=== PATIENT | female | born 1950 | race Caucasian/White ===

== ENCOUNTER → 2017-10-21 11:56 | Outpatient (CLI) | payer MEDICARE, BC, SELFPAY ==
[2017-10-21 12:40] LABS: INR 2.1 (1.0-3.5); Prothrombin Time 19.7 sec (9.3-10.8)
== END ==
PROVIDERS: PCP Family Medicine; Visit Provider Family Medicine
DX: I48.91 Unspecified atrial fibrillation (principal); Z79.01 Long term (current) use of anticoagulants
CPT/HCPCS: 36415; 85610

== ENCOUNTER 2017-12-08 10:43 | Outpatient (CLI) | payer MEDICARE, BC, SELFPAY ==
[2017-12-08 12:56] LABS: Hemoglobin A1C 6.9 % (4.5-6.2)
[2017-12-08 13:07] LABS: INR 2.9 (1.0-3.5)
== END 2017-12-08 11:03 ==
PROVIDERS: PCP Family Medicine; Visit Provider Family Medicine
DX: E11.9 Type 2 diabetes mellitus without complications (principal); I48.91 Unspecified atrial fibrillation; Z79.01 Long term (current) use of anticoagulants
CPT/HCPCS: 36415; 83036; 85610

== ENCOUNTER 2018-02-04 14:14 | Emergency (ER) | payer MEDICARE, BC, SELFPAY ==
[2018-02-04] VITALS (24 sets, daily range): BP systolic 127–161; BP diastolic 43–96; PULSE 55–106; RESP 15–24; TEMP 36.7–36.8; O2SAT 92–100
--- NOTE | 2018-02-04 14:49 | DI.RAD_ITS ---
SYMPTOMS/DIAGNOSIS: COUGH, SHORTNESS OF BREATH, CRACKLES CHEST X-RAY, PA AND LATERAL: Comparison is 04/10/17. The heart is normal in size. The lungs are clear. The mediastinal structures and pleura appear intact. IMPRESSION: Normal chest.
--- NOTE | 2018-02-04 15:10 | NUR.NOTE ---
Assumed care of patient, in NAD, VSS on the monitor. Bedside report received from FANNY German.
[2018-02-04 15:28] LABS: Abs Immature Grans 0.01 k/cumm (0.0-0.09); Absolute Basophil Count 0.09 k/cumm (0.0-0.2); Absolute Eosinophil Count 0.28 k/cumm (0.0-0.7); Absolute Lymphocyte Count 1.26 k/cumm (1.2-3.4); Absolute Monocyte Count 0.85 k/cumm (0.11-0.7); Absolute Neutrophil Count 3.87 k/cumm (1.2-6.7); Basophils % 1.4; Eosinophils % 4.4; HGB 13.7 g/dL (12.0-15.5); Immature Grans % 0.2; Lymphocytes % 19.8; Mean Corp. HGB Concentration 31.1 g/dL (32.0-36.0); Mean Corpuscular Hemoglobin 27.4 pg (27.0-33.0); Mean Platelet Volume 11.2 fL (8.0-11.0); Monocytes % 13.4; Neutrophils % 60.8; Platelet Count 267 x1000/uL (130-400); RBC Distribution Width 14.3 % (11.7-14.6); White Blood Cell Count 6.36 k/cumm (4.4-10.8)
[2018-02-04 15:46] LABS: ALT 25 U/L (12-78); AST 12 U/L (15-37); Albumin 3.6 g/dL (3.4-5.0); Alkaline Phosphatase 58 U/L (46-116); Anion Gap 9.3 mmol/L (3-11); BUN 18 mg/dL (7-18); Bilirubin, Total 0.7 mg/dL (0.2-1.0); CO2 30.7 mmol/L (21.0-32.0); CREATININE 0.84 mg/dL (0.55-1.02); Calcium 8.4 mg/dL (8.5-10.1); Chloride 102 mmol/L (98-107); Glucose 128 mg/dL (70-100); Potassium 3.8 mmol/L (3.5-5.1); Sodium 142 mmol/L (136-145); TSH 2.32 uIU/mL (0.358-3.74); Total Protein 7.8 g/dL (6.4-8.2); Troponin I 0.02 ng/mL (0.00-0.06)
--- NOTE | 2018-02-04 15:52 | NUR.NOTE ---
pt. ambulated with contact guard in the hallway, steady gait, maintained 02 sat 95-96% on RA, pt. denies current back pain, states it's worse when she moves her shoulders up and down, when I'm shoveling maybe. Minimal insp. wheezing noted while ambulating. MD Edmondson aware.
[2018-02-04 15:59] LABS: Prothrombin Time 18.3 sec (9.3-10.8)
[2018-02-04] MEDS: Albuterol/Ipratropium 3 ML UPD VIAL UPD (15:59)
[2018-02-04] MEDS: methylPREDNISolone SUCC 125 MG VIAL IVP (16:03)
[2018-02-04 16:04] LABS: INR 1.9 (1.0-3.5)
--- NOTE | 2018-02-04 17:07 | ED.GENADUL_ITS ---
Discharge Plan Disposition Patient Disposition: HOME Condition: Good Discharge Details Chief Complaint: SOB Clinical Impression: Mild reactive airways disease Primary Care Provider: Maico Leonard ED Provider: Anthony Edmondson Home Meds and New Rx's Prescriptions: No Action acetaminophen [Tylenol Extra Strength] 500 MG tablet 2 tab PO HS PRNRF: 0 BIPAP RF: 0 albuterol sulfate [ProAir HFA] 8.5 GM HFA aerosol inhaler 2 puff Inhalation Q4H PRN Qty: 3 RF: 4 triamcinolone acetonide 60 ML lotion 60 ml Topical BID prn Qty: 60 RF: 1 simvastatin 10 MG tablet 10 mg PO HS Qty: 90 RF: 4 warfarin 5 MG tablet 1 - 3 tab-cap PO HS Qty: 90 RF: 11 bupropion HCl [Wellbutrin SR] 150 MG tablet extended release 12 hr 150 mg PO BID Qty: 180 RF: 4 tolterodine [Detrol LA] 4 MG capsule,extended release 24hr 1 tab PO DAILY Qty: 90 RF: 4 glipizide [Glucotrol XL] 2.5 MG tablet extended release 24hr 2.5 mg PO QAM Qty: 90 RF: 4 paroxetine HCl [Paxil] 20 MG tablet 20 mg PO DAILY Qty: 90 RF: 4 Metoprolol Succinate 25 MG TAB.ER.24H 25 - 50 mg PO DAILY Qty: 100 RF: 4 ciprofloxacin-dexamethasone [Ciprodex] 7.5 ML drops,suspension 3 drp BID PRN Qty: 1 RF: 2 losartan 100 MG tablet 100 mg PO DAILY Qty: 90 RF: 3 aspirin 81 MG tablet,chewable 81 mg PO DAILY Qty: 90 RF: 0 magnesium amino acid chelate 100 MG tablet 500 mg PO DAILY RF: 0 blood sugar diagnostic [Blood Glucose Test] 1 EACH strip 1 strip Miscellaneous DAILY Qty: 100 RF: 4 lancets 1 EACH misc 1 ea Miscellaneous DAILY Qty: 100 RF: 4 nystatin 15 GM cream 15 gm Topical BID Qty: 3 RF: 0 esomeprazole magnesium [Nexium] 40 mg capsule,delayed release(DR/EC) 40 mg PO DAILY Qty: 90 RF: 4 Discharge Instructions Instructions: Reactive Airways Disease (ED) Additional Instructions: Please take your inhaler every 4-6 hours for the next 48 hours. We will hold off on additional steroids since your diabetic. Please continue to take your home medications as directed. If you notice any worsening of your symptoms, or any new symptoms such as vomiting, diarrhea, fever, chills, shortness of breath, chest pain, numbness, weakness, or fainting , please return immediately to the emergency department for reevaluation. Please follow up with your primary care provider as soon as possible for reassessment and reevaluation. As always, it was a pleasure participating in your medical care today. Referrals: Maico Leonard [Primary Care Provider] - Medical Decision Making This is a 67-year-old female who presents today for evaluation of mild shortness of breath. Patient symptoms have been present for the last 3 days, she denies any significant or severe cough. She does state that she has a slight decrease in a regular energy, but denies any other complaints. She is on Coumadin for atrial fibrillation. Physical exam demonstrated no significant abnormalities with stable vital signs, however when we did get the patient up to ambulate her we did notice a very small wheeze. In spite of this we did ambulate her and her saturations remained above 96% with no evidence of tachycardia whatsoever. We did give the patient a breathing treatment and she noted a significant improvement of her symptomatology. Additionally we gave her 1 dose of steroids here in the emergency department for potential mild reactive airway disease. Patient's laboratory workup returned benign, troponin normal, E KG benign with a right bundle branch block that is consistent with prior EKGs. Chest x-ray is negative for any acute process. Troponin is normal, d-dimer is negative, and with no vital sign abnormalities or other significant risk factors for PE I feel that this can safely rule out a pulmonary embolism at this time. After the breathing treatment the patient felt much better and on reassessment s he was requesting to be discharged home. I do feel that this is very reasonable, I do not think that admission is indicated at this time. I feel her symptoms most likely secondary to mild reactive airway disease, and we will recommend continued albuterol use every 4 to 6 hours for the next 48 hours. We will hold off on additional outpatient steroid secondary to the patient's history of diabetes. I had a long discussion with the patient regarding red flags for which to immediately return and the patient understands. I have extensively reviewed the treatment plan and discharge instructions with the patient and their family. I have addressed all patient concerns at this time. The patient and family was made aware of what symptoms to monitor for that would warrant a return to the emergency department. Discussed the plan with the patient and family, they demonstrate verbal understanding and agreement with our assessment and plan at this time. EKG 14: 20 Rate 67, sinus rhythm, right bundle branch block, MN 132, QTc 437, QRS 162. No significant ST elevations or depressions, inverted T wave in V1 V2 and V3, no acute changes from prior EKG on 04/10/17. CHEST X-RAY, PA AND LATERAL: Comparison is 04/10/17. The heart is normal in size. The lungs are clear. The mediastinal structures and pleura appear intact. IMPRESSION: Normal chest. HPI General Date/Time Provider Initiated Documentation: 02/04/18 14:36 . HPI Narrative: This is a 67-year-old female with a past medical history of hypertension, high cholesterol, A. fib on Coumadin, who uses BiPAP at home, as well as reactive airway disease who presents today for evaluation of mild shortness of breath, and decreased energy. She is more short of breath when she exerts herself, however she denies any associated chest pain, pleuritic chest pain, tearing sensation in her back or chest, Cough, hemoptysis, fever or chills. She denies any radiation of pain to her arm or neck. She does have some mild associated back pain, which she states started after she chopped a lot of wood yesterday. She denies any radiation of that back pain to her chest. She states that it feels like it is in the muscles, and worsened with use of her back. Patient has taken a breathing treatment at home and has noted some improvement with this. The patient denies any cardiac history, family history of cardiac disease, or exertional chest discomfort. Denies PE risk factors such as recent long car rides, immobilization, recent surgery, prior history of DVT or PE, family history of PE or DVT, morbid obesity, exogenous estrogen and smoking, hemoptysis, history of cancer. Patient has no other complaints at this time. Related Data Home Medications Medication Instructions Recorded Confirmed acetaminophen [Tylenol Extra 2 tab PO HS PRN 06/11/12 12/08/17 Strength] Bipap 01/23/15 12/08/17 albuterol sulfate [ProAir HFA] 2 puff INHALATION Q4H PRN #3 01/23/15 12/08/17 inhaler triamcinolone acetonide 60 ml TOPICAL BID prn #60 ml 05/26/15 12/08/17 simvastatin 10 mg PO HS #90 tab-cap 03/10/17 12/08/17 warfarin 1 - 3 tab-cap PO HS #90 tab-cap 03/10/17 12/08/17 bupropion HCl [Wellbutrin SR] 150 mg PO BID #180 tab 03/13/17 12/08/17 glipizide [Glucotrol XL] 2.5 mg PO QAM #90 tab-cap 03/13/17 12/08/17 paroxetine HCl [Paxil] 20 mg PO DAILY #90 tab 03/13/17 12/08/17 tolterodine [Detrol LA] 1 tab PO DAILY #90 tab 03/13/17 12/08/17 ciprofloxacin-dexamethasone 3 drp BID PRN #1 bottle 04/17/17 12/08/17 [Ciprodex] losartan 100 mg PO DAILY #90 tab-cap 04/17/17 12/08/17 aspirin 81 mg PO DAILY #90 tab-cap 05/06/17 12/08/17 magnesium amino acid chelate 500 mg PO DAILY 05/08/17 12/08/17 blood sugar diagnostic [Glucose #100 strip 06/09/17 12/08/17 Test Strip] lancets #100 ea 06/09/17 12/08/17 nystatin 15 gm TOPICAL BID #3 bottle 08/05/17 12/08/17 esomeprazole magnesium 40 mg 40 mg PO DAILY #90 tab-cap 11/26/17 12/08/17 capsule,delayed release Previous Rx's Medication Instructions Recorded simvastatin 10 mg PO HS #90 tab-cap 03/10/17 warfarin 1 - 3 tab-cap PO HS #90 tab-cap 03/10/17 bupropion HCl [Wellbutrin SR] 150 mg PO BID #180 tab 03/13/17 glipizide [Glucotrol XL] 2.5 mg PO QAM #90 tab-cap 03/13/17 paroxetine HCl [Paxil] 20 mg PO DAILY #90 tab 03/13/17 tolterodine [Detrol LA] 1 tab PO DAILY #90 tab 03/13/17 ciprofloxacin-dexamethasone 3 drp BID PRN #1 bottle 04/17/17 [Ciprodex] losartan 100 mg PO DAILY #90 tab-cap 04/17/17 aspirin 81 mg PO DAILY #90 tab-cap 05/06/17 blood sugar diagnostic [Glucose #100 strip 06/09/17 Test Strip] lancets #100 ea 06/09/17 nystatin 15 gm TOPICAL BID #3 bottle 08/05/17 esomeprazole magnesium 40 mg 40 mg PO DAILY #90 tab-cap 11/26/17 capsule,delayed release Allergies Allergy/AdvReac Type Severity Reaction Status Date / Time cefuroxime Allergy Severe HIVES Unverified 02/04/18 14:26 latex Allergy Severe RASH Unverified 02/04/18 14:26 Penicillins Allergy Severe SEVERE Unverified 02/04/18 14:26 HIVES Sulfa (Sulfonamide Allergy Severe SEVERE Unverified 02/04/18 14:26 Antibiotics) HIVES ciprofloxacin Allergy Mild TOPICAL Unverified 02/04/18 14:26 IRRITATION adhesive AdvReac Intermediate SKIN Unverified 02/04/18 14:26 COMES OFF caffeine AdvReac Intermediate CHEST PAIN Unverified 02/04/18 14:26 lisinopril AdvReac Mild COUGH Unverified 02/04/18 14:26 metformin AdvReac Mild diarrhea Unverified 02/04/18 14:26 General Stated Complaint: SOB KOTA: 2 Review of Systems Review of Systems All systems reviewed & are unremarkable except as noted in HPI and below PFSH Atrial flutter DM (diabetes mellitus) GERD (gastroesophageal reflux disease) 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 Grandfather No problems noted. Grandmother Personal history of malignant neoplasm Grandmother No problems noted. Sister Essential hypertension Chronic obstructive lung disease Asthma Brother Heart disease Hyperlipidemia Stroke Brother Human immunodeficiency virus (HIV) positive Daughter No problems noted. Social History household members: spouse current occupational status: retired Smoking/Tobacco Use Status: Former Tobacco Use alcohol intake: never substance use type: does not use special tata needs: No Exam Narrative Exam Narrative: 1.Const: Well-nourished, Well-developed, appearing stated age 2.Eyes: PERRL, no conjunctival injection, and symmetrical lids. 3.ENT: Atraumatic external nose and ears. Moist MM. Neck: Symmetric, trachea midline, No thyromegaly. 4.CVS: +S1/S2, No murmurs or gallops. Peripheral pulses 2+ and equal in all extremities. Brisk capillary refill in all extremities. 5.RESP: Unlabored respiratory effort. Clear to auscultation bilaterally. No wheezes rales or rhonchi on initial exam however when we did get the patient up and ambulated her she did demonstrate a very mild wheeze, this was very minimal at best. 6.GI: Soft, Nontender/Nondistended, No hepatosplenomegaly. No guarding or rebound. 7.MSK: Normocephalic/Atraumatic, Extremities w/o deformity or ttp No cyanosis or clubbing, Normal movement of all extremities. No calf tenderness. Negative Homans sign. 8.Skin: Warm, Dry. No rashes or lesions. 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 Sensation grossly intact, no focal neurolog ic deficits. 10.Psych: (AAO) x3. Appropriate mood and affect Course Vital Signs Temperature 36.8 C 02/04/18 14:20 Pulse 70 02/04/18 14:20 Respiratory Rate 16 02/04/18 14:20 Blood Pressure 153/65 H 02/04/18 14:20 Pulse Oximetry 95 02/04/18 14:20 Temperature 36.7 C 02/04/18 14:40 Temperature Source Temporal Artery Scan 02/04/18 14:40 Pulse 65 02/04/18 14:40 Respiratory Rate 16 02/04/18 14:43 Respiratory Effort 02/04/18 14:43 Respiratory Depth Normal 02/04/18 14:43 Respiratory Pattern Normal 02/04/18 14:43 Blood Pressure 127/96 H 02/04/18 14:40 Blood Pressure Position Sitting 02/04/18 14:20 Pulse Oximetry 95 02/04/18 14:40 Oxygen Delivery Method Room Air 02/04/18 14:40 Oxygen Flow Rate 0 02/04/18 14:40 Pain Level 0 02/04/18 14:40 Lab/Test Results Lab/Test Results: Laboratory Tests Range/Units 02/04/18 02/04/18 02/04/18 14:40 14:40 14:40 WBC (4.4-10.8) k/cumm 6.36 RBC (4.00-5.20) m/cumm 5.00 Hgb (12.0-15.5) g/dL 13.7 Hct (36.0-46.0) % 44.0 MCV (80-95) fL 88.0 MCH (27.0-33.0) pg 27.4 MCHC (32.0-36.0) g/dL 31.1 L RDW (11.7-14.6) % 14.3 Plt Count (130-400) x1000/uL 267 MPV (8.0-11.0) fL 11.2 H Immature Gran % 0.2 Neutrophils % 60.8 Lymphocytes % 19.8 Monocytes % 13.4 Eosinophils % 4.4 Basophils % 1.4 Absolute Neutrophils (1.2-6.7) k/cumm 3.87 Absolute Lymphocytes (1.2-3.4) k/cumm 1.26 Absolute Monocytes (0.11-0.7) k/cumm 0.85 H Absolute Eosinophils (0.0-0.7) k/cumm 0.28 Absolute Basophils (0.0-0.2) k/cumm 0.09 PT (9.3-10.8) sec 18.3 H INR (1.0-3.5) 1.9 APTT (21.0-31.4) sec 32.0 H Sodium (136-145) mmol/L 142 Potassium (3.5-5.1) mmol/L 3.8 Chloride (98-107) mmol/L 102 Carbon Dioxide (21.0-32.0) mmol/L 30.7 Anion Gap (3-11) mmol/L 9.3 BUN (7-18) mg/dL 18 Creatinine (0.55-1.02) mg/dL 0.84 Estimated GFR/1.73 m2 (mL/min/1.73m2) >= 60.00 Glucose (70-100) mg/dL 128 H Calcium (8.5-10.1) mg/dL 8.4 L Total Bilirubin (0.2-1.0) mg/dL 0.7 AST (15-37) U/L 12 L ALT (12-78) U/L 25 Alkaline Phosphatase (46-116) U/L 58 Troponin I (0.00-0.06) ng/mL 0.02 Total Protein (6.4-8.2) g/dL 7.8 Albumin (3.4-5.0) g/dL 3.6 TSH (0.358-3.74) uIU/mL 2.32
== END 2018-02-04 17:19 | disposition home or self-care (01) ==
PROVIDERS: Emergency Provider Student in an Organized Health Care Education/Training Program; PCP Family Medicine
DX: J45.909 Unspecified asthma, uncomplicated (principal)
CPT/HCPCS: 36415; 80053; 93005; 99285; 71046; 81003; 84443; 84484; 85025; 85610; 85730; 93010; J2930; J7620

== ENCOUNTER 2018-03-17 11:34 | Outpatient (CLI) | payer MEDICARE, BC, SELFPAY ==
[2018-03-17 12:14] LABS: INR 2.2 (0.9-1.1); Prothrombin Time 21.7 sec (9.3-11.0)
== END 2018-03-17 11:54 ==
PROVIDERS: PCP Family Medicine; Visit Provider Family Medicine
DX: I48.91 Unspecified atrial fibrillation (principal); Z79.01 Long term (current) use of anticoagulants
CPT/HCPCS: 36415; 85610

== ENCOUNTER 2018-05-13 13:50 | Outpatient (CLI) | payer MEDICARE, BC, SELFPAY ==
[2018-05-13 14:54] LABS: INR 2.4 (0.9-1.1); Prothrombin Time 24.5 sec (9.3-11.0)
== END 2018-05-13 14:10 ==
PROVIDERS: PCP Family Medicine; Visit Provider Family Medicine
DX: I48.91 Unspecified atrial fibrillation (principal); Z79.01 Long term (current) use of anticoagulants
CPT/HCPCS: 36415; 85610

== ENCOUNTER 2018-06-11 12:31 | Outpatient (CLI) | payer MEDICARE, BC, SELFPAY ==
--- NOTE | 2018-06-11 15:32 | DI.RAD_ITS ---
SYMPTOMS/DIAGNOSIS: RIGHT HIP AND LOW BACK PAIN, M25.551, PAIN IN GLUTEUS ROBBY RIGHT HIP AND PELVIS: Three views were obtained. Note is made of an apparent calcified uterine fibroid. There is narrowing of the cartilaginous joint spaces of both hips superiorly. Mild hypertrophic spurring of the acetabula noted bilaterally. CONCLUSION: Moderate DJD, both hips.
== END 2018-06-11 12:51 ==
PROVIDERS: PCP Family Medicine; Visit Provider Family Medicine
DX: M25.551 Pain in right hip (principal); M54.5 Low back pain; M16.0 Bilateral primary osteoarthritis of hip; D25.9 Leiomyoma of uterus, unspecified
CPT/HCPCS: 73502

== ENCOUNTER → 2018-06-29 10:42 | Outpatient (BNVA) | payer MEDICARE, BC, SELFPAY | PROVIDERS: PCP Family Medicine; Referring Provider Family Medicine; Visit Provider Orthopaedic Surgery | DX: M70.61 Trochanteric bursitis, right hip (principal) | CPT/HCPCS: 99213; 99214 ==

== ENCOUNTER 2018-07-03 07:50 | Emergency (ER) | payer MEDICARE, BC, SELFPAY ==
[2018-07-03 07:54] VITALS: BP 164/87; PULSE 68; RESP 20; TEMP 36.8; O2SAT 95
--- NOTE | 2018-07-03 08:03 | W.ED.GENAD ---
Discharge Plan Disposition Patient Disposition: HOME Condition: Good Discharge Details Chief Complaint: Orthopedic Clinical Impression: Right ankle sprain Primary Care Provider: Maico Leonard ED Provider: Anthony Edmondson Home Meds and New Rx's Prescriptions: No Action glipizide [Glucotrol XL] 2.5 mg tablet extended release 24hr 2.5 mg PO QAM Qty: 90 RF: 4 bupropion HCl [Wellbutrin SR] 150 mg tablet sustained-release 12 hr 150 mg PO BID Qty: 180 RF: 4 metoprolol succinate 25 mg tablet extended release 24 hr 25 mg PO DAILY Qty: 90 RF: 3 paroxetine HCl [Paxil] 20 mg tablet 20 mg PO DAILY Qty: 90 RF: 4 tolterodine [Detrol LA] 4 mg capsule,extended release 24hr 4 mg PO DAILY Qty: 90 RF: 4 warfarin 5 mg tablet 5 - 15 mg PO HS Qty: 270 RF: 3 lancets 28 gauge misc 1 ea Miscellaneous DAILY Qty: 100 RF: 4 Blood Glucose Test strip 1 strip Miscellaneous DAILY Qty: 100 RF: 4 prednisone 5 mg tablet 5 mg PO DAILY RF: 0 acetaminophen [Tylenol Extra Strength] 500 MG tablet 2 tab PO HS PRNRF: 0 BIPAP RF: 0 albuterol sulfate [ProAir HFA] 8.5 GM HFA aerosol inhaler 2 puff Inhalation Q4H PRN Qty: 3 RF: 4 triamcinolone acetonide 60 ML lotion 60 ml Topical BID prn Qty: 60 RF: 1 Ciprodex 7.5 ML drops,suspension 3 drp BID PRN Qty: 1 RF: 2 aspirin 81 MG tablet,chewable 81 mg PO DAILY Qty: 90 RF: 0 magnesium amino acid chelate 100 MG tablet 500 mg PO DAILY RF: 0 nystatin 15 GM cream 15 gm Topical BID Qty: 3 RF: 0 esomeprazole magnesium [Nexium] 40 mg capsule,delayed release(DR/EC) 40 mg PO DAILY Qty: 90 RF: 4 losartan 100 mg tablet 100 mg PO DAILY Qty: 90 RF: 3 simvastatin 10 mg tablet 10 mg PO HS Qty: 90 RF: 4 Discharge Instructions Instructions: Ankle Sprain (ED) Additional Instructions: Please continue to use ice frequently, take Tylenol, maximum of 1000 mg every 6 hours. Remain nonweightbearing for the next week until you are seen and reassessed by her primary care provider. Please use the crutches at all times. If you notice any worsening of your symptoms, or any new symptoms such as vomiting, diarrhea, fever, chills, shortness of breath, chest pain, numbness, weakness, or fainting , please return immediately to the emergency department for reevaluation. Please follow up with your primary care provider as soon as possible for reassessment and reevaluation. As always, it was a pleasure participating in your medical care today. Referrals: Maico Leonard [Primary Care Provider] - Medical Decision Making This is a pleasant 68-year-old female who presents today for evaluation of right ankle and heel pain. Patient states that for the last 3 days she has had pain in the lateral aspect of the right calcaneus. Worse when she bears weight, and with palpation. She had vigorous outdoor activity on uneven surfaces 3 days ago prior to the onset of the symptoms. She denies any specific inciting event or specific injury though. Exam demonstrates mild swelling and bruising over the lateral aspect of the foot by the calcaneus. Tenderness is only present there, no actual pain on movement of the ankle. No significant pain on the ball of the foot or the plantar aspect of the calcaneus. Signs and symptoms appear consistent for contusion, potential ligamentous injury, or atypical lateral fasciitis secondary to inflammation. There is no asymmetric warmth, the patient has no fever or tachycardia. Signs and symptoms are inconsistent with significant cellulitis. Patient is on Coumadin, no calf tenderness, I do not suspect blood clot. We will get an x-ray to rule out acute fracture. 8:35 AM Review of x-ray reveals no evidence of significant or acute fracture. X-ray results per virtual radiology are negative for any acute process. I suspect the patient's symptoms are most likely from mild ligamentous sprain, followed by contusion and subsequent irritation. Will recommend continued ice, Tylenol, and Yoandy wrap with crutches use at home. Patient already has crutches. We discussed the importance of close follow-up, as well as red flags which to return. I have extensively reviewed the treatment plan and discharge instructions with the patient. I have addressed all patient concerns at this time. The patient was made aware of what symptoms to monitor for that would warrant a return to the emergency department. Discussed the plan with the patient, they demonstrate verbal understanding and agreement with our assessment and plan at this time. TECHNIQUE: Imaging protocol: XR Right ankle. Views: 3 or more views. COMPARISON: No relevant prior studies available. FINDINGS: Bones/joints: Degenerative changes in the medial and lateral malleolus There is no evidence of acute fracture. There is no evidence of malalignment or dislocation. Soft tissues: Bimalleolar soft tissue swelling. IMPRESSION: 1. Bimalleolar soft tissue swelling. 2. There is no evidence of acute fracture. Thank you for allowing us to participate in the care of your patient. Dictated and Authenticated by: Aditya Smith MD 07/03/2018 8:46 AM Eastern Time ([place] & [place]) HPI General Date/Time Provider Initiated Documentation: 07/03/18 07:54. HPI Narrative: This is a 68-year-old female with a past medical history of hypertension, high cholesterol, A. fib on Coumadin, who uses BiPAP at home, as well as reactive airway disease, and one episode of gout in the past who presents today for evaluation of right ankle and heel pain. She states that the pain is been present for the last 3 days. She did do an excessive amount of outdoor activity on unstable ground just prior to when the symptoms began 3 days ago, but she does not recall any inciting event, twisting her ankle, or trauma. She has been on steroids for right hip bursitis for the past few days, but denies any other new medications. She denies any numbness tingling or weakness. Pain is made worse with movement or bearing weight on the foot, primarily the heel. She has not taken any NSAIDs. She denies any pain in the knee robertson or thigh. She states that this does not feel like her previous episode of gout. She has no other complaints modifying factors at this time. She denies any previous surgeries or injuries to the ankle. Related Data Home Medications Medication Instructions Recorded Confirmed acetaminophen [Tylenol Extra 2 tab PO HS PRN 06/11/12 07/03/18 Strength] Bipap 01/23/15 06/29/18 albuterol sulfate [ProAir HFA] 2 puff INHALATION Q4H PRN #3 01/23/15 07/03/18 inhaler triamcinolone acetonide 60 ml TOPICAL BID prn #60 ml 05/26/15 07/03/18 Ciprodex 3 drp BID PRN #1 bottle 04/17/17 07/03/18 aspirin 81 mg PO DAILY #90 tab-cap 05/06/17 07/03/18 magnesium amino acid chelate 500 mg PO DAILY 05/08/17 07/03/18 nystatin 15 gm TOPICAL BID #3 bottle 08/05/17 07/03/18 esomeprazole magnesium 40 mg 40 mg PO DAILY #90 tab-cap 11/26/17 07/03/18 capsule,delayed release losartan 100 mg tablet 100 mg PO DAILY #90 tab-cap 02/24/18 07/03/18 simvastatin 10 mg tablet 10 mg PO HS #90 tab-cap 05/20/18 07/03/18 blood sugar diagnostic strips #100 each 06/11/18 06/29/18 bupropion HCl SR 150 mg tablet,12 150 mg PO BID #180 tab 06/11/18 07/03/18 hr sustained-release glipizide ER 2.5 mg tablet, 2.5 mg PO QAM #90 tab-cap 06/11/18 07/03/18 extended release 24 hr lancets 28 gauge #100 ea 06/11/18 06/29/18 metoprolol succinate ER 25 mg 25 mg PO DAILY #90 tab 06/11/18 07/03/18 tablet,extended release 24 hr paroxetine 20 mg tablet 20 mg PO DAILY #90 tab 06/11/18 07/03/18 tolterodine ER 4 mg 4 mg PO DAILY #90 tab 06/11/18 07/03/18 capsule,extended release 24 hr warfarin 5 mg tablet 5 - 15 mg PO HS #270 tab-cap 06/11/18 07/03/18 prednisone 5 mg tablet 5 mg PO DAILY 06/29/18 07/03/18 Previous Rx's Medication Instructions Recorded Ciprodex 3 drp BID PRN #1 bottle 04/17/17 aspirin 81 mg PO DAILY #90 tab-cap 05/06/17 nystatin 15 gm TOPICAL BID #3 bottle 08/05/17 esomeprazole magnesium 40 mg 40 mg PO DAILY #90 tab-cap 11/26/17 capsule,delayed release losartan 100 mg tablet 100 mg PO DAILY #90 tab-cap 02/24/18 simvastatin 10 mg tablet 10 mg PO HS #90 tab-cap 05/20/18 blood sugar diagnostic strips #100 each 06/11/18 bupropion HCl SR 150 mg tablet,12 150 mg PO BID #180 tab 06/11/18 hr sustained-release glipizide ER 2.5 mg tablet, 2.5 mg PO QAM #90 tab-cap 06/11/18 extended release 24 hr lancets 28 gauge #100 ea 06/11/18 metoprolol succinate ER 25 mg 25 mg PO DAILY #90 tab 06/11/18 tablet,extended release 24 hr paroxetine 20 mg tablet 20 mg PO DAILY #90 tab 06/11/18 tolterodine ER 4 mg 4 mg PO DAILY #90 tab 06/11/18 capsule,extended release 24 hr warfarin 5 mg tablet 5 - 15 mg PO HS #270 tab-cap 06/11/18 Allergies Allergy/AdvReac Type Severity Reaction Status Date / Time cefuroxime Allergy Severe HIVES Verified 07/03/18 07:57 latex Allergy Severe RASH Verified 07/03/18 07:57 Penicillins Allergy Severe SEVERE Verified 07/03/18 07:57 HIVES Sulfa (Sulfonamide Allergy Severe SEVERE Verified 07/03/18 07:57 Antibiotics) HIVES ciprofloxacin Allergy Mild TOPICAL Verified 07/03/18 07:57 IRRITATION adhesive AdvReac Intermediate SKIN Verified 07/03/18 07:57 COMES OFF caffeine AdvReac Intermediate CHEST PAIN Verified 07/03/18 07:57 lisinopril AdvReac Mild COUGH Verified 07/03/18 07:57 metformin AdvReac Mild diarrhea Verified 07/03/18 07:57 General Stated Complaint: Orthopedic KOTA: 3 Review of Systems Review of Systems All systems reviewed & are unremarkable except as noted in HPI and below PFSH Social History Smoking/Tobacco Use Status: Former Tobacco Use Quit Date: 05/24/98 Alcohol Intake: never Drug use: Never Substance use type: does not use Household members: spouse Housing: house Communication Needs: Hard of Hearing Pets and animals: No Sexually active: No Do you think of yourself as: lesbian/doshi/homosexual Current gender identity: female What is your relationship status?: How often do you talk on the phone with friends or family?: decline to answer How often do you get together with friends or relatives?: decline to answer How often do you attend cheondoism or pentecostal services?: decline to answer Do you belong to any clubs or organized social groups?: decline to answer Panel score (0-1 are the most socially isolated patients): 1 What type of physical activity do you participate in: none Randi/Rastafarian: None Special randi needs: No Seatbelt use: sometimes Helmet use: No Drive intox or ride w/intox pack train 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 Exam Narrative Exam Narrative: 1.Const: Well-nourished, Well-developed, appearing stated age 2.Eyes: PERRL, no conjunctival injection, and symmetrical lids. 3.ENT: Atraumatic external nose and ears. Moist MM. Neck: Symmetric, trachea midline, No thyromegaly. 4.CVS: +S1/S2, No murmurs or gallops. Peripheral pulses 2+ and equal in all extremities. Brisk capillary refill in all extremities. 5.RESP: Unlabored respiratory effort. Clear to auscultation bilaterally. No wheezes rales or rhonchi 6.GI: Soft, Nontender/Nondistended, No hepatosplenomegaly. No guarding or rebound. 7.MSK: Normocephalic/Atraumatic, Extremities w/o deformity. No cyanosis or clubbing, Normal movement of all extremities. Patient's right ankle demonstrates mild bruising and swelling inferior to the lateral malleoli, and around the lateral heel. Notable tenderness on palpation to the lateral aspect of the calcaneus. No tenderness over the lateral malleoli, or midfoot. No pain in the rest of the foot. No pain with ankle inversion or eversion. Anterior and posterior drawer are negative for laxity. No significant ligamentous laxity. Normal sensation, normal movement of toes, brisk capillary refill. Dorsalis pedis +2. 8.Skin: Warm, Dry. No rashes or lesions. Please see musculoskeletal 9.Neuro: fluid power mechanic II-XII grossly intact. Sensation grossly intact, no focal neurologic deficits. 10.Psych: (AAO) x3. Appropriate mood and affect Course Vital Signs Temperature 36.8 C 07/03/18 07:54 Pulse 68 07/03/18 07:54 Respiratory Rate 20 07/03/18 07:54 Blood Pressure 164/87 H 07/03/18 07:54 Pulse Oximetry 95 07/03/18 07:54 Temperature 36.8 C 07/03/18 07:54 Temperature Source Temporal Artery Scan 07/03/18 07:54 Pulse 68 07/03/18 07:54 Respiratory Rate 20 07/03/18 07:54 Respiratory Effort Non-Labored 07/03/18 07:54 Blood Pressure 164/87 H 07/03/18 07:54 Pulse Oximetry 95 07/03/18 07:54 Oxygen Delivery Method Room Air 07/03/18 07:54 Oxygen Flow Rate 0 07/03/18 07:54 Pain Level 10 07/03/18 07:57
[2018-07-03] MEDS: Acetaminophen 500 MG TAB (08:16)
--- NOTE | 2018-07-03 08:25 | DI.RAD_ITS ---
SYMPTOMS/DIAGNOSIS: PAIN OVER LATERAL ANKLE AND CALCANEUS RIGHT ANKLE: There is spurring from the malleoli as well as calcaneus. No fracture or ankle mortise widening is seen. No talar dome defects are identified. IMPRESSION: Degenerative changes. No acute abnormality.
--- NOTE | 2018-07-03 08:47 | DI.VRAD_ITS ---
EXAM: XR Right Ankle Complete, 3 or more Views EXAM DATE/TIME: 07/03/2018 8:03 AM CLINICAL HISTORY: 68 years old, female; Patient HX: Pain over right lateral ankle and calcaneus. TECHNIQUE: Imaging protocol: XR Right ankle. Views: 3 or more views. COMPARISON: No relevant prior studies available. FINDINGS: Bones/joints: Degenerative changes in the medial and lateral malleolus There is no evidence of acute fracture. There is no evidence of malalignment or dislocation. Soft tissues: Bimalleolar soft tissue swelling. IMPRESSION: 1. Bimalleolar soft tissue swelling. 2. There is no evidence of acute fracture. Dictated and Authenticated by: Aditya Smith MD. Ordering:BLAYNE Cruz MD
[2018-07-03 08:50] VITALS: BP 164/87; PULSE 68; RESP 20; TEMP 36.8; O2SAT 95
== END 2018-07-03 08:48 | disposition home or self-care (01) ==
PROVIDERS: Emergency Provider Student in an Organized Health Care Education/Training Program; PCP Family Medicine
DX: S93.401A Sprain of unspecified ligament of right ankle, initial encounter (principal); X50.9XXA Other and unspecified overexertion or strenuous movements or postures, initial encounter; I48.91 Unspecified atrial fibrillation; I10 Essential (primary) hypertension; E11.9 Type 2 diabetes mellitus without complications; Z79.84 Long term (current) use of oral hypoglycemic drugs; Z79.01 Long term (current) use of anticoagulants
CPT/HCPCS: 99283; 73610; 99282

== ENCOUNTER 2018-07-06 09:12 | Outpatient (CLI) | payer MEDICARE, BC, SELFPAY ==
[2018-07-06 10:16] LABS: INR 2.1 (0.9-1.1); Prothrombin Time 21.2 sec (9.3-11.0)
[2018-07-06 10:53] LABS: ESR 13 MM/HR (0-30)
[2018-07-06 11:13] LABS: C-Reactive Protein 0.28 mg/dL (0.0-0.3); Uric Acid 4.5 mg/dL (2.6-6.0)
[2018-07-08 05:15] LABS: Vitamin D 25 Total 12.3 ng/ml (30-100)
== END 2018-07-06 09:32 ==
PROVIDERS: PCP Family Medicine; Visit Provider Internal Medicine
DX: M25.50 Pain in unspecified joint (principal); R79.89 Other specified abnormal findings of blood chemistry; I10 Essential (primary) hypertension; E11.9 Type 2 diabetes mellitus without complications; Z79.84 Long term (current) use of oral hypoglycemic drugs; I48.91 Unspecified atrial fibrillation; Z79.01 Long term (current) use of anticoagulants
CPT/HCPCS: 36415; 82306; 85652; 84550; 85610; 86140

== ENCOUNTER → 2018-08-10 09:16 | Outpatient (BNVA) | payer MEDICARE, BC, SELFPAY | PROVIDERS: PCP Family Medicine; Referring Provider Family Medicine; Visit Provider Orthopaedic Surgery | DX: M70.61 Trochanteric bursitis, right hip (principal); E11.9 Type 2 diabetes mellitus without complications; Z79.84 Long term (current) use of oral hypoglycemic drugs; I10 Essential (primary) hypertension | CPT/HCPCS: 99212; 99213 ==

== ENCOUNTER 2018-09-03 15:40 | Outpatient (CLI) | payer MEDICARE, BC, SELFPAY ==
[2018-09-03 16:10] LABS: INR 3.3 (0.9-1.1); Prothrombin Time 33.6 sec (9.3-11.0)
== END 2018-09-03 16:00 ==
PROVIDERS: PCP Family Medicine; Visit Provider Family Medicine
DX: I48.91 Unspecified atrial fibrillation (principal); Z79.01 Long term (current) use of anticoagulants
CPT/HCPCS: 36415; 82306; 85610

== ENCOUNTER 2018-09-14 10:47 | Outpatient (CLI) | payer MEDICARE, BC, SELFPAY ==
[2018-09-15 10:33] LABS: Lyme Ab w Rflx to Lyme Confirm Negative
== END 2018-09-14 11:07 ==
PROVIDERS: PCP Family Medicine; Visit Provider Family Medicine
DX: W57.XXXA Bitten or stung by nonvenomous insect and other nonvenomous arthropods, initial encounter (principal); T14.8XXA Other injury of unspecified body region, initial encounter
CPT/HCPCS: 36415; 86618

== ENCOUNTER → 2018-09-21 08:41 | Outpatient (BNVA) | payer MEDICARE, BC, SELFPAY | PROVIDERS: PCP Family Medicine; Referring Provider Family Medicine; Visit Provider Orthopaedic Surgery | DX: M25.551 Pain in right hip (principal); M70.61 Trochanteric bursitis, right hip | CPT/HCPCS: 20610; 99213; J1040 ==

== ENCOUNTER 2018-09-21 09:12 | Outpatient (CLI) | payer MEDICARE, BC, SELFPAY ==
[2018-09-21 11:05] LABS: INR 2.4 (0.9-1.1)
== END 2018-09-21 09:32 ==
PROVIDERS: PCP Family Medicine; Visit Provider Family Medicine
DX: I48.91 Unspecified atrial fibrillation (principal); Z79.01 Long term (current) use of anticoagulants; M70.61 Trochanteric bursitis, right hip; M25.551 Pain in right hip
CPT/HCPCS: 20610; 36415; 99213; 85610; J1040

== ENCOUNTER 2018-10-10 12:08 | Emergency (ER) | payer MEDICARE, BC, SELFPAY ==
[2018-10-10 12:13] VITALS: TEMP 36
--- NOTE | 2018-10-10 13:06 | NUR.NOTE ---
tick removed by this nurse Nursing Note:
--- NOTE | 2018-10-10 13:33 | ED.GENADUL_ITS ---
Discharge Plan Disposition Patient Disposition: HOME Condition: Improving Discharge Details Chief Complaint: GenMedical Clinical Impression: Tick bite, Embedded tick of lower leg Primary Care Provider: Maico Leonard ED Provider: Aura Jones Home Meds and New Rx's Prescriptions: Continued glipizide [Glucotrol XL] 2.5 mg tablet extended release 24hr 2.5 mg PO QAM Qty: 90 RF: 4 bupropion HCl [Wellbutrin SR] 150 mg tablet sustained-release 12 hr 150 mg PO BID Qty: 180 RF: 4 metoprolol succinate 25 mg tablet extended release 24 hr 25 mg PO DAILY Qty: 90 RF: 3 paroxetine HCl [Paxil] 20 mg tablet 20 mg PO DAILY Qty: 90 RF: 4 tolterodine [Detrol LA] 4 mg capsule,extended release 24hr 4 mg PO DAILY Qty: 90 RF: 4 warfarin 5 mg tablet 5 - 15 mg PO HS Qty: 270 RF: 3 (DME) lancets 28 gauge misc 1 ea Miscellaneous DAILY Qty: 100 RF: 4 (DME) Blood Glucose Test strip 1 strip Miscellaneous DAILY Qty: 100 RF: 4 Ciprodex 0.3-0.1 % drops,suspension 3 drp BID PRN Qty: 1 RF: 2 acetaminophen [Tylenol Extra Strength] 500 MG tablet 2 tab PO HS PRNRF: 0 BIPAP RF: 0 albuterol sulfate [ProAir HFA] 8.5 GM HFA aerosol inhaler 2 puff Inhalation Q4H PRN Qty: 3 RF: 4 triamcinolone acetonide 60 ML lotion 60 ml Topical BID prn Qty: 60 RF: 1 aspirin 81 MG tablet,chewable 81 mg PO DAILY Qty: 90 RF: 0 magnesium amino acid chelate 100 MG tablet 500 mg PO DAILY RF: 0 nystatin 15 GM cream 15 gm Topical BID Qty: 3 RF: 0 esomeprazole magnesium [Nexium] 40 mg capsule,delayed release(DR/EC) 40 mg PO DAILY Qty: 90 RF: 4 losartan 100 mg tablet 100 mg PO DAILY Qty: 90 RF: 3 simvastatin 10 mg tablet 10 mg PO HS Qty: 90 RF: 4 cholecalciferol (vitamin D3) 50,000 unit capsule 50,000 unit PO QWEEK Qty: 12 RF: 1 Discharge Instructions Instructions: Tick Bite (ED) Additional Instructions: Wash the area with soap and water and apply topical antibiotic ointment if you develop any pain, local redness or swelling. Follow-up with your primary care doctor for reevaluation if you develop any fever, bull's-eye rash, chills or body aches. Return to the emergency department if you develop any worsening or new concerning symptoms. Discharge Data Discharge Date/Time-TO BE ENTERED AT DEPARTURE: 10/10/18 13:51 Discharge Physician: Aura Jones Medical Decision Making 68-year-old female with a history of atrial flutter, diabetes, hypertension, GERD, obstructive sleep apnea who presents for concern for embedded tick to her left leg. The tick was very tiny approximately 2 mm in size. The tick was removed fully intact by the nurse and was placed in a jar and noted to be actively moving and was eventually disposed of in the toilet. The tick was not noted to be engorged. Patient denies any fever, bull's-eye rash, joint pain or any other acute complaints. She states the tick may have been present for up to 2 days but she states it was not engorged. Discussed with patient that this does not appear consistent with concerns for Lyme disease, but she can follow-up with her primary care doctor if she develops any of the above symptoms. She was instructed on proper wound care. She is advised to return here with any concerns. Medical Records Medical records reviewed: Yes I reviewed the patient's medical records. HPI General Mode of arrival: ambulatory . Date/Time Provider Initiated Documentation: 10/10/18 12:31 . Limitations to Documentation: no limitations . Information obtained by: patient . HPI Narrative: Patient is a 68-year-old female presents with embedded tick to her left leg for possibly up to 2 days. She states she did not notice until tonight. She states she was last walking in the [place] 2 days ago. She states the tick is not engorged. She denies any fever, bull's-eye rash or any other acute complaints. She states she attempted to remove it at home but was unsuccessful. Related Data Home Medications Medication Instructions Recorded Confirmed acetaminophen [Tylenol Extra 2 tab PO HS PRN 06/11/12 10/10/18 Strength] Bipap 01/23/15 09/21/18 albuterol sulfate [ProAir HFA] 2 puff INHALATION Q4H PRN #3 01/23/15 10/10/18 inhaler triamcinolone acetonide 60 ml TOPICAL BID prn #60 ml 05/26/15 10/10/18 aspirin 81 mg PO DAILY #90 tab-cap 05/06/17 10/10/18 magnesium amino acid chelate 500 mg PO DAILY 05/08/17 10/10/18 nystatin 15 gm TOPICAL BID #3 bottle 08/05/17 10/10/18 esomeprazole magnesium 40 mg 40 mg PO DAILY #90 tab-cap 11/26/17 10/10/18 capsule,delayed release losartan 100 mg tablet 100 mg PO DAILY #90 tab-cap 02/24/18 09/21/18 simvastatin 10 mg tablet 10 mg PO HS #90 tab-cap 05/20/18 10/10/18 blood sugar diagnostic #100 each 06/11/18 09/21/18 bupropion HCl 150 mg tablet,12 hr 150 mg PO BID #180 tab 06/11/18 10/10/18 sustained-release glipizide 2.5 mg tablet, extended 2.5 mg PO QAM #90 tab-cap 06/11/18 10/10/18 release 24 hr lancets 28 gauge #100 ea 06/11/18 09/21/18 metoprolol succinate 25 mg 25 mg PO DAILY #90 tab 06/11/18 10/10/18 tablet,extended release 24 hr paroxetine HCl 20 mg tablet 20 mg PO DAILY #90 tab 06/11/18 10/10/18 tolterodine 4 mg capsule,extended 4 mg PO DAILY #90 tab 06/11/18 10/10/18 release 24 hr warfarin 5 mg tablet 5 - 15 mg PO HS #270 tab-cap 06/11/18 10/10/18 ciprofloxacin 0.3 %-dexamethasone 3 drp BID PRN #1 bottle 07/05/18 10/10/18 0.1 % ear drops,suspension cholecalciferol (vitamin D3) 50,000 unit PO QWEEK #12 cap 07/14/18 10/10/18 50,000 unit capsule Previous Rx's Medication Instructions Recorded aspirin 81 mg PO DAILY #90 tab-cap 05/06/17 nystatin 15 gm TOPICAL BID #3 bottle 08/05/17 esomeprazole magnesium 40 mg 40 mg PO DAILY #90 tab-cap 11/26/17 capsule,delayed release losartan 100 mg tablet 100 mg PO DAILY #90 tab-cap 02/24/18 simvastatin 10 mg tablet 10 mg PO HS #90 tab-cap 05/20/18 blood sugar diagnostic #100 each 06/11/18 bupropion HCl 150 mg tablet,12 hr 150 mg PO BID #180 tab 06/11/18 sustained-release glipizide 2.5 mg tablet, extended 2.5 mg PO QAM #90 tab-cap 06/11/18 release 24 hr lancets 28 gauge #100 ea 06/11/18 metoprolol succinate 25 mg 25 mg PO DAILY #90 tab 06/11/18 tablet,extended release 24 hr paroxetine HCl 20 mg tablet 20 mg PO DAILY #90 tab 06/11/18 tolterodine 4 mg capsule,extended 4 mg PO DAILY #90 tab 06/11/18 release 24 hr warfarin 5 mg tablet 5 - 15 mg PO HS #270 tab-cap 06/11/18 ciprofloxacin 0.3 %-dexamethasone 3 drp BID PRN #1 bottle 07/05/18 0.1 % ear drops,suspension cholecalciferol (vitamin D3) 50,000 unit PO QWEEK #12 cap 07/14/18 50,000 unit capsule Allergies Allergy/AdvReac Type Severity Reaction Status Date / Time cefuroxime Allergy Severe HIVES Verified 09/21/18 08:49 latex Allergy Severe RASH Verified 09/21/18 08:49 Penicillins Allergy Severe SEVERE Verified 09/21/18 08:49 HIVES Sulfa (Sulfonamide Allergy Severe SEVERE Verified 09/21/18 08:49 Antibiotics) HIVES ciprofloxacin Allergy Mild TOPICAL Verified 09/21/18 08:49 IRRITATION adhesive AdvReac Intermediate SKIN Verified 09/21/18 08:49 COMES OFF caffeine AdvReac Intermediate CHEST PAIN Verified 09/21/18 08:49 lisinopril AdvReac Mild COUGH Verified 09/21/18 08:49 metformin AdvReac Mild diarrhea Verified 09/21/18 08:49 General Stated Complaint: GenMedical KOTA: 5 Review of Systems Review of Systems All systems reviewed & are unremarkable except as noted in HPI and below Constitutional Reports as per HPI, Denies chills and Denies fever(s) Eyes Denies blurry vision ENT Denies dizziness, Denies sore throat and Denies throat swelling Cardiovascular Denies chest pain and Denies dyspnea Respiratory Denies cough and Denies dyspnea Gastrointestinal Denies abdominal pain, Denies diarrhea and Denies vomiting Genitourinary Denies hematuria and Denies dysuria Musculoskeletal Denies back pain and Denies numbness Integumentary/Breasts Denies lesions and Denies rash Neurologic Denies dizziness, Denies focal weakness and Denies numbness Allergic/Immunologic Denies throat swelling [facility] Medical History Atrial flutter DM (diabetes mellitus) GERD (gastroesophageal reflux disease) 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 Paternal Grandfather No problems noted. Maternal Grandmother Cancer of kidney Paternal Grandmother No problems noted. Sister Essential hypertension Chronic obstructive lung disease Asthma Brother Heart disease Hyperlipidemia Stroke Brother Human immunodeficiency virus (HIV) positive Social History Smoking/Tobacco Use Status: Former Tobacco Use Quit Date: 05/24/98 Alcohol Intake: never Drug use: Never Substance use type: does not use Household members: spouse Housing: house Communication Needs: Hard of Hearing Pets and animals: No Sexually active: No Do you think of yourself as: lesbian/doshi/homosexual Current gender identity: female What is your relationship status?: How often do you talk on the phone with friends or family?: decline to answer How often do you get together with friends or relatives?: decline to answer How often do you attend nondenominational or yazdanism services?: decline to answer Do you belong to any clubs or organized social groups?: decline to answer Panel score (0-1 are the most socially isolated patients): 1 What type of physical activity do you participate in: none Randi/Restorationism: None Special randi needs: No Seatbelt use: sometimes Helmet use: No Drive intox 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 Do you feel safe at home: Yes Do you feel safe in your relationship?: Yes Exam Const General: cooperative, healthy appearing and no acute distress HENMT Head: normal to inspection Mouth: oral mucosae normal Eyes General: appearance normal, both eyes and all related structures Neck Neck: normal visual inspection Resp Effort & Inspection: normal respiratory effort and able to speak in complete sentences Cardio Rate: regular rate Skin General skin exam: no rashes or lesions noted Neuro General: alert, awake and oriented x3 Motor: muscle tone normal throughout Extrem General: normal to inspection, full ROM and normal capillary refill Other: Multiple varicosities noted to bilateral lower extremities. Area of tick bite without erythema, edema, ecchymosis, embedded foreign body, lacerations or evidence of abscess. Psych Appearance: grossly normal Affect: normal affect Course Vital Signs Temperature 96.8 F L 10/10/18 12:13 Temperature 96.8 F L 10/10/18 12:13 Temperature Source Temporal Artery Scan 10/10/18 12:13 Respiratory Effort Non-Labored 10/10/18 12:22 Respiratory Depth Normal 10/10/18 12:22 Respiratory Pattern Normal 10/10/18 12:22 Oxygen Delivery Method Room Air 10/10/18 12:13 Oxygen Flow Rate 0 10/10/18 12:13
== END 2018-10-10 13:51 | disposition home or self-care (01) ==
PROVIDERS: Emergency Provider Physician Assistant; PCP Family Medicine
DX: S80.862A Insect bite (nonvenomous), left lower leg, initial encounter (principal); W57.XXXA Bitten or stung by nonvenomous insect and other nonvenomous arthropods, initial encounter; E11.9 Type 2 diabetes mellitus without complications; Z79.84 Long term (current) use of oral hypoglycemic drugs; I10 Essential (primary) hypertension
CPT/HCPCS: 99282

== ENCOUNTER 2018-10-29 14:09 | Outpatient (CLI) | payer MEDICARE, BC, SELFPAY ==
[2018-10-29 15:08] LABS: INR 2.5 (0.9-1.1)
== END 2018-10-29 14:29 ==
PROVIDERS: PCP Family Medicine; Visit Provider Family Medicine
DX: I48.91 Unspecified atrial fibrillation (principal); Z79.01 Long term (current) use of anticoagulants
CPT/HCPCS: 36415; 85610

== ENCOUNTER 2018-12-08 09:08 | Outpatient (CLI) | payer MEDICARE, BC, SELFPAY ==
[2018-12-09 13:15] LABS: Vitamin D 25 Total 26.3 ng/ml (30-100)
== END 2018-12-08 09:28 ==
PROVIDERS: PCP Family Medicine; Visit Provider Family Medicine
DX: R79.89 Other specified abnormal findings of blood chemistry (principal); E11.9 Type 2 diabetes mellitus without complications; Z79.84 Long term (current) use of oral hypoglycemic drugs
CPT/HCPCS: 36415; 82306

== ENCOUNTER 2019-01-03 10:28 | Outpatient (CLI) | payer MEDICARE, BC, SELFPAY ==
[2019-01-03 13:15] LABS: Hemoglobin A1C 7.7 % (4.5-6.2)
[2019-01-03 13:17] LABS: INR 3.4 (0.9-1.1); Prothrombin Time 33.4 sec (9.3-11.0)
[2019-01-03 13:27] LABS: ALT 28 U/L (14-59); AST 13 U/L (15-37); Albumin 3.7 g/dL (3.4-5.0); Alkaline Phosphatase 52 U/L (46-116); Anion Gap 7.5 mmol/L (3-11); BUN 18 mg/dL (7-18); Bilirubin, Total 0.7 mg/dL (0.2-1.0); CO2 30.5 mmol/L (21.0-32.0); CREATININE 0.92 mg/dL (0.55-1.02); Calcium 8.8 mg/dL (8.5-10.1); Calculated LDL 80 mg/dL; Chloride 104 mmol/L (98-107); Cholesterol 153 mg/dL (50-200); Glucose 193 mg/dL (70-100); HDL Cholesterol 38 mg/dL (40-60); Potassium 4.6 mmol/L (3.5-5.1); Sodium 142 mmol/L (136-145); Total Protein 7.3 g/dL (6.4-8.2); Triglyceride 176 mg/dL (30-150)
== END 2019-01-03 10:48 ==
PROVIDERS: PCP Family Medicine; Visit Provider Nurse Practitioner Family
DX: E11.9 Type 2 diabetes mellitus without complications (principal); I48.91 Unspecified atrial fibrillation; Z79.01 Long term (current) use of anticoagulants
CPT/HCPCS: 36415; 80053; 80061; 83036; 85610

== ENCOUNTER 2019-01-07 09:41 | Outpatient (CLI) | payer MEDICARE, BC, SELFPAY ==
--- NOTE | 2019-01-07 09:43 | DI.RAD_ITS ---
EXAM: XR CHEST 2V PA LATERAL INDICATION: Persistent cough, R05. COMPARISON: XR CHEST 2V PA LATERAL from 02/04/2018 TECHNIQUE: 2D digital imaging was performed. FINDINGS: The heart size and pulmonary vasculature are within normal limits. No focal consolidating infiltrate s, effusions or pneumothoraces are present. The lungs appear hyperinflated with flattened diaphragms . This suggests COPD. Degenerative changes are seen in the spine. IMPRESSION: COPD. No acute pulmonary process.
[2019-01-07 10:17] LABS: HCT 42.7 % (36.0-46.0); HGB 13.1 g/dL (12.0-15.5); Mean Corp. HGB Concentration 30.7 g/dL (32.0-36.0); Mean Corpuscular Hemoglobin 27.3 pg (27.0-33.0); Mean Platelet Volume 11.1 fL (8.0-11.0); Platelet Count 304 x1000/uL (130-400); RBC Distribution Width 14.2 % (11.7-14.6); White Blood Cell Count 8.18 k/cumm (4.4-10.8)
== END 2019-01-07 10:01 ==
PROVIDERS: PCP Family Medicine; Visit Provider Nurse Practitioner Family
DX: R05 Cough (principal); J44.9 Chronic obstructive pulmonary disease, unspecified
CPT/HCPCS: 36415; 85027; 71046

== ENCOUNTER 2019-01-10 15:32 | Outpatient (CLI) | payer MEDICARE, BC, SELFPAY ==
[2019-01-10 16:54] LABS: INR 2.4 (0.9-1.1); Prothrombin Time 23.4 sec (9.3-11.0)
== END 2019-01-10 15:52 ==
PROVIDERS: PCP Family Medicine; Visit Provider Family Medicine
DX: I48.91 Unspecified atrial fibrillation (principal); Z79.01 Long term (current) use of anticoagulants
CPT/HCPCS: 36415; 85610

== ENCOUNTER 2019-01-18 13:54 | Outpatient (CLI) | payer MEDICARE, BC, SELFPAY ==
[2019-01-18 15:04] LABS: INR 2.6 (0.9-1.1); Prothrombin Time 25.8 sec (9.3-11.0)
== END 2019-01-18 14:14 ==
PROVIDERS: PCP Family Medicine; Visit Provider Family Medicine
DX: I48.91 Unspecified atrial fibrillation (principal); Z79.01 Long term (current) use of anticoagulants
CPT/HCPCS: 36415; 85610

== ENCOUNTER 2019-01-24 01:53 | Outpatient (CLI) | payer MEDICARE, BC, SELFPAY ==
[2019-01-24] MEDS: Albuterol HFA 18 GM 200 PUFF INH IH (10:55)
[2019-01-24] MEDS: Inhaler, Assist Device 1 EACH MC (10:55)
--- NOTE | 2019-01-27 11:14 | PFT_ITS ---
DATE OF SERVICE: JANUARY 24, 2019 REQUESTING PROVIDER: DR. DARWIN BARAKAT SPIROMETRY: SHOWS MILD OBSTRUCTIVE AIRWAYS DISEASE. NO BRONCHODILATOR RESPONSE. LUNG VOLUMES: SHOW NO EVIDENCE OF RESTRICTION. DIFFUSION CAPACITY: NORMAL. AIRWAYS RESISTANCE: NORMAL. IMPRESSION: MILD OBSTRUCTIVE AIRWAYS DISEASE WITH NO SIGNIFICANT BRONCHODILATOR RESPONSE. CLINICAL CORRELATION IS RECOMMENDED.
== END 2019-01-24 02:13 ==
PROVIDERS: PCP Family Medicine; Visit Provider Family Medicine
DX: J44.9 Chronic obstructive pulmonary disease, unspecified (principal); R06.09 Other forms of dyspnea; Z87.891 Personal history of nicotine dependence; Z57.39 Occupational exposure to other air contaminants
CPT/HCPCS: 94060; 94150; 94726; 94729

== ENCOUNTER 2019-01-26 15:17 | Outpatient (CLI) | payer MEDICARE, BC, SELFPAY ==
[2019-01-26 15:45] LABS: INR 2.6 (0.9-1.1); Prothrombin Time 25.2 sec (9.3-11.0)
== END 2019-01-26 15:37 ==
PROVIDERS: PCP Family Medicine; Visit Provider Family Medicine
DX: I48.91 Unspecified atrial fibrillation (principal); Z79.01 Long term (current) use of anticoagulants
CPT/HCPCS: 36415; 85610

== ENCOUNTER 2019-02-21 09:56 | Outpatient (CLI) | payer MEDICARE, BC, SELFPAY ==
--- NOTE | 2019-02-21 12:17 | DI.RAD_ITS ---
EXAM: XR RIBS RT W PA LAT CHEST INDICATION: FALL AND PAIN [id number]. COMPARISON: XR CHEST 2V PA LATERAL from 01/07/2019 TECHNIQUE: 2D digital imaging was performed. FINDINGS: The heart size and pulmonary vasculature are within normal limits. The lungs are clear. No effusion or pneumothorax is identified. No rib fracture is seen. There are degenerative changes seen in the spine. IMPRESSION: 1. No acute pulmonary process. 2. No right rib fracture.
--- NOTE | 2019-02-21 12:30 | DI.RAD_ITS ---
EXAM: XR SHOULDER RT COMPLETE 2+V INDICATION: fall and pain [id number]. COMPARISON: LEFT SHOULDER COMPLETE from 03/24/2017 TECHNIQUE: 2D digital imaging was performed. FINDINGS: No acute fracture or dislocation is present. There are degenerative changes seen in the shoulder. T he soft tissues are unremarkable. IMPRESSION: No acute fracture or dislocation.
== END 2019-02-21 10:16 ==
PROVIDERS: PCP Family Medicine; Visit Provider Internal Medicine
DX: M25.511 Pain in right shoulder (principal); W19.XXXA Unspecified fall, initial encounter; R07.81 Pleurodynia
CPT/HCPCS: 71046; 71100; 73030

== ENCOUNTER 2019-03-15 16:33 | Outpatient (CLI) | payer MEDICARE, BC, SELFPAY ==
[2019-03-15 17:10] LABS: INR 2.7 (0.9-1.1); Prothrombin Time 26.2 sec (9.3-11.0)
== END 2019-03-15 16:53 ==
PROVIDERS: PCP Family Medicine; Visit Provider Family Medicine
DX: I48.91 Unspecified atrial fibrillation (principal); Z79.01 Long term (current) use of anticoagulants
CPT/HCPCS: 36415; 85610

== ENCOUNTER 2019-03-17 13:12 | Inpatient (IN) | payer MEDICARE, BC, SELFPAY ==
[2019-03-17] VITALS (106 sets, daily range): BP systolic 102–162; BP diastolic 59–123; PULSE 84–204; RESP 13–27; TEMP 36.1–36.4; O2SAT 90–99
--- NOTE | 2019-03-17 13:13 | W.ED.GENAD ---
Discharge Plan Disposition Patient Disposition: [facility] INPATIENT Condition: Improving Discharge Details Chief Complaint: SOB Clinical Impression: Atrial fibrillation with rapid ventricular response, Exacerbation of reactive airway disease Primary Care Provider: Maico Leonard ED Provider: Anthony Edmondson Home Meds and New Rx's Prescriptions: No Action metoprolol succinate 25 mg tablet extended release 24 hr 25 mg PO DAILY Qty: 90 RF: 3 paroxetine HCl [Paxil] 20 mg tablet 20 mg PO DAILY Qty: 90 RF: 4 tolterodine [Detrol LA] 4 mg capsule,extended release 24hr 4 mg PO DAILY Qty: 90 RF: 4 warfarin 5 mg tablet 5 - 15 mg PO HS Qty: 270 RF: 3 (DME) lancets 28 gauge misc 1 ea Miscellaneous DAILY Qty: 100 RF: 4 (DME) Blood Glucose Test strip 1 strip Miscellaneous DAILY Qty: 100 RF: 4 Ciprodex 0.3-0.1 % drops,suspension 3 drp BID PRN Qty: 1 RF: 2 tramadol 50 mg tablet 50 mg PO Q6H PRN (Reason: pain) Qty: 30 RF: 0 bupropion HCl [Wellbutrin SR] 150 mg tablet sustained-release 12 hr 150 mg PO BID RF: 0 losartan 100 mg tablet 100 mg PO DAILY Qty: 90 RF: 3 albuterol sulfate [ProAir HFA] 90 mcg/actuation HFA aerosol inhaler 2 puff Inhalation Q4H PRN Qty: 3 RF: 3 acetaminophen [Tylenol Extra Strength] 500 MG tablet 2 tab PO HS PRNRF: 0 BIPAP 1 ea inhalation HS RF: 0 triamcinolone acetonide 60 ML lotion 60 ml Topical BID prn Qty: 60 RF: 1 aspirin 81 MG tablet,chewable 81 mg PO DAILY Qty: 90 RF: 0 magnesium amino acid chelate 100 MG tablet 500 mg PO DAILY RF: 0 nystatin 15 GM cream 15 gm Topical BID Qty: 3 RF: 0 simvastatin 10 mg tablet 10 mg PO HS Qty: 90 RF: 4 esomeprazole magnesium [Nexium] 40 mg capsule,delayed release(DR/EC) 40 mg PO DAILY Qty: 90 RF: 4 glipizide 5 mg tablet extended release 24hr 5 mg PO DAILY RF: 0 Medical Decision Making Upon my evaluation, this patient had a high probability of imminent or life-threatening deterioration, which required my direct attention, intervention, and personal management. I have personally provided 45 minutes of critical care time exclusive of time spent on separately billable procedures. Time includes review of laboratory data, radiology results, discussion with consultants, and monitoring for potential decompensation. Interventions were performed as documented. This is a 67-year-old female with a past medical history of hypertension, high cholesterol, A. fib on Coumadin, who uses BiPAP at home, as well as reactive airway disease, who presents today for evaluation of shortness of breath for the last 24 hours with associated jaw and shoulder pain. Does not appear to be exertionally related. She denies productive cough or hemoptysis. She denies history of PE or OR. She has been taking her Coumadin as directed. She takes 25 mg metoprolol extended release for her atrial fibrillation. She has had pain like this in the past. Physical exam demonstrates diffuse wheezes throughout, no significant crackles or rhonchi. Blood pressure stable. EKG demonstrates A. fib with RVR with a rate oscillating between 180 and 200. Upon arrival heart rate was 2 10-2 20. We will give 20 of Cardizem IV and hold off on electrical cardioversion as her blood pressure is stable. Will monitor, gently hydrate and reassess. 3:45 PM Laboratory work-up is returned benign, no white count, electrolytes stable, renal function stable. Chest pain completely resolved with rate control. Troponin less than 0.05, proBNP normal, TSH normal. Patient eventually required 30 total of IV Cardizem, and is on a drip of 15. She came down very quickly to the 130s after the initial 20 of Cardizem however she did not seem to go much lower after that. 5 mg of metoprolol IV will be added. Chest x-ray shows mild prominence of pulmonary vasculature which may reflect very minimal pulmonary edema. However signs and symptoms appear to be inconsistent with PE at this time with normal troponin, relatively benign proBNP, and a INR that is therapeutic at 2.4 and is usually well within this range. I do feel that the patient would be a good candidate for admission. I have contacted the hospitalist and discussed the case with Dr. Meyers. She agrees with the assessment and plan but would like for a repeat troponin prior to admission. We will get a 3-hour troponin for reassessment. 5 PM After the metoprolol the patient's heart rate has continued to demonstrate notable improvement and is now in the 110 regions. Shortness of breath is improved. She has a notable improvement of her wheezes after Xopenex. She remains hemodynamically stable. I have contacted the hospitalist , he agrees with the assessment and plan. I have extensively reviewed the treatment plan with the patient. I have addressed all patient concerns at this time. I have also discussed the plan with the admitting physician and they agree with the current assessment and plan and have agreed to assume responsibility for the patient. All parties demonstrate verbal understanding and agreement with our assessment and plan at this time. EKG 13: 26 Rate 181, QTc 510, QRS 142, atrial fibrillation with a rapid ventricular response, diffuse nonspecific mild ST changes. No evidence of STEMI. FINDINGS: Heart appears enlarged. There is prominence of the pulmonary vasculature. This may reflect pulmonary edema. No focal consolidating infiltrates are present. No pleural effusion or pneumothorax is identified. There is tortuosity and ectasia of the thoracic aorta. IMPRESSION: Cardiomegaly and mild prominence of the pulmonary vasculature, which may reflect pulmonary edema. HPI General Date/Time Provider Initiated Documentation: 03/17/19 13:13. HPI Narrative: This is a 67-year-old female with a past medical history of hypertension, high cholesterol, A. fib on Coumadin, who uses BiPAP at home, previous reactive airway disease, as well as reactive airway disease who presents today for evaluation of shortness of breath. She states over the last 24 hours she has had mild to moderate shortness of breath. She has had associated pain to her jaw and shoulders bilaterally. It is not exertionally worsened. She denies any significant cough or productivity or fever or chills. She has been taking her Coumadin as directed. She has had pain similar to this in the past, but denies any history of STEMI or heart attack. She did take few breathing treatments at home but this did not improve her symptoms. She denies any tearing or ripping sensation in her chest. No other complaints at this time. Related Data Home Medications Medication Instructions Recorded Confirmed acetaminophen [Tylenol Extra 2 tab PO HS PRN 06/11/12 03/17/19 Strength] Bipap 1 ea INHALATION HS 01/23/15 03/17/19 triamcinolone acetonide 60 ml TOPICAL BID prn #60 ml 05/26/15 03/17/19 aspirin 81 mg PO DAILY #90 tab-cap 05/06/17 03/17/19 magnesium amino acid chelate 500 mg PO DAILY 05/08/17 03/17/19 nystatin 15 gm TOPICAL BID #3 bottle 08/05/17 03/17/19 simvastatin 10 mg tablet 10 mg PO HS #90 tab-cap 05/20/18 03/17/19 blood sugar diagnostic #100 each 06/11/18 02/21/19 lancets 28 gauge #100 ea 06/11/18 02/21/19 metoprolol succinate 25 mg 25 mg PO DAILY #90 tab 06/11/18 03/17/19 tablet,extended release 24 hr paroxetine HCl 20 mg tablet 20 mg PO DAILY #90 tab 06/11/18 03/17/19 tolterodine 4 mg capsule,extended 4 mg PO DAILY #90 tab 06/11/18 03/17/19 release 24 hr warfarin 5 mg tablet 5 - 15 mg PO HS #270 tab-cap 06/11/18 03/17/19 ciprofloxacin 0.3 %-dexamethasone 3 drp BID PRN #1 bottle 07/05/18 03/17/19 0.1 % ear drops,suspension esomeprazole magnesium 40 mg 40 mg PO DAILY #90 tab-cap 11/30/18 03/17/19 capsule,delayed release albuterol sulfate 90 mcg/actuation 2 puff INHALATION Q4H PRN #3 12/08/18 03/17/19 aerosol inhaler inhaler bupropion HCl 150 mg tablet,12 hr 150 mg PO BID tab 12/08/18 03/17/19 sustained-release losartan 100 mg tablet 100 mg PO DAILY #90 tab-cap 12/08/18 03/17/19 tramadol 50 mg tablet 50 mg PO Q6H PRN #30 tab 02/21/19 03/17/19 glipizide 5 mg PO DAILY 03/17/19 03/17/19 Previous Rx's Medication Instructions Recorded aspirin 81 mg PO DAILY #90 tab-cap 05/06/17 nystatin 15 gm TOPICAL BID #3 bottle 08/05/17 simvastatin 10 mg tablet 10 mg PO HS #90 tab-cap 05/20/18 blood sugar diagnostic #100 each 06/11/18 lancets 28 gauge #100 ea 06/11/18 metoprolol succinate 25 mg 25 mg PO DAILY #90 tab 06/11/18 tablet,extended release 24 hr paroxetine HCl 20 mg tablet 20 mg PO DAILY #90 tab 06/11/18 tolterodine 4 mg capsule,extended 4 mg PO DAILY #90 tab 06/11/18 release 24 hr warfarin 5 mg tablet 5 - 15 mg PO HS #270 tab-cap 06/11/18 ciprofloxacin 0.3 %-dexamethasone 3 drp BID PRN #1 bottle 07/05/18 0.1 % ear drops,suspension esomeprazole magnesium 40 mg 40 mg PO DAILY #90 tab-cap 11/30/18 capsule,delayed release albuterol sulfate 90 mcg/actuation 2 puff INHALATION Q4H PRN #3 12/08/18 aerosol inhaler inhaler losartan 100 mg tablet 100 mg PO DAILY #90 tab-cap 12/08/18 tramadol 50 mg tablet 50 mg PO Q6H PRN #30 tab 02/21/19 Allergies Allergy/AdvReac Type Severity Reaction Status Date / Time cefuroxime Allergy Severe HIVES Verified 03/17/19 15:03 latex Allergy Severe RASH Verified 03/17/19 15:03 Penicillins Allergy Severe SEVERE Verified 03/17/19 15:03 HIVES Sulfa (Sulfonamide Allergy Severe SEVERE Verified 03/17/19 15:03 Antibiotics) HIVES ciprofloxacin Allergy Mild TOPICAL Verified 03/17/19 15:03 IRRITATION adhesive AdvReac Intermediate SKIN Verified 03/17/19 15:03 COMES OFF caffeine AdvReac Intermediate CHEST PAIN Verified 03/17/19 15:03 lisinopril AdvReac Mild COUGH Verified 03/17/19 15:03 metformin AdvReac Mild diarrhea Verified 03/17/19 15:03 General KOTA: 5 Review of Systems All systems reviewed & are unremarkable except as noted in HPI and below PFSH Social History Smoking/Tobacco Use Status: Former Tobacco Use Quit Date: 05/24/98 Alcohol Intake: never Drug use: Never Substance use type: does not use Household members: spouse Housing: house Communication Needs: Hard of Hearing Pets and animals: No Sexually active: No Do you think of yourself as: lesbian/doshi/homosexual Current gender identity: female What is your relationship status?: How often do you talk on the phone with friends or family?: decline to answer How often do you get together with friends or relatives?: decline to answer How often do you attend christianity or confucianism services?: decline to answer Do you belong to any clubs or organized social groups?: decline to answer Panel score (0-1 are the most socially isolated patients): 1 What type of physical activity do you participate in: none Randi/Spiritism: None Special randi needs: No Seatbelt use: sometimes Helmet use: No 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 3.ENT: Atraumatic external nose and ears. Moist MM. Neck: Symmetric, trachea midline, No thyromegaly. 4.CVS: +S1/S2, notably rapid rate, no murmurs or gallops. Peripheral pulses 2+ and equal in all extremities. Brisk capillary refill in all extremities. Radial pulses +2 bilaterally 5.RESP: Mild respiratory effort, diffuse wheezes throughout. No crackles. No rhonchi. 6.GI: Soft, Nontender/Nondistended, No hepatosplenomegaly. No guarding or rebound. 7.MSK: Normocephalic/Atraumatic, Extremities w/o deformity or ttp No cyanosis or clubbing, Normal movement of all extremities, no calf tenderness, no significant pitting edema. 8.Skin: Warm, Dry. No rashes or lesions. 9.Neuro: coil winder strap II-XII grossly intact. Sensation grossly intact, no focal neurologic deficits. 10.Psych: (AAO) x3. Appropriate mood and affect
[2019-03-17] MEDS: Normal Saline 500 ML IV (13:25)
[2019-03-17] MEDS: dilTIAZem 25 MG/5 ML VIAL (13:30)
[2019-03-17] MEDS: Levalbuterol 1.25 MG/3 ML UPD VIAL UPD ×2 (13:35→14:12)
[2019-03-17] MEDS: methylPREDNISolone SUCC 125 MG VIAL IVP (13:39)
[2019-03-17] MEDS: Levalbuterol 1.25 MG/3 ML UPD VIAL (13:40)
[2019-03-17 14:01] LABS: Abs Immature Grans 0.04 k/cumm (0.0-0.09); Absolute Basophil Count 0.07 k/cumm (0.0-0.2); Absolute Eosinophil Count 0.09 k/cumm (0.0-0.7); Absolute Lymphocyte Count 0.69 k/cumm (1.2-3.4); Absolute Monocyte Count 0.47 k/cumm (0.11-0.7); Absolute Neutrophil Count 8.76 k/cumm (1.2-6.7); Basophils % 0.7; Eosinophils % 0.9; HCT 44.3 % (36.0-46.0); Immature Grans % 0.4 %; Lymphocytes % 6.8; Mean Corp. HGB Concentration 31.6 g/dL (32.0-36.0); Mean Corpuscular Hemoglobin 27.8 pg (27.0-33.0); Mean Corpuscular Volume 88.1 fL (80-95); Mean Platelet Volume 11.1 fL (8.0-11.0); Monocytes % 4.6; Neutrophils % 86.6; Platelet Count 285 x1000/uL (130-400); RBC 5.03 m/cumm (4.00-5.20); RBC Distribution Width 14.1 % (11.7-14.6); White Blood Cell Count 10.12 k/cumm (4.4-10.8)
[2019-03-17] MEDS: dilTIAZem 125 MG in Normal Saline 100 ML 10 MG IV (14:08)
[2019-03-17 14:10] LABS: Magnesium 1.5 mg/dL (1.8-2.4)
--- NOTE | 2019-03-17 14:10 | DI.RAD_ITS ---
EXAM: XR PORTABLE CHEST AP INDICATION: SOB, Afib w/ rvr, wheezes. COMPARISON: XR RIBS RT W PA LAT CHEST from 02/21/2019 TECHNIQUE: 2D digital imaging was performed. FINDINGS: Heart appears enlarged. There is prominence of the pulmonary vasculature. This may reflect pulmonar y edema. No focal consolidating infiltrates are present. No pleural effusion or pneumothorax is breezy ntified. There is tortuosity and ectasia of the thoracic aorta. IMPRESSION: Cardiomegaly and mild prominence of the pulmonary vasculature, which may reflect pulmonary edema.
[2019-03-17 14:29] LABS: ALT 28 U/L (14-59); AST 17 U/L (15-37); Albumin 3.7 g/dL (3.4-5.0); Alkaline Phosphatase 56 U/L (46-116); Anion Gap 13.2 mmol/L (3-11); BUN 15 mg/dL (7-18); Bilirubin, Total 0.7 mg/dL (0.2-1.0); CO2 25.8 mmol/L (21.0-32.0); CREATININE 1.06 mg/dL (0.55-1.02); Calcium 8.8 mg/dL (8.5-10.1); Chloride 103 mmol/L (98-107); Estimated GFR 51.71 (mL/min/1.73m2); Glucose 293 mg/dL (74-106); NT-proBNP 605 pg/mL (<300); Potassium 3.9 mmol/L (3.5-5.1); Sodium 142 mmol/L (136-145); Total Protein 7.8 g/dL (6.4-8.2)
[2019-03-17 14:30] LABS: Troponin I < 0.05 ng/Ml (<0.06)
[2019-03-17] MEDS: MAGNESIUM SULFATE 2 GM/50 ML BAG IVPB (14:33)
[2019-03-17] MEDS: dilTIAZem 25 MG/5 ML VIAL 10 MG IVP (14:49)
[2019-03-17 15:13] LABS: INR 2.4 (0.9-1.1); PTT Activated 35.7 sec (21.0-31.4); Prothrombin Time 23.5 sec (9.3-11.0)
[2019-03-17] MEDS: Metoprolol 5 MG/5 ML VIAL IVP (16:31)
[2019-03-17 16:36] LABS: Troponin I < 0.05 ng/Ml (<0.06)
[2019-03-17] MEDS: Aspirin 81 MG CHEW 324 MG CH (17:33)
--- NOTE | 2019-03-17 18:35 | W.PM.HP.N ---
Date of service: 03/17/19 Time of Service: 18:35 Assessment and Plan Assessment and plan (1) Atrial fibrillation with rapid ventricular response: Status: Acute Assessment and plan: Atrial fibrillation rate is much better controlled. She was recently converted over to oral metoprolol and diltiazem short acting doses. We have switch her over to long-acting diltiazem CD and Toprol-XL. She remains anticoagulated with warfarin. INR is therapeutic at 2.2 (2) Acute diastolic heart failure with preserved ejection fraction: Status: Acute Assessment and plan: .Think her acute on chronic diastolic heart failure was precipitated by her rapid atrial fibrillation in the setting of LVH. She still fairly wheezy today. My colleague diagnosed her with acute bronchitis. I think most of her wheezing is cardiac wheezing from congestive heart failure. I did a [id number] ultrasound of her lungs and she has bilateral B-lines in the lower one third to lower one half of her lungs. There is no pleural effusion. Furthermore I did add proBNP this morning and it came back elevated at 1781 which is higher than her admission BNP of 605. I am putting her back on IV Lasix. Should do 40 mg twice a day and I will give her a one-time dose of metolazone. I am also considering starting her on Spironolactone. She is already on losartan 100 mg daily. (3) Hyperlipidemia: Status: Acute Assessment and plan: Her cholesterol profile is less than optimally controlled. Her total cholesterol is acceptable at 179 but her LDL is 112. Triglycerides are acceptable at 125. I am to switch her simvastatin over to rosuvastatin 20 mg nightly. Qualifiers: Hyperlipidemia type: unspecified Qualified Code(s): E78.5 - Hyperlipidemia, unspecified (4) Essential hypertension: Status: Acute Assessment and plan: Blood pressures well controlled on the current regimen of diltiazem and Toprol and losartan. (5) Diabetes mellitus: Status: Acute Assessment and plan: Her overall glucose has not been well controlled her A1c is 8%. While here in the hospital her blood sugars been running anywhere from high 190s upwards of 380. This morning's glucose was 215 and this afternoon she is 234. Patient previously had been tried on metformin but was intolerant due to diarrhea. At home she was on glipizide 5 mg daily. I have added some Lantus to her nightly regimen. I think she should be evaluated for transition from glipizide to a GLP-1 receptor agonist such as Byetta or Trulicity or Victoza or possibly started on SGLT2 inhibitor such as Invokana or Farxiga as both of these classes have been shown to reduce cardiovascular mortality and reduce CHF. Qualifiers: Diabetes mellitus complication status: without complication Diabetes mellitus shelter insulin use: without intermission coordinator use Diabetes mellitus type: type 2 Qualified Code(s): E11.9 - Type 2 diabetes mellitus without complications (6) Depressive disorder: Status: Acute Assessment and plan: Continue her Wellbutrin and Paxil. According the patient her depression has been well controlled and she denies any depressive thoughts History of Present Illness History of Present Illness Chief Complaint: shortness of breath Narrative: 68-year-old female former smoker with a history of hypertension type 2 diabetes mellitus hyperlipidemia presumed atherosclerotic heart disease and chronic atrial fibrillation anticoagulated with warfarin presents emergency department with acute onset of shortness of breath began yesterday morning and has progressed through today and has been associated with palpitations chest tightness and jaw pain. She also has a history of reactive airway disease to environmental allergens including pollen. Because of the acute dyspnea yesterday she thought she needed to use her inhaler and used it once yesterday and again a couple times today. Despite this she had no relief of her dyspnea. She denies any lightheadedness or dizziness or syncope. She drove her self in the emergency department. On arrival she was found to be in rapid atrial fibrillation at a rate of 210 bpm. She was treated with multiple doses of IV diltiazem and started on diltiazem drip. This brought her heart rate down from 210 bpm down into the 120-140 range. Initial EKG demonstrated rapid atrial fibrillation at a rate of 180 bpm with a right bundle branch block pattern and diffuse ST depression. Troponin I levels were normal x2 sets at less than 0.05. She was found to have diffuse wheezing and was given multiple Xopenex aerosol treatments in the emergency department. proBNP level was elevated 605 and chest x-ray demonstrated cardiomegaly and diffuse interstitial pulmonary edema consistent with acute CHF. CBC and CMP were unremarkable. Normal LFTs and normal renal function. No anemia. TSH is normal at 2.2. Patient is admitted to the medical intensive care unit for treatment of rapid atrial fibrillation and acute CHF rule out acute coronary syndrome. [id number] ultrasound of her lungs revealed diffuse bilateral B-lines from midlung oneill to the bases bilaterally. Ektjp-pp-[id number] echocardiogram reveals normal LV and RV function and suggest LVH although actual measurements of wall size was not taken. Formal echocardiogram will be done in the morning. Plan is for IV diuresis with Lasix and continued heart rate control with combination of diltiazem IV and p.o. Lopressor. We will continue to cycle her troponin levels. Formal echocardiogram will be done in the morning. Once she is stabilized off of IV diltiazem and on oral rate controlling medications we will discuss plans for follow-up stress MPI. Her last stress MPI was in March 2017 and showed a small area of apical and anterior apical ischemia. To her knowledge she has never had a cardiac catheterization. Review of Systems Constitutional Constitutional: Reports system reviewed and no additional complaints, except as docu Eyes Eyes: Reports system reviewed and no additional complaints, except as docu and Reports requires corrective lenses ENT Ears, Nose, Mouth, and Throat: Reports system reviewed and no additional complaints, except as docu Cardiovascular Cardiovascular: Reports as per HPI Respiratory Respiratory: Reports as per HPI and Reports wheezing Gastrointestinal Gastrointestinal: Reports system reviewed and no additional complaints, except as docu Genitourinary Genitourinary: Reports system reviewed and no additional complaints, except as docu Integumentary/Breasts Skin/Breast: Reports breast pain (chest wall pain; lateral to breast ever since her fall on ) Neurologic Neurologic: Reports system reviewed and no additional complaints, except as docu Psychiatric Psychiatric: Reports system reviewed and no additional complaints, except as docu Endocrine Endocrine: Reports system reviewed and no additional complaints, except as docu Hematologic/Lymphatic Hematologic/Lymphatic: Reports easy bruising Allergic/Immunologic Allergic/Immunologic: Reports wheezing COUNT INCLUDES THE [facility] Family History (Updated 03/17/19 @ 19:47 by Nehemiah Kearney) Mother , age 67 Diabetes TYPE II Essential hypertension Heart disease ANGINA Hyperlipidemia Neoplasm KIDNEY Stroke Father , age 80 Diabetes TYPE I Essential hypertension Heart disease Hyperlipidemia Sister Diabetes Essential hypertension Heart disease Hyperlipidemia Myocardial infarction X 2 Maternal Grandfather No problems noted. Paternal Grandfather No problems noted. Maternal Grandmother Cancer of kidney Paternal Grandmother No problems noted. Sister Essential hypertension Chronic obstructive lung disease Asthma Brother Heart disease Hyperlipidemia Stroke Brother Human immunodeficiency virus (HIV) positive Myocardial infarction Social History Smoking/Tobacco Use Status: Former Tobacco Use Quit Date: 05/24/98 Alcohol Intake: never Drug use: Never Substance use type: does not use Household members: spouse Housing: house Communication Needs: Hard of Hearing Pets and animals: No Sexually active: No Do you think of yourself as: lesbian/doshi/homosexual Current gender identity: female What is your relationship status?: How often do you talk on the phone with friends or family?: decline to answer How often do you get together with friends or relatives?: decline to answer How often do you attend religious or jain services?: decline to answer Do you belong to any clubs or organized social groups?: decline to answer Panel score (0-1 are the most socially isolated patients): 1 What type of physical activity do you participate in: none Randi/Christianity: None Special randi needs: No Seatbelt use: sometimes Helmet use: No Drive intox or ride w/intox route sales 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 Meds Home Medications and Allergies Home Medications Medication Instructions Recorded Confirmed Type acetaminophen [Tylenol Extra 2 tab PO HS PRN 06/11/12 03/17/19 History Strength] Bipap 1 ea INHALATION HS 01/23/15 03/17/19 History triamcinolone acetonide 60 ml TOPICAL BID prn #60 ml 05/26/15 03/17/19 History aspirin 81 mg PO DAILY #90 tab-cap 05/06/17 03/17/19 Rx magnesium amino acid chelate 500 mg PO DAILY 05/08/17 03/17/19 History nystatin 15 gm TOPICAL BID #3 bottle 08/05/17 03/17/19 Rx simvastatin 10 mg tablet 10 mg PO HS #90 tab-cap 05/20/18 03/17/19 Rx blood sugar diagnostic #100 each 06/11/18 02/21/19 Rx lancets 28 gauge #100 ea 06/11/18 02/21/19 Rx metoprolol succinate 25 mg 25 mg PO DAILY #90 tab 06/11/18 03/17/19 Rx tablet,extended release 24 hr paroxetine HCl 20 mg tablet 20 mg PO DAILY #90 tab 06/11/18 03/17/19 Rx tolterodine 4 mg capsule,extended 4 mg PO DAILY #90 tab 06/11/18 03/17/19 Rx release 24 hr warfarin 5 mg tablet 5 - 15 mg PO HS #270 tab-cap 06/11/18 03/17/19 Rx ciprofloxacin 0.3 %-dexamethasone 3 drp BID PRN #1 bottle 07/05/18 03/17/19 Rx 0.1 % ear drops,suspension esomeprazole magnesium 40 mg 40 mg PO DAILY #90 tab-cap 11/30/18 03/17/19 Rx capsule,delayed release albuterol sulfate 90 mcg/actuation 2 puff INHALATION Q4H PRN #3 12/08/18 03/17/19 Rx aerosol inhaler inhaler bupropion HCl 150 mg tablet,12 hr 150 mg PO BID tab 12/08/18 03/17/19 History sustained-release losartan 100 mg tablet 100 mg PO DAILY #90 tab-cap 12/08/18 03/17/19 Rx tramadol 50 mg tablet 50 mg PO Q6H PRN #30 tab 02/21/19 03/17/19 Rx glipizide 5 mg PO DAILY 03/17/19 03/17/19 History Allergies Allergy/AdvReac Type Severity Reaction Status Date / Time cefuroxime Allergy Severe HIVES Verified 03/17/19 15:03 latex Allergy Severe RASH Verified 03/17/19 15:03 Penicillins Allergy Severe SEVERE Verified 03/17/19 15:03 HIVES Sulfa (Sulfonamide Allergy Severe SEVERE Verified 03/17/19 15:03 Antibiotics) HIVES ciprofloxacin Allergy Mild TOPICAL Verified 03/17/19 15:03 IRRITATION adhesive AdvReac Intermediate SKIN Verified 03/17/19 15:03 COMES OFF caffeine AdvReac Intermediate CHEST PAIN Verified 03/17/19 15:03 lisinopril AdvReac Mild COUGH Verified 03/17/19 15:03 metformin AdvReac Mild diarrhea Verified 03/17/19 15:03 Exam Narrative Exam Narrative: venous varicosities. There is no calf tendernessMorbidly obese female who is alert and oriented person place time and circumstance. In no acute respiratory distress although she talks in short sentences and gets out of breath easily with any kind of movement. Neck is obese nontender supple. Carotid pulses area regular and tachycardic but not diminished. No carotid bruits. JVD is difficult to assess due to her obesity. Lungs reveal diffuse expiratory wheezes in all lung oneill. No rhonchi however she has basilar rales. Heart is irregularly irregular at a rapid rate without appreciable murmur rub. Abdomen is obese soft and nontender with normal active bowel sounds no palpable masses no appreciable hepatosplenomegaly of this is difficult to assess due to her obesity. Legs are obese with diffuse venous varicosities. There is no calf tenderness. She has no pitting edema. Pedal pulses are normal. Neurologic exam is nonfocal with no gross cranial nerve abnormalities and no focal motor or sensory deficits. Results Imaging Chest x-ray: image reviewed EKG: image reviewed Labs Result diagrams: 03/19/19 06:30 03/19/19 06:30 Labs: Laboratory Results - last 24 hr 03/17/19 03/17/19 03/17/19 13:30 13:30 13:30 WBC 10.12 RBC 5.03 Hgb 14.0 Hct 44.3 MCV 88.1 MCH 27.8 MCHC 31.6 L RDW 14.1 Plt Count 285 MPV 11.1 H Immature Gran % 0.4 Neutrophils % 86.6 Lymphocytes % 6.8 Monocytes % 4.6 Eosinophils % 0.9 Basophils % 0.7 Absolute Neutrophils 8.76 H Absolute Lymphocytes 0.69 L Absolute Monocytes 0.47 Absolute Eosinophils 0.09 Absolute Basophils 0.07 PT 23.5 H INR 2.4 H APTT 35.7 H Sodium 142 Potassium 3.9 Chloride 103 Carbon Dioxide 25.8 Anion Gap 13.2 H BUN 15 Creatinine 1.06 H Estimated GFR/1.73 m2 51.71 Glucose 293 H Calcium 8.8 Magnesium Total Bilirubin 0.7 AST 17 ALT 28 Alkaline Phosphatase 56 Troponin I < 0.05 NT-Pro-B Natriuret Pep 605 H Total Protein 7.8 Albumin 3.7 TSH 2.20 03/17/19 03/17/19 13:30 16:02 WBC RBC Hgb Hct MCV MCH MCHC RDW Plt Count MPV Immature Gran % Neutrophils % Lymphocytes % Monocytes % Eosinophils % Basophils % Absolute Neutrophils Absolute Lymphocytes Absolute Monocytes Absolute Eosinophils Absolute Basophils PT INR APTT Sodium Potassium Chloride Carbon Dioxide Anion Gap BUN Creatinine Estimated GFR/1.73 m2 Glucose Calcium Magnesium 1.5 L Total Bilirubin AST ALT Alkaline Phosphatase Troponin I < 0.05 NT-Pro-B Natriuret Pep Total Protein Albumin TSH Last Vital Signs Temp 36.4 C L 03/17/19 13:18 Pulse 98 H 03/17/19 18:01 Resp 22 03/17/19 18:10 BP 123/65 03/17/19 18:01 Pulse Ox 94 L 03/17/19 18:10
[2019-03-17] MEDS: Metoprolol 12.5 MG TAB PO ×2 (19:27→23:36)
--- NOTE | 2019-03-17 20:03 | PDOC.CMIN ---
Care Management Initial Assess REASON FOR HOSPITALIZATION:: SOB, Atrial fibrillation with rapid ventricular response, Exacerbation of reactive airway disease PAST MEDICAL HISTORY/PAST SURGICAL HISTORY:: hypertension, high cholesterol, A. fib on Coumadin, [place] on BiPAP at home, DJD; left AC joint, pulmonary hypertension, morbid obesity, herpes zoster, chronic intermittent atrial fibrillation with chronic anticoagulation-2014 recorded Ejection fraction of 65%, hypertension, DM type 2, reactive airway disease, GERD, urinary incontinence, lumpectomy with benign lesion in her right breast, bilat endoscopic carpal tunnel repair, trapezial resectional arthroplasty of left hand, bilat TKA and tympanoplasty and mastoidectomy, left clavicle surgery by Dr. Licona PREVIOUS FUNCTIONAL STATUS/SOCIAL/FAMILY SUPPORTS:: Nava resides with her significant other of twenty-three years; Iris in [facility]. 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 She reports enjoying her skilled nursing and loves being in the fuller; cutting firewood, plowing her friend's driveways, knitting, crocheting and sewing. During a previous assessment she reported that Iris bought her an CRAiLARll and was quite excited to start using it. She quit smoking in 1989 with a 30 pack year hx of smoking. Nava has one daughter and three grandsons who reside out of state, she states she wishes they lived closer. CURRENT FUNCTIONAL STATUS:: Participating in director field services, locating in the ICU, noted to be pleasant and cooperative. ADVANCE DIRECTIVES:: On file at [facility]: AD lists Iris Zaldivar, Living Will Has patient been provided with information about the portal?: Yes Did the patient sign up for the portal?: No CODE STATUS:: Full Code INSURANCE COVERAGE / FINANCIAL ISSUES:: Medicare. BS CURRENT HOME/COMMUNITY SERVICES/EQUIPMENT:: Pt reports no current services and lists the following equipment; walker(s), crutches, IV tubing and a knee ice therapy machine. PRIMARY CARE PHYSICIAN:: Maico Leonard POTENTIAL DISCHARGE NEEDS:: Follow up appointment with PCP, evaluation for further needs. PATIENT/FAMILY EDUCATION NEEDS:: Review of discharge instructions, review Ask Me Three. ANTICIPATED BARRIERS TO DISCHARGE:: None identified at this time. TRANSPORTATION:: Via private vehicle with Iris. PLAN:: Nava will return home when ready per MD. She will follow up with her PCP and plan of care including follow up appointments. She will transport home via private vehicle with her significant other, Iris.
[2019-03-17 20:27] LABS: Troponin I 0.06 ng/Ml (<0.06)
[2019-03-17] MEDS: Warfarin 5 MG TAB 10 MG PO (20:41)
[2019-03-17] MEDS: buPROPion-CR 150 MG TABCR PO (20:42)
[2019-03-17] MEDS: Furosemide 40 MG/4 ML VIAL IVP (21:06)
[2019-03-17] MEDS: dilTIAZem 125 MG in Normal Saline 100 ML 15 MG IV (21:11)
[2019-03-17] MEDS: Insulin Aspart 300 UNITS/3 ML PEN SC (22:29)
[2019-03-17] MEDS: Simvastatin 10 MG TAB PO (22:29)
[2019-03-18] VITALS (95 sets, daily range): BP systolic 111–158; BP diastolic 47–109; PULSE 57–107; RESP 10–29; TEMP 36–37; O2SAT 81–96
[2019-03-18] MEDS: Metoprolol 12.5 MG TAB PO ×3 (05:26→20:28)
[2019-03-18] MEDS: dilTIAZem 125 MG in Normal Saline 100 ML 15 MG IV (05:27)
[2019-03-18 07:08] LABS: Abs Immature Grans 0.02 k/cumm (0.0-0.09); Absolute Lymphocyte Count 0.67 k/cumm (1.2-3.4); Absolute Monocyte Count 0.64 k/cumm (0.11-0.7); Absolute Neutrophil Count 10.25 k/cumm (1.2-6.7); HCT 41.9 % (36.0-46.0); HGB 13.3 g/dL (12.0-15.5); Immature Grans % 0.2 %; Lymphocytes % 5.8; Mean Corp. HGB Concentration 31.7 g/dL (32.0-36.0); Mean Corpuscular Hemoglobin 27.5 pg (27.0-33.0); Mean Corpuscular Volume 86.7 fL (80-95); Mean Platelet Volume 11.2 fL (8.0-11.0); Monocytes % 5.5; Neutrophils % 88.5; Platelet Count 298 x1000/uL (130-400); RBC 4.83 m/cumm (4.00-5.20); RBC Distribution Width 14.3 % (11.7-14.6); White Blood Cell Count 11.58 k/cumm (4.4-10.8)
[2019-03-18 07:17] LABS: Anion Gap 11.4 mmol/L (3-11); BUN 22 mg/dL (7-18); CO2 25.6 mmol/L (21.0-32.0); CREATININE 1.01 mg/dL (0.55-1.02); Calcium 8.4 mg/dL (8.5-10.1); Calculated LDL 112 mg/dL; Chloride 101 mmol/L (98-107); Cholesterol 179 mg/dL (<200); Estimated GFR 54.67 (mL/min/1.73m2); Glucose 268 mg/dL (74-106); HDL Cholesterol 42 mg/dL (40-60); INR 2.1 (0.9-1.1); Magnesium 1.8 mg/dL (1.8-2.4); Prothrombin Time 20.3 sec (9.3-11.0); Sodium 138 mmol/L (136-145); Triglyceride 125 mg/dL (<150)
[2019-03-18] MEDS: Losartan 50 MG TAB 100 MG PO (08:03)
[2019-03-18] MEDS: Magnesium Gluconate 500 MG TAB PO (08:04)
[2019-03-18] MEDS: Esomeprazole 40 MG CAPCR PO (08:04)
[2019-03-18] MEDS: Aspirin E.C. 81 MG TABEC PO (08:04)
[2019-03-18] MEDS: buPROPion-CR 150 MG TABCR PO ×2 (08:05→20:28)
[2019-03-18] MEDS: PARoxetine 20 MG TAB PO (08:05)
[2019-03-18] MEDS: Furosemide 40 MG/4 ML VIAL IVP ×2 (08:06→16:26)
[2019-03-18] MEDS: MAGNESIUM SULFATE 2 GM/50 ML BAG IVPB (08:17)
--- NOTE | 2019-03-18 08:23 | W.PM.PROGNOT ---
Date of Service Date of service: 03/18/19 Time of Service: 15:29 Assessment and Plan Assessment and plan (1) Atrial fibrillation with rapid ventricular response: Status: Acute Assessment and plan: Now controlled. Transition to long acting cardizem and metoprolol tomorrow am. Continue anticoagulation with coumadin. Ok to transfer out of ICU. Treat bronchitis, which could be triggering high heart rates. (2) Acute diastolic heart failure with preserved ejection fraction: Status: Acute Assessment and plan: Combined - diastolic and R-sided CHF. Continue lasix. Echo: Evidence of RV pressure overload, pulmonary hypertension with PA pressures of 40-48 mm Hg. EF 60-65% and diastolic dysfunction. Check d-dimer. If positive, would need to rule out a PE, which is less likely given the fact that she is anticoagulated. (3) Depressive disorder: Status: Acute Assessment and plan: Continue Wellbutrin and Paxil. (4) Hyperlipidemia: Status: Acute Assessment and plan: Continue simvastatin Qualifiers: Hyperlipidemia type: unspecified Qualified Code(s): E78.5 - Hyperlipidemia, unspecified (5) Essential hypertension: Status: Acute Assessment and plan: BP's tolerating current regimen. Monitor on cardizem CD 360 and toprol XL 50 daily. (6) Diabetes mellitus: Status: Acute Assessment and plan: Continue current management for now, but I anticipate steroid induced hyperglycemia - will titrate. Qualifiers: Diabetes mellitus type: type 2 Diabetes mellitus fdc insulin use: without joint terminal attack controller use Diabetes mellitus complication status: without complication Qualified Code(s): E11.9 - Type 2 diabetes mellitus without complications (7) Acute bronchitis: Status: Acute Assessment and plan: Check procalcitonin. Doubt that there is a role for anitbiotics, but she does describe a sore throat that preceded the productive cough, so I do think there is a bacterial bronchitis. Rx antitussives, prednisone, check sputum sample. If procalcitonin elevated, will add abx. Prn xopenex. (8) DVT prophylaxis: Status: Acute Assessment and plan: Therapeutic on coumadin (9) Discharge planning issues: Status: Acute Assessment and plan: Full code Transfer out of ICU. Subjective Subjective Interval history since last seen: States she feels dizzy when she coughs only. Denies chest pain, shortness of breath, nausea. Endorses cough productive of green sputum and wheezing, but feels much better today. Off of cardizem gtt. HR 70's. UOP 2450 cc overnight No edema. Not requiring O2. Feels SOB/coughing up yellow sputum. Exam Narrative Exam Narrative: General: Very pleasant obese , A&Ox3, sitting comfortably in a chair, coughing HEENT: EOMI, MMM Heart: Irregularly irregular rhythm, no m/r/g Lungs: wheezing on expiration B Abdomen: soft, nontender, nondistended Extremities: obese, but not pitting. Objective Objective Clinical Data: Abnormal lab results 03/17/19 03/17/19 03/17/19 Range/Units 13:30 13:30 13:30 WBC (4.4-10.8) k/cumm MCHC 31.6 L (32.0-36.0) g/dL MPV 11.1 H (8.0-11.0) fL Absolute Neutrophils 8.76 H (1.2-6.7) k/cumm Absolute Lymphocytes 0.69 L (1.2-3.4) k/cumm PT 23.5 H (9.3-11.0) sec INR 2.4 H (0.9-1.1) APTT 35.7 H (21.0-31.4) sec Anion Gap 13.2 H (3-11) mmol/L BUN (7-18) mg/dL Creatinine 1.06 H (0.55-1.02) mg/dL Glucose 293 H (74-106) mg/dL Hemoglobin A1c (3.8-5.6) % Calcium (8.5-10.1) mg/dL Magnesium (1.8-2.4) mg/dL NT-Pro-B Natriuret Pep 605 H (<300) pg/mL 03/17/19 03/18/19 03/18/19 Range/Units 13:30 06:25 06:25 WBC 11.58 H (4.4-10.8) k/cumm MCHC 31.7 L (32.0-36.0) g/dL MPV 11.2 H (8.0-11.0) fL Absolute Neutrophils 10.25 H (1.2-6.7) k/cumm Absolute Lymphocytes 0.67 L (1.2-3.4) k/cumm PT (9.3-11.0) sec INR (0.9-1.1) APTT (21.0-31.4) sec Anion Gap 11.4 H (3-11) mmol/L BUN 22 H D (7-18) mg/dL Creatinine (0.55-1.02) mg/dL Glucose 268 H (74-106) mg/dL Hemoglobin A1c (3.8-5.6) % Calcium 8.4 L (8.5-10.1) mg/dL Magnesium 1.5 L (1.8-2.4) mg/dL NT-Pro-B Natriuret Pep (<300) pg/mL 03/18/19 03/18/19 Range/Units 06:25 06:25 WBC (4.4-10.8) k/cumm MCHC (32.0-36.0) g/dL MPV (8.0-11.0) fL Absolute Neutrophils (1.2-6.7) k/cumm Absolute Lymphocytes (1.2-3.4) k/cumm PT 20.3 H (9.3-11.0) sec INR 2.1 H (0.9-1.1) APTT (21.0-31.4) sec Anion Gap (3-11) mmol/L BUN (7-18) mg/dL Creatinine (0.55-1.02) mg/dL Glucose (74-106) mg/dL Hemoglobin A1c 8.0 H (3.8-5.6) % Calcium (8.5-10.1) mg/dL Magnesium (1.8-2.4) mg/dL NT-Pro-B Natriuret Pep (<300) pg/mL Vital Signs Temperature 36.3 C L 03/18/19 07:35 Temperature Source Temporal Artery Scan 03/18/19 07:35 Pulse 81 03/18/19 07:35 Pulse 85 03/18/19 06:20 Respiratory Rate 18 03/18/19 07:35 Respiratory Effort 03/18/19 07:35 Respiratory Depth Normal 03/18/19 07:35 Respiratory Pattern Normal 03/18/19 07:35 Blood Pressure 134/64 03/18/19 07:35 Blood Pressure Mean 87 03/18/19 07:35 Blood Pressure Position Supine 03/18/19 04:44 Pulse Oximetry 94 L 03/18/19 07:35 Oxygen Delivery Method Room Air 03/18/19 07:35 Oxygen Flow Rate 0 03/18/19 07:35 Pain Level 0 03/18/19 07:35 Intake & Output 03/17/19 03/17/19 03/18/19 11:59 23:59 11:59 Intake Total 901.417 / 901.417 244 / 244 Output Total 650 / 650 2450 / 2450 Balance 251.417 / 251.417 -2206 / -2206 Weight 156.3 kg 155 kg Intake: IV 661.417 / 661.417 124 / 124 Oral 240 / 240 120 / 120 Output: Urine 650 / 650 2450 / 2450 Other: Urine Color Pale Pale Yellow Yellow Urine Appearance Clear Clear Urine Odor None Comment Indwelling Nuñez catheter. Voiding Methods Bedside Commode Laboratory Results WBC 11.58 k/cumm (4.4-10.8) H 03/18/19 06:25 RBC 4.83 m/cumm (4.00-5.20) 03/18/19 06:25 Hgb 13.3 g/dL (12.0-15.5) 03/18/19 06:25 Hct 41.9 % (36.0-46.0) 03/18/19 06:25 MCV 86.7 fL (80-95) 03/18/19 06:25 MCH 27.5 pg (27.0-33.0) 03/18/19 06:25 MCHC 31.7 g/dL (32.0-36.0) L 03/18/19 06:25 RDW 14.3 % (11.7-14.6) 03/18/19 06:25 Plt Count 298 x1000/uL (130-400) 03/18/19 06:25 MPV 11.2 fL (8.0-11.0) H 03/18/19 06:25 Immature Gran % 0.2 % 03/18/19 06:25 Neutrophils % 88.5 03/18/19 06:25 Lymphocytes % 5.8 03/18/19 06:25 Monocytes % 5.5 03/18/19 06:25 Eosinophils % 0.0 03/18/19 06:25 Basophils % 0.0 03/18/19 06:25 Absolute Neutrophils 10.25 k/cumm (1.2-6.7) H 03/18/19 06:25 Absolute Lymphocytes 0.67 k/cumm (1.2-3.4) L 03/18/19 06:25 Absolute Monocytes 0.64 k/cumm (0.11-0.7) 03/18/19 06:25 Absolute Eosinophils 0.00 k/cumm (0.0-0.7) 03/18/19 06:25 Absolute Basophils 0.00 k/cumm (0.0-0.2) 03/18/19 06:25 PT 20.3 sec (9.3-11.0) H 03/18/19 06:25 INR 2.1 (0.9-1.1) H 03/18/19 06:25 APTT 35.7 sec (21.0-31.4) H 03/17/19 13:30 Sodium 138 mmol/L (136-145) 03/18/19 06:25 Potassium 4.0 mmol/L (3.5-5.1) 03/18/19 06:25 Chloride 101 mmol/L (98-107) 03/18/19 06:25 Carbon Dioxide 25.6 mmol/L (21.0-32.0) 03/18/19 06:25 Anion Gap 11.4 mmol/L (3-11) H 03/18/19 06:25 BUN 22 mg/dL (7-18) H D 03/18/19 06:25 Creatinine 1.01 mg/dL (0.55-1.02) 03/18/19 06:25 Estimated GFR/1.73 m2 54.67 (mL/min/1.73m2) 03/18/19 06:25 Glucose 268 mg/dL (74-106) H 03/18/19 06:25 Hemoglobin A1c 8.0 % (3.8-5.6) H 03/18/19 06:25 Calcium 8.4 mg/dL (8.5-10.1) L 03/18/19 06:25 Magnesium 1.8 mg/dL (1.8-2.4) 03/18/19 06:25 Total Bilirubin 0.7 mg/dL (0.2-1.0) 03/17/19 13:30 AST 17 U/L (15-37) 03/17/19 13:30 ALT 28 U/L (14-59) 03/17/19 13:30 Alkaline Phosphatase 56 U/L (46-116) 03/17/19 13:30 Troponin I 0.06 ng/Ml (<0.06) 03/17/19 20:00 NT-Pro-B Natriuret Pep 605 pg/mL (<300) H 03/17/19 13:30 Total Protein 7.8 g/dL (6.4-8.2) 03/17/19 13:30 Albumin 3.7 g/dL (3.4-5.0) 03/17/19 13:30 Triglycerides 125 mg/dL (<150) 03/18/19 06:25 Total Cholesterol 179 mg/dL (<200) 03/18/19 06:25 LDL Cholesterol, Calc 112 mg/dL 03/18/19 06:25 HDL Cholesterol 42 mg/dL (40-60) 03/18/19 06:25 TSH 2.20 uIU/mL (0.36-3.74) 03/17/19 13:30
[2019-03-18] MEDS: Insulin Aspart 300 UNITS/3 ML PEN SC ×4 (09:11→21:46)
[2019-03-18] MEDS: dilTIAZem 30 MG TAB 90 MG PO ×3 (09:13→20:29)
--- NOTE | 2019-03-18 10:11 | PDOC.CMPRO ---
- If Service Date Differs Date of service: 03/18/19 Time of Service: 10:11 Care Management Progress Note S/O:Nava was sitting up in bed when CM met with her. Her spouse Iris was there and shared stories about Nava's generosity and the many good deeds she does for her friends and neighbors. Nava states she is feeling a lot better and hopes to be able to go home tomorrow. Nava will be moved out of the ICU later today as her heart rate has returned to normal and her vital signs are stable. A: Nava is a 68 year old wo0man admitted on 03/17/2019 with rapid afib and SOB P:Nava will likely return home with no new services. She will follow up with her PCP and plan of care including follow up appointments. She will transport home via private vehicle with her significant other, Iris. CM will continue to support patient, family and discharge planning needs.
--- NOTE | 2019-03-18 12:36 | DI.US_ITS ---
APPROVED REPORT EXAM: Comprehensive 2D, Doppler, and color-flow Echocardiogram Patient Location: In-Patient ICU [facility] Supervisor: Katelyn Wild RDCS (AE) Rhythm: Atrial Fibrillation Indications: chest pain afib, eval LV function Conclusion Left Ventricle : The left ventricle is normal size. The left ventricular ejection fraction is within the normal range. Very mild left ventricular hypertrophy. There is normal LV segmental wall motion. There is septal flattening suggestive of RV pressure overload. Diastolic function cannot be determine d due to arrhythmia but there is evidence of elevated filling pressures. LVEF is estimated to be 60- 65%. Right Ventricle : Right ventricle is dilated. Right ventricle is mildly hypokinetic. Atria : Left atrium is severely dilated. Right atrium is moderate to severely dilated. Aortic Valve : Aortic valve is trileaflet, and mildly sclerotic There is no aortic valvular stenosis. No aortic regurgitation is present. Mitral Valve : Mild to moderate mitral annular calcification. Chordae calcification is present. No e vidence of mitral valve stenosis. Mild mitral regurgitation. Great Vessels : The IVC is dialted, but collapses >50% with inspiration. Estimated RVSP is 40-48 mmH g. Compared to echocardiogram dated 01/12/2014: There is no significant change based on report report. Images from that area cannot be reviewed Wall motion Left Ventricle The left ventricle is normal size. The left ventricular ejection fraction is within the normal range. Very mild left ventricular hypertrophy. There is normal LV segmental wall motion. There is septal fl attening suggestive of RV pressure overload. Diastolic function cannot be determined due to arrhythmi a but there is evidence of elevated filling pressures. LVEF is estimated to be 60-65%. Right Ventricle Right ventricle is dilated. Right ventricle is mildly hypokinetic. Atria Left atrium is severely dilated. Right atrium is moderate to severely dilated. Aortic Valve Aortic valve is trileaflet, and mildly sclerotic There is no aortic valvular stenosis. No aortic regu rgitation is present. Mitral Valve Mild to moderate mitral annular calcification. Chordae calcification is present. No evidence of geraldo l valve stenosis. Mild mitral regurgitation. Tricuspid Valve The tricuspid valve is normal in structure. Mild to moderate tricuspid regurgitation. Great Vessels The aortic root is normal in size. The IVC is dialted, but collapses >50% with inspiration. Estimated RVSP is 40-48 mmHg. Pericardium Prominent anterior epicardial fat pad is present. 2D Dimensions IVSd 1.10 cm F: 0.6-1.0 LV EDV A2C 160.2 mL PWd 1.05 cm F: 0.6 - 1.0 LV EDV A4C 119.8 mL LVDd 5.30 cm F: 3.8 - 5.2 LA Volume Index Biplane 48.8 mL/m2 LVDs 3.75 cm F: 2.2 - 3.5 LA Area A4C 34.66 cm2 Aortic Root 3.25 cm F: 2.7 - 3.3 LA Area A2C 27.80 cm2 RVID Base (AP4) 4.93 cm (M/F) 2.5-4.1 EF AP4 68.3 % RA Area A4C 28.81 cm2 EF AP2 71.5 % LVOT 2.25 cm (M/F) 1.5-2.5 EF BP 70.3 % Ascending Aorta 3.40 cm F: 2.3 - 3.1 IVC 2.85 cm LVEF (Teich) 55.9 % TAPSE 1.68 cm (M/F) <1.7 LVEF (Hull's) 70.34 % F: 54 - 74 LV Volume 102.12 mL F: 46 - 106 LV Volume Index 40.52 mL/m2 F: 29 - 61 FS 29.40 % LV Diastology MV E' medial 0.091 (>0.07 m/s) TR Peak Velocity 3.19 m/s LV E/e MED 15.90 (<14) MV E' lateral 0.105 (>0.1 m/s) LV E/e LAT 13.80 (<14) LA vol/ BSA A2C s A-L 39.2 mL/m2 LA vol/ BSA A4C s A-L 60.5 mL/m2 Aortic Valve LVOT Area 4.06 cm2 AoV Area Vmax 2.93 cm2 LVOT Vmax 1.04 m/s AoV Area/ BSA (Vmax) 1.16 cm2/m2 LVOT Mean Dat. 0.81 m/s MIL Mean Dat. 2.87 cm2 LVOT Peak Gr. 4.3 mmHg MIL Mean Dat. Index 1.14 cm2/m2 LVOT Mean Gr. 2.7 mmHg LVOT VTI 0.238 m AoV Vmax 1.44 (0.5-1.3 m/s) AoV Mean Dat. 1.14 m/s AoV Peak Grad 8.3 mmHg LVOT SV 96.53 mL AoV Mean Grad 5.5 (<5 mmHg) AoV VTI 0.332 (0.18-0.25 m) AoV Area VTI 2.91 (2.5-4.5 cm2) AoV Area/ BSA (VTI) 1.15 cm/m2 Mitral Valve MV E Max Dat. 1.45 (0.4-1.3 m/s) MVA VTI 6.14 (4.0-6.0 cm2) MV Regurg Volume 23.68 mL MV RF 19.70 % Tricuspid Valve TR P. Gradient 40.6 mmHg TV Regurg Vmax 3.19 m/s RVSP 48.6 mmHg
--- NOTE | 2019-03-18 13:32 | W.NUTCONSULT ---
Date of service: 03/18/19 Time of Service: 13:32 Nutritional Consult ASSESSMENT: 68 year old female admitted with A fib, heart failure. PMH: poorly controlled DM, CAD, HTN, GERD. DM consult received. Following Heart Healthy Diet with excellent intake. BMI >50 puts her additionally at risk for co morbidities related to class 3 obesity. Outpatient DM and weight management education recommended. At high nutritional risk, will follow prn. NUTRITIONAL DIAGNOSIS: morbid obesity INTERVENTION: DM consult MONITORING AND EVALUATION: weight, po intake, labs Time Spent in Nutritional Counseling and Treatment: 0 time spent face to face
--- NOTE | 2019-03-18 14:45 | PHARADMIT ---
Addendum entered by Ana Lora 03/22/19 14:54: Pharmacy Note Subjective Objective BP-111/94 HR-54 Na,K+,Cl (all down) SCr-1.54 INR-2.1 BG-253 BNP-152(down) Assessment -diltiazem dose decreased starting tomorrow -metoprolol dose was decreased to 100 mg last night -insulin NPH ordered to be given at same time as prednisone to blunt hyperglycemic response to steroids per yesterdays progress note -PO potassium replacement given -PO furosemide discontinued this morning Plan watch HR and BG Addendum entered by Ana Lora 03/21/19 17:03: Pharmacy Note Subjective rate better controlled per morning report Objective HR-53 other VS okay Na 134 SCr-1.57 INR-2.8 proBNP-662(down) BG-289 Assessment -HR was elevated some this morning, metoprolol CR dose was increased from 100 mg to 200 mg QPM. This afternoon HR was low (53-59), increased dose may not be necessary? Nursing aware and planned on talking to MD about this before evening dose. -lasix changed from IV drip to PO today -insulin aspart and glargine doses adjusted -levalbuterol ordered PRN, prednisone ordered Plan watch BG, watch HR, watch for change in metoprolol dosing Original Note: Admission Pharmacy Clinical Review afib w/ rapid ventricular response Code Status Full Code Current Weight 152.9 kg Renally Cleared and Narrow Therapeutic Index Meds Crcl ~81.9 mL/min using adjusted body weight current meds okay QTc Value / Action Taken QTc 490 BP Control, Fever BP 121/52 afebrile Electrolytes reviewed within normal limits DVT Prophylaxis pt is on warfarin Opiate Usage / Scheduled Bowel Regimen Ordered no/prn Plt/SCr for Heparin / Enoxaparin plt 298 SCr 1.01 INR for Warfarin INR 2.1 H/H stable, WBC/Bands h/h 13.3/41.9 wbc 11.58 Antibiotic appropriateness none Cultures and Sensitivities none Surgical ABX d/c within 24 hr n/a DM control / Insulin Dosing BG 268 sliding scale aspart ordered Heart Failure (Check EF%) (DEMETRIA's, B-Block, Diuretics) diltiazem, furosemide, losartan, metoprolol IV to PO Switch n/a Home Meds Reviewed -bupropion and paroxetine may inhibit the metabolism of tolterodine. consider an alternative or dose adjustments to avoid toxicity -monitor for increased bleeding when low dose aspirin used in combination with warfarin Home Meds Not Ordered albuterol, cipro/dexamethasone, glipizide, tramadol, triamcinolone Comments ECHO today dilt drip turned off, trial on PO dilt
[2019-03-18 16:22] LABS: Procalcitonin < 0.1 ng/mL
[2019-03-18 16:31] LABS: D-Dimer 238 ng/mlFEU (<500)
[2019-03-18] MEDS: predniSONE 20 MG TAB 40 MG PO (16:32)
[2019-03-18] MEDS: Warfarin 5 MG TAB 10 MG PO (20:28)
[2019-03-18] MEDS: Benzonatate 100 MG CAP PO (20:28)
[2019-03-18] MEDS: guaiFENesin 600 MG TABCR PO (20:28)
[2019-03-18] MEDS: Simvastatin 10 MG TAB PO (21:52)
[2019-03-19] VITALS (15 sets, daily range): BP systolic 111–154; BP diastolic 63–83; PULSE 62–86; RESP 4–24; TEMP 36–36.8; O2SAT 94–96
[2019-03-19] MEDS: Metoprolol 12.5 MG TAB PO ×2 (00:16→06:42)
[2019-03-19] MEDS: dilTIAZem 30 MG TAB 90 MG PO (02:42)
[2019-03-19 07:03] LABS: Abs Immature Grans 0.03 k/cumm (0.0-0.09); Absolute Basophil Count 0.01 k/cumm (0.0-0.2); Absolute Eosinophil Count 0.03 k/cumm (0.0-0.7); Absolute Lymphocyte Count 0.93 k/cumm (1.2-3.4); Absolute Monocyte Count 0.66 k/cumm (0.11-0.7); Absolute Neutrophil Count 9.49 k/cumm (1.2-6.7); Basophils % 0.1; Eosinophils % 0.3; HGB 13.3 g/dL (12.0-15.5); Immature Grans % 0.3 %; Lymphocytes % 8.3; Mean Corp. HGB Concentration 31.7 g/dL (32.0-36.0); Mean Corpuscular Hemoglobin 27.7 pg (27.0-33.0); Mean Corpuscular Volume 87.3 fL (80-95); Monocytes % 5.9; Neutrophils % 85.1; Platelet Count 294 x1000/uL (130-400); RBC 4.81 m/cumm (4.00-5.20); RBC Distribution Width 14.5 % (11.7-14.6); White Blood Cell Count 11.15 k/cumm (4.4-10.8)
[2019-03-19 07:12] LABS: Anion Gap 10.6 mmol/L (3-11); BUN 25 mg/dL (7-18); CO2 27.4 mmol/L (21.0-32.0); Calcium 8.2 mg/dL (8.5-10.1); Chloride 101 mmol/L (98-107); Glucose 260 mg/dL (74-106); Potassium 3.8 mmol/L (3.5-5.1); Sodium 139 mmol/L (136-145)
[2019-03-19 07:13] LABS: INR 2.2 (0.9-1.1); Prothrombin Time 22.1 sec (9.3-11.0)
[2019-03-19] MEDS: dilTIAZem CD 180 MG CAPCR 360 MG PO (07:37)
[2019-03-19] MEDS: Benzonatate 100 MG CAP PO ×3 (07:38→20:02)
[2019-03-19] MEDS: buPROPion-CR 150 MG TABCR PO ×2 (07:38→20:02)
[2019-03-19] MEDS: Losartan 50 MG TAB 100 MG PO (07:38)
[2019-03-19] MEDS: guaiFENesin 600 MG TABCR PO ×2 (07:39→20:02)
[2019-03-19] MEDS: Magnesium Gluconate 500 MG TAB PO (07:39)
[2019-03-19] MEDS: Aspirin E.C. 81 MG TABEC PO (07:39)
[2019-03-19] MEDS: Metoprolol CR 50 MG TABCR PO (07:39)
[2019-03-19] MEDS: Esomeprazole 40 MG CAPCR PO (07:39)
[2019-03-19] MEDS: Insulin Aspart 300 UNITS/3 ML PEN SC ×4 (08:00→21:48)
[2019-03-19] MEDS: PARoxetine 20 MG TAB PO (08:00)
[2019-03-19] MEDS: Levalbuterol 1.25 MG/3 ML UPD VIAL UPD (08:17)
[2019-03-19 10:37] LABS: NT-proBNP 1781 pg/mL (<300)
--- NOTE | 2019-03-19 15:04 | PGE_ITS ---
Date of Service Date of service: 03/19/19 Time of Service: 15:04 Assessment and Plan Assessment and plan (1) Atrial fibrillation with rapid ventricular response: Status: Acute Assessment and plan: Rate control with combination of Toprol-XL and Cardizem CD. Her short acting metoprolol and Cardizem have been converted to the long-acting forms. Current anticoagulations with warfarin 10 mg nightly. INR is therapeutic at 2.2 will continue the same. (2) Acute diastolic heart failure with preserved ejection fraction: Status: Acute Assessment and plan: Resume IV furosemide. I will give a one-time dose of metolazone to work synergistically with her furosemide. Monitor daily BMP and proBNP. Recheck lung ultrasound as needed. (3) Essential hypertension: Status: Acute Assessment and plan: Blood pressure reasonably controlled on current regimen losartan 100 mg daily in addition to her diltiazem CD and Toprol-XL. We will continue the same. (4) Hyperlipidemia: Status: Acute Assessment and plan: Her LDL is not at goal. Currently at 112. Goal is for an LDL of 70 or less. We will switch her simvastatin to rosuvastatin. Qualifiers: Hyperlipidemia type: unspecified Qualified Code(s): E78.5 - Hyperlipidemia, unspecified (5) Diabetes mellitus: Status: Acute Assessment and plan: Glycohemoglobin A1c is 8%. I restarted her glipizide starting tomorrow but will add long-acting Lantus at night to try to achieve an A1c of 7% or less Qualifiers: Diabetes mellitus type: type 2 Diabetes mellitus long-term insulin use: without long-term use Diabetes mellitus complication status: without complication Qualified Code(s): E11.9 - Type 2 diabetes mellitus without complications (6) Depressive disorder: Status: Acute Assessment and plan: Continue her Wellbutrin and Paxil. According the patient her depression has been well controlled and she denies any depressive thoughts Subjective Subjective Interval history since last seen: Patient's cough is gotten worse more moist. She reports bringing up some yellowish mucus. This was sent for sputum culture and Gram stain. Gram stain shows rare white blood cells were epithelial cells and rare mixed gram-positive myrna with no predominant species. Patient was given a dose of prednisone yesterday for acute bronchitis and begun on Xopenex aerosol treatments. However I think the wheezing is predominantly secondary to acute on chronic diastolic heart failure and cor pulmonale. Echocardiogram demo nstrated normal left ventricular systolic function mild LVH but demonstrates dilated right ventricle and mild RV dysfunction. There was evidence of right ventricular volume overload and pressure overload with D-shaped septal deformity of the interventricular septum. She had been receiving IV Lasix which had been discontinued. I will resume her IV Lasix and try to diurese her over the next 24 hours. I did [id number] ultrasound of her lungs and she has diffuse bilateral B-lines from midlung oneill to both bases. Her proBNP is elevated today at 1781. I repeat her labs tomorrow including CBC BMP and proBNP. We will recheck lung ultrasound as needed. Exam Narrative Exam Narrative: Pleasant obese female sitting up in a chair with audible wheezing. Lungs reveal diffuse bilateral expiratory wheezes. She has a moist cough. Heart irregularly irregular at a controlled rate. Legs are edematous with 1+ pitting edema. She has diffuse varicose veins bilaterally. Objective Objective Clinical Data: Abnormal lab results 03/19/19 03/19/19 03/19/19 Range/Units 06:30 06:30 06:30 WBC 11.15 H (4.4-10.8) k/cumm MCHC 31.7 L (32.0-36.0) g/dL Absolute Neutrophils 9.49 H (1.2-6.7) k/cumm Absolute Lymphocytes 0.93 L (1.2-3.4) k/cumm PT 22.1 H (9.3-11.0) sec INR 2.2 H (0.9-1.1) BUN 25 H (7-18) mg/dL Glucose 260 H (74-106) mg/dL Calcium 8.2 L (8.5-10.1) mg/dL NT-Pro-B Natriuret Pep 1781 H (<300) pg/mL Vital Signs Temperature 36.8 C 03/19/19 11:50 Temperature Source Tympanic 03/19/19 11:50 Pulse 81 03/19/19 11:50 Pulse Rhythm Irregular 03/19/19 08:15 Pulse 81 03/18/19 14:34 Respiratory Rate 21 03/19/19 11:50 Respiratory Effort Labored 03/19/19 08:26 Respiratory Depth Shallow 03/19/19 08:26 Respiratory Pattern Normal 03/19/19 08:26 Blood Pressure 133/74 03/19/19 11:50 Blood Pressure Mean 116 03/18/19 16:00 Blood Pressure Position Sitting 03/18/19 16:00 Pulse Oximetry 96 03/19/19 14:10 Oxygen Delivery Method Room Air 03/19/19 14:10 Oxygen Flow Rate 0 03/19/19 14:10 Fraction of Inspired Oxygen (FIO2) 21 03/19/19 08:11 Pain Level 0 03/19/19 11:50 Comment 03/19/19 06:42 Intake & Output 03/18/19 03/19/19 03/19/19 23:59 11:59 23:59 Intake Total 540 / 1251.833 200 / 200 Output Total 3425 / 6525 500 / 1450 950 / 1450 Balance -2885 / -5273.167 -300 / -1250 -950 / -1250 Weight 154.6 kg Intake: Oral 540 / 1060 200 / 200 Output: Urine 3425 / 6525 500 / 1450 950 / 1450 Other: Urine Color [place] Urine Appearance Cloudy Clear Clear Hematuria Comment indewelling pino catheter deep pink to lt ramos color urine. Laboratory Results WBC 11.15 k/cumm (4.4-10.8) H 03/19/19 06:30 RBC 4.81 m/cumm (4.00-5.20) 03/19/19 06:30 Hgb 13.3 g/dL (12.0-15.5) 03/19/19 06:30 Hct 42.0 % (36.0-46.0) 03/19/19 06:30 MCV 87.3 fL (80-95) 03/19/19 06:30 MCH 27.7 pg (27.0-33.0) 03/19/19 06:30 MCHC 31.7 g/dL (32.0-36.0) L 03/19/19 06:30 RDW 14.5 % (11.7-14.6) 03/19/19 06:30 Plt Count 294 x1000/uL (130-400) 03/19/19 06:30 MPV 11.0 fL (8.0-11.0) 03/19/19 06:30 Immature Gran % 0.3 % 03/19/19 06:30 Neutrophils % 85.1 03/19/19 06:30 Lymphocytes % 8.3 03/19/19 06:30 Monocytes % 5.9 03/19/19 06:30 Eosinophils % 0.3 03/19/19 06:30 Basophils % 0.1 03/19/19 06:30 Absolute Neutrophils 9.49 k/cumm (1.2-6.7) H 03/19/19 06:30 Absolute Lymphocytes 0.93 k/cumm (1.2-3.4) L 03/19/19 06:30 Absolute Monocytes 0.66 k/cumm (0.11-0.7) 03/19/19 06:30 Absolute Eosinophils 0.03 k/cumm (0.0-0.7) 03/19/19 06:30 Absolute Basophils 0.01 k/cumm (0.0-0.2) 03/19/19 06:30 PT 22.1 sec (9.3-11.0) H 03/19/19 06:30 INR 2.2 (0.9-1.1) H 03/19/19 06:30 APTT 35.7 sec (21.0-31.4) H 03/17/19 13:30 D-Dimer 238 ng/mlFEU (<500) 03/18/19 15:42 Sodium 139 mmol/L (136-145) 03/19/19 06:30 Potassium 3.8 mmol/L (3.5-5.1) 03/19/19 06:30 Chloride 101 mmol/L (98-107) 03/19/19 06:30 Carbon Dioxide 27.4 mmol/L (21.0-32.0) 03/19/19 06:30 Anion Gap 10.6 mmol/L (3-11) 03/19/19 06:30 BUN 25 mg/dL (7-18) H 03/19/19 06:30 Creatinine 0.90 mg/dL (0.55-1.02) 03/19/19 06:30 Estimated GFR/1.73 m2 >= 60.00 (mL/min/1.73m2) 03/19/19 06:30 Glucose 260 mg/dL (74-106) H 03/19/19 06:30 Hemoglobin A1c 8.0 % (3.8-5.6) H 03/18/19 06:25 Calcium 8.2 mg/dL (8.5-10.1) L 03/19/19 06:30 Magnesium 2.0 mg/dL (1.8-2.4) 03/19/19 06:30 Total Bilirubin 0.7 mg/dL (0.2-1.0) 03/17/19 13:30 AST 17 U/L (15-37) 03/17/19 13:30 ALT 28 U/L (14-59) 03/17/19 13:30 Alkaline Phosphatase 56 U/L (46-116) 03/17/19 13:30 Troponin I 0.06 ng/Ml (<0.06) 03/17/19 20:00 Total Protein 7.8 g/dL (6.4-8.2) 03/17/19 13:30 Albumin 3.7 g/dL (3.4-5.0) 03/17/19 13:30 NT-Pro-B Natriuret Pep 1781 pg/mL (<300) H 03/19/19 06:30 Triglycerides 125 mg/dL (<150) 03/18/19 06:25 Total Cholesterol 179 mg/dL (<200) 03/18/19 06:25 LDL Cholesterol, Calc 112 mg/dL 03/18/19 06:25 HDL Cholesterol 42 mg/dL (40-60) 03/18/19 06:25 TSH 2.20 uIU/mL (0.36-3.74) 03/17/19 13:30 Procalcitonin < 0.1 ng/mL 03/18/19 15:42
[2019-03-19] MEDS: metOLazone 2.5 MG TAB PO (16:02)
[2019-03-19] MEDS: Furosemide 40 MG/4 ML VIAL IVP (16:03)
[2019-03-19] MEDS: Normal Saline Flush 10 ML SYR IVP (16:04)
--- NOTE | 2019-03-19 17:44 | PDOC.CMPRO ---
- If Service Date Differs Date of service: 03/19/19 Time of Service: 17:44 Care Management Progress Note S/O:Nava was sitting up in bed when CM met with her. Her spouse Iris was there as well as another friend. Nava voiced disappointment in not being able to go home and noted that she is really wheezy today. She was restarted on IV lasix and is undergoing additional studies. She has been moved out to the Med-surg floor. A: Nava is a 68 year old wo0man admitted on 03/17/2019 with rapid afib and SOB P:Nava will likely return home with no new services. She will follow up with her PCP and plan of care including follow up appointments. She will transport home via private vehicle with her significant other, Iris. CM will continue to support patient, family and discharge planning needs.
[2019-03-19] MEDS: Rosuvastatin 10 MG TAB 20 MG PO (20:03)
[2019-03-19] MEDS: Warfarin 5 MG TAB 10 MG PO (20:03)
[2019-03-19] MEDS: Insulin Glargine 300 UNITS/3 ML PEN 15 UNITS SC (22:03)
[2019-03-20] VITALS (113 sets, daily range): BP systolic 102–146; BP diastolic 49–84; PULSE 53–114; RESP 4–31; TEMP 36–36.7; O2SAT 92–97
[2019-03-20 07:12] LABS: Abs Immature Grans 0.06 k/cumm (0.0-0.09); Absolute Basophil Count 0.07 k/cumm (0.0-0.2); Absolute Eosinophil Count 0.23 k/cumm (0.0-0.7); Absolute Lymphocyte Count 2.07 k/cumm (1.2-3.4); Absolute Monocyte Count 1.06 k/cumm (0.11-0.7); Absolute Neutrophil Count 5.63 k/cumm (1.2-6.7); Basophils % 0.8; Eosinophils % 2.5; HCT 44.9 % (36.0-46.0); HGB 14.4 g/dL (12.0-15.5); Immature Grans % 0.7 %; Lymphocytes % 22.7; Mean Corp. HGB Concentration 32.1 g/dL (32.0-36.0); Mean Corpuscular Hemoglobin 27.9 pg (27.0-33.0); Mean Platelet Volume 10.9 fL (8.0-11.0); Monocytes % 11.6; Neutrophils % 61.7; Platelet Count 321 x1000/uL (130-400); RBC 5.16 m/cumm (4.00-5.20); RBC Distribution Width 14.6 % (11.7-14.6); White Blood Cell Count 9.12 k/cumm (4.4-10.8)
[2019-03-20 07:24] LABS: INR 2.6 (0.9-1.1); Prothrombin Time 25.5 sec (9.3-11.0)
[2019-03-20 07:37] LABS: BUN 31 mg/dL (7-18); CREATININE 0.95 mg/dL (0.55-1.02); Calcium 8.5 mg/dL (8.5-10.1); Chloride 99 mmol/L (98-107); Estimated GFR 58.68 (mL/min/1.73m2); Glucose 244 mg/dL (74-106); NT-proBNP 1120 pg/mL (<300); Potassium 3.7 mmol/L (3.5-5.1); Sodium 137 mmol/L (136-145)
[2019-03-20] MEDS: Furosemide 40 MG/4 ML VIAL IVP (08:07)
[2019-03-20] MEDS: Normal Saline Flush 10 ML SYR IVP (08:07)
[2019-03-20] MEDS: Esomeprazole 40 MG CAPCR PO (08:09)
[2019-03-20] MEDS: Magnesium Gluconate 500 MG TAB PO (08:09)
[2019-03-20] MEDS: dilTIAZem CD 180 MG CAPCR 360 MG PO (08:09)
[2019-03-20] MEDS: Aspirin E.C. 81 MG TABEC PO (08:09)
[2019-03-20] MEDS: guaiFENesin 600 MG TABCR PO ×2 (08:09→19:57)
[2019-03-20] MEDS: Benzonatate 100 MG CAP PO ×3 (08:09→19:56)
[2019-03-20] MEDS: Losartan 50 MG TAB 100 MG PO (08:10)
[2019-03-20] MEDS: PARoxetine 20 MG TAB PO (08:10)
[2019-03-20] MEDS: Metoprolol CR 50 MG TABCR PO (08:10)
[2019-03-20] MEDS: buPROPion-CR 150 MG TABCR PO ×2 (08:10→19:56)
[2019-03-20] MEDS: Insulin Aspart 300 UNITS/3 ML PEN SC ×4 (08:11→22:46)
[2019-03-20] MEDS: Levalbuterol 1.25 MG/3 ML UPD VIAL UPD (08:57)
--- NOTE | 2019-03-20 11:57 | W.PM.PROGNOT ---
Date of Service Date of service: 03/20/19 Time of Service: 11:57 Assessment and Plan Assessment and plan (1) Atrial fibrillation with rapid ventricular response: Status: Acute Assessment and plan: Less than optimal rate control. I am and increase her Toprol-XL from 50 mg daily to 100 mg daily. Continued diltiazem CD 360 mg daily. Continue anticoagulation with warfarin. INR is up to 2.6. Her current dose of warfarin is 10 mg every afternoon and I decreased her dose to 5 mg nightly (2) Acute diastolic heart failure with preserved ejection fraction: Status: Acute Assessment and plan: Patient be transferred back to ICU for continuous Lasix drip with titration protocol (3) Hyperlipidemia: Status: Acute Assessment and plan: Her cholesterol profile is less than optimally controlled. Her total cholesterol is acceptable at 179 but her LDL is 112. Triglycerides are acceptable at 125. I am to switch her simvastatin over to rosuvastatin 20 mg nightly. Qualifiers: Hyperlipidemia type: unspecified Qualified Code(s): E78.5 - Hyperlipidemia, unspecified (4) Essential hypertension: Status: Acute Assessment and plan: Blood pressures well controlled on the current regimen of diltiazem and Toprol and losartan. (5) Diabetes mellitus: Status: Acute Assessment and plan: Her overall glucose has not been well controlled her A1c is 8%. While here in the hospital her blood sugars been running anywhere from high 190s upwards of 380. This morning's glucose was 215 and this afternoon she is 234. Patient previously had been tried on metformin but was intolerant due to diarrhea. At home she was on glipizide 5 mg daily. I have added some Lantus to her nightly regimen. I think she should be evaluated for transition from glipizide to a GLP-1 receptor agonist such as Byetta or Trulicity or Victoza or possibly started on SGLT2 inhibitor such as Invokana or Farxiga as both of these classes have been shown to reduce cardiovascular mortality and reduce CHF. Qualifiers: Diabetes mellitus type: type 2 Diabetes mellitus fci insulin use: without fci use Diabetes mellitus complication status: without complication Qualified Code(s): E11.9 - Type 2 diabetes mellitus without complications (6) Depressive disorder: Status: Acute Assessment and plan: Continue her Wellbutrin and Paxil. According the patient her depression has been well controlled and she denies any depressive thoughts Subjective Subjective Patient reports: shortness of breath Interval history since last seen: Patient has more shortness of breath this morning and harsh minimally productive cough. No fevers. Despite putting her back on IV Lasix and giving her dose of Xarelto her proBNP remains elevated albeit a little lower than yesterday at 1100 from her previous level of 1700. She has harsh audible wheezing. [id number] ultrasound of her lungs shows diffuse bilateral B-lines from the midlung oneill to both bases. I may get a chest x-ray to confirm my impression that she has worsening CHF. I am going to transfer to ICU so that we can resume a continuous IV Lasix drip with a titration protocol. Exam Narrative Exam Narrative: Morbidly obese female sitting up in her chair with audible wheezing and moist cough. Obese neck limits ability to discern JVD. Lungs with diffuse expiratory wheezing and bilateral rales Heart is irregularly irregular Legs are edematous with diffuse varicose veins Objective Objective Clinical Data: Abnormal lab results 03/20/19 03/20/19 03/20/19 Range/Units 06:40 06:40 06:40 Absolute Monocytes 1.06 H (0.11-0.7) k/cumm PT 25.5 H (9.3-11.0) sec INR 2.6 H (0.9-1.1) BUN 31 H (7-18) mg/dL Glucose 244 H (74-106) mg/dL NT-Pro-B Natriuret Pep 1120 H (<300) pg/mL Vital Signs Temperature 36.7 C 03/20/19 07:50 Temperature Source Tympanic 03/20/19 07:50 Pulse 108 H 03/20/19 09:22 Pulse Rhythm Irregular 03/20/19 07:44 Pulse 81 03/18/19 14:34 Respiratory Rate 16 03/20/19 09:08 Respiratory Effort 03/20/19 07:44 Respiratory Depth Normal 03/20/19 07:44 Respiratory Pattern Normal 03/20/19 07:44 Blood Pressure 146/82 H 03/20/19 07:50 Blood Pressure Mean 116 03/18/19 16:00 Blood Pressure Position Sitting 03/18/19 16:00 Pulse Oximetry 95 03/20/19 09:08 Oxygen Delivery Method Room Air 03/20/19 08:57 Oxygen Flow Rate 0 03/20/19 08:57 Fraction of Inspired Oxygen (FIO2) 21 03/20/19 08:50 Pain Level 0 03/20/19 07:50 Comment 03/19/19 06:42 Intake & Output 03/19/19 03/19/19 03/20/19 11:59 23:59 11:59 Intake Total 200 / 921.25 721.25 / 921.25 0 / 0 Output Total 500 / 3450 2950 / 3450 1200 / 1200 Balance -300 / -2528.75 -2228.75 / -2528.75 -1200 / -1200 Weight 154.6 kg 150.4 kg Intake: IV 1.25 / 1.25 Oral 200 / 920 720 / 920 0 / 0 Output: Urine 500 / 3450 2950 / 3450 1200 / 1200 Other: Urine Color [place] Yellow Dark [place] Urine Appearance Clear Clear Clear Hematuria Urine Odor Normal Normal Comment deep pink to lt ramos color urine. void x 1 into toilet and flushed. Voiding Methods Toilet Toilet Laboratory Results WBC 9.12 k/cumm (4.4-10.8) 03/20/19 06:40 RBC 5.16 m/cumm (4.00-5.20) 03/20/19 06:40 Hgb 14.4 g/dL (12.0-15.5) 03/20/19 06:40 Hct 44.9 % (36.0-46.0) 03/20/19 06:40 MCV 87.0 fL (80-95) 03/20/19 06:40 MCH 27.9 pg (27.0-33.0) 03/20/19 06:40 MCHC 32.1 g/dL (32.0-36.0) 03/20/19 06:40 RDW 14.6 % (11.7-14.6) 03/20/19 06:40 Plt Count 321 x1000/uL (130-400) 03/20/19 06:40 MPV 10.9 fL (8.0-11.0) 03/20/19 06:40 Immature Gran % 0.7 % 03/20/19 06:40 Neutrophils % 61.7 03/20/19 06:40 Lymphocytes % 22.7 03/20/19 06:40 Monocytes % 11.6 03/20/19 06:40 Eosinophils % 2.5 03/20/19 06:40 Basophils % 0.8 03/20/19 06:40 Absolute Neutrophils 5.63 k/cumm (1.2-6.7) 03/20/19 06:40 Absolute Lymphocytes 2.07 k/cumm (1.2-3.4) 03/20/19 06:40 Absolute Monocytes 1.06 k/cumm (0.11-0.7) H 03/20/19 06:40 Absolute Eosinophils 0.23 k/cumm (0.0-0.7) 03/20/19 06:40 Absolute Basophils 0.07 k/cumm (0.0-0.2) 03/20/19 06:40 PT 25.5 sec (9.3-11.0) H 03/20/19 06:40 INR 2.6 (0.9-1.1) H 03/20/19 06:40 APTT 35.7 sec (21.0-31.4) H 03/17/19 13:30 D-Dimer 238 ng/mlFEU (<500) 03/18/19 15:42 Sodium 137 mmol/L (136-145) 03/20/19 06:40 Potassium 3.7 mmol/L (3.5-5.1) 03/20/19 06:40 Chloride 99 mmol/L (98-107) 03/20/19 06:40 Carbon Dioxide 28.0 mmol/L (21.0-32.0) 03/20/19 06:40 Anion Gap 10.0 mmol/L (3-11) 03/20/19 06:40 BUN 31 mg/dL (7-18) H 03/20/19 06:40 Creatinine 0.95 mg/dL (0.55-1.02) 03/20/19 06:40 Estimated GFR/1.73 m2 58.68 (mL/min/1.73m2) 03/20/19 06:40 Glucose 244 mg/dL (74-106) H 03/20/19 06:40 Hemoglobin A1c 8.0 % (3.8-5.6) H 03/18/19 06:25 Calcium 8.5 mg/dL (8.5-10.1) 03/20/19 06:40 Magnesium 2.0 mg/dL (1.8-2.4) 03/19/19 06:30 Total Bilirubin 0.7 mg/dL (0.2-1.0) 03/17/19 13:30 AST 17 U/L (15-37) 03/17/19 13:30 ALT 28 U/L (14-59) 03/17/19 13:30 Alkaline Phosphatase 56 U/L (46-116) 03/17/19 13:30 Troponin I 0.06 ng/Ml (<0.06) 03/17/19 20:00 Total Protein 7.8 g/dL (6.4-8.2) 03/17/19 13:30 Albumin 3.7 g/dL (3.4-5.0) 03/17/19 13:30 NT-Pro-B Natriuret Pep 1120 pg/mL (<300) H 03/20/19 06:40 Triglycerides 125 mg/dL (<150) 03/18/19 06:25 Total Cholesterol 179 mg/dL (<200) 03/18/19 06:25 LDL Cholesterol, Calc 112 mg/dL 03/18/19 06:25 HDL Cholesterol 42 mg/dL (40-60) 03/18/19 06:25 TSH 2.20 uIU/mL (0.36-3.74) 03/17/19 13:30 Procalcitonin < 0.1 ng/mL 03/18/19 15:42 Reviewed Pertinent PMH: Yes Objective Narrative Objective Narrative: Rhythm remains atrial fibrillation telemetry shows less than optimal rate control with heart rates running in the 100-110 and up. At times her rate will be in the 90s.
--- NOTE | 2019-03-20 11:58 | DI.RAD_ITS ---
EXAM: XR PORTABLE CHEST AP INDICATION: dyspnea, CHF. COMPARISON: XR PORTABLE CHEST AP from 03/17/2019 TECHNIQUE: 2D digital imaging was performed. FINDINGS: Leads are seen coiled over the left chest. Heart size is within normal limits for projection. The l ungs are grossly clear. There is no evidence of effusion or overt pulmonary edema. IMPRESSION: No acute abnormality.
--- NOTE | 2019-03-20 12:21 | DI.VRAD_ITS ---
PROCEDURE INFORMATION: Exam: XR Chest, 1 View Exam date and time: 03/20/2019 12:03 PM Age: 68 years old Clinical indication: Other: Dyspnea, chf TECHNIQUE: Imaging protocol: XR of the chest Views: 1 view. COMPARISON: CR XR PORTABLE CHEST AP 03/17/2019 2:01 PM FINDINGS: Lungs: Hyperexpanded lung oneill consistent with COPD Bibasilar atelectasis Pleural space: Unremarkable. No pleural effusion. No pneumothorax. Heart/Mediastinum: Unremarkable. No cardiomegaly. Bones/joints: Unremarkable. Other findings: Overlying EKG wires IMPRESSION: Hyperexpanded lung oneill consistent with COPD Dictated and Authenticated by: Aditya Smith MD. Ordering:[facility] Christel Cerna MD
--- NOTE | 2019-03-20 13:30 | NUR.NOTE ---
1300: Transferred to the ICU room 220 ambulatory for planned Lasix drip to tx CHF. All pt's belongings transferred to room 220 with patient. Pt's Iris present at time of transfer. Pt stable, vss and pain free at time of this transfer. Verbal handoff report given to Tanner Hickey, [employer]
[2019-03-20] MEDS: metOLazone 2.5 MG TAB PO (14:36)
--- NOTE | 2019-03-20 15:39 | PDOC.CMPRO ---
- If Service Date Differs Date of service: 03/20/19 Time of Service: 15:39 Care Management Progress Note S/O:Nava was sitting up in bed when CM met with her. She was moved back to the ICU this morning to facilitate close monitoring of an IV Lasix drip. Her CHF is still not well controlled. Nava had company all day and was alone for the first time when CM met with her. She appeared relaxed, watching television. 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 She discussed some of the books they have read and talked about her favorite genres. A: Nava is a 68 year old wo0man admitted on 03/17/2019 with rapid afib and SOB P:Nava will likely return home with no new services. She will follow up with her PCP and plan of care including follow up appointments. She will transport home via private vehicle with her significant other, Iris. CM will continue to support patient, family and discharge planning needs.
[2019-03-20] MEDS: Warfarin 5 MG TAB PO (19:56)
[2019-03-20] MEDS: Rosuvastatin 10 MG TAB 20 MG PO (19:57)
[2019-03-20] MEDS: Metoprolol CR 100 MG TABCR PO (20:02)
[2019-03-20] MEDS: Insulin Glargine 300 UNITS/3 ML PEN 15 UNITS SC (22:47)
[2019-03-21] VITALS (185 sets, daily range): BP systolic 73–133; BP diastolic 45–98; PULSE 50–106; RESP 4–24; TEMP 35.6–36.4; O2SAT 89–98
[2019-03-21 06:46] LABS: Abs Immature Grans 0.07 k/cumm (0.0-0.09); Absolute Basophil Count 0.07 k/cumm (0.0-0.2); Absolute Eosinophil Count 0.33 k/cumm (0.0-0.7); Absolute Lymphocyte Count 1.81 k/cumm (1.2-3.4); Absolute Monocyte Count 1.22 k/cumm (0.11-0.7); Absolute Neutrophil Count 6.42 k/cumm (1.2-6.7); Basophils % 0.7; Eosinophils % 3.3; HGB 15.7 g/dL (12.0-15.5); Immature Grans % 0.7 %; Lymphocytes % 18.2; Mean Corp. HGB Concentration 32.7 g/dL (32.0-36.0); Mean Corpuscular Hemoglobin 27.8 pg (27.0-33.0); Mean Platelet Volume 11.1 fL (8.0-11.0); Monocytes % 12.3; Neutrophils % 64.8; Platelet Count 345 x1000/uL (130-400); RBC 5.65 m/cumm (4.00-5.20); RBC Distribution Width 14.3 % (11.7-14.6); White Blood Cell Count 9.92 k/cumm (4.4-10.8)
[2019-03-21 06:51] LABS: INR 2.8 (0.9-1.1); Prothrombin Time 27.4 sec (9.3-11.0)
[2019-03-21 07:07] LABS: Anion Gap 10.5 mmol/L (3-11); BUN 47 mg/dL (7-18); CO2 29.5 mmol/L (21.0-32.0); CREATININE 1.57 mg/dL (0.55-1.02); Calcium 8.6 mg/dL (8.5-10.1); Chloride 94 mmol/L (98-107); Estimated GFR 32.86 (mL/min/1.73m2); Glucose 289 mg/dL (74-106); NT-proBNP 662 pg/mL (<300); Potassium 3.7 mmol/L (3.5-5.1); Sodium 134 mmol/L (136-145)
[2019-03-21] MEDS: Esomeprazole 40 MG CAPCR PO (07:46)
[2019-03-21] MEDS: Insulin Aspart 300 UNITS/3 ML PEN SC ×6 (07:50→22:33)
[2019-03-21] MEDS: Aspirin E.C. 81 MG TABEC PO (08:25)
[2019-03-21] MEDS: buPROPion-CR 150 MG TABCR PO ×2 (08:26→20:29)
[2019-03-21] MEDS: Benzonatate 100 MG CAP PO ×3 (08:26→20:27)
[2019-03-21] MEDS: guaiFENesin 600 MG TABCR PO ×2 (08:27→22:48)
[2019-03-21] MEDS: Losartan 50 MG TAB 100 MG PO (08:27)
[2019-03-21] MEDS: Magnesium Gluconate 500 MG TAB PO (08:27)
[2019-03-21] MEDS: dilTIAZem CD 180 MG CAPCR 360 MG PO (08:27)
[2019-03-21] MEDS: Tolterodine 2 MG CAPCR 4 MG PO (08:28)
[2019-03-21] MEDS: PARoxetine 20 MG TAB PO (08:28)
--- NOTE | 2019-03-21 09:11 | W.PM.PROGNOT ---
Date of Service Date of service: 03/21/19 Time of Service: 09:12 Assessment and Plan Assessment and plan (1) Atrial fibrillation with rapid ventricular response: Status: Acute Assessment and plan: Atrial fib rate was not only control but has converted to sinus rhythm.Her INR is therapeutic at 2.8. I had to decrease her warfarin dose down to 5 mg nightly. She can be transferred out of the intensive care unit to the medical/surgical floor on telemetry. We will watch her 1 more day on oral Lasix and then plan for discharge home (2) Acute diastolic heart failure with preserved ejection fraction: Status: Acute Assessment and plan: Discontinue IV Lasix and put on oral Lasix 40 mg twice a day and continue to treat her hypertension and hypertensive heart disease with losartan 100 mg daily. (3) Hyperlipidemia: Status: Acute Assessment and plan: Patient was started on Crestor 20 mg nightly because of poorly controlled lipid profiles Qualifiers: Hyperlipidemia type: unspecified Qualified Code(s): E78.5 - Hyperlipidemia, unspecified (4) Essential hypertension: Status: Acute Assessment and plan: Blood pressures well controlled on the current regimen of diltiazem and Toprol and losartan. (5) Diabetes mellitus: Status: Acute Assessment and plan: Blood glucoses are running high because she required some oral steroids to treat acute bronchospasm. I have adjusted her Lantus upwards to 45 units nightly and put her on NovoLog sliding scale per insulin resistance scale. She is also on 1 unit per 5 g of carbohydrates with each meal and snack. Because she is on prednisone for the acute bronchospasm I am going to put her on NPH to be given at the same time as her prednisone to blunt the hyperglycemic response to the steroids. 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 According the patient her depression has been well controlled and she denies any depressive thoughts (7) Acute bronchitis: Status: Acute Assessment and plan: Patient has no clinical evidence for an infective bronchitis but seems to have a hyperreactive airway. Patient be treated on a short course of prednisone. Subjective Subjective Interval history since last seen: This morning patient's wheezing was markedly improved. She diuresed over 5000 mL since going on the Lasix drip. Her breathing is markedly better. Her BUN and creatinine have risen a bit to 47 and 1.57. However her proBNP is down to 662. We will take her off the Lasix drip and put her on program doses of oral Lasix. She can be transferred out of the intensive care unit. Her atrial fibrillation rhythm has converted to sinus rhythm on the increased dose of diltiazem CD and Toprol-XL. Exam Narrative Exam Narrative: Morbidly obese female sitting up in her chair smiling and laughing not short of breath. There was no audible wheezing from across the room. However auscultation of her chest revealed fine scattered expiratory wheezes. Heart is regular rate and rhythm. Legs are much less edematous although because of her obesity is difficult to discern the exact degree of edema she has venous varicosities bilaterally. Objective Objective Clinical Data: Abnormal lab results 03/21/19 03/21/19 03/21/19 Range/Units 06:20 06:20 06:20 RBC 5.65 H (4.00-5.20) m/cumm Hgb 15.7 H (12.0-15.5) g/dL Hct 48.0 H (36.0-46.0) % MPV 11.1 H (8.0-11.0) fL Absolute Monocytes 1.22 H (0.11-0.7) k/cumm PT 27.4 H (9.3-11.0) sec INR 2.8 H (0.9-1.1) Sodium 134 L (136-145) mmol/L Chloride 94 L (98-107) mmol/L BUN 47 H D (7-18) mg/dL Creatinine 1.57 H (0.55-1.02) mg/dL Glucose 289 H (74-106) mg/dL NT-Pro-B Natriuret Pep 662 H (<300) pg/mL Vital Signs Temperature 35.8 C L 03/21/19 09:10 Temperature Source Temporal Artery Scan 03/21/19 09:10 Pulse 106 H 03/21/19 09:10 Pulse Rhythm Irregular 03/21/19 08:12 Pulse 74 03/21/19 05:40 Respiratory Rate 18 03/21/19 09:10 Respiratory Effort 03/21/19 08:12 Respiratory Depth Normal 03/21/19 08:12 Respiratory Pattern Normal 03/21/19 08:12 Blood Pressure 128/98 H 03/21/19 09:10 Blood Pressure Mean 74 03/21/19 05:01 Blood Pressure Position Supine 03/21/19 04:00 Pulse Oximetry 96 03/21/19 09:10 Oxygen Delivery Method Room Air 03/21/19 09:10 Oxygen Flow Rate 0 03/21/19 09:10 Fraction of Inspired Oxygen (FIO2) 21 03/21/19 08:14 Pain Level 0 03/21/19 09:10 Comment 03/19/19 06:42 Intake & Output 03/20/19 03/20/19 03/21/19 11:59 23:59 11:59 Intake Total 0 / 509.875 509.875 / 509.875 277.958 / 277.958 Output Total 2100 / 5630 3530 / 5630 1650 / 1650 Balance -2100 / -5120.125 -3020.125 / -5120.125 -1372.042 / -1372.042 Weight 150.4 kg 150.4 kg 148.3 kg Intake: IV 29.875 / 29.875 37.958 / 37.958 Oral 0 / 480 480 / 480 240 / 240 Output: Urine 2099 / 5630 3530 / 5630 1650 / 1650 Other: Urine Color Yellow Pale Yellow Yellow Urine Appearance Clear Clear Cloudy Urine Odor Normal None None Comment void x 1 into toilet and flushed. pt has indwelling pino catheter, patent and draining well. Urine is clear light yellow catheter put out 200 cc clear light yellow urine for the last hour. lasix gtt titrated down to 5 mg. Stool Size Large Stool Characteristics Formed Brown Voiding Methods Toilet Indwelling Catheter Indwelling Catheter Laboratory Results WBC 9.92 k/cumm (4.4-10.8) 03/21/19 06:20 RBC 5.65 m/cumm (4.00-5.20) H 03/21/19 06:20 Hgb 15.7 g/dL (12.0-15.5) H 03/21/19 06:20 Hct 48.0 % (36.0-46.0) H 03/21/19 06:20 MCV 85.0 fL (80-95) 03/21/19 06:20 MCH 27.8 pg (27.0-33.0) 03/21/19 06:20 MCHC 32.7 g/dL (32.0-36.0) 03/21/19 06:20 RDW 14.3 % (11.7-14.6) 03/21/19 06:20 Plt Count 345 x1000/uL (130-400) 03/21/19 06:20 MPV 11.1 fL (8.0-11.0) H 03/21/19 06:20 Immature Gran % 0.7 % 03/21/19 06:20 Neutrophils % 64.8 03/21/19 06:20 Lymphocytes % 18.2 03/21/19 06:20 Monocytes % 12.3 03/21/19 06:20 Eosinophils % 3.3 03/21/19 06:20 Basophils % 0.7 03/21/19 06:20 Absolute Neutrophils 6.42 k/cumm (1.2-6.7) 03/21/19 06:20 Absolute Lymphocytes 1.81 k/cumm (1.2-3.4) 03/21/19 06:20 Absolute Monocytes 1.22 k/cumm (0.11-0.7) H 03/21/19 06:20 Absolute Eosinophils 0.33 k/cumm (0.0-0.7) 03/21/19 06:20 Absolute Basophils 0.07 k/cumm (0.0-0.2) 03/21/19 06:20 PT 27.4 sec (9.3-11.0) H 03/21/19 06:20 INR 2.8 (0.9-1.1) H 03/21/19 06:20 APTT 35.7 sec (21.0-31.4) H 03/17/19 13:30 D-Dimer 238 ng/mlFEU (<500) 03/18/19 15:42 Sodium 134 mmol/L (136-145) L 03/21/19 06:20 Potassium 3.7 mmol/L (3.5-5.1) 03/21/19 06:20 Chloride 94 mmol/L (98-107) L 03/21/19 06:20 Carbon Dioxide 29.5 mmol/L (21.0-32.0) 03/21/19 06:20 Anion Gap 10.5 mmol/L (3-11) 03/21/19 06:20 BUN 47 mg/dL (7-18) H D 03/21/19 06:20 Creatinine 1.57 mg/dL (0.55-1.02) H 03/21/19 06:20 Estimated GFR/1.73 m2 32.86 (mL/min/1.73m2) 03/21/19 06:20 Glucose 289 mg/dL (74-106) H 03/21/19 06:20 Hemoglobin A1c 8.0 % (3.8-5.6) H 03/18/19 06:25 Calcium 8.6 mg/dL (8.5-10.1) 03/21/19 06:20 Magnesium 2.0 mg/dL (1.8-2.4) 03/19/19 06:30 Total Bilirubin 0.7 mg/dL (0.2-1.0) 03/17/19 13:30 AST 17 U/L (15-37) 03/17/19 13:30 ALT 28 U/L (14-59) 03/17/19 13:30 Alkaline Phosphatase 56 U/L (46-116) 03/17/19 13:30 Troponin I 0.06 ng/Ml (<0.06) 03/17/19 20:00 Total Protein 7.8 g/dL (6.4-8.2) 03/17/19 13:30 Albumin 3.7 g/dL (3.4-5.0) 03/17/19 13:30 NT-Pro-B Natriuret Pep 662 pg/mL (<300) H 03/21/19 06:20 Triglycerides 125 mg/dL (<150) 03/18/19 06:25 Total Cholesterol 179 mg/dL (<200) 03/18/19 06:25 LDL Cholesterol, Calc 112 mg/dL 03/18/19 06:25 HDL Cholesterol 42 mg/dL (40-60) 03/18/19 06:25 TSH 2.20 uIU/mL (0.36-3.74) 03/17/19 13:30 Procalcitonin < 0.1 ng/mL 03/18/19 15:42
[2019-03-21] MEDS: Furosemide 40 MG TAB PO ×2 (09:19→16:49)
--- NOTE | 2019-03-21 09:28 | W.INDIABCONS ---
Date of service: 03/21/19 Time of Service: 09:28 Diabetes Inpatient Consult DESCRIPTION/ASSESSMENT: Appreciate diabetes consult for Nava Ojeda who is hospitalized with afib and hear concerns. BMI 56 A1c 8 Nava is well known to distant outpatient diabetes support. At home she manages diabetes with glipizide. Here she takes Prednisone and has now added Glargine 25u, increased correction from sensitive to resisitant, and added 1 unit for 10 grams carbohydrate to bring down blood sugars out of the 200s where she has mostly been since admission. Nava has good support at home for managing diabetes. Here on heart healthy and carbohydrate controlled meal plan. INTERVENTION: Will follow new insulin dosing plan which should address her continuous hyperglycemia despite insulin correction offered. She has requested turkey sausage for breakfast. Advised her about saturated fat and sodium but will discuss with CDM for tracking of her food choices. PLAN: Will follow blood sugars and check in prior to discharge. Time Spent in Nutritional Counseling and Treatment: 10 minutes face to face
[2019-03-21] MEDS: Normal Saline Flush 10 ML SYR IVP (09:35)
--- NOTE | 2019-03-21 09:39 | NUR.NOTE ---
Furosemide drip is dc'd. Creatinine is 1.57 this a.m.Nursing Note:
[2019-03-21] MEDS: methylPREDNISolone 4 MG TAB 8 MG PO (10:43)
[2019-03-21] MEDS: methylPREDNISolone 4 MG TAB PO (11:41)
--- NOTE | 2019-03-21 13:23 | NUR.NOTE ---
Nursing Note: Patient converts to sinus rhythm at 09:19. MD advised of same. EKG is ordered. RN speaks with MD about moderate wheezing throughout. MD orders 60mg of Prednisone PO NOW.,
[2019-03-21] MEDS: predniSONE 20 MG TAB 60 MG PO (13:42)
[2019-03-21] MEDS: Levalbuterol 1.25 MG/3 ML UPD VIAL UPD (14:15)
--- NOTE | 2019-03-21 17:16 | PDOC.CMPRO ---
- If Service Date Differs Date of service: 03/21/19 Time of Service: 17:16 Care Management Progress Note S/O:Nava was sitting up in bed when CM met with her. She remains in the ICU today. While her afib has better rate control, her HF and breathing remain challenging. Nava remains in good spirits and has many friends and family that come to visit. She is open and friendly and engages well with CM. A: Nava is a 68 year old wo0man admitted on 03/17/2019 with rapid afib and SOB P:Nava will likely return home with no new services. She will follow up with her PCP and plan of care including follow up appointments. She will transport home via private vehicle with her significant other, Iris. CM will continue to support patient, family and discharge planning needs.
[2019-03-21] MEDS: Warfarin 5 MG TAB PO (20:29)
[2019-03-21] MEDS: Rosuvastatin 10 MG TAB 20 MG PO (20:30)
[2019-03-21] MEDS: Insulin Glargine 300 UNITS/3 ML PEN 45 UNITS SC (22:44)
[2019-03-21] MEDS: Metoprolol CR 100 MG TABCR PO (22:49)
[2019-03-22] VITALS (125 sets, daily range): BP systolic 102–136; BP diastolic 47–94; PULSE 44–161; RESP 4–27; TEMP 35.8–36.6; O2SAT 90–99
[2019-03-22 06:37] LABS: Prothrombin Time 21.2 sec (9.3-11.0)
[2019-03-22 06:40] LABS: INR 2.1 (0.9-1.1)
[2019-03-22 06:54] LABS: Anion Gap 6.8 mmol/L (3-11); BUN 66 mg/dL (7-18); CO2 29.2 mmol/L (21.0-32.0); CREATININE 1.54 mg/dL (0.55-1.02); Calcium 8.5 mg/dL (8.5-10.1); Chloride 95 mmol/L (98-107); Glucose 253 mg/dL (74-106); NT-proBNP 152 pg/mL (<300); Potassium 3.3 mmol/L (3.5-5.1); Sodium 131 mmol/L (136-145)
[2019-03-22] MEDS: Esomeprazole 40 MG CAPCR PO (08:03)
[2019-03-22] MEDS: Insulin Aspart 300 UNITS/3 ML PEN SC ×7 (08:07→21:23)
[2019-03-22] MEDS: Aspirin E.C. 81 MG TABEC PO (08:43)
[2019-03-22] MEDS: Benzonatate 100 MG CAP PO ×3 (08:43→19:47)
[2019-03-22] MEDS: Furosemide 40 MG TAB PO (08:44)
[2019-03-22] MEDS: buPROPion-CR 150 MG TABCR PO ×2 (08:44→19:48)
[2019-03-22] MEDS: dilTIAZem CD 180 MG CAPCR 360 MG PO (08:44)
[2019-03-22] MEDS: Insulin NPH-Human 300 UNITS/3 ML PEN 30 UNIT SC (08:45)
[2019-03-22] MEDS: guaiFENesin 600 MG TABCR PO ×2 (08:45→19:47)
[2019-03-22] MEDS: Magnesium Gluconate 500 MG TAB PO (08:46)
[2019-03-22] MEDS: Losartan 50 MG TAB 100 MG PO (08:46)
[2019-03-22] MEDS: PARoxetine 20 MG TAB PO (08:46)
[2019-03-22] MEDS: Tolterodine 2 MG CAPCR 4 MG PO (08:47)
[2019-03-22] MEDS: predniSONE 20 MG TAB 60 MG PO (08:47)
[2019-03-22] MEDS: Potassium Chloride 20 MEQ TABCR 40 MEQ PO (10:14)
[2019-03-22] MEDS: Levalbuterol 1.25 MG/3 ML UPD VIAL UPD ×3 (14:10→21:26)
--- NOTE | 2019-03-22 14:41 | PDOC.CMPRO ---
- If Service Date Differs Date of service: 03/22/19 Time of Service: 14:41 Care Management Progress Note S/O: No change in Nava's plan today she is a medical surgical overflow and will be discharged home when medically ready. A: Nava is a 68 year old woman admitted on 03/17/2019 with rapid afib and SOB P:Nava will likely return home with no new services. She will follow up with her PCP and plan of care including follow up appointments. She will transport home via private vehicle with her significant other, Iris. CM will continue to support patient, family and discharge planning needs.
--- NOTE | 2019-03-22 15:06 | W.NUTRFU ---
Date of service: 03/22/19 Time of Service: 15:06 Nutritional Follow up NOTE: PO intake remains excellent on Diabetic diet. Making appropriate meal choices. Will continue to monitor po intake, weight and labs. CDE has educated and will follow for optimal diabetic management. Time Spent in Nutritional Counseling and Treatment: 0 time spent face to face
--- NOTE | 2019-03-22 17:57 | W.PM.PROGNOT ---
Date of Service Date of service: 03/22/19 Time of Service: 17:57 Assessment and Plan Assessment and plan (1) Acute diastolic heart failure with preserved ejection fraction: Status: Acute Assessment and plan: Patient is fully diuresed. She is actually somewhat azotemic. Her furosemide was stopped. She is going to hydrate orally on her own at this point. Potassium replacement was given. Will DC the Pino catheter. (2) Atrial fibrillation with rapid ventricular response: Status: Acute Assessment and plan: Patient is in a sinus rhythm. Her INR is therapeutic at 2.1. Heart rate has been in the 50s. We will try decreasing the diltiazem from 360 mg to 240 mg daily. (3) Diabetes mellitus: Status: Acute Assessment and plan: Blood sugar 253 today. Continue to monitor. Continue present meds. Qualifiers: Diabetes mellitus type: type 2 Diabetes mellitus superintendent terminal insulin use: without senior care use Diabetes mellitus complication status: without complication Qualified Code(s): E11.9 - Type 2 diabetes mellitus without complications (4) Obstructive sleep apnea syndrome: Status: Acute Assessment and plan: Continue nocturnal CPAP. (5) Discharge planning issues: Status: Acute Assessment and plan: We will recheck her labs in the a.m. She will probably be ready for discharge tomorrow if stable. Subjective Subjective Interval history since last seen: Patient is in good spirits and overall feeling well. She has no cough no shortness of breath. He is not having any chest pain. She has not had any further palpitations. Exam Narrative Exam Narrative: On exam she is sitting up in the chair. She is fully cooperative with exam. Her posterior lung exam sounded relatively clear bilaterally though breath sounds were somewhat distant. Her heart sounds were regular. Her abdomen was markedly obese but nontender. Her lower extremities showed marked fat replacement of the tissues but no pitting edema. Good distal perfusion bilaterally. Neurologically no focal deficits were noted. Objective Objective Clinical Data: Abnormal lab results 03/22/19 03/22/19 Range/Units 06:04 06:04 PT 21.2 H D (9.3-11.0) sec INR 2.1 H D (0.9-1.1) Sodium 131 L (136-145) mmol/L Potassium 3.3 L (3.5-5.1) mmol/L Chloride 95 L (98-107) mmol/L BUN 66 H D (7-18) mg/dL Creatinine 1.54 H (0.55-1.02) mg/dL Glucose 253 H (74-106) mg/dL Vital Signs Temperature 35.9 C L 03/22/19 17:15 Temperature Source Temporal Artery Scan 03/22/19 17:15 Pulse 59 L 03/22/19 17:15 Pulse Rhythm Regular 03/22/19 00:29 Pulse 62 03/22/19 17:30 Respiratory Rate 19 03/22/19 17:30 Respiratory Effort 03/22/19 14:14 Respiratory Depth Normal 03/22/19 14:14 Respiratory Pattern Normal 03/22/19 14:14 Blood Pressure 102/47 L 03/22/19 17:15 Blood Pressure Mean 57 03/22/19 17:14 Blood Pressure Position Sitting 03/22/19 14:14 Pulse Oximetry 98 03/22/19 17:20 Oxygen Delivery Method Room Air 03/22/19 17:15 Oxygen Flow Rate 0 03/22/19 17:15 Fraction of Inspired Oxygen (FIO2) 03/22/19 08:05 Pain Level 0 03/22/19 17:15 Comment 03/22/19 17:15 Intake & Output 03/21/19 03/22/19 03/22/19 23:59 11:59 23:59 Intake Total 840 / 1131.333 480 / 1200 720 / 1200 Output Total 500 / 2350 2425 / 2950 525 / 2950 Balance 340 / -1218.667 -1945 / -1750 195 / -1750 Intake: Oral 840 / 1080 480 / 1200 720 / 1200 Output: Urine 500 / 2350 2425 / 2850 425 / 2850 Stool 100 / 100 Other: Urine Color Pale Yellow Yellow Yellow Urine Appearance Clear Cloudy Cloudy Urine Odor None None None Comment Patient has a 16 Pino catheter Patient has a 16 pino catheter Pino catheter is dc'd. Stool Occult Blood Negative Stool Size Moderate Stool Characteristics Brown Voiding Methods Indwelling Catheter Indwelling Catheter Bedside Commode Laboratory Results WBC 9.92 k/cumm (4.4-10.8) 03/21/19 06:20 RBC 5.65 m/cumm (4.00-5.20) H 03/21/19 06:20 Hgb 15.7 g/dL (12.0-15.5) H 03/21/19 06:20 Hct 48.0 % (36.0-46.0) H 03/21/19 06:20 MCV 85.0 fL (80-95) 03/21/19 06:20 MCH 27.8 pg (27.0-33.0) 03/21/19 06:20 MCHC 32.7 g/dL (32.0-36.0) 03/21/19 06:20 RDW 14.3 % (11.7-14.6) 03/21/19 06:20 Plt Count 345 x1000/uL (130-400) 03/21/19 06:20 MPV 11.1 fL (8.0-11.0) H 03/21/19 06:20 Immature Gran % 0.7 % 03/21/19 06:20 Neutrophils % 64.8 03/21/19 06:20 Lymphocytes % 18.2 03/21/19 06:20 Monocytes % 12.3 03/21/19 06:20 Eosinophils % 3.3 03/21/19 06:20 Basophils % 0.7 03/21/19 06:20 Absolute Neutrophils 6.42 k/cumm (1.2-6.7) 03/21/19 06:20 Absolute Lymphocytes 1.81 k/cumm (1.2-3.4) 03/21/19 06:20 Absolute Monocytes 1.22 k/cumm (0.11-0.7) H 03/21/19 06:20 Absolute Eosinophils 0.33 k/cumm (0.0-0.7) 03/21/19 06:20 Absolute Basophils 0.07 k/cumm (0.0-0.2) 03/21/19 06:20 PT 21.2 sec (9.3-11.0) H D 03/22/19 06:04 INR 2.1 (0.9-1.1) H D 03/22/19 06:04 APTT 35.7 sec (21.0-31.4) H 03/17/19 13:30 D-Dimer 238 ng/mlFEU (<500) 03/18/19 15:42 Sodium 131 mmol/L (136-145) L 03/22/19 06:04 Potassium 3.3 mmol/L (3.5-5.1) L 03/22/19 06:04 Chloride 95 mmol/L (98-107) L 03/22/19 06:04 Carbon Dioxide 29.2 mmol/L (21.0-32.0) 03/22/19 06:04 Anion Gap 6.8 mmol/L (3-11) 03/22/19 06:04 BUN 66 mg/dL (7-18) H D 03/22/19 06:04 Creatinine 1.54 mg/dL (0.55-1.02) H 03/22/19 06:04 Estimated GFR/1.73 m2 33.60 (mL/min/1.73m2) 03/22/19 06:04 Glucose 253 mg/dL (74-106) H 03/22/19 06:04 Hemoglobin A1c 8.0 % (3.8-5.6) H 03/18/19 06:25 Calcium 8.5 mg/dL (8.5-10.1) 03/22/19 06:04 Magnesium 2.0 mg/dL (1.8-2.4) 03/22/19 06:04 Total Bilirubin 0.7 mg/dL (0.2-1.0) 03/17/19 13:30 AST 17 U/L (15-37) 03/17/19 13:30 ALT 28 U/L (14-59) 03/17/19 13:30 Alkaline Phosphatase 56 U/L (46-116) 03/17/19 13:30 Troponin I 0.06 ng/Ml (<0.06) 03/17/19 20:00 Total Protein 7.8 g/dL (6.4-8.2) 03/17/19 13:30 Albumin 3.7 g/dL (3.4-5.0) 03/17/19 13:30 NT-Pro-B Natriuret Pep 152 pg/mL (<300) 03/22/19 06:04 Triglycerides 125 mg/dL (<150) 03/18/19 06:25 Total Cholesterol 179 mg/dL (<200) 03/18/19 06:25 LDL Cholesterol, Calc 112 mg/dL 03/18/19 06:25 HDL Cholesterol 42 mg/dL (40-60) 03/18/19 06:25 TSH 2.20 uIU/mL (0.36-3.74) 03/17/19 13:30 Procalcitonin < 0.1 ng/mL 03/18/19 15:42
[2019-03-22] MEDS: Metoprolol CR 100 MG TABCR PO (19:47)
[2019-03-22] MEDS: Rosuvastatin 10 MG TAB 20 MG PO (19:47)
[2019-03-22] MEDS: Warfarin 5 MG TAB PO (19:48)
[2019-03-22] MEDS: Insulin Glargine 300 UNITS/3 ML PEN 45 UNITS SC (21:25)
[2019-03-22] MEDS: Normal Saline Flush 10 ML SYR IVP (21:26)
[2019-03-23] VITALS (18 sets, daily range): BP systolic 110–127; BP diastolic 54–87; PULSE 42–68; RESP 11–24; TEMP 36.6; O2SAT 94–98
[2019-03-23 06:27] LABS: HCT 42.6 % (36.0-46.0); Mean Corp. HGB Concentration 32.9 g/dL (32.0-36.0); Mean Corpuscular Hemoglobin 27.8 pg (27.0-33.0); Mean Corpuscular Volume 84.5 fL (80-95); Mean Platelet Volume 10.9 fL (8.0-11.0); Platelet Count 342 x1000/uL (130-400); RBC 5.04 m/cumm (4.00-5.20); White Blood Cell Count 12.03 k/cumm (4.4-10.8)
[2019-03-23 06:36] LABS: Anion Gap 8.9 mmol/L (3-11); BUN 64 mg/dL (7-18); CO2 30.1 mmol/L (21.0-32.0); CREATININE 1.56 mg/dL (0.55-1.02); Calcium 8.3 mg/dL (8.5-10.1); Chloride 96 mmol/L (98-107); Glucose 202 mg/dL (74-106); Potassium 3.2 mmol/L (3.5-5.1); Sodium 135 mmol/L (136-145)
[2019-03-23 06:38] LABS: INR 1.9 (0.9-1.1); Prothrombin Time 18.5 sec (9.3-11.0)
[2019-03-23] MEDS: Benzonatate 100 MG CAP PO (08:44)
[2019-03-23] MEDS: guaiFENesin 600 MG TABCR PO (08:45)
[2019-03-23] MEDS: Losartan 50 MG TAB 100 MG PO (08:45)
[2019-03-23] MEDS: Magnesium Gluconate 500 MG TAB PO (08:47)
[2019-03-23] MEDS: buPROPion-CR 150 MG TABCR PO (08:47)
[2019-03-23] MEDS: PARoxetine 20 MG TAB PO (08:47)
[2019-03-23] MEDS: Aspirin E.C. 81 MG TABEC PO (08:47)
[2019-03-23] MEDS: Insulin Aspart 300 UNITS/3 ML PEN SC ×4 (08:48→12:46)
[2019-03-23] MEDS: Esomeprazole 40 MG CAPCR PO (08:48)
[2019-03-23] MEDS: dilTIAZem CD 120 MG CAPCR 240 MG PO (09:18)
[2019-03-23] MEDS: Potassium Chloride 20 MEQ TABCR 40 MEQ PO (10:15)
--- NOTE | 2019-03-23 13:54 | DSE_ITS ---
Date of service: 03/23/19 Time of Service: 13:55 DS: Diagnosis Discharge Diagnosis (1) Acute diastolic heart failure with preserved ejection fraction: Status: Acute Asessment and Plan: Exacerbated by rapid atrial fibrillation. Responded to IV bolus and infusion of furosemide. Discharged on no diuretics. (2) Atrial fibrillation with rapid ventricular response: Status: Acute Asessment and Plan: Required bolus and infusion of diltiazem. Converted to sinus rhythm on 03/21/2019. Added diltiazem to 40 mg daily, increase Toprol- XL to 50 mg daily. Mild bradycardia on these doses but no recurrence of A. fib. Continues on warfarin. (3) Diabetes mellitus: Status: Acute Asessment and Plan: Received basal bolus insulin, Lantus and aspart, during this admission. Hemoglobin A1c 8%. Blood sugars came down nicely to the 1 50-200 range. Will likely need more intensive diabetes management as an outpatient. (4) Obstructive sleep apnea syndrome: Status: Acute Asessment and Plan: She wore her CPAP nightly while here. (5) Discharge planning issues: Status: Acute Asessment and Plan: Discharge to home with plans for outpatient labs including BM P, INR, next week. Recommend outpatient MPI testing. She was given 2 weeks of potassium supplementation, potassium chloride 20 mEq daily. Continue magnesium supplementation. Discharge Plan Disposition Patient Disposition: HOME Condition: Improving Discharge Details Chief Complaint: SOB Clinical Impression: Atrial fibrillation with rapid ventricular response, Exacerbation of reactive airway disease Reason For Visit: ATRIAL FIBRILLATION W/ RAPID VENTRICULAR RESPONSE Admit Date/Time: 03/17/19 17:07 Admit Provider: Nehemiah Kearney Attending Provider: Nehemiah Kearney Primary Care Provider: Maico Leonard ED Provider: Anthony Edmondson Hospital Course Hospital Course: 68-year-old female presented with acute onset of shortness of breath. She was found to have rapid atrial fibrillation with diastolic dysfunction and associated congestive heart failure. She had symptoms that began about 24 hours prior to admission. She tried her usual inhalers without relief. She drove herself to the emergency room. In the emergency room she was found to be in atrial fibrillation at a rate of 210 bpm. She received IV diltiazem both in bolus and then drip form. EKG showed a right bundle branch block pattern and diffuse ST depression. Her troponins were negative. She was admitted to the intensive care unit on a diltiazem infusion. She received furosemide both IV and in the form of an infusion. She became somewhat azotemic with a bump in her creatinine to 1.57. Her Lasix was discontinued. She received potassium supplementation. She was treated with basal bolus insulin while an inpatient. Her usual outpatient oral diabetic agents were continued at discharge. Her hemoglobin A1c was 8%. Follow-up MPI testing recommended. Follow-up outpatient lab evaluation to recheck renal function, INR, and electrolytes. Home Meds and New Rx's Prescriptions: New diltiazem HCl 120 mg Capsule,Extended Release 24hr 240 mg PO DAILY Qty: 30 RF: 0 nitroglycerin [Nitrostat] 0.4 mg Tablet, Sublingual 0.4 mg sublingual Q5 MIN PRN X3 PRN (Reason: chest pain) Qty: 30 RF: 0 potassium chloride 20 mEq tablet,ER particles/crystals 20 meq PO DAILY Qty: 14 RF: 0 Continued paroxetine HCl [Paxil] 20 mg tablet 20 mg PO DAILY Qty: 90 RF: 4 tolterodine [Detrol LA] 4 mg capsule,extended release 24hr 4 mg PO DAILY Qty: 90 RF: 4 warfarin 5 mg tablet 5 - 15 mg PO HS Qty: 270 RF: 3 (DME) lancets 28 gauge misc 1 ea Miscellaneous DAILY Qty: 100 RF: 4 (DME) Blood Glucose Test strip 1 strip Miscellaneous DAILY Qty: 100 RF: 4 Ciprodex 0.3-0.1 % drops,suspension 3 drp BID PRN Qty: 1 RF: 2 tramadol 50 mg tablet 50 mg PO Q6H PRN (Reason: pain) Qty: 30 RF: 0 bupropion HCl [Wellbutrin SR] 150 mg tablet sustained-release 12 hr 150 mg PO BID RF: 0 losartan 100 mg tablet 100 mg PO DAILY Qty: 90 RF: 3 albuterol sulfate [ProAir HFA] 90 mcg/actuation HFA aerosol inhaler 2 puff Inhalation Q4H PRN Qty: 3 RF: 3 acetaminophen [Tylenol Extra Strength] 500 MG tablet 2 tab PO HS PRNRF: 0 BIPAP 1 ea inhalation HS RF: 0 triamcinolone acetonide 60 ML lotion 60 ml Topical BID prn Qty: 60 RF: 1 aspirin 81 MG tablet,chewable 81 mg PO DAILY Qty: 90 RF: 0 magnesium amino acid chelate 100 MG tablet 500 mg PO DAILY RF: 0 nystatin 15 GM cream 15 gm Topical BID Qty: 3 RF: 0 simvastatin 10 mg tablet 10 mg PO HS Qty: 90 RF: 4 esomeprazole magnesium [Nexium] 40 mg capsule,delayed release(DR/EC) 40 mg PO DAILY Qty: 90 RF: 4 glipizide 5 mg tablet extended release 24hr 5 mg PO DAILY RF: 0 Changed metoprolol succinate 25 mg tablet extended release 24 hr 50 mg PO DAILY Qty: 90 RF: 3 Discharge Instructions Instructions: Heart Failure (DC) Referrals: Maico Leonard [Primary Care Provider] - 04/06/19 1:00 pm Activity:: Activity as Tolerated Equipment/Supplies:: No Equipment Needed Diet:: Carb Counting Discharge Orders Discharge Orders: Discharge Order (Routine); Ordered 03/23/19 Ordered By: Von Centeno Other Ambulatory Orders: Basic Metabolic Panel (Routine) Location: None Selected Ordered By: Von Centeno Prothrombin Time (Routine) Timeframe: 1 Week Location: None Selected Ordered By: Von Centeno DS: Summary Status at Discharge Functional status at discharge: independent ambulation Overall status at discharge: patient is back to baseline Mental Status: mental status grossly normal Speech and Movement: speech and movement normal Mood: congruent mood Affect: normal affect Time Spent with Patient providing and/or coordinating discharge services: Greater than 30 minutes Exam Narrative Exam Narrative: Exam on the day of discharge; she was sitting up comfortably in the recliner. She did have paroxysms of a mild cough. Her posterior lung exam was generally clear other than some end expiratory wheezes. She was satting 95% on room air. Heart sounds were regular. Abdomen nontender. Lower extremities no pitting edema. Psych Mental Status: mental status grossly normal Speech and Movement: speech and movement normal Mood: congruent mood Affect: normal affect DS: Data Vitals/I&O Vitals and I&O: Vital Signs Temperature 36.6 C 03/23/19 12:29 Temperature Source Temporal Artery Scan 03/23/19 12:29 Pulse 46 L 03/23/19 12:15 Pulse Rhythm Regular 03/23/19 07:55 Pulse 45 L 03/23/19 12:15 Respiratory Rate 18 03/23/19 12:15 Respiratory Effort 03/23/19 10:07 Respiratory Depth Normal 03/23/19 10:07 Respiratory Pattern Normal 03/23/19 10:07 Blood Pressure 119/54 L 03/23/19 12:15 Blood Pressure Mean 70 03/23/19 12:15 Blood Pressure Position Sitting 03/22/19 14:14 Pulse Oximetry 95 03/23/19 12:15 Oxygen Delivery Method Room Air 03/23/19 10:07 Oxygen Flow Rate 0 03/23/19 10:07 Fraction of Inspired Oxygen (FIO2) 21 03/23/19 10:08 Pain Level 0 03/22/19 17:15 Comment 03/22/19 17:15 Intake & Output 03/22/19 03/23/19 03/23/19 23:59 11:59 23:59 Intake Total 720 / 1200 Output Total 800 / 3225 600 / 600 Balance -80 / -2025 -600 / -600 Weight 149.4 kg Intake: Oral 720 / 1200 Output: Urine 700 / 3125 600 / 600 Stool 100 / 100 Other: Urine Color Yellow Yellow Urine Appearance Clear Clear Urine Odor None Strong Comment Nuñez catheter is dc'd. Stool Occult Blood Negative Stool Size Moderate Stool Characteristics Brown Voiding Methods Bedside Commode Bedside Commode Data Completed and Pending Labs on day of discharge: Labs from last 24 hours 03/23/19 03/23/19 03/23/19 06:00 06:00 06:00 WBC 12.03 H RBC 5.04 Hgb 14.0 Hct 42.6 MCV 84.5 MCH 27.8 MCHC 32.9 RDW 14.0 Plt Count 342 MPV 10.9 PT 18.5 H INR 1.9 H Sodium 135 L Potassium 3.2 L Chloride 96 L Carbon Dioxide 30.1 Anion Gap 8.9 BUN 64 H Creatinine 1.56 H Estimated GFR/1.73 m2 33.10 Glucose 202 H Calcium 8.3 L PFSH Medical History Atrial flutter DM (diabetes mellitus) GERD (gastroesophageal reflux disease) Herpes zoster without complication (Inactive 05/22/15) HTN (hypertension) long-term current use of anticoagulant Obesity AURORA (obstructive sleep apnea) Tick bite (Inactive) doubt Lyme, given lack of engorged tick and attachment time URI (upper respiratory infection) (Resolved) Surgical History Breast, Mastectomy (~01/2003) and reconstruction of TM Colonoscopy - MAC (05/29/17) HAND SURGERY (~02/2013) History of hand surgery (Inactive) History of mastoidectomy (Inactive 02/14/14) Open Carpal Tunnel release (~03/2009) right Replacement of total knee joint (~2004) b/l shoulder surgery (04/30/16) left shoulder; Dr. Licona Status post total bilateral knee replacement (Inactive) Family History Mother , age 67 Diabetes TYPE II Essential hypertension Heart disease ANGINA Hyperlipidemia Neoplasm KIDNEY Stroke Father , age 80 Diabetes TYPE I Essential hypertension Heart disease Hyperlipidemia Sister Diabetes Essential hypertension Heart disease Hyperlipidemia Myocardial infarction X 2 Maternal Grandfather No problems noted. Paternal Grandfather No problems noted. Maternal Grandmother Cancer of kidney Paternal Grandmother No problems noted. Sister Essential hypertension Chronic obstructive lung disease Asthma Brother Heart disease Hyperlipidemia Stroke Brother Human immunodeficiency virus (HIV) positive Myocardial infarction Social History Smoking/Tobacco Use Status: Former Tobacco Use Quit Date: 05/24/98 Alcohol Intake: never Drug use: Never Substance use type: does not use Household members: spouse Housing: house Communication Needs: Hard of Hearing Pets and animals: No Sexually active: No Do you think of yourself as: lesbian/doshi/homosexual Current gender identity: female What is your relationship status?: How often do you talk on the phone with friends or family?: decline to answer How often do you get together with friends or relatives?: decline to answer How often do you attend gnosticist or pentecostalism services?: decline to answer Do you belong to any clubs or organized social groups?: decline to answer Panel score (0-1 are the most socially isolated patients): 1 What type of physical activity do you participate in: none Randi/Evangelical: None Special randi needs: No Seatbelt use: sometimes Helmet use: No Drive intox or ride w/intox 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
--- NOTE | 2019-03-23 16:11 | PDOC.CMDIS ---
- If Service Date Differs Date of service: 03/23/19 Time of Service: 16:11 LACE Index Scoring Tool - Questions: Length of Stay (in days): 4 - 6 Acuity (Admit via E.D.?): Yes Comorbidities: Diabetes w/o Complication, Congestive Heart Failure, Any Tumor E.D. Visits: 3 - Answers: Total Score: 15 Risk of Readmission: High Risk Care Management Discharge Reason for Hospitalization: SOB, Atrial fibrillation with rapid ventricular response, Exacerbation of reactive airway disease Discharge Plan: Nava will be discharged home with no new services. She will follow up with her PCP, Cardiology and her discharge plan of care. Nava will transport via private vehicle with her spouse Iris. Patient/Family Education Needs: Discharge plan, limitations, follow up plan and Ask Me Three.
== END 2019-03-23 14:30 | disposition home or self-care (01) | DRG 291 ==
LOC: ER 17:22 → ICU 18:38 → MS 03-18 21:05 → ICU 03-20 13:09
PROVIDERS: Internal Medicine; Admitting Provider Internal Medicine; Emergency Provider Student in an Organized Health Care Education/Training Program; PCP Family Medicine; Visit Provider Family Medicine
DX: I11.0 Hypertensive heart disease with heart failure (principal); I50.31 Acute diastolic (congestive) heart failure; I48.20 Chronic atrial fibrillation, unspecified; Z68.43 Body mass index [BMI] 50.0-59.9, adult; E87.6 Hypokalemia; E11.9 Type 2 diabetes mellitus without complications; G47.33 Obstructive sleep apnea (adult) (pediatric); E78.5 Hyperlipidemia, unspecified; F32.9 Major depressive disorder, single episode, unspecified; Z87.891 Personal history of nicotine dependence; E66.01 Morbid (severe) obesity due to excess calories
CPT/HCPCS: 36415; 80048; 80053; 80061; 84145; 85027; 93005; 93306; 94640; 96361; 96365; 96366; 96375; 96376; 99223; 99232; 99233; 99239; 99291; 71045; 83036; 83735; 83880; 84443; 84484; 85025; 85379; 85610; 85730; 87070; 87205; 93010; 94667; J1940; J2930; J3490; J7509; J7512; J7614

== ENCOUNTER 2019-03-25 15:19 | Outpatient (REF) | payer MEDICARE, BC, SELFPAY | END 2019-03-25 15:39 | LOC: LBN 15:19 | PROVIDERS: PCP Family Medicine; Visit Provider Family Medicine | DX: R30.0 Dysuria (principal) | CPT/HCPCS: 87077; 87086; 87186 ==

== ENCOUNTER 2019-04-05 11:59 | Outpatient (CLI) | payer MEDICARE, BC, SELFPAY ==
[2019-04-05 12:52] LABS: Prothrombin Time 23.1 sec (9.3-11.0)
[2019-04-05 13:01] LABS: INR 2.3 (0.9-1.1)
[2019-04-05 13:02] LABS: Anion Gap 10.7 mmol/L (3-11); BUN 20 mg/dL (7-18); CO2 26.3 mmol/L (21.0-32.0); CREATININE 1.15 mg/dL (0.55-1.02); Calcium 8.4 mg/dL (8.5-10.1); Chloride 104 mmol/L (98-107); Estimated GFR 47.07 (mL/min/1.73m2); Glucose 242 mg/dL (74-106); Potassium 4.2 mmol/L (3.5-5.1); Sodium 141 mmol/L (136-145)
== END 2019-04-05 12:19 ==
PROVIDERS: PCP Family Medicine; Visit Provider Family Medicine
DX: I50.9 Heart failure, unspecified (principal); E11.9 Type 2 diabetes mellitus without complications; I10 Essential (primary) hypertension; Z51.81 Encounter for therapeutic drug level monitoring
CPT/HCPCS: 36415; 80048; 85610

== ENCOUNTER 2019-05-03 11:22 | Outpatient (CLI) | payer MEDICARE, BC, SELFPAY ==
[2019-05-03 12:45] LABS: INR 2.3 (0.9-1.1); Prothrombin Time 22.6 sec (9.3-11.0)
== END 2019-05-03 11:42 ==
PROVIDERS: PCP Family Medicine; Visit Provider Family Medicine
DX: I48.91 Unspecified atrial fibrillation (principal); Z79.01 Long term (current) use of anticoagulants
CPT/HCPCS: 36415; 85610

== ENCOUNTER 2019-05-03 11:27 | Outpatient (REF) | payer MEDICARE, BC, SELFPAY | END 2019-05-03 11:47 | LOC: LBN 11:27 | PROVIDERS: PCP Family Medicine; Visit Provider Family Medicine | DX: N76.0 Acute vaginitis (principal) | CPT/HCPCS: 87480; 87510; 87660 ==

== ENCOUNTER 2019-07-11 12:29 | Observation (INO) | payer MEDICARE, BC, SELFPAY ==
[2019-07-11] VITALS (48 sets, daily range): BP systolic 107–146; BP diastolic 56–93; PULSE 68–123; RESP 15–24; TEMP 36.4–36.9; O2SAT 91–96
--- NOTE | 2019-07-11 12:30 | DI.RAD_ITS ---
EXAM: XR CHEST 2V PA LATERAL CLINICAL HISTORY: sob TECHNIQUE: 2D digital imaging was performed. COMPARISON: CR XR CHEST 2V PA LATERAL from 01/07/2019 FINDINGS: MEDIASTINUM: Normal. HEART: Normal. PULMONARY VASCULATURE: Normal. LUNGS: Clear. There is hyperexpansion of the lungs with flattened diaphragms suggesting underlying C OPD. PLEURAL SPACE: No pleural effusion or pneumothorax. BONE:Normal. OTHER FINDINGS:Normal. IMPRESSION: No acute pulmonary findings. DATA REPOSITORY: RADIATION DOSE DELIVERED:
[2019-07-11] MEDS: Aspirin 81 MG CHEW 243 MG CH (12:54)
--- NOTE | 2019-07-11 12:54 | ED.GENADUL_ITS ---
Discharge Plan Disposition Patient Disposition: [facility] INPATIENT Condition: Fair Discharge Details Chief Complaint: Chest Pain Clinical Impression: Atrial fibrillation with rapid ventricular response, Chest pain, CHF (congestive heart failure) Admit Date/Time: 07/11/19 18:06 Admit Provider: Burton Owen Attending Provider: Burton Owen Primary Care Provider: Maico Leonard ED Provider: Nita Newman Discharge Data Discharge Date/Time-TO BE ENTERED AT DEPARTURE: 07/11/19 18:43 Medical Decision Making <NUNO Coats - Last Filed: 07/12/19 16:09> This is a 69-year-old female with a history of diabetes, atrial fibrillation with RVR, atrial flutter, morbid obesity, currently anticoagulated, hypertension, GERD, presenting for symptoms that began yesterday while chopping wood. She felt off balance, weak, lightheaded, nauseous. Symptoms resolved after taking a break. She never had any chest pain during this time but did have what she described as neck pressure. Given her age and comorbidities, certainly concerning story. Will give an additional 3 baby aspirin and initiate cardiac work-up. We will also give 500 cc bolus of fluid as her heart rate initially appears to be irregularly irregular, in the 110's. She appears well, stable, will not immediately proceed to any antiarrhythmics. I did discuss the case with Dr. Murrieta. Upon reevaluation, patient reports that she is now asymptomatic. EKG performed at 1321 reveals sinus rhythm, ventricular of 76. Right bundle branch block. No acute ST elevation or depression. This was reviewed interpreted with Dr. Murrieta. Initial laboratory values reveal a white count of 6.79 hemoglobin 14.3 hematocrit 45, platelet count 302. INR 2.4. Electrolytes unremarkable. Creatinine 1.12, GFR 48.38 which appears to be near her baseline. Initial troponin is less than 0.05, BNP of 2671. X-ray is unremarkable. After work-up, this appears to be a CHF exacerbation. Diagnosis less likely pneumonia, ACS, PE. INR is therapeutic today. Given her age and comorbidities, patient was offered admission for observation and repeat troponin. Given she is now currently asymptomatic, she actually declines admission and would prefer to go home. She is of sound mind he can certainly make this decision for herself. She is agreeable to being observed in the ER for a repeat EKG and troponin at 3 hours. In the meantime I will reach out to her primary care provider Dr. Leonard to discuss this plan. Dr. Leonard is not in the office today but I was able to speak with Dr. Knowles. He is aware of the patient's visit here in the ER today, we will increase her Lasix dose from 20 mg daily up to 40 mg daily. He will have their office contact her tomorrow for prompt outpatient reevaluation. He did not have any other suggestions at this time. At 1600 patient remains asymptomatic. Will repeat troponin and EKG. Medical Records Medical records reviewed: Yes I reviewed the patient's medical records. Imaging Data Radiologic Study: Attestation: I personally reviewed and interpreted this imaging study as follows: Imaging: X-Ray Radiologist's impression: Initially I read the x-ray as negative, confirmed by radiology Lab Data Lab results reviewed: Yes I reviewed the patient's lab results. Lab results narrative: Laboratory Tests Range/Units 07/11/19 07/11/19 07/11/19 12:40 12:40 12:40 WBC (4.4-10.8) k/cumm 6.79 RBC (4.00-5.20) m/cumm 5.09 Hgb (12.0-15.5) g/dL 14.3 Hct (36.0-46.0) % 45.0 MCV (80-95) fL 88.4 MCH (27.0-33.0) pg 28.1 MCHC (32.0-36.0) g/dL 31.8 L RDW (11.7-14.6) % 13.7 Plt Count (130-400) x1000/uL 302 MPV (8.0-11.0) fL 10.6 Immature Gran % % 0.3 Neutrophils % 57.6 Lymphocytes % 27.7 Monocytes % 8.8 Eosinophils % 4.3 Basophils % 1.3 Absolute Neutrophils (1.2-6.7) k/cumm 3.91 Absolute Lymphocytes (1.2-3.4) k/cumm 1.88 Absolute Monocytes (0.11-0.7) k/cumm 0.60 Absolute Eosinophils (0.0-0.7) k/cumm 0.29 Absolute Basophils (0.0-0.2) k/cumm 0.09 PT (9.3-11.0) sec 23.8 H INR (0.9-1.1) 2.4 H APTT (21.0-31.4) sec 34.8 H Sodium (136-145) mmol/L 139 Potassium (3.5-5.1) mmol/L 3.8 Chloride (98-107) mmol/L 103 Carbon Dioxide (21.0-32.0) mmol/L 30.3 Anion Gap (3-11) mmol/L 5.7 BUN (7-18) mg/dL 17 Creatinine (0.55-1.02) mg/dL 1.12 H Estimated GFR/1.73 m2 (mL/min/1.73m2) 48.38 Glucose (74-106) mg/dL 164 H Calcium (8.5-10.1) mg/dL 8.4 L Magnesium (1.8-2.4) mg/dL 1.4 L Total Bilirubin (0.2-1.0) mg/dL 0.7 AST (15-37) U/L 14 L ALT (14-59) U/L 23 Alkaline Phosphatase (46-116) U/L 52 Troponin I (<0.06) ng/Ml < 0.05 NT-Pro-B Natriuret Pep (<300) pg/mL 2671 H Total Protein (6.4-8.2) g/dL 7.3 Albumin (3.4-5.0) g/dL 3.4 ECG Data Attestation: I personally reviewed and interpreted this ECG (s) as follows: Interpretation: EKG performed at 1236. Reviewed and interpreted with Dr. Murrieta. Appears to be atrial fibrillation, ventricular 116. A. fib with RVR. Right bundle branch block present. No acute ST elevation or depression segments noted <NUNO Day - Last Filed: 07/11/19 20:02> Care transition myself from Ricardo Gunter PA-C, with repeat EKG and troponin pending. Please see his initial notes on history, exam and evaluation thus far. In brief, patient came in for evaluation of feeling unwell while chopping wood yesterday. Asymptomatic after stopping activity. Patient does have a multitude of comorbidities. She is received baby aspirin as well as 500 cc bolus which did seem to break the patient's atrial fibrillation. Patient asymptomatic after converting to normal sinus rhythm. Patient does have a history of atrial fibrillation and is anticoagulated. Initial laboratory evaluation was significant for a BNP of 2671. Diagnosis is CHF exacerbation. Repeat troponin is less than 0.05. EKG was reviewed by Dr. Murrieta with no acute ischemic changes noted. Dr. Murrieta I evaluated the patient. Reviewed history once again. Patient initially presented, she was having left-sided jaw pain although she is asymptomatic at this time. This may have been associated with her atrial fibrillation which she has since converted to normal sinus rhythm. However, given the patient's comorbidities, heart score of 6, we again discussed inpatient admission. At this time, patient agrees to inpatient admission for continued trending of her troponins as well as stress test tomorrow. Consult with Dr. Owen who agrees to admission. <Lyn Murrieta MD - Last Filed: 07/11/19 18:35> I, Lyn Murrieta, have seen and examined the patient and agree with the history and physical as per the PA. Please see this documentation. Concern for CHF, ACS, atrial fibrillation, metabolic/lyte disturbance, other. Exam/history is not consistent with pulmonary embolism, acute aortic etiology, sepsis. EKG initially likely atrial fibrillation with RVR, now sinus rhythm on repeat. Labs concerning for hypomagnesemia, elevated BNP. Troponin negative. Plan for admission for further work-up. Patient refusing admission. PA spoke with patient's PCP regarding outpatient plan, per PCP plan for 40 mg Lasix daily, outpatient follow-up tomorrow. Awaiting second troponin, repeat EKG. I discussed my recommendation for admission with the patient. Patient would like to talk to her spouse regarding admission versus discharge. Patient discussed with her spouse, and agrees to be admitted to the hospital. Clinical impression: Exertional dyspnea, jaw pain Disposition: [facility] inpatient HPI <NUNO Coats - Last Filed: 07/12/19 16:09> General Mode of arrival: ambulatory . Date/Time Provider Initiated Documentation: 07/11/19 12:30 . Limitations to Documentation: no limitations . Information obtained by: patient . HPI Narrative: This is a 69-year-old female with past medical history that includes atrial flutter, diabetes, GERD, hypertension, obesity, sleep apnea, hyperlipidemia, A. fib with RVR, reactive airway disease, currently anticoagulated. She presents reporting that yesterday afternoon while chopping wood she felt short of breath, lightheaded, nauseous, dizzy. Dizziness is described more feeling unsteady as opposed to the room spinning around. She denies any chest pain at that time however felt pressure in the bilateral dry region. She reports that the symptoms essentially resolved with rest. She reports today that she has continuation of shortness of breath but denies any other symptoms that she experienced yesterday. She believes that she likely had a heart attack yesterday and notes a 3 pound weight gain over the past 24 hours. She denies recent illness or trauma. Denies headache, visual changes, posterior neck pain, chest pain, abdominal pain, numbness, tingling, weakness, change in bowel or bladder habits. Related Data Home Medications Medication Instructions Recorded Confirmed acetaminophen [Tylenol Extra 2 tab PO HS PRN 06/11/12 07/11/19 Strength] Bipap 1 ea INHALATION HS 01/23/15 05/03/19 aspirin 81 mg PO DAILY #90 tab-cap 05/06/17 07/11/19 magnesium amino acid chelate 500 mg PO DAILY 05/08/17 07/11/19 nystatin 15 gm TOPICAL BID #3 bottle 08/05/17 07/11/19 lancets 28 gauge #100 ea 06/11/18 05/03/19 paroxetine HCl 20 mg tablet 20 mg PO DAILY #90 tab 06/11/18 07/11/19 ciprofloxacin 0.3 %-dexamethasone 3 drp BID PRN #1 bottle 07/05/18 07/11/19 0.1 % ear drops,suspension albuterol sulfate 90 mcg/actuation 2 puff INHALATION Q4H PRN #3 12/08/18 07/11/19 aerosol inhaler inhaler bupropion HCl 150 mg tablet,12 hr 150 mg PO BID tab 12/08/18 07/11/19 sustained-release losartan 100 mg tablet 100 mg PO DAILY #90 tab-cap 12/08/18 07/11/19 nitroglycerin [Nitrostat] 0.4 mg SUBLINGUAL Q5 MIN PRN X3 03/23/19 07/11/19 PRN #30 tab empagliflozin 10 mg tablet 10 mg PO DAILY #30 tab 04/12/19 07/11/19 simvastatin 10 mg tablet 10 mg PO HS #90 tab-cap 05/03/19 07/11/19 metoprolol succinate 25 mg 50 mg PO DAILY #90 tab 06/10/19 07/11/19 tablet,extended release 24 hr warfarin 5 mg tablet 5 - 15 mg PO HS #270 tab-cap 06/10/19 07/11/19 blood sugar diagnostic #100 each 06/15/19 06/15/19 furosemide 20 mg tablet 20 mg PO DAILY PRN #90 tab 06/15/19 07/11/19 liraglutide 0.6 mg/0.1 mL (18 mg/3 See Rx Instructions SC .COMPLEX #9 06/15/19 07/11/19 mL) subcutaneous pen injector ml omeprazole 40 mg capsule,delayed 40 mg PO DAILY #90 cap 06/15/19 07/11/19 release pen needle, diabetic 33 gauge x #100 each 06/15/1905/08 elderberry fruit and flower 1 cap PO 07/12/19 Previous Rx's Medication Instructions Recorded aspirin 81 mg PO DAILY #90 tab-cap 05/06/17 nystatin 15 gm TOPICAL BID #3 bottle 08/05/17 lancets 28 gauge #100 ea 06/11/18 paroxetine HCl 20 mg tablet 20 mg PO DAILY #90 tab 06/11/18 ciprofloxacin 0.3 %-dexamethasone 3 drp BID PRN #1 bottle 07/05/18 0.1 % ear drops,suspension albuterol sulfate 90 mcg/actuation 2 puff INHALATION Q4H PRN #3 12/08/18 aerosol inhaler inhaler losartan 100 mg tablet 100 mg PO DAILY #90 tab-cap 12/08/18 nitroglycerin [Nitrostat] 0.4 mg SUBLINGUAL Q5 MIN PRN X3 03/23/19 PRN #30 tab empagliflozin 10 mg tablet 10 mg PO DAILY #30 tab 04/12/19 simvastatin 10 mg tablet 10 mg PO HS #90 tab-cap 05/03/19 metoprolol succinate 25 mg 50 mg PO DAILY #90 tab 06/10/19 tablet,extended release 24 hr warfarin 5 mg tablet 5 - 15 mg PO HS #270 tab-cap 06/10/19 blood sugar diagnostic #100 each 06/15/19 furosemide 20 mg tablet 20 mg PO DAILY PRN #90 tab 04/22/20 liraglutide 0.6 mg/0.1 mL (18 mg/3 See Rx Instructions SC .COMPLEX #9 06/15/19 mL) subcutaneous pen injector ml omeprazole 40 mg capsule,delayed 40 mg PO DAILY #90 cap 06/15/19 release pen needle, diabetic 33 gauge x #100 each 06/15/1905/08 Allergies Allergy/AdvReac Type Severity Reaction Status Date / Time cefuroxime Allergy Severe HIVES Verified 05/03/19 10:30 latex Allergy Severe RASH Verified 05/03/19 10:30 Penicillins Allergy Severe SEVERE Verified 05/03/19 10:30 HIVES Sulfa (Sulfonamide Allergy Severe SEVERE Verified 05/03/19 10:30 Antibiotics) HIVES ciprofloxacin Allergy Mild TOPICAL Verified 05/03/19 10:30 IRRITATION adhesive AdvReac Intermediate SKIN Verified 05/03/19 10:30 COMES OFF caffeine AdvReac Intermediate CHEST PAIN Verified 05/03/19 10:30 lisinopril AdvReac Mild COUGH Verified 05/03/19 10:30 metformin AdvReac Mild diarrhea Verified 05/03/19 10:30 General Stated Complaint: Chest Pain KOTA: 2 Review of Systems <NUNO Coats - Last Filed: 07/12/19 16:09> Constitutional Constitutional: Denies fatigue, Denies fever(s), Denies headache(s) and Denies weakness Eyes Eyes: Denies change in vision ENT Ears, Nose, Mouth, and Throat: Denies headache(s) Cardiovascular Cardiovascular: Denies chest pain, Reports dyspnea and Reports dyspnea on exertion Respiratory Respiratory: Denies cough, Reports dyspnea and Reports dyspnea on exertion Gastrointestinal Gastrointestinal: Denies abdominal pain, Reports nausea and Denies vomiting Genitourinary Genitourinary: Denies dysuria Musculoskeletal Musculoskeletal: Denies back pain, Denies numbness and Denies tingling Integumentary/Breasts Skin/Breast: Denies rash Neurologic Neurologic: Denies headache(s), Denies numbness, Denies tingling and Denies weakness Endocrine Endocrine: Denies fatigue Hematologic/Lymphatic Hematologic/Lymphatic: Reports easy bleeding and Reports easy bruising PFS <NUNO Coats - Last Filed: 07/12/19 16:09> Medical History Atrial flutter DM (diabetes mellitus) GERD (gastroesophageal reflux disease) Herpes zoster without complication (Inactive 05/22/15) 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 Licona Status post total bilateral knee replacement (Inactive) Family History Mother , age 67 Diabetes TYPE II Essential hypertension Heart disease ANGINA Hyperlipidemia Stroke Renal cancer Father , age 80 Diabetes TYPE I Essential hypertension Heart disease Hyperlipidemia Sister Diabetes Essential hypertension Heart disease Hyperlipidemia Myocardial infarction X 2 Maternal Grandfather No problems noted. Paternal Grandfather No problems noted. Maternal Grandmother Renal cancer Paternal Grandmother No problems noted. Sister Essential hypertension Chronic obstructive lung disease Asthma Brother , age 61 Heart disease Hyperlipidemia Stroke Brother Human immunodeficiency virus (HIV) positive Myocardial infarction Social History Smoking/Tobacco Use Status: Former Tobacco Use Quit Date: 05/24/98 Second Hand Exposure: Yes Alcohol Intake: former Drug use: Never Substance use type: does not use Caregiver/Support person: Yes Household members: spouse Housing: house Communication Needs: Hard of Hearing Do you need help understanding health information?: Rarely Pets and animals: No Sexually active: No Do you think of yourself as: lesbian/doshi/homosexual Current gender identity: female What is your relationship status?: How often do you talk on the phone with friends or family?: three or more times per week How often do you get together with friends or relatives?: decline to answer How often do you attend latter-day or alevism services?: decline to answer Do you belong to any clubs or organized social groups?: no Panel score (0-1 are the most socially isolated patients): 2 What type of physical activity do you participate in: other Details: cutting and splitting wood Duration: decline to answer Frequency: decline to answer Randi/Alevism: None Special randi needs: No Seatbelt use: sometimes Drive 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 Exam <NUNO Coats - Last Filed: 07/12/19 16:09> Const General: cooperative, healthy appearing, comfortable and no acute distress Orientation: alert, awake and oriented x3 HENMT Head: normal to inspection, normocephalic and atraumatic Face and sinus: normal facial exam Mouth: moist mucous membranes Throat: posterior oropharynx normal Eyes Conjunctivae: conjunctivae normal Neck Neck: normal visual inspection, full ROM, trachea midline, supple and nontender Chest Chest: normal inspection of the chest and normal palpation of entire chest wall Resp Effort & Inspection: normal respiratory effort and able to speak in complete sentences Auscultation: clear to auscultation bilaterally Cardio Rate: tachycardic Rhythm: abnormal rhythm irregularly irregular (Rate of 112) GI Inspection: normal to inspection and obesity Palpation: soft, not firm, no guarding, not rigid and nontender Auscultation: normal bowel sounds Back/Spine/Pelvis Back: No back tenderness Skin General skin exam: no rashes or lesions noted and ecchymosis (Right ankle, left thumb) Neuro General: patient alert, patient awake, patient oriented x3, moves all extremities and no focal motor deficits Cognition: normal cognition Speech: speech normal Motor: muscle tone normal throughout and strength 5/5 throughout Sensory Exam: no sensory deficits noted Extrem General: normal to inspection, full ROM, pedal edema present and calf tenderness Psych Appearance: grossly normal Mental Status: mental status grossly normal Course <UNNO Coats - Last Filed: 07/12/19 16:09> Vital Signs Vital signs: Vital Signs Temperature 36.9 C 07/11/19 12:33 Pulse 115 H 07/11/19 12:33 Respiratory Rate 24 07/11/19 12:33 Blood Pressure 131/93 H 07/11/19 12:33 Pulse Oximetry 95 07/11/19 12:33 Temperature 36.9 C 07/11/19 12:33 Temperature Source Tympanic 07/11/19 12:33 Pulse 115 H 07/11/19 12:33 Respiratory Rate 24 07/11/19 12:33 Respiratory Effort Non-Labored 07/11/19 12:53 Blood Pressure 131/93 H 07/11/19 12:33 Blood Pressure Position Sitting 07/11/19 12:33 Pulse Oximetry 95 07/11/19 12:33 Oxygen Delivery Method Room Air 07/11/19 12:33 Oxygen Flow Rate 0 07/11/19 12:33 Sign Out <NUNO Coats - Last Filed: 07/12/19 16:09> Sign Out Data: Sign Out Comment: Patient presented in A. fib, now in sinus rhythm. She is currently asymptomatic. Admission was offered but declined. Patient is agreeable for repeat troponin and EKG at 3-hour. I did speak with patient's primary care provider's office, Dr. Chavez. We will increase the Lasix dose from 20 mg to 40 mg and they will reach out to her tomorrow for prompt outpatient reevaluation. Last updated by Nehemiah Gunter PA at 07/11/19 15:58
[2019-07-11 12:57] LABS: Abs Immature Grans 0.02 k/cumm (0.0-0.09); Absolute Basophil Count 0.09 k/cumm (0.0-0.2); Absolute Eosinophil Count 0.29 k/cumm (0.0-0.7); Absolute Lymphocyte Count 1.88 k/cumm (1.2-3.4); Absolute Neutrophil Count 3.91 k/cumm (1.2-6.7); Basophils % 1.3; Eosinophils % 4.3; HGB 14.3 g/dL (12.0-15.5); Immature Grans % 0.3 %; Lymphocytes % 27.7; Mean Corp. HGB Concentration 31.8 g/dL (32.0-36.0); Mean Corpuscular Hemoglobin 28.1 pg (27.0-33.0); Mean Corpuscular Volume 88.4 fL (80-95); Mean Platelet Volume 10.6 fL (8.0-11.0); Monocytes % 8.8; Neutrophils % 57.6; Platelet Count 302 x1000/uL (130-400); RBC 5.09 m/cumm (4.00-5.20); RBC Distribution Width 13.7 % (11.7-14.6)
[2019-07-11 12:58] LABS: White Blood Cell Count 6.79 k/cumm (4.4-10.8)
[2019-07-11] MEDS: Normal Saline 1,000 ML 1000 ML IV (13:04)
[2019-07-11 13:16] LABS: ALT 23 U/L (14-59); AST 14 U/L (15-37); Albumin 3.4 g/dL (3.4-5.0); Alkaline Phosphatase 52 U/L (46-116); Anion Gap 5.7 mmol/L (3-11); BUN 17 mg/dL (7-18); Bilirubin, Total 0.7 mg/dL (0.2-1.0); CO2 30.3 mmol/L (21.0-32.0); CREATININE 1.12 mg/dL (0.55-1.02); Calcium 8.4 mg/dL (8.5-10.1); Chloride 103 mmol/L (98-107); Estimated GFR 48.38 (mL/min/1.73m2); Glucose 164 mg/dL (74-106); Magnesium 1.4 mg/dL (1.8-2.4); NT-proBNP 2671 pg/mL (<300); Potassium 3.8 mmol/L (3.5-5.1); Sodium 139 mmol/L (136-145); Total Protein 7.3 g/dL (6.4-8.2)
[2019-07-11 13:18] LABS: Troponin I < 0.05 ng/Ml (<0.06)
[2019-07-11 13:45] LABS: INR 2.4 (0.9-1.1); PTT Activated 34.8 sec (21.0-31.4); Prothrombin Time 23.8 sec (9.3-11.0)
[2019-07-11 16:02] LABS: Troponin I < 0.05 ng/Ml (<0.06)
[2019-07-11] MEDS: MAGNESIUM SULFATE 1 GM/100 ML BAG IVPB (17:35)
--- NOTE | 2019-07-11 17:53 | W.PM.HP.N ---
Date of service: 07/11/19 Time of Service: 17:53 Assessment and Plan Assessment and plan (1) Chest pain: Status: Acute Assessment and plan: CP, fair probability ACS (viz, new onset angina). Will complete troponin series and plan on stress test in AM. History of Present Illness History of Present Illness Chief Complaint: CP Narrative: 69 female with h/o pulmonary HTN, PAF, CHF 03/14 due to AF/RVR, no documented h/o CAD but is reported to have had a false + MPI a number of years ago. Generally fairly active, no CP with walking in the fuller, for example. 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 No recurrence, but this AM felt her heart was beating in unusual fashion and came to ER. In ER noted to be in AF, converted w/o Tx, and troponin - x 2, with EKG unchanged from baseline (RBBB), and negative CXR. Here to complete r/o and then for stress test. Received 325 ASA in ER. Feels fine at present. 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 Licona Status post total bilateral knee replacement (Inactive) Family History Mother , age 67 Diabetes TYPE II Essential hypertension Heart disease ANGINA Hyperlipidemia Stroke Renal cancer Father , age 80 Diabetes TYPE I Essential hypertension Heart disease Hyperlipidemia Sister Diabetes Essential hypertension Heart disease Hyperlipidemia Myocardial infarction X 2 Maternal Grandfather No problems noted. Paternal Grandfather No problems noted. Maternal Grandmother Renal cancer Paternal Grandmother No problems noted. Sister Essential hypertension Chronic obstructive lung disease Asthma Brother , age 61 Heart disease Hyperlipidemia Stroke Brother Human immunodeficiency virus (HIV) positive Myocardial infarction Social History Smoking/Tobacco Use Status: Former Tobacco Use Quit Date: 05/24/98 Second Hand Exposure: Yes Alcohol Intake: former Drug use: Never Substance use type: does not use Caregiver/Support person: Yes Household members: spouse Housing: house Communication Needs: Hard of Hearing Do you need help understanding health information?: Rarely Pets and animals: No Sexually active: No Do you think of yourself as: lesbian/doshi/homosexual Current gender identity: female What is your relationship status?: How often do you talk on the phone with friends or family?: three or more times per week How often do you get together with friends or relatives?: decline to answer How often do you attend yazidism or hinduism services?: decline to answer Do you belong to any clubs or organized social groups?: no Panel score (0-1 are the most socially isolated patients): 2 What type of physical activity do you participate in: other Details: cutting and splitting wood Duration: decline to answer Frequency: decline to answer Randi/Confucianism: None Special randi needs: No Seatbelt use: sometimes Drive intox or ride w/intox funeral 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 Meds Home Medications and Allergies Home Medications Medication Instructions Recorded Confirmed Type acetaminophen [Tylenol Extra 2 tab PO HS PRN 06/11/12 07/11/19 History Strength] Bipap 1 ea INHALATION HS 01/23/15 05/03/19 History triamcinolone acetonide 60 ml TOPICAL BID prn #60 ml 05/26/15 07/11/19 History aspirin 81 mg PO DAILY #90 tab-cap 05/06/17 07/11/19 Rx magnesium amino acid chelate 500 mg PO DAILY 05/08/17 07/11/19 History nystatin 15 gm TOPICAL BID #3 bottle 08/05/17 07/11/19 Rx lancets 28 gauge #100 ea 06/11/18 05/03/19 Rx paroxetine HCl 20 mg tablet 20 mg PO DAILY #90 tab 06/11/18 07/11/19 Rx tolterodine 4 mg capsule,extended 4 mg PO DAILY #90 tab 06/11/18 07/11/19 Rx release 24 hr ciprofloxacin 0.3 %-dexamethasone 3 drp BID PRN #1 bottle 07/05/18 07/11/19 Rx 0.1 % ear drops,suspension albuterol sulfate 90 mcg/actuation 2 puff INHALATION Q4H PRN #3 12/08/18 07/11/19 Rx aerosol inhaler inhaler bupropion HCl 150 mg tablet,12 hr 150 mg PO BID tab 12/08/18 07/11/19 History sustained-release losartan 100 mg tablet 100 mg PO DAILY #90 tab-cap 12/08/18 07/11/19 Rx glipizide 5 mg PO DAILY 03/17/19 07/11/19 History diltiazem HCl 240 mg PO DAILY #30 cap 03/23/19 07/11/19 Rx nitroglycerin [Nitrostat] 0.4 mg SUBLINGUAL Q5 MIN PRN X3 03/23/19 07/11/19 Rx PRN #30 tab empagliflozin 10 mg tablet 10 mg PO DAILY #30 tab 04/12/19 07/11/19 Rx simvastatin 10 mg tablet 10 mg PO HS #90 tab-cap 05/03/19 07/11/19 Rx metoprolol succinate 25 mg 50 mg PO DAILY #90 tab 06/10/19 07/11/19 Rx tablet,extended release 24 hr warfarin 5 mg tablet 5 - 15 mg PO HS #270 tab-cap 06/10/19 07/11/19 Rx blood sugar diagnostic #100 each 06/15/19 06/15/19 Rx furosemide 20 mg tablet 20 mg PO DAILY PRN #90 tab 06/15/19 07/11/19 Rx liraglutide 0.6 mg/0.1 mL (18 mg/3 See Rx Instructions SC .COMPLEX #9 06/15/19 07/11/19 Rx mL) subcutaneous pen injector ml omeprazole 40 mg capsule,delayed 40 mg PO DAILY #90 cap 06/15/19 07/11/19 Rx release pen needle, diabetic 33 gauge x #100 each 06/15/19 Rx 3/16 semaglutide 3 mg tablet 3 mg PO DAILY #30 tab 06/15/19 07/11/19 Rx fluconazole 150 mg tablet 150 mg PO ONCE #1 tab 06/17/19 07/11/19 Rx Allergies Allergy/AdvReac Type Severity Reaction Status Date / Time cefuroxime Allergy Severe HIVES Verified 05/03/19 10:30 latex Allergy Severe RASH Verified 05/03/19 10:30 Penicillins Allergy Severe SEVERE Verified 05/03/19 10:30 HIVES Sulfa (Sulfonamide Allergy Severe SEVERE Verified 05/03/19 10:30 Antibiotics) HIVES ciprofloxacin Allergy Mild TOPICAL Verified 05/03/19 10:30 IRRITATION adhesive AdvReac Intermediate SKIN Verified 05/03/19 10:30 COMES OFF caffeine AdvReac Intermediate CHEST PAIN Verified 05/03/19 10:30 lisinopril AdvReac Mild COUGH Verified 05/03/19 10:30 metformin AdvReac Mild diarrhea Verified 05/03/19 10:30 Exam Narrative Exam Narrative: 125/92, 79, 20, 36.8, 91% RA. HEENT unremarkable; neck supple w/o JVD; lungs clear; heart RRR w/o MRG; abdomen soft and NT; extremities no pitting edema, pulses 2+/=; neuro ox3, non-focal Results Labs Result diagrams: 07/11/19 12:40 07/11/19 12:40 Labs: Laboratory Results - last 24 hr 07/11/19 07/11/19 07/11/19 12:40 12:40 12:40 WBC 6.79 RBC 5.09 Hgb 14.3 Hct 45.0 MCV 88.4 MCH 28.1 MCHC 31.8 L RDW 13.7 Plt Count 302 MPV 10.6 Immature Gran % 0.3 Neutrophils % 57.6 Lymphocytes % 27.7 Monocytes % 8.8 Eosinophils % 4.3 Basophils % 1.3 Absolute Neutrophils 3.91 Absolute Lymphocytes 1.88 Absolute Monocytes 0.60 Absolute Eosinophils 0.29 Absolute Basophils 0.09 PT 23.8 H INR 2.4 H APTT 34.8 H Sodium 139 Potassium 3.8 Chloride 103 Carbon Dioxide 30.3 Anion Gap 5.7 BUN 17 Creatinine 1.12 H Estimated GFR/1.73 m2 48.38 Glucose 164 H Calcium 8.4 L Magnesium 1.4 L Total Bilirubin 0.7 AST 14 L ALT 23 Alkaline Phosphatase 52 Troponin I < 0.05 NT-Pro-B Natriuret Pep 2671 H Total Protein 7.3 Albumin 3.4 07/11/19 15:30 WBC RBC Hgb Hct MCV MCH MCHC RDW Plt Count MPV Immature Gran % Neutrophils % Lymphocytes % Monocytes % Eosinophils % Basophils % Absolute Neutrophils Absolute Lymphocytes Absolute Monocytes Absolute Eosinophils Absolute Basophils PT INR APTT Sodium Potassium Chloride Carbon Dioxide Anion Gap BUN Creatinine Estimated GFR/1.73 m2 Glucose Calcium Magnesium Total Bilirubin AST ALT Alkaline Phosphatase Troponin I < 0.05 NT-Pro-B Natriuret Pep Total Protein Albumin Last Vital Signs Temp 36.8 C 07/11/19 15:25 Pulse 79 07/11/19 15:25 Resp 20 07/11/19 15:25 BP 125/92 H 07/11/19 15:25 Pulse Ox 91 L 07/11/19 15:25 COVID-19 Screening In the past 14 days, have you traveled [place] of [place] Had IN PERSON contact w/suspected or confirmed C-19 person: No
[2019-07-11 21:07] LABS: Troponin I < 0.05 ng/Ml (<0.06)
[2019-07-11] MEDS: Simvastatin 10 MG TAB PO (21:22)
[2019-07-11] MEDS: buPROPion-CR 150 MG TABCR PO (21:35)
[2019-07-11] MEDS: Metoprolol CR 50 MG TABCR (21:40)
[2019-07-11] MEDS: Metoprolol CR 25 MG TABCR 50 MG PO (21:45)
[2019-07-11] MEDS: Warfarin 5 MG TAB 10 MG PO (21:46)
[2019-07-12] VITALS (22 sets, daily range): BP systolic 113–151; BP diastolic 54–86; PULSE 62–79; RESP 11–24; TEMP 36.1–36.6; O2SAT 90–98
[2019-07-12] MEDS: Normal Saline Flush 10 ML SYR IVP (05:52)
[2019-07-12 07:06] LABS: INR 2.3 (0.9-1.1); Prothrombin Time 22.3 sec (9.3-11.0)
[2019-07-12 07:13] LABS: Anion Gap 7.3 mmol/L (3-11); BUN 16 mg/dL (7-18); CO2 28.7 mmol/L (21.0-32.0); CREATININE 1.08 mg/dL (0.55-1.02); Calcium 8.2 mg/dL (8.5-10.1); Chloride 104 mmol/L (98-107); Estimated GFR 50.45 (mL/min/1.73m2); Glucose 126 mg/dL (74-106); Magnesium 1.7 mg/dL (1.8-2.4); Potassium 3.7 mmol/L (3.5-5.1); Sodium 140 mmol/L (136-145); Troponin I < 0.05 ng/Ml (<0.06)
[2019-07-12] MEDS: Furosemide 20 MG TAB PO (08:36)
[2019-07-12] MEDS: Aspirin 81 MG CHEW PO (08:36)
[2019-07-12] MEDS: buPROPion-CR 150 MG TABCR PO (08:36)
[2019-07-12] MEDS: Omeprazole 20 MG CAPCR 40 MG PO (08:36)
[2019-07-12] MEDS: Losartan 50 MG TAB 100 MG PO (08:36)
[2019-07-12] MEDS: Tolterodine 2 MG CAPCR 4 MG PO (08:37)
[2019-07-12] MEDS: PARoxetine 20 MG TAB PO (08:37)
[2019-07-12] MEDS: Magnesium Gluconate 500 MG TAB PO (08:37)
--- NOTE | 2019-07-12 09:31 | PDOC.CMIN ---
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 She is independent with all ADLs in the community. CURRENT FUNCTIONAL STATUS:: Nava is out of the room having an MPI test. Anticipate she will discharge home if cleared medically. ADVANCE DIRECTIVES:: None on file at [facility]. Has patient been provided with information about the portal?: Yes Did the patient sign up for the portal?: Yes (Previously ) CODE STATUS:: Full Code INSURANCE COVERAGE / FINANCIAL ISSUES:: BS. Medicare CURRENT HOME/COMMUNITY SERVICES/EQUIPMENT:: No current services or equipment. PRIMARY CARE PHYSICIAN:: Maico Leonard POTENTIAL DISCHARGE NEEDS:: Follow up appointments with PCP, Cardiology. PATIENT/FAMILY EDUCATION NEEDS:: Review discharge instructions, discuss Ask Me Three. ANTICIPATED BARRIERS TO DISCHARGE:: None identified at this time. TRANSPORTATION:: Via private vehicle with his significant other. PLAN:: Nava will discharge home when ready per MD. She will follow up with her discharge plan and plan of care as prescribed. She will transport via private vehicle with her significant other, Ana.
[2019-07-12 10:21] LABS: Calculated LDL 66 mg/dL (<100); Cholesterol 136 mg/dL (<200); HDL Cholesterol 33 mg/dL (40-60); Triglyceride 189 mg/dL (<150)
[2019-07-12 11:03] LABS: Hemoglobin A1C 7.1 % (3.8-5.6)
--- NOTE | 2019-07-12 11:15 | DI.NM_ITS ---
APPROVED REPORT Exam: Pharmacologic Patient Location: In-Patient Room/Bed: 221 Stress Nurse: Petty Hebert RN BMI: 54.24 Baseline Rhythm: RBBB/LPFB Indications: Chest pain. Medical History Medical History: Angina, Diabetic ??? Insulin, HTN, Hyperlipidemia, Obesity , Obstructive sleep apnea , RBBB Cardiac Medications: Metoprolol. Diltiazem. Simvastatin. Aspirin. Furosemide. Losartan. Nitroglycerin . Magnesium., Allergies: Penicillin. Sulfa drugs. Lisinopril. Ciprofloxacin. Cefuroxime. Metformin. Latex. Cardiac Risk Factors: HTN, Hyperlipidemia, Diabetes (insulin), FHX of CAD, former smoker Pretest Chest Pain Characteristics: Exertional Chest pain Exercise History: Physically active Lung Sounds: Clear to auscultation Heart Sounds: Regular Stress Test Details Test: Pharmacologic stress testing performed using 0.4 mg of regadenoson per 5 mL given IV over 10 s econds. Nuclear Acquisition: Rest Tc-99m/Stress Tc-99m 1 day Rest Isotope: Tc-99m Sestamibi. Dose: 15.0 Date: 07/12/2019 Injection Time: 1055 Stress Isotope: Tc-99m Sestamibi. Dose: 48.0 Date: 07/12/2019 Injection Time: 1325 HR Resting HR Supine: 67 bpm Max Heart Rate (APMHR): 152 bpm Target HR (85% APMHR): 129 bpm Max HR Achieved: 80 bpm % of APMHR: 52 Recovery HR: 76 bpm HR response to stress: Normal HR response to stress BP Resting BP Supine: 134/72 mmHg Max BP: 146/70 mmHg Recovery BP: 134/76 mmHg BP response to stress: Normal blood pressure response to stress. ECG Resting ECG: Sinus Rhythm. RBBB. LPFB. Stress ECG: Sinus Rhythm. RBBB. LPFB. ST Change: No significant ST segment changes Maximum ST Deviation: 2.7 mm Arrhythmia: None Recovery ECG: Sinus Rhythm. RBBB. LPFB. Recovery ST Change: No significant ST segment changes Clinical Stress Symptoms: No significant side effects from post Lexiscan injection Exercise duration: 7 min42 sec Exercise capacity: 1 METs Stress Test Summary STAGE HR BP Symptoms NOTES Supine 67 134/72 1 min post Lexiscan injection 80 146/70 3 min post Lexiscan injection 79 140/66 6 min post Lexiscan injection 76 134/76 MPI Conclusion Ejection fraction was 70% with stress. There were no wall motion abnormalities. There is a small fixed perfusion defect at the apex. The specificity of this test is severely decreased due to attenuation artifact and body habitus. A f alse positive study is more likely in the circumstances. The results of this test were discussed with the inpatient hospital team. Radiologist Interpretation Radiologist Interpretation by: Suhail Marquez MD Interpretation Date/Time: 07/12/2019 15:08:24
[2019-07-12 13:08] LABS: COVID-19 RT-PCR UVMMC Result Negative (Negative)
[2019-07-12] MEDS: Regadenoson 0.4 MG/5 ML SYR IVP (14:07)
[2019-07-12] MEDS: Acetaminophen 500 MG TAB 1000 MG PO (14:36)
[2019-07-12] MEDS: Insulin Aspart 300 UNITS/3 ML PEN SC (16:42)
--- NOTE | 2019-07-12 17:33 | DSE_ITS ---
Date of service: 07/12/19 Time of Service: 17:33 DS: Diagnosis Discharge Diagnosis (1) Chest pain: Status: Resolved Asessment and Plan: Her symptoms of dyspnea and jaw pain had resolved by the time she reached the emergency department. Her atrial fibrillation rhythm converted to sinus rhythm on its own after the patient had been given an IV bolus of saline 500 cc. However after she was found to be in congestive heart failure she was put on Lasix. Initially she had refused admission to the hospital but then later consented to overnight observation while her troponin levels were trended and an inpatient stress MPI was arranged. Troponin levels came back negative x4 sets and her EKG continued to show sinus rhythm with a right bundle branch block after her initial EKG demonstrated atrial fibrillation. Treadmill stress EKG was ordered by Dr. Owen which I then changed to a stress MPI study with Lexiscan. This was performed and interpreted by Dr. Zuñiga who read this is negative for ischemia but that the patient had a small fixed apical defect that he felt was due to diaphragmatic attenuation. As the patient was currently asymptomatic she was discharged on her continued dose of her Toprol-XL 50 mg daily and diltiazem CD was restarted at 240 mg nightly which she had been off for the last couple months. (2) Atrial fibrillation with rapid ventricular response: Status: Resolved Asessment and Plan: Paroxysmal rapid atrial fibrillation now resolved and converted to sinus rhythm. Patient will continue Toprol-XL 50 mg daily along with diltiazem CD 240 mg nightly and warfarin as previously prescribed. INR was therapeutic on admission at 2.4 and remained therapeutic at discharge at 2.3. (3) CHF (congestive heart failure): Status: Chronic Asessment and Plan: Heart failure with preserved ejection fraction. Continue furosemide at increased dose of 40 mg daily. Potassium supplementation at 20 mEq was added to her regimen. Discharge Plan Disposition Patient Disposition: HOME Condition: Improving Discharge Details Chief Complaint: Chest Pain Clinical Impression: Atrial fibrillation with rapid ventricular response, Chest pain, CHF (congestive heart failure) Reason For Visit: CP Admit Date/Time: 07/11/19 18:06 Admit Provider: Burton Owen Attending Provider: Burton Owen Primary Care Provider: Maico Leonard ED Provider: [facility] Course Hospital Course: 67-year-old female with a past medical history of hypertension, high cholesterol, A. fib on Coumadin, who uses BiPAP at home, previous reactive airway disease, who presented for evaluation of shortness of breath. She states over the last 24 hours she has had mild to moderate shortness of breath. She has had associated pain to her jaw and shoulders bilaterally. EKG on admission demonstrated afib w/ RVR rate 116 bpm. Work-up included serial troponins that were negative for acute [place]. routine labs including a CBC and CMP that were unremarkable with the exception of a mildly low magnesium of 1.7. Chest 2 Views demonstrate COPD but no evidence for CHF. No cardiomegaly on her chest x-ray. Patient underwent Lexiscan stress MPI study. The written report is still pending at this time. However per verbal report from Dr. Zuñiga as relayed to me from [facility] patient stress MPI showed a small apical fixed defect for which Dr. Zuñiga felt was secondary to diaphragmatic attenuation. From talk wit h the patient it sounds like she had an episode of palpitations along with dizziness and shortness of breath and jaw pain while splitting wood yesterday. Patient previously had uncontrolled atrial fibrillation associated with acute on chronic right-sided heart failure and was admitted to the hospital March 17 through March 23, 2019. At that time she was discharged home on diltiazem CD 240 mg in addition to an increase in her Toprol-XL to 50 mg daily. Patient finished the prescription of diltiazem CD but never had it refilled. At this time she is being discharged on new Rx for Cardizem CD 240 mg nightly and she is continue her Toprol XL 50 mg daily. She will get repeat holter next week to assess her control of her afib. Home Meds and New Rx's Prescriptions: New potassium chloride 20 mEq tablet extended release 20 meq PO DAILY Qty: 30 RF: 1 diltiazem HCl 240 mg capsule,extended release 24hr 240 mg PO HS Qty: 30 RF: 1 Continued paroxetine HCl [Paxil] 20 mg tablet 20 mg PO DAILY Qty: 90 RF: 4 Ciprodex 0.3-0.1 % drops,suspension 3 drp BID PRN Qty: 1 RF: 2 Jardiance 10 mg tablet 10 mg PO DAILY Qty: 30 RF: 2 Hold Instructions: Home Medication placed on hold at Doctor's office simvastatin 10 mg tablet 10 mg PO HS Qty: 90 RF: 4 bupropion HCl [Wellbutrin SR] 150 mg tablet sustained-release 12 hr 150 mg PO BID RF: 0 losartan 100 mg tablet 100 mg PO DAILY Qty: 90 RF: 3 albuterol sulfate [ProAir HFA] 90 mcg/actuation HFA aerosol inhaler 2 puff Inhalation Q4H PRN Qty: 3 RF: 3 acetaminophen [Tylenol Extra Strength] 500 MG tablet 2 tab PO HS PRNRF: 0 BIPAP 1 ea inhalation HS RF: 0 aspirin 81 MG tablet,chewable 81 mg PO DAILY Qty: 90 RF: 0 nystatin 15 GM cream 15 gm Topical BID Qty: 3 RF: 0 metoprolol succinate 25 mg tablet extended release 24 hr 50 mg PO DAILY Qty: 90 RF: 3 warfarin 5 mg tablet 5 - 15 mg PO HS Qty: 270 RF: 3 omeprazole 40 mg capsule,delayed release(DR/EC) 40 mg PO DAILY Qty: 90 RF: 3 liraglutide 0.6 mg/0.1 mL (18 mg/3 mL) pen injector See Rx Instructions SC .COMPLEX Qty: 9 RF: 5 nitroglycerin [Nitrostat] 0.4 mg Tablet, Sublingual 0.4 mg sublingual Q5 MIN PRN X3 PRN (Reason: chest pain) Qty: 30 RF: 0 elderberry fruit and flower 460-115 mg Capsule 1 cap PO RF: 0 Changed furosemide 20 mg tablet 40 mg PO DAILY Qty: 90 RF: 3 magnesium amino acid chelate 100 MG tablet 500 mg PO BID Qty: 0 RF: 0 No Action (DME) lancets 28 gauge misc 1 ea Miscellaneous DAILY Qty: 100 RF: 4 (DME) blood sugar diagnostic [Blood Glucose Test] Strip 1 strip Miscellaneous DAILY Qty: 100 RF: 4 (DME) Comfort EZ Pen [place] 33 gauge x 3/16 needle See Rx Instructions .ROUTE .MEDSUPPLY Qty: 100 RF: 3 Discharge Instructions Instructions: Heart Failure (DC), A-fib (Atrial Fibrillation) (DC) Additional Instructions: Get repeat labs in 1 week including BMP and pro BNP. Schedule outpatient Holter monitoring in 1 week with respiratory therapy. Follow-up with your family doctor in the next week. Stand Alone Forms: Nursing Discharge Form Referrals: Maico Leonard [Primary Care Provider] - (Call the office in the morning for a follow-up in 1 week) Activity:: Activity as Tolerated Equipment/Supplies:: No Equipment Needed Diet:: Carb Counting Discharge Orders Discharge Orders: Discharge Order (Routine); Ordered 07/12/19 Ordered By: Nehemiah Kearney Other Ambulatory Orders: Basic Metabolic Panel (Routine) Timeframe: 1 Week Facility: [facility] - Location: Laboratory Outpatient Ordered By: Nehemiah Kearney NT-proBNP (Routine) Timeframe: 1 Week Facility: [facility] - Location: Laboratory Outpatient Ordered By: Nehemiah Kearney Holter Monitor (Outpt) (ONCE) Timeframe: [id number] Facility: [facility] - Location: Respiratory Therapy Ordered By: Nehemiah Kearney Discharge Data Discharge Date/Time-TO BE ENTERED AT DEPARTURE: 07/12/19 17:51 Discharge Comment: discharged home with spouse driving. DS: Summary Status at Discharge Functional status at discharge: independent ambulation Overall status at discharge: patient is back to baseline Mental Status: mental status grossly normal Speech and Movement: speech and movement normal Mood: congruent mood Affect: normal affect Time Spent with Patient providing and/or coordinating discharge services: Less than 30 minutes Exam Narrative Exam Narrative: Obese female in no distress. She is alert and oriented person place time circumstance. Neck supple nontender with JVD. Lungs are clear to auscultation Heart is regular rate and rhythm without appreciable murmur rub or gallop. Abdomen obese soft and nontender. Lower extremities with varicose veins and 2+ pitting pedal and pretibial edema Const General: cooperative, healthy appearing, comfortable and no acute distress Orientation: alert, awake and oriented x3 Neck Neck: normal visual inspection, full ROM, trachea midline, supple and nontender Chest Chest: normal inspection of the chest and normal palpation of entire chest wall Resp Effort & Inspection: normal respiratory effort and able to speak in complete sentences Auscultation: clear to auscultation bilaterally GI Inspection: normal to inspection and obesity Palpation: soft, not firm, no guarding, not rigid and nontender Auscultation: normal bowel sounds Neuro General: patient alert, patient awake, patient oriented x3, moves all extremities and no focal motor deficits Cognition: normal cognition Speech: speech normal Motor: muscle tone normal throughout and strength 5/5 throughout Extrem General: normal to inspection, full ROM, pedal edema present and calf tenderness Psych Appearance: grossly normal Mental Status: mental status grossly normal Speech and Movement: speech and movement normal Mood: congruent mood Affect: normal affect DS: Data Vitals/I&O Vitals and I&O: Vital Signs Temperature 36.5 C 07/12/19 16:04 Temperature Source Temporal Artery Scan 07/12/19 16:04 Pulse 65 07/12/19 17:12 Pulse Rhythm Regular 07/11/19 14:07 Pulse Strength Normal 07/11/19 14:07 Pulse 67 07/12/19 17:12 Respiratory Rate 17 07/12/19 17:12 Respiratory Effort Non-Labored 07/12/19 16:04 Respiratory Depth Normal 07/12/19 16:04 Respiratory Pattern Normal 07/12/19 16:04 Blood Pressure 151/86 H 07/12/19 17:12 Blood Pressure Mean 100 07/12/19 17:12 Blood Pressure Position Supine 07/12/19 11:48 Pulse Oximetry 98 07/12/19 16:04 Oxygen Delivery Method Room Air 07/12/19 16:04 Oxygen Flow Rate 0 07/12/19 16:04 Fraction of Inspired Oxygen (FIO2) 21 07/12/19 07:55 Pain Level 0 07/12/19 16:04 Comment 07/12/19 14:25 Intake & Output 07/11/19 07/12/19 07/12/19 23:59 11:59 23:59 Intake Total 650 / 650 100 / 100 Output Total 825 / 825 Balance 650 / 650 -725 / -725 Weight 150.4 kg 148 kg Intake: IV 410 / 410 Oral 240 / 240 100 / 100 Output: Urine 825 / 825 Other: Urine Color Light Sejal Urine Appearance Clear Urine Odor None Comment No void as of this assessment. Stress incontinence reported by offgoing nurse. No void at this time. Stool Occult Blood Negative Stool Size Large Stool Characteristics Formed Voiding Methods Bedside Commode Data Completed and Pending Labs on day of discharge: Labs from last 24 hours 07/12/19 07/12/19 07/12/19 06:20 06:20 06:20 PT INR Sodium 140 Potassium 3.7 Chloride 104 Carbon Dioxide 28.7 Anion Gap 7.3 BUN 16 Creatinine 1.08 H Estimated GFR/1.73 m2 50.45 Glucose 126 H Hemoglobin A1c 7.1 H Calcium 8.2 L Magnesium 1.7 L Troponin I < 0.05 Triglycerides 189 H Total Cholesterol 136 LDL Cholesterol, Calc 66 HDL Cholesterol 33 L COVID-19 PCR Nasopharyn COVID-19 PCR Ref Test Perform Site 07/12/19 07/11/19 07/11/19: 20:30 18:39 PT 22.3 H INR 2.3 H Sodium Potassium Chloride Carbon Dioxide Anion Gap BUN Creatinine Estimated GFR/1.73 m2 Glucose Hemoglobin A1c Calcium Magnesium Troponin I < 0.05 Triglycerides Total Cholesterol LDL Cholesterol, Calc HDL Cholesterol COVID-19 PCR Negative Nasopharyn COVID-19 PCR Not Applicable Ref Test Perform Site [facility] Medical History Atrial flutter DM (diabetes mellitus) GERD (gastroesophageal reflux disease) Herpes zoster without complication (Inactive 05/22/15) HTN (hypertension) prison current use of anticoagulant Obesity AUR[place]A (obstructive sleep apnea) Tick bite (Inactive) doubt Lyme, given lack of engorged tick and attachment time URI (upper respiratory infection) (Resolved) Surgical History Breast, Mastectomy (~01/2003) and reconstruction of TM Colonoscopy - MAC (05/29/17) HAND SURGERY (~02/2013) History of hand surgery (Inactive) History of mastoidectomy (Inactive 02/14/14) Open Carpal Tunnel release (~03/2009) right Replacement of total knee joint (~2004) b/l shoulder surgery (04/30/16) left shoulder; Dr. Licona Status post total bilateral knee replacement (Inactive) Family History Mother , age 67 Diabetes TYPE II Essential hypertension Heart disease ANGINA Hyperlipidemia Stroke Renal cancer Father , age 80 Diabetes TYPE I Essential hypertension Heart disease Hyperlipidemia Sister Diabetes Essential hypertension Heart disease Hyperlipidemia Myocardial infarction X 2 Maternal Grandfather No problems noted. Paternal Grandfather No problems noted. Maternal Grandmother Renal cancer Paternal Grandmother No problems noted. Sister Essential hypertension Chronic obstructive lung disease Asthma Brother , age 61 Heart disease Hyperlipidemia Stroke Brother Human immunodeficiency virus (HIV) positive Myocardial infarction Social History Smoking/Tobacco Use Status: Former Tobacco Use Quit Date: 05/24/98 Second Hand Exposure: Yes Alcohol Intake: former Drug use: Never Substance use type: does not use Caregiver/Support person: Yes Household members: spouse Housing: house Communication Needs: Hard of Hearing Do you need help understanding health information?: Rarely Pets and animals: No Sexually active: No Do you think of yourself as: lesbian/doshi/homosexual Current gender identity: female What is your relationship status?: How often do you talk on the phone with friends or family?: three or more times per week How often do you get together with friends or relatives?: decline to answer How often do you attend holiness or moravian services?: decline to answer Do you belong to any clubs or organized social groups?: no Panel score (0-1 are the most socially isolated patients): 2 What type of physical activity do you participate in: other Details: cutting and splitting wood Duration: decline to answer Frequency: decline to answer Randi/Christianity: None Special randi needs: No Seatbelt use: sometimes Drive intox or ride w/intox salesperson 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
== END 2019-07-12 17:51 | disposition home or self-care (01) ==
LOC: ER 16:09 → ICU 18:30
PROVIDERS: Physician Assistant; Admitting Provider General Practice; Emergency Provider Physician Assistant; PCP Family Medicine; Visit Provider Internal Medicine
DX: R07.9 Chest pain, unspecified (principal); I48.0 Paroxysmal atrial fibrillation; I50.32 Chronic diastolic (congestive) heart failure; I11.0 Hypertensive heart disease with heart failure; Z79.01 Long term (current) use of anticoagulants; E11.9 Type 2 diabetes mellitus without complications; K21.9 Gastro-esophageal reflux disease without esophagitis; G47.33 Obstructive sleep apnea (adult) (pediatric)
CPT/HCPCS: 36415; 78452; 80048; 80053; 80061; 93005; 93016; 93018; 96361; 96365; 99222; 99238; 99285; U0003; 71046; 83036; 83735; 83880; 84484; 85025; 85610; 85730; 93010; 93017; 99217; 99218; G0378; J2785; J3475

== ENCOUNTER 2019-07-19 01:44 | Outpatient (CLI) | payer MEDICARE, BC, SELFPAY ==
[2019-07-19 12:43] LABS: Anion Gap 8.3 mmol/L (3-11); BUN 13 mg/dL (7-18); CO2 28.7 mmol/L (21.0-32.0); CREATININE 0.99 mg/dL (0.55-1.02); Calcium 8.5 mg/dL (8.5-10.1); Chloride 103 mmol/L (98-107); Estimated GFR 55.78 (mL/min/1.73m2); Glucose 170 mg/dL (74-106); NT-proBNP 269 pg/mL (<300); Potassium 3.9 mmol/L (3.5-5.1); Sodium 140 mmol/L (136-145)
== END 2019-07-19 02:04 ==
PROVIDERS: PCP Family Medicine; Visit Provider Internal Medicine
DX: I50.9 Heart failure, unspecified (principal)
CPT/HCPCS: 36415; 80048; 83880

== ENCOUNTER 2019-07-19 01:57 | Outpatient (CLI) | payer MEDICARE, BC, SELFPAY ==
--- NOTE | 2019-07-22 08:58 | W.HOLTRPT ---
Date of service: 07/22/19 Time of Service: 08:59 Holter Monitor Report Holter Monitor Note: This is a 48-hour Holter monitor performed for indications of atrial fibrillation The patient was in sinus rhythm throughout the recording. Mean heart rate was 68. Minimum heart rate was 54 and peak heart rate 104. There was no atrial fibrillation recorded There were no significant ventricular dysrhythmias There were rare atrial premature beats. There was one 4 beat atrial run There were no pauses. There was no significant bradycardia
== END 2019-07-19 02:17 ==
PROVIDERS: PCP Family Medicine; Visit Provider Internal Medicine
DX: I48.91 Unspecified atrial fibrillation (principal); I50.9 Heart failure, unspecified
CPT/HCPCS: 36415; 80048; 83880; 93225

== ENCOUNTER 2019-07-21 13:06 | Outpatient (CLI) | payer MEDICARE, BC, SELFPAY | END 2019-07-21 13:26 | PROVIDERS: PCP Family Medicine; Visit Provider Internal Medicine | DX: I48.91 Unspecified atrial fibrillation (principal) | CPT/HCPCS: 93226 ==

== ENCOUNTER 2019-09-06 04:59 | Outpatient (CLI) | payer MEDICARE, BC, SELFPAY ==
[2019-09-06 12:13] LABS: COMMENT (LAB VIEW ONLY) 27.89 mg/dL; Microalb ug/mg Crea 27.2 ug/mg Cr
[2019-09-06 12:19] LABS: INR 2.2 (0.9-1.1); Prothrombin Time 21.9 sec (9.3-11.0)
== END 2019-09-06 05:19 ==
PROVIDERS: PCP Family Medicine; Visit Provider Family Medicine
DX: E11.9 Type 2 diabetes mellitus without complications (principal); Z79.01 Long term (current) use of anticoagulants; I48.91 Unspecified atrial fibrillation
CPT/HCPCS: 36415; 82043; 82570; 85610

== ENCOUNTER 2019-10-10 01:04 | Outpatient (CLI) | payer MEDICARE, BC, SELFPAY ==
--- NOTE | 2019-10-10 07:00 | DI.MAMMO_ITS ---
EXAM: MAMMO SCREENING CLINICAL HISTORY: screening,z12.39 TECHNIQUE: Mammograms were interpreted according to the usual protocol including computer analysis w [employer] CAD system, tomosynthesis and C-view imaging. COMPARISON: 2009 through 2015 FINDINGS: The breasts are composed of scattered fibroglandular densities, Breast Density category B. No suspicious masses or suspicious microcalcifications are seen. Vascular calcifications are noted. No skin thickening or abnormal axillary lymph nodes are seen. There has been no significant change from prior exams. IMPRESSION: BI-RADS Category 1, Negative mammogram Yearly screening mammography is recommended. Breast Density Category B, scattered fibroglandular densities. A negative radiographic report should not delay biopsy if a dominant or clinically suspicious mass is present. Up to ten percent of cancers are not identified on mammography. A negative report may reinforce clinical impression. Adenosis and dense breasts may obscure an underlying neoplasm. False positive reports average 6 to 10%. Patient will receive a letter notifying them of these results.
== END 2019-10-10 01:24 ==
PROVIDERS: PCP Family Medicine; Visit Provider Family Medicine
DX: Z12.31 Encounter for screening mammogram for malignant neoplasm of breast (principal); R92.2 Inconclusive mammogram
CPT/HCPCS: 77063; 77067

== ENCOUNTER 2019-11-04 03:55 | Outpatient (CLI) | payer MEDICARE, BC, SELFPAY ==
[2019-11-04 10:22] LABS: INR 2.1 (0.9-1.1); Prothrombin Time 20.6 sec (9.3-11.0)
== END 2019-11-04 04:15 ==
PROVIDERS: PCP Family Medicine; Visit Provider Family Medicine
DX: I48.91 Unspecified atrial fibrillation (principal); Z79.01 Long term (current) use of anticoagulants
CPT/HCPCS: 36415; 85610

== ENCOUNTER 2020-01-09 02:19 | Outpatient (CLI) | payer MEDICARE, BC, SELFPAY ==
[2020-01-09 15:31] LABS: INR 2.3 (0.9-1.1); Prothrombin Time 22.3 sec (9.3-11.0)
== END 2020-01-09 02:39 ==
PROVIDERS: PCP Family Medicine; Visit Provider Family Medicine
DX: Z51.81 Encounter for therapeutic drug level monitoring (principal)
CPT/HCPCS: 36415; 85610

== ENCOUNTER 2020-01-16 17:29 | Outpatient (CLI) | payer MEDICARE, BC, SELFPAY ==
--- NOTE | 2020-01-16 18:08 | DI.RAD_ITS ---
EXAM: XR LUMBAR SPINE COMPLETE CLINICAL HISTORY: back pain with right leg radiation.. TECHNIQUE: 2D digital imaging was performed. COMPARISON: No exams were available for comparison FINDINGS: The vertebral bodies are well maintained in height. Endplate osteophytes are seen throughout. There is severe narrowing of the L2-3 disc space, eccentric toward the right. There are right-sided osteo phytes.. There is mild narrowing of the L3-4 disc space. There is also severe narrowing of the L4-5 disc space, eccentric toward the left.. There are facet joint degenerative changes greater in the l ower lumbar levels. There is mild spondylolisthesis at L3-4 secondary to facet joint degenerative ch anges which is stable on flexion and extension. IMPRESSION: Degenerative disc changes and facet degenerative changes, greatest at L2-3 and L4-5. DATA REPOSITORY: RADIATION DOSE DELIVERED:
--- NOTE | 2020-01-16 18:24 | DI.VRAD_ITS ---
PROCEDURE INFORMATION: Exam: XR Lumbosacral Spine, 4 or 5 Views Exam date and time: 01/16/2020 5:45 PM Age: 69 years old Clinical indication: Low back pain TECHNIQUE: Imaging protocol: XR of the lumbosacral spine, 4 or 5 views. COMPARISON: No relevant images were readily available for comparison purposes. FINDINGS: Bones/joints: Lumbar vertebral body heights are well maintained. There is mild grade 1 anterolisthesis of L3 on L4 which is similar on both flexion and extension views. Likely degenerative. Bony degenerative changes of the lumbar spine are moderate. Soft tissues: Unremarkable. Organs: Likely uterine fibroid. IMPRESSION: Moderate bony degenerative changes of the lumbar spine without acute fracture or dislocation. Dictated and Authenticated by: Ronn Gordon MD. Ordering:KOFI Cardenas MD
== END 2020-01-16 17:49 ==
PROVIDERS: PCP Family Medicine; Visit Provider Physician Assistant
DX: M47.26 Other spondylosis with radiculopathy, lumbar region (principal)
CPT/HCPCS: 72110

== ENCOUNTER 2020-02-06 02:43 | Outpatient (CLI) | payer MEDICARE, BC, SELFPAY ==
[2020-02-06 16:16] LABS: INR 1.9 (0.9-1.1); Prothrombin Time 19.2 sec (9.3-11.0)
== END 2020-02-06 03:03 ==
PROVIDERS: PCP Family Medicine; Visit Provider Family Medicine
DX: I48.91 Unspecified atrial fibrillation (principal); Z79.01 Long term (current) use of anticoagulants
CPT/HCPCS: 36415; 85610

== ENCOUNTER 2020-02-27 04:07 | Outpatient (CLI) | payer MEDICARE, BC, SELFPAY ==
[2020-02-27 10:09] LABS: Prothrombin Time 20.1 sec (9.3-11.0)
== END 2020-02-27 04:27 ==
PROVIDERS: PCP Family Medicine; Visit Provider Family Medicine
DX: I48.91 Unspecified atrial fibrillation (principal); Z79.01 Long term (current) use of anticoagulants
CPT/HCPCS: 36415; 85610

== ENCOUNTER 2020-04-02 22:33 | Outpatient (CLI) | payer MEDICARE, BC, SELFPAY ==
--- NOTE | 2020-04-02 11:30 | DI.RAD_ITS ---
EXAM: XR KNEE LT 3V AP,LAT,CAT CLINICAL HISTORY: pain in left knee, M25.562. TECHNIQUE: 2D digital imaging was performed. COMPARISON: No previous for comparison. FINDINGS: The patient has a left total knee replacement which appears in good position. No lucencies are seen in or about the orthopedic hardware. No acute fracture or dislocation. The bones are normally forest examiner alized. There is an enthesophyte at the superior patella. There is a small joint effusion. The sof t tissues are otherwise unremarkable. IMPRESSION: 1. Left TKR. 2. Small joint effusion. DATA REPOSITORY: RADIATION DOSE DELIVERED:
== END 2020-04-02 22:34 | disposition home or self-care (01) ==
LOC: DI 22:36
PROVIDERS: PCP Family Medicine; Visit Provider Nurse Practitioner Family
DX: Z96.652 Presence of left artificial knee joint (principal); M25.562 Pain in left knee; M25.462 Effusion, left knee
CPT/HCPCS: 73562

== ENCOUNTER 2020-04-03 00:56 | Outpatient (CLI) | payer MEDICARE, BC, SELFPAY ==
--- NOTE | 2020-04-03 08:00 | DI.MRI_ITS ---
EXAM: MR LUMBAR SPINE WO CLINICAL HISTORY: low back pain,M54.5. TECHNIQUE: Multiplanar multisequence MRI of the Lumbar spine was performed. COMPARISON: CR,XR XR LUMBAR SPINE COMPLETE from 01/16/2020 FINDINGS: Bones: The last intervertebral disc space is designated the L5/S1 level for the numbering purpose of this examination. The vertebral body heights are well maintained. There is a mild left convex scoli osis of the lumbar spine. There are degenerative endplate signal changes seen at L2-L3 and L4-L5. Cord: The conus tip ends at the L1 level. It is of normal size and signal intensity. T12-L1: No disc herniations or bulges are present. No central spinal canal or neural foraminal stenos is. L1-2: No disc herniations or bulges are present. No central spinal canal or neural foraminal stenosis . L2-3: No focal disc herniation. There are hypertrophic changes of the facets, right greater than lef t. No significant central spinal canal stenosis is present. There is moderate right and mild-to-mod erate left neural foraminal stenosis. L3-4: There is a diffuse disc bulge. There are hypertrophic changes of the facets and ligamentum fla vum. These all contribute to cause moderately severe central spinal canal stenosis. There is modera te bilateral neural foraminal stenosis. L4-5: There is a mild diffuse disc bulge. There are hypertrophic changes of the facets. These contr ibute to cause mild narrowing of the central spinal canal. Moderately severe bilateral neural forami nal stenosis is present. L5-S1: No disc herniations or bulges are present. There are hypertrophic changes of the facets. No s ignificant central spinal canal stenosis is seen.There is no neural foraminal stenosis. Soft tissues: The visualized SI joints and sacrum are well maintained. The paraspinal soft tissues ar e unremarkable. IMPRESSION: Multilevel degenerative changes in the lumbar spine as described above. Findings are most marked fro m L2-3 through L4-5 as described above. DATA REPOSITORY:
== END 2020-04-03 00:57 ==
LOC: DI 00:57
PROVIDERS: PCP Family Medicine; Visit Provider Family Medicine
DX: M47.816 Spondylosis without myelopathy or radiculopathy, lumbar region (principal)
CPT/HCPCS: 72148

== ENCOUNTER 2020-05-17 03:07 | Outpatient (CLI) | payer MEDICARE, BC, SELFPAY ==
[2020-05-17 12:24] LABS: INR 1.9 (0.9-1.1); Prothrombin Time 18.5 sec (9.3-11.0)
== END 2020-05-17 03:08 | disposition home or self-care (01) ==
LOC: LBO 03:07
PROVIDERS: PCP Family Medicine; Visit Provider Family Medicine
DX: I48.20 Chronic atrial fibrillation, unspecified (principal); Z79.01 Long term (current) use of anticoagulants
CPT/HCPCS: 36415; 85610

== ENCOUNTER 2020-05-29 04:06 | Outpatient (CLI) | payer MEDICARE, BC, SELFPAY ==
[2020-05-29 10:13] LABS: INR 2.2 (0.9-1.1); Prothrombin Time 21.8 sec (9.3-11.0)
== END 2020-05-29 04:07 | disposition home or self-care (01) ==
LOC: LBO 04:06
PROVIDERS: PCP Family Medicine; Visit Provider Family Medicine
DX: I48.20 Chronic atrial fibrillation, unspecified (principal); Z79.01 Long term (current) use of anticoagulants
CPT/HCPCS: 36415; 85610

== ENCOUNTER 2020-07-24 02:56 | Outpatient (CLI) | payer MEDICARE, BC, SELFPAY ==
[2020-07-24 10:13] LABS: Prothrombin Time 19.7 sec (9.3-11.0)
== END 2020-07-24 02:57 | disposition home or self-care (01) ==
LOC: LBO 02:56
PROVIDERS: PCP Family Medicine; Visit Provider Family Medicine
DX: I48.91 Unspecified atrial fibrillation (principal); Z79.01 Long term (current) use of anticoagulants
CPT/HCPCS: 36415; 85610

== ENCOUNTER 2020-09-03 03:21 | Outpatient (CLI) | payer MEDICARE, BC, SELFPAY ==
[2020-09-03 12:49] LABS: Prothrombin Time 19.9 sec (9.3-11.0)
== END 2020-09-03 03:22 | disposition home or self-care (01) ==
LOC: LBO 03:21
PROVIDERS: PCP Family Medicine; Visit Provider Family Medicine
DX: I48.91 Unspecified atrial fibrillation (principal); Z79.01 Long term (current) use of anticoagulants
CPT/HCPCS: 36415; 85610

== ENCOUNTER 2020-09-05 14:20 | Outpatient (CLI) | payer MEDICARE, BC, SELFPAY ==
--- NOTE | 2020-09-05 12:15 | DI.RAD_ITS ---
Exam(s) XR RIBS LT W PA LAT CHEST EXAM: XR RIBS LT W PA LAT CHEST CLINICAL HISTORY: left rib pain s/p fall R07.81 PLEURODYNIA. TECHNIQUE: 2D digital imaging was performed. COMPARISON: CR XR CHEST 2V PA LATERAL from 07/11/2019 FINDINGS: There are no obvious left-sided rib fractures no rib lesions. Lungs are clear and there is no pneumothorax nor pleural effusion. Heart size remains upper normal a nd the mediastinum is not widened. IMPRESSION: No left-sided rib fracture seen. Lungs are clear. No pneumothorax. DATA REPOSITORY: RADIATION DOSE DELIVERED:
== END 2020-09-05 14:40 ==
PROVIDERS: PCP Family Medicine; Visit Provider Nurse Practitioner Family
DX: G89.11 Acute pain due to trauma (principal); R07.81 Pleurodynia; W18.09XA Striking against other object with subsequent fall, initial encounter; Y99.8 Other external cause status
CPT/HCPCS: 71046; 71100

== ENCOUNTER 2020-09-26 09:58 | Outpatient (CLI) | payer MEDICARE, BC, SELFPAY ==
--- NOTE | 2020-09-26 09:45 | DI.US_ITS ---
Exam(s) US LOWER EXTREMITY VENOUS RT EXAM: US LOWER EXTREMITY VENOUS RT CLINICAL HISTORY: Red area to calf, sore, recent surgery on 20th M79.604 RT LEG PAIN, M79.89 TECHNIQUE: Grayscale, color, and doppler imaging of the deep venous system of the lower extremity w as performed. COMPARISON: US US ECHOCARDIOGRAM from 03/18/2019 FINDINGS: There is no evidence of intraluminal thrombus and there is normal compression and augmentation demons trated within the common femoral vein, femoral vein, and popliteal vein. In the ipsilateral calf the interrogated deep veins also exhibit normal compression/ augmentation pro perties. However, there is evidence of superficial thrombophlebitis it in the right calf, this over an area re dness. Also noted posterior to the ankle is a 10 x 18 x 7 millimeter fluid collection which is independent o f the vessels and of questionable significance. IMPRESSION: 1. There is thrombosis of a superficial vessel in the right calf which corresponds to area of rednes s. Follow-up recommended.. 2. There is no evidence of thrombosis of the deep veins of the lower extremity. Other incidental small fluid collection behind the heel incidentally noted. This measures approximat ana 10 x 18 x 7 millimeters. DATA REPOSITORY:
== END 2020-09-26 10:18 ==
PROVIDERS: PCP Family Medicine; Visit Provider Nurse Practitioner Family
DX: I82.401 Acute embolism and thrombosis of unspecified deep veins of right lower extremity; R07.81 Pleurodynia
CPT/HCPCS: 93971

== ENCOUNTER 2020-10-03 03:38 | Outpatient (CLI) | payer MEDICARE, BC, SELFPAY ==
[2020-10-03 11:00] LABS: INR 2.2 (0.9-1.1); Prothrombin Time 21.6 sec (9.3-11.0)
== END 2020-10-03 03:39 | disposition home or self-care (01) ==
LOC: LBO 03:38
PROVIDERS: PCP Family Medicine; Visit Provider Family Medicine
DX: I48.91 Unspecified atrial fibrillation (principal); I48.92 Unspecified atrial flutter; Z79.01 Long term (current) use of anticoagulants
CPT/HCPCS: 36415; 85610

== ENCOUNTER 2020-10-05 02:37 | Outpatient (CLI) | payer MEDICARE, BC, SELFPAY ==
[2020-10-05 08:59] LABS: Hemoglobin A1C 6.9 % (<5.7)
[2020-10-05 10:14] LABS: Anion Gap 10.8 mmol/L (3-11); BUN 15 mg/dL (7-18); CO2 25.2 mmol/L (21.0-32.0); Calcium 8.8 mg/dL (8.5-10.1); Calculated LDL 59 mg/dL (<100); Chloride 105 mmol/L (98-107); Cholesterol 143 mg/dL (<200); Estimated GFR 54.97 (mL/min/1.73m2); Glucose 158 mg/dL (74-106); HDL Cholesterol 34 mg/dL (40-60); Potassium 4.2 mmol/L (3.5-5.1); Sodium 141 mmol/L (136-145); Triglyceride 253 mg/dL (<150)
== END 2020-10-05 02:38 | disposition home or self-care (01) ==
LOC: LBO 02:37
PROVIDERS: PCP Family Medicine; Visit Provider Family Medicine
DX: E11.9 Type 2 diabetes mellitus without complications (principal); E78.5 Hyperlipidemia, unspecified; E87.1 Hypo-osmolality and hyponatremia
CPT/HCPCS: 36415; 80048; 80061; 83036

== ENCOUNTER 2020-10-18 01:32 | Outpatient (CLI) | payer MEDICARE, BC, SELFPAY ==
--- NOTE | 2020-10-18 07:15 | DI.US_ITS ---
Exam(s) US LOWER EXTREMITY VENOUS RT EXAM: US LOWER EXTREMITY VENOUS RT CLINICAL HISTORY: dvt vs thrombophlebitis, rt leg pain, M79.604 TECHNIQUE: Grayscale, color, and doppler imaging of the deep venous system of the right lower extrem ity was performed. COMPARISON: US US LOWER EXTREMITY VENOUS RT from 09/26/2020 US US LOWER EXTREMITY VENOUS RT from 09/26/2020 FINDINGS: There is again no evidence of DVT but intraluminal clot is seen in the superficial system. On the pr esent study clot is evident in the greater saphenous vein for a length of 16 cm starting in the mid-u pper calf and extending to slightly above the knee level. This is somewhat different than on the isadora or study. IMPRESSION: 1. No evidence of DVT in the right lower extremity but there is significant clot evident with in the right greater saphenous vein both above and below the knee for distance of 16 cm. The most superior aspect of the clot is still distant from saphenofemoral junction. Close follow-up recommended. 2. DATA REPOSITORY:
== END 2020-10-18 01:52 ==
PROVIDERS: PCP Family Medicine; Visit Provider Nurse Practitioner Family
DX: M79.604 Pain in right leg (principal); I82.811 Embolism and thrombosis of superficial veins of right lower extremity
CPT/HCPCS: 93971

== ENCOUNTER 2020-11-02 05:05 | Outpatient (CLI) | payer MEDICARE, BC, SELFPAY ==
--- NOTE | 2020-11-02 07:30 | DI.RAD_ITS ---
Exam(s) XR FOOT RT COMPLETE EXAM: XR FOOT RT COMPLETE CLINICAL HISTORY: fell from bed 10 days ago; lateral foot pain; bruising over toes, tender. TECHNIQUE: 2D digital imaging was performed. COMPARISON: No exams were available for comparison FINDINGS: BONES: No acute fracture is present. No bony destructive lesion is seen. Heel spurs. JOINTS: No dislocation present. Degenerative changes tarsal metatarsal joints and 1st MTP joint. SOFT TISSUE: Chronic appearing calcifications medial to the inter phalangeal joint of the great toe. IMPRESSION: No acute abnormality. DATA REPOSITORY: RADIATION DOSE DELIVERED:
== END 2020-11-02 05:25 ==
PROVIDERS: PCP Family Medicine; Visit Provider Family Medicine
DX: M79.671 Pain in right foot (principal); S90.121A Contusion of right lesser toe(s) without damage to nail, initial encounter; X58.XXXA Exposure to other specified factors, initial encounter
CPT/HCPCS: 73630

== ENCOUNTER 2020-11-26 01:01 | Outpatient (CLI) | payer MEDICARE, BC, SELFPAY ==
--- NOTE | 2020-11-26 08:00 | DI.US_ITS ---
Exam(s) US LOWER EXTREMITY VENOUS RT EXAM: US LOWER EXTREMITY VENOUS RT CLINICAL HISTORY: reassess greater saphenous clot,RT LEG PAIN, M79.604. TECHNIQUE: Lower extremity venous ultrasound performed using grayscale, color-flow, and spectral Do ppler analysis. COMPARISON: No exams were available for comparison FINDINGS: The common femoral, femoral and popliteal veins demonstrate normal compressibility, augmentation, and color Doppler. The posterior tibial veins are patent. No saphenous vein thrombosis or other superfi cial venous thrombosis is seen. No hematoma or Alonzo's cyst is seen. Mild edema mid calf. IMPRESSION: Negative lower extremity ultrasound. No evidence of DVT. Saphenous thrombosis no longer present. DATA REPOSITORY:
== END 2020-11-26 01:21 ==
PROVIDERS: PCP Family Medicine; Visit Provider Family Medicine
DX: M79.604 Pain in right leg (principal)
CPT/HCPCS: 93971

== ENCOUNTER 2021-02-13 01:30 | Outpatient (CLI) | payer MEDICARE, BC, SELFPAY ==
--- NOTE | 2021-02-13 08:00 | DI.RAD_ITS ---
Exam(s) XR SHOULDER RT COMPLETE 2+V EXAM: XR SHOULDER RT COMPLETE 2+V CLINICAL HISTORY: shoulder pain,m25.519. TECHNIQUE: 2D digital imaging was performed of the right shoulder. Five images were obtained. AP, Grashey, Y-view and axillary views were obtained. COMPARISON: CR XR SHOULDER RT COMPLETE 2+V from 02/21/2019 FINDINGS: BONES: No acute fracture is present. No bony destructive lesion is seen. JOINTS: No dislocation present. There are mild degenerative changes seen at the acromioclavicular [place] nt and the glenohumeral joint. Mild hypertrophic changes are seen at the lateral aspect of the acrom ion. SOFT TISSUE: Normal. IMPRESSION: Degenerative changes of the right shoulder. DATA REPOSITORY: RADIATION DOSE DELIVERED:
== END 2021-02-13 01:50 ==
PROVIDERS: PCP Family Medicine; Visit Provider Family Medicine
DX: M25.511 Pain in right shoulder (principal); G89.29 Other chronic pain; M19.011 Primary osteoarthritis, right shoulder
CPT/HCPCS: 73030

== ENCOUNTER → 2021-03-26 14:07 | Outpatient (BNVA) | payer MEDICARE, BC, SELFPAY | PROVIDERS: PCP Family Medicine; Referring Provider Family Medicine; Visit Provider Student in an Organized Health Care Education/Training Program | DX: M25.511 Pain in right shoulder (principal); G89.29 Other chronic pain; E66.01 Morbid (severe) obesity due to excess calories | CPT/HCPCS: 99203; 99213 ==

== ENCOUNTER 2021-06-13 02:40 | Outpatient (CLI) | payer MEDICARE, BC, SELFPAY ==
[2021-06-13 10:45] LABS: HCT 43.1 % (36.0-46.0); HGB 13.1 g/dL (11.2-15.7); MCH 27.3 pg (27.0-33.0); MCHC 30.4 % (32.0-36.0); MCV 89.8 fL (80-95); MPV 10.6 fL (8.0-11.0); Platelet Count 307 10^3/uL (130-400); RDW 13.2 % (11.7-14.6); RDW-SD 43.4 fL; WBC 7.23 10^3/uL (4.4-10.8)
[2021-06-13 11:49] LABS: BUN 19 mg/dL (7-18); Calcium 8.8 mg/dL (8.5-10.1); Chloride 102 mmol/L (98-107); Estimated GFR 54.81 (mL/min/1.73m2); Glucose 219 mg/dL (74-106); Potassium 3.9 mmol/L (3.5-5.1); Sodium 139 mmol/L (136-145); Uric Acid 5.3 mg/dL (2.6-6.0)
== END 2021-06-13 02:41 | disposition home or self-care (01) ==
LOC: LBO 02:40
PROVIDERS: PCP Family Medicine; Visit Provider Family Medicine
DX: R53.83 Other fatigue (principal); M10.9 Gout, unspecified; E87.1 Hypo-osmolality and hyponatremia
CPT/HCPCS: 36415; 80048; 85027; 84550

== ENCOUNTER → 2021-10-16 14:42 | Outpatient (CLI) | payer MEDICARE, BC, SELFPAY ==
--- NOTE | 2021-10-16 14:15 | DI.RAD_ITS ---
Exam(s) XR FOOT RT COMPLETE EXAM: XR FOOT RT COMPLETE CLINICAL HISTORY: INCREASED PAIN IN RT FOOT/ANKLE--M79.671. TECHNIQUE: 2D digital imaging was performed. COMPARISON: CR XR FOOT RT COMPLETE from 11/02/2020 FINDINGS: 3 views No evidence of acute fracture nor diastasis of the Lisfranc joint. Small sesamoid bone on the medial aspect of the foot adjacent to the navicular tuberosity is noted. No pes planus. Small inferior ca lcaneal spur noted. Small soft tissue calcifications are again noted adjacent to the medial aspect the head of the proxim al phalanx of the great toe, similar to the prior study of 11/02/2020. IMPRESSION: No new significant radiograph findings. Minimal if any significant change compared to 11/02/2020. DATA REPOSITORY: RADIATION DOSE DELIVERED:
--- NOTE | 2021-10-16 14:15 | DI.RAD_ITS ---
Exam(s) XR ANKLE RT COMPLETE EXAM: XR ANKLE RT COMPLETE CLINICAL HISTORY: INCREASED PAIN IN RT FOOT/ANKLE--M79.671. TECHNIQUE: 2D digital imaging was performed. COMPARISON: CR XR ANKLE RT COMPLETE from 07/03/2018 FINDINGS: 3 views Abundant soft tissue swelling in the lower leg and ankle. However, no evidence of fracture nor widen ing of the ankle mortise. No obvious degenerative changes in the tibiotalar and subtalar joints. Ta lar dome appears unremarkable. Small inferior calcaneal spur is noted. Enthesophyte at the insertio nal aspect of the Achilles on the posterior calcaneus is noted. IMPRESSION: As above but no acute fracture evident DATA REPOSITORY: RADIATION DOSE DELIVERED:
== END ==
PROVIDERS: PCP Family Medicine; Visit Provider Nurse Practitioner Family
DX: M79.671 Pain in right foot (principal)
CPT/HCPCS: 73610; 73630

== ENCOUNTER 2021-10-24 12:37 | Emergency (ER) | payer MEDICARE, BC, SELFPAY ==
[2021-10-24] VITALS (12 sets, daily range): BP systolic 116–148; BP diastolic 49–101; PULSE 64–113; RESP 14–26; TEMP 36.3; O2SAT 94–99
--- NOTE | 2021-10-24 12:30 | RT.EKG_ITS ---
APPROVED REPORT Exam: Resting ECG Reason for Exam: AFIB Patient Location: E HR:107 bpm ECG Measurements Heart Rate 107 AXIS WI [id number] P [id number] QRSd 172 QRS 53 QT 379 T -18 QTc 506 Conclusion Atrial fibrillation...? atrial activity Right bundle branch block...QRSd>120, terminal axis(90,270). Afib. RBBB. No significant change from previous EKG. No STEMI. I have reviewed and interpreted ECG and agree with software generated interpretation.
--- NOTE | 2021-10-24 13:30 | DI.RAD_ITS ---
Exam(s) XR CHEST 2V PA LATERAL EXAM: XR CHEST 2V PA LATERAL CLINICAL HISTORY: palpitations, sob, r/o acute disease. TECHNIQUE: 2D digital imaging was performed. COMPARISON: CR XR RIBS LT W PA LAT CHEST from 09/05/2020 FINDINGS: 2 views: Heart size is normal. The mediastinum is not widened. Lungs are clear. No infiltrates nor pleural effusions. IMPRESSION: No acute pulmonary findings. DATA REPOSITORY: RADIATION DOSE DELIVERED:
[2021-10-24 14:03] LABS: Abs Immature Grans 0.02 10^3/uL (0.0-0.06); Absolute Basophil Count 0.09 10^3/uL (0.0-0.2); Absolute Eosinophil Count 0.26 10^3/uL (0.0-0.7); Absolute Monocyte Count 0.65 10^3/uL (0.1-0.8); Absolute Neutrophil Count 4.42 10^3/uL (1.2-6.7); Basophils % 1.3; Eosinophils % 3.6; HCT 43.8 % (36.0-46.0); HGB 14.2 g/dL (11.2-15.7); Immature Grans % 0.3; Lymphocytes % 23.8; MCHC 32.4 % (32.0-36.0); MCV 86 fL (80-95); MPV 11.2 fL (8.0-11.0); Monocytes % 9.1; Neutrophils % 61.9; Platelet Count 295 10^3/uL (130-400); RBC 5.07 10^6/uL (3.93-5.22); RDW 13.4 % (11.7-14.6); RDW-SD 42.5 fL; WBC 7.14 10^3/uL (4.4-10.8)
[2021-10-24 14:19] LABS: ALT 24 U/L (14-59); AST 10 U/L (15-37); Albumin 3.4 g/dL (3.4-5.0); Alkaline Phosphatase 60 U/L (46-116); Anion Gap 8.3 mmol/L (3-11); BUN 21 mg/dL (7-18); Bilirubin, Total 0.6 mg/dL (0.2-1.0); CO2 27.7 mmol/L (21.0-32.0); CREATININE 1.1 mg/dL (0.55-1.02); Calcium 8.5 mg/dL (8.5-10.1); Chloride 103 mmol/L (98-107); Estimated GFR 54.06 (mL/min/1.73m2); Glucose 191 mg/dL (74-106); Magnesium 1.6 mg/dL (1.8-2.4); Potassium 4.1 mmol/L (3.5-5.1); Sodium 139 mmol/L (136-145); Total Protein 7.4 g/dL (6.4-8.2); Troponin I < 50 ng/L (<or=60)
--- NOTE | 2021-10-24 14:53 | W.ED.GENAD ---
Discharge Plan Disposition Patient Disposition: HOME Condition: Stable Discharge Details Clinical Impression: Palpitations, History of atrial fibrillation Primary Care Provider: Maico Leonard ED Provider: Aura Jones Home Meds and New Rx's Prescriptions: New diltiazem HCl 30 mg tablet 30 mg PO ONCE PRNQty: 14 0RF Rx Instructions: take if heart rate consistently remains above 100 with symptoms of fluttering and shortness of breath Continued (DME) lancets 28 gauge misc 1 ea Miscellaneous DAILY Qty: 100 4RF Rx Instructions: DX: E11.9 ONE TOUCH LANCETS test once/day nystatin 100,000 unit/gram cream 1,500,000 unit Topical BID PRN Rx Instructions: Apply twice a day beneath breasts till resolves ciprofloxacin-dexamethasone [Ciprodex] 0.3-0.1 % drops,suspension 3 drp BID PRN Qty: 1 0RF diltiazem HCl 360 mg capsule,extended release 24hr 360 mg PO DAILY Qty: 90 3RF metoprolol succinate 25 mg tablet extended release 24 hr 50 mg PO DAILY Qty: 270 3RF Rx Instructions: dose increase 11/27/20 dose reduction to 50 mg 05/14/21 nitroglycerin [Nitrostat] 0.4 mg tablet, sublingual 0.4 mg sublingual Q5 MIN PRN X3 PRN (Reason: chest pain) Qty: 30 0RF colchicine 0.6 mg tablet 1.2 mg PO ONCE Qty: 10 1RF Rx Instructions: may repeat with one tab after one hour for subtherapeutic effect albuterol sulfate [ProAir HFA] 90 mcg/actuation HFA aerosol inhaler 2 puff Inhalation Q4H PRN Qty: 3 3RF (DME) Blood Glucose Test Strip 1 strip Miscellaneous DAILY Qty: 100 4RF Rx Instructions: DX: E11.9 ONE TOUCH ULTRA test once/day acetaminophen [Tylenol Extra Strength] 500 MG tablet 2 tab PO HS PRN BIPAP 1 ea inhalation HS Rx Instructions: SLEEP APNEA aspirin 81 MG tablet,chewable 81 mg PO DAILY Qty: 90 0RF (DME) pen needle, diabetic [Comfort EZ Pen [place]] 33 gauge x 3/16 needle See Rx Instructions .ROUTE .MEDSUPPLY Qty: 100 3RF Rx Instructions: inject once/daily liraglutide 0.6 mg/0.1 mL (18 mg/3 mL) pen injector 1.8 mg SC .COMPLEX Qty: 9 12RF Rx Instructions: 1.8 mg subcut aneously once daily x 7 days; then 1.2mg daily, not to exceed 1.8mg/day subcut; rivaroxaban 20 mg tablet 20 mg PO DAILY Qty: 90 3RF Rx Instructions: furosemide 20 mg tablet 40 mg PO DAILY Qty: 90 3RF Rx Instructions: take for 4 lb weight gain as needed glipizide 5 mg tablet extended release 24 hr 5 mg PO DAILY Qty: 90 3RF omeprazole 40 mg capsule,delayed release(DR/EC) 40 mg PO DAILY Qty: 90 3RF simvastatin 10 mg tablet 10 mg PO HS Qty: 90 3RF Rx Instructions: fluoxetine 10 mg tablet 10 mg PO DAILY Qty: 90 3RF losartan 100 mg tablet 100 mg PO DAILY Qty: 90 3RF bupropion HCl [Wellbutrin SR] 150 mg tablet sustained-release 12 hr 150 mg PO BID Qty: 180 3RF potassium chloride 20 mEq tablet extended release 20 meq PO DAILY Qty: 90 3RF magnesium amino acid chelate 100 MG tablet 500 mg PO BID Qty: 0 0RF Label Comments: 05/08/17 restarted, had stopped 04/17. si Rx Instructions: hasn't been taking Discharge Instructions Instructions: Heart Palpitations (ED) Additional Instructions: Your lab work and imaging today are reassuring and show no evidence of acute concerning or significant findings. A prescription for diltiazem 30 mg has been sent electronically to your pharmacy to take as needed for heart rate persistently elevated above 100 with symptoms of atrial fibrillation such as fluttering or shortness of breath. Follow-up with your scheduled appointment with your head athletic trainer/strength coach Dr. Bowling on November 05. Call their office tomorrow for any further recommendations regarding medication management and treatment of your atrial fibrillation. If your symptoms of fluttering and shortness of breath persist, you may be referred for outpatient strain technician. Return immediately to the emergency department if you develop any worsening or new concerning symptoms. Discharge Data Discharge Date/Time-TO BE ENTERED AT DEPARTURE: 10/24/21 16:05 Discharge Physician: Aura Jones Medical Decision Making 71-year-old female with history of atrial fibrillation and flutter on Xarelto, metoprolol and diltiazem, hypertension, hyperlipidemia, GERD, obesity, diabetes presents for intermittent fluttering and shortness of breath for the past 3 days. Denies any chest pain. Heart rate 110s on arrival. Blood pressure within normal limits. EKG noted rate of 107, atrial fibrillation versus flutter, right bundle branch block, no STEMI and no significant change from previous EKG. Screening labs obtained on arrival. Magnesium 1.6, will replete. Troponin negative. Chest x-ray negative. Patient appears comfortable and speaking in full sentences. History and presentation do not appear consistent with ACS, PE, dissection, CHF or pneumonia. As symptoms have been present for 3 days, do not indication for repeat troponin. Her heart rate has remained within the range of 80s to 90s and atrial fibrillation. Her blood pressure has remained stable. Patient is like to go home. Case discussed with FANNY Scherer with Dr. Bowling who is her head athletic trainer/strength coach at [facility]. She is recommended to take an additional 30 mg of short acting diltiazem when patient's heart rate remains persistently above 100. A prescription for diltiazem 30 mg to take as needed sent electronically to her pharmacy. Advised to follow up with the primary care doctor for re-evaluation. Usual and customary return precautions given prior to discharge. Medical Records Medical records reviewed: Yes I reviewed the patient's medical records. Imaging Data Radiologic Study: Radiologist's impression: XR CHEST 2V PA ? LATERAL CLINICAL HISTORY: ? palpitations, sob, r/o acute disease. ? TECHNIQUE:? 2D digital imaging was performed. COMPARISON:? CR XR RIBS LT W PA ? LAT CHEST from 09/05/2020 FINDINGS: 2 views: Heart size is normal.? The mediastinum is not widened. Lungs are clear.? No infiltrates nor pleural effusions. Lab Data Lab results reviewed: Yes I reviewed the patient's lab results. Labs: Laboratory Tests Range/Units 10/24/21 10/24/21 13:40 13:40 WBC (4.4-10.8) 10^3/uL 7.14 RBC (3.93-5.22) 10^6/uL 5.07 Hgb (11.2-15.7) g/dL 14.2 Hct (36.0-46.0) % 43.8 MCV (80-95) fL 86 MCH (27.0-33.0) pg 28.0 MCHC (32.0-36.0) % 32.4 RDW (11.7-14.6) % 13.4 Plt Count (130-400) 10^3/uL 295 MPV (8.0-11.0) fL 11.2 H Immature Gran % 0.3 Neutrophils % 61.9 Lymphocytes % 23.8 Monocytes % 9.1 Eosinophils % 3.6 Basophils % 1.3 Nucleated RBC % (0.0-0.3) % 0.0 Absolute Neutrophils (1.2-6.7) 10^3/uL 4.42 Absolute Lymphocytes (1.2-3.4) 10^3/uL 1.70 Absolute Monocytes (0.1-0.8) 10^3/uL 0.65 Absolute Eosinophils (0.0-0.7) 10^3/uL 0.26 Absolute Basophils (0.0-0.2) 10^3/uL 0.09 Sodium (136-145) mmol/L 139 Potassium (3.5-5.1) mmol/L 4.1 Chloride (98-107) mmol/L 103 Carbon Dioxide (21.0-32.0) mmol/L 27.7 Anion Gap (3-11) mmol/L 8.3 BUN (7-18) mg/dL 21 H Creatinine (0.55-1.02) mg/dL 1.1 H Est GFR (CKD-EPI 2020) (mL/min/1.73m2) 54.06 Glucose (74-106) mg/dL 191 H Calcium (8.5-10.1) mg/dL 8.5 Magnesium (1.8-2.4) mg/dL 1.6 L Total Bilirubin (0.2-1.0) mg/dL 0.6 AST (15-37) U/L 10 L ALT (14-59) U/L 24 Alkaline Phosphatase (46-116) U/L 60 Troponin I (<or=60) ng/L < 50 Total Protein (6.4-8.2) g/dL 7.4 Albumin (3.4-5.0) g/dL 3.4 ECG Data Attestation: I personally reviewed and interpreted this ECG (s) as follows: Interpretation: Rate of 107, atrial fibrillation vs flutter, right bundle branch block, no STEMI. No significant change from previous EKG. HPI General Mode of arrival: ambulatory. Date/Time Provider Initiated Documentation: 10/24/21 12:49. Limitations to Documentation: no limitations. Information obtained by: patient. HPI Narrative: Patient is a 71-year-old female with a history of atrial fibrillation on xarelto, hypertension, hyperlipidemia, diabetes, obesity, obstructive sleep apnea presents for intermittent fluttering and shortness of breath for the past 3 days. Patient states she took her regular medications this morning including her diltiazem and metoprolol. Patient denies any symptoms at present. She denies any recent illnesses including fever, nausea, vomiting, diarrhea, chest pain or abdominal pain. Related Data Home Medications Medication Instructions Recorded Confirmed acetaminophen 500 mg tablet 2 tab PO HS PRN 06/11/12 10/24/21 (Tylenol Extra Strength) Bipap 1 ea inhalation HS 01/23/15 10/24/21 aspirin 81 mg chewable tablet 81 mg PO DAILY #90 tab-caps 05/06/17 10/24/21 lancets 28 gauge #100 ea 06/11/18 10/24/21 albuterol sulfate 90 mcg/actuation 2 puff inhalation Q4H PRN ##3 12/08/18 10/24/21 aerosol inhaler (ProAir HFA) magnesium amino acid chelate 100 500 mg PO BID #0 tabs 07/12/19 10/24/21 mg tablet ciprofloxacin 0.3 %-dexamethasone 3 drp BID PRN ##1 10/30/20 10/24/21 0.1 % ear drops,suspension (Ciprodex) nystatin 100,000 unit/gram topical 1,500,000 unit topical BID PRN 10/30/20 10/24/21 cream pen needle, diabetic 33 gauge x #100 ea 11/02/20 10/24/21/16 (Comfort EZ Pen [place]) liraglutide 0.6 mg/0.1 mL (18 mg/3 1.8 mg (0.3 mL) subcut .COMPLEX #9 12/25/20 10/24/21 mL) subcutaneous pen injector mL rivaroxaban 20 mg tablet 20 mg PO DAILY afib #90 tabs 01/28/21 10/24/21 blood sugar diagnostic (Blood #100 ea 02/12/21 10/24/21 Glucose Test strips) furosemide 20 mg tablet 40 mg PO DAILY #90 tabs 03/18/21 10/24/21 glipizide 5 mg tablet, extended 5 mg PO DAILY #90 tabs 03/18/21 10/24/21 release 24 hr omeprazole 40 mg capsule,delayed 40 mg PO DAILY #90 caps 03/18/21 10/24/21 release nitroglycerin 0.4 mg sublingual 0.4 mg sublingual Q5 MIN PRN X3 04/10/21 10/24/21 tablet (Nitrostat) PRN chest pain #30 tabs diltiazem HCl 360 mg 360 mg PO DAILY #90 caps 05/14/21 10/24/21 capsule,extended release 24 hr metoprolol succinate 25 mg 50 mg PO DAILY #270 tabs 05/14/21 10/24/21 tablet,extended release 24 hr colchicine 0.6 mg tablet 1.2 mg PO ONCE #10 tabs 06/04/21 10/24/21 simvastatin 10 mg tablet 10 mg PO HS #90 tab-caps 07/17/21 10/24/21 fluoxetine 10 mg tablet 10 mg PO DAILY #90 tabs 08/29/21 10/24/21 losartan 100 mg tablet 100 mg PO DAILY #90 tab-caps 10/14/21 10/24/21 bupropion HCl 150 mg tablet,12 hr 150 mg PO BID #180 tabs 10/21/21 10/24/21 sustained-release (Wellbutrin SR) potassium chloride 20 mEq 20 meq PO DAILY #90 tabs 10/21/21 10/24/21 tablet,extended release diltiazem HCl 30 mg tablet 30 mg PO ONCE PRN #14 tabs 10/24/21 Previous Rx's Medication Instructions Recorded aspirin 81 mg chewable tablet 81 mg PO DAILY #90 tab-caps 05/06/17 lancets 28 gauge #100 ea 06/11/18 albuterol sulfate 90 mcg/actuation 2 puff inhalation Q4H PRN ##3 12/08/18 aerosol inhaler (ProAir HFA) magnesium amino acid chelate 100 500 mg PO BID #0 tabs 07/11/ mg tablet ciprofloxacin 0.3 %-dexamethasone 3 drp BID PRN ##1 10/30/20 0.1 % ear drops,suspension (Ciprodex) pen needle, diabetic 33 gauge x #100 ea 11/02/20/ (Comfort EZ Pen [place]) liraglutide 0.6 mg/0.1 mL (18 mg/3 1.8 mg (0.3 mL) subcut .COMPLEX #9 12/25/20 mL) subcutaneous pen injector mL rivaroxaban 20 mg tablet 20 mg PO DAILY afib #90 tabs 01/28/21 blood sugar diagnostic (Blood #100 ea 02/12/21 Glucose Test strips) furosemide 20 mg tablet 40 mg PO DAILY #90 tabs 03/18/21 glipizide 5 mg tablet, extended 5 mg PO DAILY #90 tabs 03/18/21 release 24 hr omeprazole 40 mg capsule,delayed 40 mg PO DAILY #90 caps 03/18/21 release nitroglycerin 0.4 mg sublingual 0.4 mg sublingual Q5 MIN PRN X3 04/10/21 tablet (Nitrostat) PRN chest pain #30 tabs diltiazem HCl 360 mg 360 mg PO DAILY #90 caps 05/14/21 capsule,extended release 24 hr metoprolol succinate 25 mg 50 mg PO DAILY #270 tabs 05/14/21 tablet,extended release 24 hr colchicine 0.6 mg tablet 1.2 mg PO ONCE #10 tabs 06/04/21 simvastatin 10 mg tablet 10 mg PO HS #90 tab-caps 07/17/21 fluoxetine 10 mg tablet 10 mg PO DAILY #90 tabs 08/29/21 losartan 100 mg tablet 100 mg PO DAILY #90 tab-caps 10/14/21 bupropion HCl 150 mg tablet,12 hr 150 mg PO BID #180 tabs 10/21/21 sustained-release (Wellbutrin SR) potassium chloride 20 mEq 20 meq PO DAILY #90 tabs 10/21/21 tablet,extended release diltiazem HCl 30 mg tablet 30 mg PO ONCE PRN #14 tabs 10/24/21 Allergies Allergy/AdvReac Type Severity Reaction Status Date / Time cefuroxime Allergy Severe HIVES Verified 10/24/21 13:50 latex Allergy Severe RASH Verified 10/24/21 13:50 Penicillins Allergy Severe SEVERE Verified 10/24/21 13:50 HIVES Sulfa (Sulfonamide Allergy Severe SEVERE Verified 10/24/21 13:50 Antibiotics) HIVES ciprofloxacin Allergy Mild TOPICAL Verified 10/24/21 13:50 IRRITATION clindamycin AdvReac Severe Hives Verified 10/24/21 13:50 adhesive AdvReac Intermediate SKIN Verified 10/24/21 13:50 COMES OFF caffeine AdvReac Intermediate CHEST PAIN Verified 10/24/21 13:50 lisinopril AdvReac Mild COUGH Verified 10/24/21 13:50 metformin AdvReac Mild diarrhea Verified 10/24/21 13:50 .oatmeal AdvReac Mild Diarrhea Uncoded 10/24/21 13:50 General Stated Complaint: Palpitatns KOTA: 2 Review of Systems All systems reviewed & are unremarkable except as noted in HPI and below Constitutional Constitutional: Denies chills, Denies excessive sweating, Denies fatigue, Denies fever(s), Denies weakness and Denies weight loss Eyes Eyes: Reports system reviewed and no additional complaints, except as documented and Denies blurry vision ENT Ears, Nose, Mouth, and Throat: Denies vertigo, Denies dizziness, Denies otalgia, Denies nasal congestion, Denies sore throat and Denies throat swelling Cardiovascular Cardiovascular: Denies chest pain, Denies syncope, Reports rapid heart rate (fluttering), Reports dyspnea and Reports other (f) Respiratory Respiratory: Denies chest congestion, Denies cough, Denies pain on inspiration and Reports dyspnea Gastrointestinal Gastrointestinal: Denies abdominal pain, Denies diarrhea and Denies vomiting Genitourinary Genitourinary: Denies hematuria, Denies dysuria and Denies flank pain Musculoskeletal Musculoskeletal: Denies back pain and Denies joint swelling Integumentary/Breasts Skin/Breast: Denies lesions and Denies rash Neurologic Neurologic: Denies behavioral changes, Denies confusion, Denies vertigo, Denies dizziness, Denies syncope, Denies localized weakness and Denies weakness Psychiatric Psychiatric: Denies behavioral changes, Denies confusion and Denies depression Endocrine Endocrine: Denies excessive sweating and Denies fatigue Hematologic/Lymphatic Hematologic/Lymphatic: Denies easy bruising and Denies lymphadenopathy Allergic/Immunologic Allergic/Immunologic: Denies throat swelling PFSH All Active Problems (Updated 10/24/21 @ 15:28 by Aura Jones DO) Palpitations (Acute) History of atrial fibrillation (Acute) Foot pain (Acute) Gout (Chronic) Fatigue (Acute) Unsteady (Acute) Chronic shoulder pain (Acute) Chronic diarrhea (Acute) Acute swimmer's ear of left side (Acute) Central perforation of tympanic membrane, left ear (Acute) Non-recurrent acute suppurative otitis media of left ear (Acute) Thrombophlebitis (Acute) Foot pain, right (Acute) Otitis externa (Acute) Encounter for staple removal (Acute) Left knee pain (Acute) Low back pain (Acute) Back pain with radiculopathy (Acute) CHF (congestive heart failure) (Chronic) Well adult exam (Acute) Vaginal discharge (Acute) Low blood pressure (Acute) Exacerbation of reactive airway disease (Acute) Discharge planning issues (Acute) DVT prophylaxis (Acute) Acute bronchitis (Acute) Acute diastolic heart failure with preserved ejection fraction (Acute) Atrial fibrillation with rapid ventricular response (Acute) Rib pain on right side (Acute) Shoulder pain, right (Acute) Chronic anticoagulation (Chronic) Atrial flutter (Acute 08/05/11) 10/30 normal echo 08/04 stress test, A flutter briefly in recovery Depressive disorder (Acute) Esophageal reflux (Acute) 2006 EGD at [facility] [place]-normal 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; S/P Bilateral TKR-2005 Gastroesophageal reflux disease (Acute) 2006 EGD at [facility] [place]-normal 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; S/P Bilateral TKR-2005 Hyperlipidemia (Acute) Obesity (Acute) 11/2007-BMI 53.8% binge eating disorder Obstructive sleep apnea syndrome (Acute) uses BiPAP ([facility] [place] sleep lab) Total urinary incontinence (Acute) urge incontinence Essential hypertension (Acute 12/16/12) Diabetes mellitus (Acute 06/18/12) A1c today watch diet Medical History Atrial flutter GERD (gastroesophageal reflux disease) Herpes zoster without complication (05/22/15) HTN (hypertension) group home current use of anticoagulant Obesity [facility] (obstructive sleep apnea) Tick bite doubt Lyme, given lack of engorged tick and attachment time URI (upper respiratory infection) Surgical History Breast, Mastectomy (~01/2003) and reconstruction of TM Colonoscopy - MAC (05/29/17) HAND SURGERY (~02/2013) History of hand surgery History of mastoidectomy (02/14/14) Right-sided mastoid tympanoplasty-canal wall down History of tonsillectomy and adenoidectomy Open Carpal Tunnel release (~03/2009) right Replacement of total knee joint (~2004) b/l S/p bilateral myringotomy with tube placement X4 shoulder surgery (04/30/16) left shoulder; Dr. Licona Status post total bilateral knee replacement Family History Mother , age 67 Diabetes TYPE II Essential hypertension Heart disease ANGINA Hyperlipidemia Stroke Renal cancer Father , age 80 Diabetes TYPE I Essential hypertension Heart disease Hyperlipidemia Sister Diabetes Essential hypertension Heart disease Hyperlipidemia Myocardial infarction X 2 Maternal Grandfather No problems noted. Paternal Grandfather No problems noted. Maternal Grandmother Renal cancer Paternal Grandmother No problems noted. Sister Essential hypertension Chronic obstructive lung disease Asthma Brother , age 61 Heart disease Hyperlipidemia Stroke Brother Human immunodeficiency virus (HIV) positive Myocardial infarction Social History Smoking/Tobacco Use Status: Former Tobacco Use Quit Date: 05/24/98 Second Hand Exposure: Yes Smoking risk assessment performed?: Yes Alcohol Intake: former Drug use: Never Substance use type: does not use Caregiver/Support person: Yes Household members: spouse Housing: house Communication Needs: Hard of Hearing Do you need help understanding health information?: Rarely Pets and animals: No Sexually active: No Do you think of yourself as: lesbian/doshi/homosexual Current gender identity: female What is your relationship status?: How often do you talk on the phone with friends or family?: three or more times per week How often do you get together with friends or relatives?: decline to answer How often do you attend holiness or jew services?: decline to answer Do you belong to any clubs or organized social groups?: no Panel score (0-1 are the most socially isolated patients): 2 What type of physical activity do you participate in: other Details: cutting and splitting wood Duration: decline to answer Frequency: decline to answer Randi/Hindu: None Special randi needs: No Seatbelt use: sometimes 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 Exam Const General: cooperative and no acute distress Orientation: alert, awake and oriented x3 HENMT Head: normal to inspection Ears: hearing grossly normal bilaterally and external ears normal General nose exam: external nose normal Face and sinus: normal facial exam Mouth: oral mucosae normal Teeth and gingiva: dentition normal Eyes General: appearance normal, both eyes and all related structures Eyelids: eyelids normal EOM: EOM intact bilaterally Neck Neck: normal visual inspection Lymphatic: no lymphadenopathy noted Chest Chest: normal inspection of the chest Resp Effort & Inspection: normal respiratory effort and able to speak in complete sentences Auscultation: clear to auscultation bilaterally Cardio Rate: regular rate Rhythm: abnormal rhythm irregularly irregular GI Inspection: normal to inspection and obesity Palpation: soft, not firm, no guarding, no hepatosplenomegaly, no masses and nontender Auscultation: normal bowel sounds Skin General skin exam: no rashes or lesions noted Neuro General: patient alert and patient awake Cognition: normal cognition Speech: speech normal Gait: normal gait Motor: muscle tone normal throughout Sensory Exam: no sensory deficits noted Extrem General: normal to inspection, full ROM and capillary refill normal Psych Appearance: grossly normal Mental Status: mental status grossly normal Speech and Movement: speech and movement normal Affect: normal affect Thought Process: normal Course Vital Signs Vital signs: Vital Signs Temperature 97.3 F L 10/24/21 12:40 Pulse 112 H 10/24/21 12:40 Respiratory Rate 10/24/21 12:40 Blood Pressure 148/101 H 10/24/21 12:40 Pulse Oximetry 97 10/24/21 12:40 Temperature 97.3 F L 10/24/21 12:40 Temperature Source Skin 10/24/21 12:40 Pulse 112 H 10/24/21 12:40 Respiratory Rate 20 10/24/21 12:40 Respiratory Effort Short of Breath 10/24/21 13:44 Blood Pressure 148/101 H 10/24/21 12:40 Pulse Oximetry 97 10/24/21 12:40 Oxygen Delivery Method Room Air 10/24/21 12:40 Oxygen Flow Rate 0 10/24/21 12:40 Pain Level 0 10/24/21 12:40 Lab/Test Results Lab/Test Results: Laboratory Tests Range/Units 10/24/21 10/24/21 13:40 13:40 WBC (4.4-10.8) 10^3/uL 7.14 RBC (3.93-5.22) 10^6/uL 5.07 Hgb (11.2-15.7) g/dL 14.2 Hct (36.0-46.0) % 43.8 MCV (80-95) fL 86 MCH (27.0-33.0) pg 28.0 MCHC (32.0-36.0) % 32.4 RDW (11.7-14.6) % 13.4 Plt Count (130-400) 10^3/uL 295 MPV (8.0-11.0) fL 11.2 H Immature Gran % 0.3 Neutrophils % 61.9 Lymphocytes % 23.8 Monocytes % 9.1 Eosinophils % 3.6 Basophils % 1.3 Nucleated RBC % (0.0-0.3) % 0.0 Absolute Neutrophils (1.2-6.7) 10^3/uL 4.42 Absolute Lymphocytes (1.2-3.4) 10^3/uL 1.70 Absolute Monocytes (0.1-0.8) 10^3/uL 0.65 Absolute Eosinophils (0.0-0.7) 10^3/uL 0.26 Absolute Basophils (0.0-0.2) 10^3/uL 0.09 Sodium (136-145) mmol/L 139 Potassium (3.5-5.1) mmol/L 4.1 Chloride (98-107) mmol/L 103 Carbon Dioxide (21.0-32.0) mmol/L 27.7 Anion Gap (3-11) mmol/L 8.3 BUN (7-18) mg/dL 21 H Creatinine (0.55-1.02) mg/dL 1.1 H Est GFR (CKD-EPI 2020) (mL/min/1.73m2) 54.06 Glucose (74-106) mg/dL 191 H Calcium (8.5-10.1) mg/dL 8.5 Magnesium (1.8-2.4) mg/dL 1.6 L Total Bilirubin (0.2-1.0) mg/dL 0.6 AST (15-37) U/L 10 L ALT (14-59) U/L 24 Alkaline Phosphatase (46-116) U/L 60 Troponin I (<or=60) ng/L < 50 Total Protein (6.4-8.2) g/dL 7.4 Albumin (3.4-5.0) g/dL 3.4
[2021-10-24] MEDS: dilTIAZem 30 MG TAB PO (15:43)
[2021-10-24] MEDS: Magnesium Oxide 400 MG TAB PO (15:49)
== END 2021-10-24 16:05 | disposition home or self-care (01) ==
PROVIDERS: Emergency Provider Physician Assistant; PCP Family Medicine
DX: R00.2 Palpitations (principal); I48.91 Unspecified atrial fibrillation; I48.92 Unspecified atrial flutter; I10 Essential (primary) hypertension; E11.9 Type 2 diabetes mellitus without complications; I45.10 Unspecified right bundle-branch block; Z79.01 Long term (current) use of anticoagulants; Z79.82 Long term (current) use of aspirin; Z87.891 Personal history of nicotine dependence
CPT/HCPCS: 80053; 93005; 99283; 71046; 83735; 84484; 85025; 93010; 99285

== ENCOUNTER → 2021-11-14 02:28 | Outpatient (CLI) | payer MEDICARE, BC, SELFPAY ==
--- NOTE | 2021-11-14 06:30 | DI.MRI_ITS ---
Exam(s) MR LOWER JOINT RT WO EXAM: MR LOWER JOINT RT WO CLINICAL HISTORY: peroneal pain,rt ankle and foot pain, m25.571,m79.673 TECHNIQUE: Multiplanar multisequence MRI was performed without intravenous contrast. COMPARISON: CR XR ANKLE RT COMPLETE from 10/16/2021 FINDINGS: BONES/JOINTS: No fracture or contusion pattern. No bone lesions identified. The talar dome is smooth. The ankle mortise is maintained. No joint effusion is present. Enthesophyte at Achilles insertion. Small plantar calcaneal spur. LIGAMENTS: The tibiofibular and calcaneofibular ligaments are intact. The talofibular ligaments are i ntact. The deltoid ligament is intact. The syndesmosis is unremarkable. Sinus tarsi is normal. MUSCULOTENDINOUS STRUCTURES: Achilles tendon: Unremarkable. Plantar fascia: Unremarkable. Anterior Extensor tendons: Unremarkable. Posterior Tibialis: Unremarkable. Flexor Digitorum longus: Unremarkable. Flexor Hallucis longus: Unremarkable. Peroneus longus: Thickening and intermediate signal is noted within the peroneus longus tendon as it passes posterior to the tip of the lateral malleolus. No discrete tear is seen. There is minimal fl uid in the tendon sheath. Peroneus brevis:Unremarkable. SOFT TISSUES: Unremarkable. OTHER FINDINGS: None. IMPRESSION: Mild tendinosis peroneus longus tendon. DATA REPOSITORY:
== END ==
PROVIDERS: PCP Family Medicine; Visit Provider Podiatrist Foot & Ankle Surgery
DX: M76.71 Peroneal tendinitis, right leg (principal)
CPT/HCPCS: 73721

== ENCOUNTER 2021-12-03 16:31 | Outpatient (REF) | payer MEDICARE, BC, SELFPAY | END 2021-12-03 16:32 | disposition home or self-care (01) | LOC: LBN 16:31 | PROVIDERS: PCP Family Medicine; Visit Provider Family Medicine | DX: E11.9 Type 2 diabetes mellitus without complications (principal) | CPT/HCPCS: 82043; 82570 ==

== ENCOUNTER 2022-03-18 12:12 | Observation (INO) | payer MEDICARE, BC, SELFPAY ==
[2022-03-18] VITALS (45 sets, daily range): BP systolic 132–168; BP diastolic 56–69; PULSE 60–72; RESP 12–21; TEMP 36.7–36.8; O2SAT 93–98
--- NOTE | 2022-03-18 12:15 | RT.EKG_ITS ---
APPROVED REPORT Exam: Resting ECG Reason for Exam: chest pain Patient Location: E HR:69 bpm ECG Measurements Heart Rate 69 AXIS TX 142 P 74 QRSd 173 QRS 57 QT 449 T 13 QTc 483 Conclusion Sinus rhythm. Right bundle branch block..old
[2022-03-18 12:52] LABS: Abs Immature Grans 0.02 10^3/uL (0.0-0.06); Absolute Basophil Count 0.09 10^3/uL (0.0-0.2); Absolute Eosinophil Count 0.24 10^3/uL (0.0-0.7); Absolute Lymphocyte Count 1.76 10^3/uL (1.2-3.4); Absolute Monocyte Count 0.58 10^3/uL (0.1-0.8); Absolute Neutrophil Count 3.31 10^3/uL (1.2-6.7); Basophils % 1.5; HCT 41.5 % (36.0-46.0); HGB 13.4 g/dL (11.2-15.7); Immature Grans % 0.3; Lymphocytes % 29.3; MCH 28.5 pg (27.0-33.0); MCHC 32.3 % (32.0-36.0); MCV 88 fL (80-95); MPV 10.9 fL (8.0-11.0); Monocytes % 9.7; Neutrophils % 55.2; Platelet Count 270 10^3/uL (130-400); RBC 4.71 10^6/uL (3.93-5.22); RDW-SD 42.2 fL
--- NOTE | 2022-03-18 13:00 | DI.RAD_ITS ---
Exam(s) XR CHEST 2V PA LATERAL EXAM: XR CHEST 2V PA LATERAL CLINICAL HISTORY: chest pain. TECHNIQUE: 2D digital imaging was performed. COMPARISON: CR XR CHEST 2V PA LATERAL from 10/24/2021 FINDINGS: 2 views: Heart size is normal. The mediastinum is not widened. Lungs are clear. No infiltrates nor pleural effusions. IMPRESSION: No acute pulmonary findings. DATA REPOSITORY: RADIATION DOSE DELIVERED:
[2022-03-18 13:12] LABS: ALT 39 U/L (14-59); AST 26 U/L (15-37); Albumin 3.8 g/dL (3.4-5.0); Alkaline Phosphatase 63 U/L (46-116); Anion Gap 7.2 mmol/L (3-11); BUN 19 mg/dL (7-18); Bilirubin, Total 0.8 mg/dL (0.2-1.0); CO2 29.8 mmol/L (21.0-32.0); Chloride 103 mmol/L (98-107); Estimated GFR 60.61 (mL/min/1.73m2); Glucose 121 mg/dL (74-106); Magnesium 1.8 mg/dL (1.8-2.4); Potassium 3.9 mmol/L (3.5-5.1); Sodium 140 mmol/L (136-145); Total Protein 7.7 g/dL (6.4-8.2); Troponin I < 50 ng/L (<or=60)
[2022-03-18 13:52] LABS: Source Nasal/Nares
--- NOTE | 2022-03-18 14:00 | ED.GENADUL_ITS ---
Discharge Plan Discharge Details Chief Complaint: Chest Pain Admit Date/Time: 03/18/22 17:59 Admit Provider: Miko Martinez Attending Provider: Miko Martinez Primary Care Provider: Maico Leonard ED Provider: Katy Sweet Discharge Data Discharge Date/Time-TO BE ENTERED AT DEPARTURE: 03/18/22 18:45 Medical Decision Making <Valentin Peña NP - Last Filed: 03/19/22 10:20> Patient presenting to the emergency department for chief complaint of low heart rate, shortness of breath, and chest pain That radiates to the left arm. Patient states that this started this morning when she woke up. Heart rate remained low until she took a nitro which she was told to do by her primary care provider because it would help my heart rate patient does state some current chest pain and shortness of breath but denies that it this changes with any act ivity or movement. Patient has significant medical history of atrial flutter, hypertension, obstructive sleep apnea CHF diabetes, hyperlipidemia, A. fib with RVR, coronary atherosclerosis. Patient does states she has had episodes similar to this before but has never had chest pain with it. Physical exam shows chronic but unchanged edema to lower extremities with patient denying any worsening fluid buildup, clear lung sounds, normal cardiac exam. Review of vital signs shows slightly elevated blood pressure but within normal range heart rate and otherwise unremarkable. Patient is anticoagulated so we will give acetaminophen pending results. Please see physician interpretation for full interpretation of EKG that shows sinus rhythm, rate of 69, right bundle branch block that appears similar to old EKG. Review of labs show unremarkable CBC, CMP slows slightly elevated BUN and glucose of 121 otherwise unremarkable. Troponin was nondetected. Chest x-ray reviewed along with radiologist interpretation that shows no acute cardiopulmonary findings. I do feel that patient is at high risk for ACS so we will still perform delta troponin. 1600 computer system delayed documentation of signout. Patient signed out pending repeat troponin and reassessment with high probability of admission for chest pain. LB: Care was accepted in transition at 1600 from [facility] pending repeat tropo garret and reassessment Patient is chest pain-free and her repeat troponin was negative Given her cardiac risk score and comorbidities, is recommended she be admitted to the hospital, she is agreeable to admission at this time for cardiac rule out She was accepted by Dr. Martinez for admission Imaging Data Radiologic Study: Imaging: X-Ray Radiologist's impression: EXAM: XR CHEST 2V PA LATERAL CLINICAL HISTORY: chest pain. TECHNIQUE: 2D digital imaging was performed. COMPARISON: CR XR CHEST 2V PA LATERAL from 10/24/2021 FINDINGS: 2 views: Heart size is normal. The mediastinum is not widened. Lungs are clear. No infiltrates nor pleural effusions. IMPRESSION: No acute pulmonary findings. <NUNO Perla - Last Filed: 03/18/22 22:29> Patient presenting to the emergency department for chief complaint of low heart rate, shortness of breath, and chest pain That radiates to the left arm. Patient states that this started this morning when she woke up. Heart rate remained low until she took a nitro which she was told to do by her primary care provider because it would help my heart rate patient does state some current chest pain and shortness of breath but denies that it this changes with any activity or movement. Patient has significant medical history of atrial flutter, hypertension, obstructive sleep apnea CHF diabetes, hyperlipidemia, A. fib with RVR, coronary atherosclerosis. Patient does states she has had episodes similar to this before but has never had chest pain with it. Physical exam shows chronic but unchanged edema to lower extremities with patient denying any worsening fluid buildup, clear lung sounds, normal cardiac exam. Review of vital signs shows slightly elevated blood pressure but within normal range heart rate and otherwise unremarkable. Patient is anticoagulated so we will give acetaminophen pending results. Please see physician interpretation for full interpretation of EKG that shows sinus rhythm, rate of 69, right bundle branch block that appears similar to old EKG. Review of labs show unremarkable CBC, CMP slows slightly elevated BUN and glucose of 121 otherwise unremarkable. Troponin was nondetected. Chest x-ray reviewed along with radiologist interpretation that shows no acute cardiopulmonary findings. I do feel that patient is at high risk for ACS so we will still perform delta troponin. LB: Care was accepted in transition at 1600 from [facility] pending repeat troponin and reassessment Patient is chest pain-free and her repeat troponin was negative Given her cardiac risk score and comorbidities, is recommended she be admitted to the hospital, she is agreeable to admission at this time for cardiac rule out She was accepted by Dr. Martinez for admission HPI <Valentin Peña NP - Last Filed: 03/19/22 10:20> General Mode of arrival: ambulatory . Date/Time Provider Initiated Documentation: 03/18/22 12:19 . Limitations to Documentation: no limitations . Information obtained by: patient, family and RN notes reviewed . History of Present Illness 71 year old F presents to the emergency department with the chief complaint of Chest pain, shortness of breath, low heart rate, described as moderate and similar to prior episodes, with intensity rated at 6. Quality is described as sharp, and is localized to the chest. Patient extremity. Patient started experiencing this hour(s) (4) and it has been constant. No relieving factors improve symptom(s), No exacerbating factors reported . Patient notes denies fever/chills. Patient did receive the foll owing treatments prior to arrival, Aspirin (81 mg) and other (Nitro) Related Data Home Medications Medication Instructions Recorded Confirmed acetaminophen 500 mg tablet 2 tab PO HS PRN 06/11/12 03/18/22 (Tylenol Extra Strength) Bipap 1 ea inhalation HS 01/23/15 03/18/22 aspirin 81 mg chewable tablet 81 mg PO DAILY #90 tab-caps 05/06/17 03/18/22 lancets 28 gauge #100 ea 06/11/18 03/18/22 albuterol sulfate 90 mcg/actuation 2 puff inhalation Q4H PRN ##3 12/08/18 03/18/22 aerosol inhaler (ProAir HFA) magnesium amino acid chelate 100 500 mg PO BID #0 tabs 07/12/19 03/18/22 mg tablet nystatin 100,000 unit/gram topical 1,500,000 unit topical BID PRN 10/30/20 03/18/22 cream blood sugar diagnostic (Blood #100 ea 02/12/21 03/18/22 Glucose Test strips) nitroglycerin 0.4 mg sublingual 0.4 mg sublingual Q5 MIN PRN X3 04/10/21 03/18/22 tablet (Nitrostat) PRN chest pain #30 tabs diltiazem HCl 360 mg 360 mg PO DAILY #90 caps 05/14/21 03/18/22 capsule,extended release 24 hr colchicine 0.6 mg tablet 1.2 mg PO ONCE #10 tabs 06/04/21 03/18/22 simvastatin 10 mg tablet 10 mg PO HS #90 tab-caps 07/17/21 03/18/22 fluoxetine 10 mg tablet 10 mg PO DAILY #90 tabs 08/29/21 03/18/22 losartan 100 mg tablet 100 mg PO DAILY #90 tab-caps 10/14/21 03/18/22 bupropion HCl 150 mg tablet,12 hr 150 mg PO BID #180 tabs 10/21/21 03/18/22 sustained-release (Wellbutrin SR) potassium chloride 20 mEq 20 meq PO DAILY #90 tabs 10/21/21 03/18/22 tablet,extended release diltiazem HCl 30 mg tablet 30 mg PO ONCE PRN #14 tabs 10/24/21 03/18/22 liraglutide 0.6 mg/0.1 mL (18 mg/3 1.8 mg (0.3 mL) subcut .COMPLEX #9 12/03/21 03/18/22 mL) subcutaneous pen injector mL rivaroxaban 20 mg tablet 20 mg PO DAILY afib #90 tabs 12/03/21 03/18/22 metoprolol succinate 25 mg 50 mg PO DAILY #270 tabs 12/23/21 03/18/22 tablet,extended release 24 hr ciprofloxacin 0.3 %-dexamethasone 3 drp BID PRN #7.5 mL 01/01/22 03/18/22 0.1 % ear drops,suspension (Ciprodex) furosemide 20 mg tablet 40 mg PO DAILY #90 tabs 01/28/22 03/18/22 glipizide 5 mg tablet, extended 5 mg PO DAILY #90 tabs 01/28/22 03/18/22 release 24 hr omeprazole 40 mg capsule,delayed 40 mg PO DAILY #90 caps 01/28/22 03/18/22 release pen needle, diabetic 33 gauge x #100 ea 02/10/22 03/18/2205/08 (Comfort EZ Pen [place]) Previous Rx's Medication Instructions Recorded aspirin 81 mg chewable tablet 81 mg PO DAILY #90 tab-caps 05/06/17 lancets 28 gauge #100 ea 06/11/18 albuterol sulfate 90 mcg/actuation 2 puff inhalation Q4H PRN ##3 12/08/18 aerosol inhaler (ProAir HFA) magnesium amino acid chelate 100 500 mg PO BID #0 tabs 07/12/19 mg tablet blood sugar diagnostic (Blood #100 ea 02/12/21 Glucose Test strips) nitroglycerin 0.4 mg sublingual 0.4 mg sublingual Q5 MIN PRN X3 04/10/21 tablet (Nitrostat) PRN chest pain #30 tabs diltiazem HCl 360 mg 360 mg PO DAILY #90 caps 05/14/21 capsule,extended release 24 hr colchicine 0.6 mg tablet 1.2 mg PO ONCE #10 tabs 06/04/21 simvastatin 10 mg tablet 10 mg PO HS #90 tab-caps 07/17/21 fluoxetine 10 mg tablet 10 mg PO DAILY #90 tabs 08/29/21 losartan 100 mg tablet 100 mg PO DAILY #90 tab-caps 10/14/21 bupropion HCl 150 mg tablet,12 hr 150 mg PO BID #180 tabs 10/21/21 sustained-release (Wellbutrin SR) potassium chloride 20 mEq 20 meq PO DAILY #90 tabs 10/21/21 tablet,extended release diltiazem HCl 30 mg tablet 30 mg PO ONCE PRN #14 tabs 10/24/21 liraglutide 0.6 mg/0.1 mL (18 mg/3 1.8 mg (0.3 mL) subcut .COMPLEX #9 12/03/21 mL) subcutaneous pen injector mL rivaroxaban 20 mg tablet 20 mg PO DAILY afib #90 tabs 12/03/21 metoprolol succinate 25 mg 50 mg PO DAILY #270 tabs 12/23/21 tablet,extended release 24 hr ciprofloxacin 0.3 %-dexamethasone 3 drp BID PRN #7.5 mL 01/01/22 0.1 % ear drops,suspension (Ciprodex) furosemide 20 mg tablet 40 mg PO DAILY #90 tabs 01/28/22 glipizide 5 mg tablet, extended 5 mg PO DAILY #90 tabs 01/28/22 release 24 hr omeprazole 40 mg capsule,delayed 40 mg PO DAILY #90 caps 01/28/22 release pen needle, diabetic 33 gauge x #100 ea 02/10/2205/08 (Comfort EZ Pen [place]) Allergies Allergy/AdvReac Type Severity Reaction Status Date / Time cefuroxime Allergy Severe HIVES Verified 03/18/22 12:24 latex Allergy Severe RASH Verified 03/18/22 12:24 Penicillins Allergy Severe SEVERE Verified 03/18/22 12:24 HIVES Sulfa (Sulfonamide Allergy Severe SEVERE Verified 03/18/22 12:24 Antibiotics) HIVES ciprofloxacin Allergy Mild TOPICAL Verified 03/18/22 12:24 IRRITATION clindamycin AdvReac Severe Hives Verified 03/18/22 12:24 adhesive AdvReac Intermediate SKIN Verified 03/18/22 12:24 COMES OFF caffeine AdvReac Intermediate CHEST PAIN Verified 03/18/22 12:24 lisinopril AdvReac Mild COUGH Verified 03/18/22 12:24 metformin AdvReac Mild diarrhea Verified 03/18/22 12:24 General Stated Complaint: Chest Pain KOTA: 2 Review of Systems <Valentin Peña NP - Last Filed: 03/19/22 10:20> Constitutional Constitutional: Denies chills, Denies fever(s), Denies weakness and Denies weight gain Cardiovascular Cardiovascular: Reports as per HPI, Reports chest pain, Denies leg edema, Reports dyspnea and Reports slow heart rate Respiratory Respiratory: Denies cough and Reports dyspnea Gastrointestinal Gastrointestinal: Denies abdominal pain, Denies nausea and Denies vomiting Musculoskeletal Musculoskeletal: Denies back pain Integumentary/Breasts Skin/Breast: Denies rash Neurologic Neurologic: Denies weakness [facility] <Valentin Peña NP - Last Filed: 03/19/22 10:20> All Active Problems Localized edema (Acute) Nail dystrophy (Acute) Acute suppurative otitis media of left ear without spontaneous rupture of ear drum (Acute) Chest pain (Acute) Ankle pain, right (Acute) Foot pain (Acute) Gout (Chronic) Fatigue (Acute) Unsteady (Acute) Chronic shoulder pain (Acute ~11/04/21) Chronic diarrhea (Acute) Acute swimmer's ear of left side (Acute) Central perforation of tympanic membrane, left ear (Acute) Non-recurrent acute suppurative otitis media of left ear (Acute) Thrombophlebitis (Acute) Foot pain, right (Acute) Otitis externa (Acute) Encounter for staple removal (Acute) Left knee pain (Acute) Low back pain (Acute) Back pain with radiculopathy (Acute) CHF (congestive heart failure) (Chronic) Well adult exam (Acute) Vaginal discharge (Acute) Low blood pressure (Acute) Exacerbation of reactive airway disease (Acute) Discharge planning issues (Acute) DVT prophylaxis (Acute) Acute bronchitis (Acute) Acute diastolic heart failure with preserved ejection fraction (Acute) Atrial fibrillation with rapid ventricular response (Acute) Rib pain on right side (Acute) Shoulder pain, right (Acute) Chronic anticoagulation (Chronic) Atrial flutter (Acute 08/05/11) 10/30 normal echo 08/04 stress test, A flutter briefly in recovery Depressive disorder (Acute) Esophageal reflux (Acute) 2006 EGD at [facility]-normal 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; S/P 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 Gastroesophageal reflux disease (Acute) 2006 EGD at [facility]-normal 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; S/P 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 Hyperlipidemia (Acute) Obesity (Acute) 11/2007-BMI 53.8% binge eating disorder Obstructive sleep apnea syndrome (Acute) uses BiPAP ([facility] sleep lab) Total urinary incontinence (Acute) urge incontinence Essential hypertension (Acute 12/16/12) Diabetes mellitus (Acute 06/18/12) A1c today watch diet Medical History Atrial flutter GERD (gastroesophageal reflux disease) Herpes zoster without complication (05/22/15) 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 (hypertension) 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 Obesity [place] (obstructive sleep apnea) Tick bite doubt Lyme, given lack of engorged tick and attachment time URI (upper respiratory infection) Surgical History Breast, Mastectomy (~01/2003) and reconstruction of TM Colonoscopy - MAC (05/29/17) HAND SURGERY (~02/2013) History of hand surgery History of mastoidectomy (02/14/14) Right-sided mastoid tympanoplasty-canal wall down History of tonsillectomy and adenoidectomy Open Carpal Tunnel release (~03/2009) right Replacement of total knee joint (~2004) b/l S/p bilateral myringotomy with tube placement X4 shoulder surgery (04/30/16) left shoulder; Dr. Licona Status post total bilateral knee replacement Family History Mother , age 67 Diabetes TYPE II Essential hypertension Heart disease ANGINA Hyperlipidemia Stroke Renal cancer Father , age 80 Diabetes TYPE I Essential hypertension Heart disease Hyperlipidemia Sister Diabetes Essential hypertension Heart disease Hyperlipidemia Myocardial infarction X 2 Maternal Grandfather No problems noted. Paternal Grandfather No problems noted. Maternal Grandmother Renal cancer Paternal Grandmother No problems noted. Sister Essential hypertension Chronic obstructive lung disease Asthma Brother , age 61 Heart disease Hyperlipidemia Stroke Brother Human immunodeficiency virus (HIV) positive Myocardial infarction Social History Smoking/Tobacco Use Status: Former Tobacco Use Quit Date: 05/24/98 Second Hand Exposure: Yes Smoking risk assessment performed?: Yes Alcohol Intake: former Drug use: Never Substance use type: does not use Caregiver/Support person: Yes Household members: spouse Housing: house Communication Needs: Hard of Hearing Do you need help understanding health information?: Rarely Pets and animals: No Sexually active: No Do you think of yourself as: lesbian/doshi/homosexual Current gender identity: female What is your relationship status?: How often do you talk on the phone with friends or family?: three or more times per week How often do you get together with friends or relatives?: decline to answer How often do you attend religious or jehovah's witness services?: decline to answer Do you belong to any clubs or organized social groups?: no Panel score (0-1 are the most socially isolated patients): 2 What type of physical activity do you participate in: other Details: cutting and splitting wood Duration: decline to answer Frequency: decline to answer Randi/Synagogue: None Special randi needs: No Seatbelt use: sometimes Drive intox 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: No Do you feel safe at home: Yes Do you feel safe in your relationship?: Yes Exam <Valentin Peña NP - Last Filed: 03/19/22 10:20> Const General: cooperative, comfortable, no acute distress, not diaphoretic and not ill appearing Nutritional Appearance: obese Orientation: alert, awake and oriented x3 Limitations: mental status not altered Neck Neck: normal visual inspection, full ROM, trachea midline, supple and no anterior neck swelling Thyroid: thyroid normal Carotids: normal carotid upstroke and no bruits Chest Chest: normal inspection of the chest Resp Effort & Inspection: normal respiratory effort and able to speak in complete sentences Auscultation: clear to auscultation bilaterally Cardio Jugular venous pressure: no JVD Palpation: normal PMI Rate: regular rate Rhythm: regular rhythm Heart Sounds: S1 normal, S2 normal, no click, no gallops, no murmurs and no rubs Bruits: no carotid bruits Pulses: radial pulses present bilaterally 2+ and normal peripheral pulses GI Inspection: normal to inspection Palpation: soft, no aortic enlargement, no pulsatile masses and nontender Auscultation: normal bowel sounds Neuro General: patient alert, patient awake, patient oriented x3, tone normal and moves all extremities Extrem General: other (Chronic nonpitting edema bilateral lower extremities) Course <Valentin Peña NP - Last Filed: 03/19/22 10:20> Vital Signs Vital signs: Vital Signs Temperature 36.7 C 03/18/22 12:18 Pulse 72 03/18/22 12:18 Respiratory Rate 20 03/18/22 12:18 Blood Pressure 168/68 H 03/18/22 12:18 Pulse Oximetry 97 03/18/22 12:18 Temperature 36.7 C 03/18/22 12:18 Temperature Source Temporal Artery Scan 03/18/22 12:18 Pulse 65 03/18/22 13:17 Pulse 68 03/18/22 13:17 Respiratory Rate 13 03/18/22 13:17 Respiratory Effort Non-Labored 03/18/22 12:37 Respiratory Depth Normal 03/18/22 12:37 Respiratory Pattern Normal 03/18/22 12:37 Blood Pressure 132/56 L 03/18/22 13:17 Blood Pressure Mean 73 03/18/22 13:17 Blood Pressure Position Sitting 03/18/22 12:18 Pulse Oximetry 96 03/18/22 13:17 Oxygen Delivery Method Room Air 03/18/22 12:18 Oxygen Flow Rate 0 03/18/22 12:18 Pain Level 3 03/18/22 12:18 Lab/Test Results Lab/Test Results: Laboratory Tests Range/Units 03/18/22 03/18/22 03/18/22 12:45 12:45 13:30 WBC (4.4-10.8) 10^3/uL 6.00 RBC (3.93-5.22) 10^6/uL 4.71 Hgb (11.2-15.7) g/dL 13.4 Hct (36.0-46.0) % 41.5 MCV (80-95) fL 88 MCH (27.0-33.0) pg 28.5 MCHC (32.0-36.0) % 32.3 RDW (11.7-14.6) % 13.0 Plt Count (130-400) 10^3/uL 270 MPV (8.0-11.0) fL 10.9 Immature Gran % 0.3 Neutrophils % 55.2 Lymphocytes % 29.3 Monocytes % 9.7 Eosinophils % 4.0 Basophils % 1.5 Nucleated RBC % (0.0-0.3) % 0.0 Absolute Neutrophils (1.2-6.7) 10^3/uL 3.31 Absolute Lymphocytes (1.2-3.4) 10^3/uL 1.76 Absolute Monocytes (0.1-0.8) 10^3/uL 0.58 Absolute Eosinophils (0.0-0.7) 10^3/uL 0.24 Absolute Basophils (0.0-0.2) 10^3/uL 0.09 Sodium (136-145) mmol/L 140 Potassium (3.5-5.1) mmol/L 3.9 Chloride (98-107) mmol/L 103 Carbon Dioxide (21.0-32.0) mmol/L 29.8 Anion Gap (3-11) mmol/L 7.2 BUN (7-18) mg/dL 19 H Creatinine (0.55-1.02) mg/dL 1.0 Est GFR (CKD-EPI 2020) (mL/min/1.73m2) 60.61 Glucose (74-106) mg/dL 121 H Calcium (8.5-10.1) mg/dL 9.0 Magnesium (1.8-2.4) mg/dL 1.8 Total Bilirubin (0.2-1.0) mg/dL 0.8 AST (15-37) U/L 26 ALT (14-59) U/L 39 Alkaline Phosphatase (46-116) U/L 63 Troponin I (<or=60) ng/L < 50 Total Protein (6.4-8.2) g/dL 7.7 Albumin (3.4-5.0) g/dL 3.8 COVID-19 Source Nasal/Nares
[2022-03-18] MEDS: Normal Saline Flush 10 ML SYR IVP (14:11)
[2022-03-18 14:28] LABS: COVID-19 PCR Negative (Negative)
[2022-03-18 16:34] LABS: Troponin I < 50 ng/L (<or=60)
--- NOTE | 2022-03-18 17:29 | HPE_ITS ---
Date of service: 03/18/22 Time of Service: 17:29 Assessment and Plan Assessment and plan (1) Chest pain: Status: Acute Assessment and plan: Referred to observation on telemetry. Will cycle troponin. Echocardiogram plan for a.m. Will continue cardiac medication. Including aspirin statin and Cardizem. She is fully anticoagulated on rivaroxaban for history of atrial fibrillation (2) Atrial flutter: Status: Acute Assessment and plan: Rate controlled continue Cardizem and rivaroxaban (3) Coronary atherosclerosis: Status: Suspected Assessment and plan: Initial troponins negative. Is going to be monitored on telemetry, cycle troponins echocardiogram pending for a.m. (4) Obstructive sleep apnea syndrome: Status: Acute Assessment and plan: Home BiPAP (5) Acute diastolic heart failure with preserved ejection fraction: Status: Acute Assessment and plan: Last echocardiogram on record March 18, 2019 Conclusion Left Ventricle : The left ventricle is normal size. The left ventricular ejection fraction is within the normal range. Very mild left ventricular hypertrophy. There is normal LV segmental wall motion.? There is septal flattening suggestive of RV pressure overload. Diastolic function cannot be determined due to arrhythmia but there is evidence of elevated filling pressures. LVEF is estimated to be? 60-65%. Right Ventricle : Right ventricle is dilated. Right ventricle is mildly hypokinetic. Atria : Left atrium is severely dilated. Right atrium is moderate to severely dilated. Aortic Valve : Aortic valve is trileaflet, and mildly sclerotic There is no aortic valvular stenosis. No aortic regurgitation is present. Mitral Valve : Mild to moderate mitral annular calcification. Chordae calcification is present.? No evidence of mitral valve stenosis. Mild mitral regurgitation. Great Vessels : The IVC is dialted, but collapses >50% with inspiration.? Estimated RVSP is 40-48 mmHg. Compared to echocardiogram dated 01/12/2014: There is no significant change based on report report.? 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 Martinez History of Present Illness Narrative: Patient presenting to the emergency department for chief complaint of low heart rate, shortness of breath, and chest pain That radiates to the left arm.? Patient states that this started this morning when she woke up.? Heart rate remained low until she took a nitro which she was told to do by her primary care provider because it would help my heart rate patient does state some current chest pain and shortness of breath but denies that it this changes with any activity or movement.? Patient has significant medical history of atrial flutter, hypertension, obstructive sleep apnea CHF diabetes, hyperlipidemia, A. fib with RVR, coronary atherosclerosis.? Patient does states she has had episodes similar to this before but has never had chest pain with it. Her work-up in the emergency department is unremarkable. Her heart rate has remained in the 60s. EKG and troponin and delta troponin are both negative. Hospitalist services was contacted to refer patient to observation on telemetry overnight. Review of Systems Constitutional Constitutional: Reports as per HPI and Reports system reviewed and no additional complaints, except as documented Cardiovascular Cardiovascular: Reports chest pain, Denies palpitations and Denies dyspnea on exertion Respiratory Respiratory: Denies cough and Denies dyspnea on exertion Endocrine Endocrine: Denies palpitations PFSH All Active Problems Localized edema (Acute) Nail dystrophy (Acute) Acute suppurative otitis media of left ear without spontaneous rupture of ear drum (Acute) Chest pain (Acute) Ankle pain, right (Acute) Foot pain (Acute) Gout (Chronic) Fatigue (Acute) Unsteady (Acute) Chronic shoulder pain (Acute ~11/04/21) Chronic diarrhea (Acute) Acute swimmer's ear of left side (Acute) Central perforation of tympanic membrane, left ear (Acute) Non-recurrent acute suppurative otitis media of left ear (Acute) Thrombophlebitis (Acute) Foot pain, right (Acute) Otitis externa (Acute) Encounter for staple removal (Acute) Left knee pain (Acute) Low back pain (Acute) Back pain with radiculopathy (Acute) CHF (congestive heart failure) (Chronic) Well adult exam (Acute) Vaginal discharge (Acute) Low blood pressure (Acute) Exacerbation of reactive airway disease (Acute) Discharge planning issues (Acute) DVT prophylaxis (Acute) Acute bronchitis (Acute) Acute diastolic heart failure with preserved ejection fraction (Acute) Atrial fibrillation with rapid ventricular response (Acute) Rib pain on right side (Acute) Shoulder pain, right (Acute) Chronic anticoagulation (Chronic) Atrial flutter (Acute 08/05/11) 10/30 normal echo 08/04 stress test, A flutter briefly in recovery Depressive disorder (Acute) Esophageal reflux (Acute) [address] 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 [place]-normal 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; S/P 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 Hyperlipidemia (Acute) Obesity (Acute) 11/2007-BMI 53.8% binge eating disorder Obstructive sleep apnea syndrome (Acute) uses BiPAP (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 Obesity AURORA (obstructive sleep apnea) Tick bite doubt Lyme, given lack of engorged tick and attachment time URI (upper respiratory infection) Surgical History Breast, Mastectomy (~01/2003) and reconstruction of TM Colonoscopy - MAC (05/29/17) HAND SURGERY (~02/2013) History of hand surgery History of mastoidectomy (02/14/14) Right-sided mastoid tympanoplasty-canal wall down History of tonsillectomy and adenoidectomy Open Carpal Tunnel release (~03/2009) right Replacement of total knee joint (~2004) b/l S/p bilateral myringotomy with tube placement X4 shoulder surgery (04/30/16) left shoulder; Dr. Licona Status post total bilateral knee replacement Family History Mother , age 67 Diabetes TYPE II Essential hypertension Heart disease ANGINA Hyperlipidemia Stroke Renal cancer Father , age 80 Diabetes TYPE I Essential hypertension Heart disease Hyperlipidemia Sister Diabetes Essential hypertension Heart disease Hyperlipidemia Myocardial infarction X 2 Maternal Grandfather No problems noted. Paternal Grandfather No problems noted. Maternal Grandmother Renal cancer Paternal Grandmother No problems noted. Sister Essential hypertension Chronic obstructive lung disease Asthma Brother , age 61 Heart disease Hyperlipidemia Stroke Brother Human immunodeficiency virus (HIV) positive Myocardial infarction Social History Smoking/Tobacco Use Status: Former Tobacco Use Quit Date: 05/24/98 Second Hand Exposure: Yes Smoking risk assessment performed?: Yes Alcohol Intake: former Drug use: Never Substance use type: does not use Caregiver/Support person: Yes Household members: spouse Housing: house Communication Needs: Hard of Hearing Do you need help understanding health information?: Rarely Pets and animals: No Sexually active: No Do you think of yourself as: lesbian/doshi/homosexual Current gender identity: female What is your relationship status?: How often do you talk on the phone with friends or family?: three or more times per week How often do you get together with friends or relatives?: decline to answer How often do you attend sikh or yazidism services?: decline to answer Do you belong to any clubs or organized social groups?: no Panel score (0-1 are the most socially isolated patients): 2 What type of physical activity do you participate in: other Details: cutting and splitting wood Duration: decline to answer Frequency: decline to answer Randi/Oriental Orthodox: None Special randi needs: No Seatbelt use: sometimes Drive 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 Meds Allergies and Home Medications Allergies Allergy/AdvReac Type Severity Reaction Status Date / Time cefuroxime Allergy Severe HIVES Verified 03/18/22 12:24 latex Allergy Severe RASH Verified 03/18/22 12:24 Penicillins Allergy Severe SEVERE Verified 03/18/22 12:24 HIVES Sulfa (Sulfonamide Allergy Severe SEVERE Verified 03/18/22 12:24 Antibiotics) HIVES ciprofloxacin Allergy Mild TOPICAL Verified 03/18/22 12:24 IRRITATION clindamycin AdvReac Severe Hives Verified 03/18/22 12:24 adhesive AdvReac Intermediate SKIN Verified 03/18/22 12:24 COMES OFF caffeine AdvReac Intermediate CHEST PAIN Verified 03/18/22 12:24 lisinopril AdvReac Mild COUGH Verified 03/18/22 12:24 metformin AdvReac Mild diarrhea Verified 03/18/22 12:24 Home Medications Medication Instructions Recorded Confirmed Type acetaminophen 500 mg tablet 2 tab PO HS PRN 06/11/12 03/18/22 History (Tylenol Extra Strength) Bipap 1 ea inhalation HS 01/23/15 03/18/22 History aspirin 81 mg chewable tablet 81 mg PO DAILY #90 tab-caps 05/06/17 03/18/22 Rx lancets 28 gauge #100 ea 06/11/18 03/18/22 Rx albuterol sulfate 90 mcg/actuation 2 puff inhalation Q4H PRN ##3 12/08/18 03/18/22 Rx aerosol inhaler (ProAir HFA) magnesium amino acid chelate 100 500 mg PO BID #0 tabs 07/12/19 03/18/22 Rx mg tablet nystatin 100,000 unit/gram topical 1,500,000 unit topical BID PRN 10/30/20 03/18/22 History cream blood sugar diagnostic (Blood #100 ea 02/12/21 03/18/22 Rx Glucose Test strips) nitroglycerin 0.4 mg sublingual 0.4 mg sublingual Q5 MIN PRN X3 04/10/21 03/18/22 Rx tablet (Nitrostat) PRN chest pain #30 tabs diltiazem HCl 360 mg 360 mg PO DAILY #90 caps 05/14/21 03/18/22 Rx capsule,extended release 24 hr colchicine 0.6 mg tablet 1.2 mg PO ONCE #10 tabs 06/04/21 03/18/22 Rx simvastatin 10 mg tablet 10 mg PO HS #90 tab-caps 07/17/21 03/18/22 Rx fluoxetine 10 mg tablet 10 mg PO DAILY #90 tabs 08/29/21 03/18/22 Rx losartan 100 mg tablet 100 mg PO DAILY #90 tab-caps 10/14/21 03/18/22 Rx bupropion HCl 150 mg tablet,12 hr 150 mg PO BID #180 tabs 10/21/21 03/18/22 Rx sustained-release (Wellbutrin SR) potassium chloride 20 mEq 20 meq PO DAILY #90 tabs 10/21/21 03/18/22 Rx tablet,extended release diltiazem HCl 30 mg tablet 30 mg PO ONCE PRN #14 tabs 10/24/21 03/18/22 Rx liraglutide 0.6 mg/0.1 mL (18 mg/3 1.8 mg (0.3 mL) subcut .COMPLEX #9 12/03/21 03/18/22 Rx mL) subcutaneous pen injector mL rivaroxaban 20 mg tablet 20 mg PO DAILY afib #90 tabs 12/03/21 03/18/22 Rx metoprolol succinate 25 mg 50 mg PO DAILY #270 tabs 12/23/21 03/18/22 Rx tablet,extended release 24 hr ciprofloxacin 0.3 %-dexamethasone 3 drp BID PRN #7.5 mL 01/01/22 03/18/22 Rx 0.1 % ear drops,suspension (Ciprodex) furosemide 20 mg tablet 40 mg PO DAILY #90 tabs 01/28/22 03/18/22 Rx glipizide 5 mg tablet, extended 5 mg PO DAILY #90 tabs 01/28/22 03/18/22 Rx release 24 hr omeprazole 40 mg capsule,delayed 40 mg PO DAILY #90 caps 01/28/22 03/18/22 Rx release pen needle, diabetic 33 gauge x #100 ea 02/10/22 03/18/22 Rx 3/16 (Comfort EZ Pen [place]) Results Labs Result diagrams: 03/18/22 12:45 03/18/22 12:45 Labs: Laboratory Results - last 24 hr 03/18/22 03/18/22 03/18/22 12:45 12:45 13:30 WBC 6.00 RBC 4.71 Hgb 13.4 Hct 41.5 MCV 88 MCH 28.5 MCHC 32.3 RDW 13.0 Plt Count 270 MPV 10.9 Immature Gran % 0.3 Neutrophils % 55.2 Lymphocytes % 29.3 Monocytes % 9.7 Eosinophils % 4.0 Basophils % 1.5 Nucleated RBC % 0.0 Absolute Neutrophils 3.31 Absolute Lymphocytes 1.76 Absolute Monocytes 0.58 Absolute Eosinophils 0.24 Absolute Basophils 0.09 Sodium 140 Potassium 3.9 Chloride 103 Carbon Dioxide 29.8 Anion Gap 7.2 BUN 19 H Creatinine 1.0 Est GFR (CKD-EPI 2020) 60.61 Glucose 121 H Calcium 9.0 Magnesium 1.8 Total Bilirubin 0.8 AST 26 ALT 39 Alkaline Phosphatase 63 Troponin I < 50 Total Protein 7.7 Albumin 3.8 COVID-19 Source Nasal/Nares SARS-CoV-2 (PCR) Negative 03/18/22 15:50 WBC RBC Hgb Hct MCV MCH MCHC RDW Plt Count MPV Immature Gran % Neutrophils % Lymphocytes % Monocytes % Eosinophils % Basophils % Nucleated RBC % Absolute Neutrophils Absolute Lymphocytes Absolute Monocytes Absolute Eosinophils Absolute Basophils Sodium Potassium Chloride Carbon Dioxide Anion Gap BUN Creatinine Est GFR (CKD-EPI 2020) Glucose Calcium Magnesium Total Bilirubin AST ALT Alkaline Phosphatase Troponin I < 50 Total Protein Albumin COVID-19 Source SARS-CoV-2 (PCR) Last Vital Signs Temp 36.7 C 03/18/22 12:18 Pulse 65 03/18/22 13:17 Resp 15 03/18/22 17:20 BP 132/56 L 03/18/22 13:17 Pulse Ox 95 03/18/22 17:20 Time Spent Time spent with Patient: <40 minutes Time was spent: obtaining and/or reviewing separately otained hiistory, ordering medications,tests, procedures and indepentently interpreting results
[2022-03-18] MEDS: buPROPion-CR 150 MG TABCR PO (20:23)
[2022-03-18] MEDS: Magnesium Oxide 400 MG TAB PO (20:24)
[2022-03-18 20:49] LABS: Troponin I < 50 ng/L (<or=60)
[2022-03-18] MEDS: Simvastatin 20 MG TAB (22:09)
[2022-03-19 00:29] VITALS: PULSE 55
[2022-03-19 06:34] LABS: Abs Immature Grans 0.02 10^3/uL (0.0-0.06); Absolute Basophil Count 0.08 10^3/uL (0.0-0.2); Absolute Eosinophil Count 0.29 10^3/uL (0.0-0.7); Absolute Lymphocyte Count 1.68 10^3/uL (1.2-3.4); Absolute Monocyte Count 0.66 10^3/uL (0.1-0.8); Absolute Neutrophil Count 3.34 10^3/uL (1.2-6.7); Basophils % 1.3; Eosinophils % 4.8; HCT 41.1 % (36.0-46.0); Immature Grans % 0.3; Lymphocytes % 27.7; MCH 27.9 pg (27.0-33.0); MCHC 31.6 % (32.0-36.0); MCV 88 fL (80-95); MPV 10.9 fL (8.0-11.0); Monocytes % 10.9; Platelet Count 264 10^3/uL (130-400); RBC 4.66 10^6/uL (3.93-5.22); RDW 13.5 % (11.7-14.6); RDW-SD 43.8 fL; WBC 6.07 10^3/uL (4.4-10.8)
[2022-03-19 06:46] LABS: Anion Gap 8.4 mmol/L (3-11); BUN 18 mg/dL (7-18); CO2 29.6 mmol/L (21.0-32.0); CREATININE 1.1 mg/dL (0.55-1.02); Calcium 9.2 mg/dL (8.5-10.1); Chloride 102 mmol/L (98-107); Estimated GFR 54.06 (mL/min/1.73m2); Glucose 174 mg/dL (74-106); Potassium 4.4 mmol/L (3.5-5.1); Sodium 140 mmol/L (136-145)
[2022-03-19 06:55] LABS: Troponin I < 50 ng/L (<or=60)
[2022-03-19 07:16] VITALS: BP 146/72; PULSE 68; RESP 18; TEMP 36.3; O2SAT 94
[2022-03-19] MEDS: Omeprazole 20 MG CAPCR 40 MG PO (08:24)
[2022-03-19] MEDS: buPROPion-CR 150 MG TABCR PO (08:24)
[2022-03-19] MEDS: Aspirin 81 MG CHEW PO (08:24)
[2022-03-19] MEDS: Metoprolol CR 25 MG TABCR 50 MG PO (08:25)
[2022-03-19] MEDS: dilTIAZem CD 120 MG CAPCR 240 MG PO (08:25)
[2022-03-19] MEDS: FLUoxetine 10 MG TAB PO (08:25)
[2022-03-19] MEDS: Furosemide 40 MG TAB PO (08:25)
[2022-03-19] MEDS: Losartan 50 MG TAB 100 MG PO (08:25)
[2022-03-19] MEDS: glipiZIDE C.R. 5 MG TABCR PO (08:25)
[2022-03-19] MEDS: Rivaroxaban 10 MG TABLET 20 MG PO (08:26)
[2022-03-19] MEDS: Normal Saline Flush 10 ML SYR IVP (08:26)
[2022-03-19] MEDS: Potassium Chloride 20 MEQ TABCR PO (08:26)
--- NOTE | 2022-03-19 08:34 | DI.US_ITS ---
APPROVED REPORT EXAM: Comprehensive 2D, Doppler, and color-flow Echocardiogram Patient Location: In-Patient Room/Bed: [facility] Lineworker: Purvi Quintanilla RDCS (AE) Indications: Chest pain, A Flutter, Sleep apnea Other Information Study Quality: Adequate Conclusion Normal left ventricular wall thickness and chamber size. Estimated ejection fraction is 60 to 65%. Wall motion is normal Normal right ventricular size and systolic function Left atrium is moderately dilated. Right atrial size is normal Aortic valve is sclerotic and trileaflet without stenosis or regurgitation Mitral annular calcification, mild mitral regurgitation Normal tricuspid valve with trace regurgitation. Estimated right ventricular systolic pressure is 36 mmHg Mildly dilated ascending aorta measuring 3.66 cm Wall motion Left Ventricle The left ventricle is normal size. The left ventricular systolic function is normal. The left ventri cular ejection fraction is within the normal range. There is normal left ventricular wall thickness. There is normal LV segmental wall motion. There is no ventricular septal defect visualized. LVEF is 6 0-65%. Right Ventricle The right ventricle is normal size. The right ventricular systolic function is normal. The RVSP is 36 .3 mmHg. Atria Left atrium is moderately dilated. The right atrium size is normal. The interatrial septum is intact with no evidence for an atrial septal defect. Aortic Valve The Aortic valve is sclerotic. No hemodynamically significant valvular aortic stenosis. No aortic re gurgitation is present. Mitral Valve Moderate mitral annular calcification. No evidence of mitral valve stenosis. Mild mitral regurgitatio n. Tricuspid Valve The tricuspid valve is normal in structure. There is no tricuspid valve stenosis. Trace tricuspid reg urgitation. Pulmonic Valve The pulmonary valve is normal in structure. There is no pulmonic valvular stenosis. There is no pulmo tali valvular regurgitation. Great Vessels The aortic root is normal in size. The ascending aorta is mildly dilated. Aortic arch is not well vis ualized. IVC is normal in size and collapses >50% with inspiration. Pericardium There is no pericardial effusion. 2D Dimensions IVSD d PLAX 0.86 cm F: 0.6-1.0 LV Vol A2C d MOD 112.0 mL LVPW d PLAX 0.87 cm F: 0.6 - 1.0 LV Vol A4C d MOD 132.2 mL LVID d PLAX 5.87 cm F: 3.8 - 5.2 LA vol/ BSA A2C s A-L 41.5 mL/m2 LVDs 4.05 cm F: 2.2 - 3.5 LA vol/ BSA A4C s A-L 45.0 mL/m2 Ao Root d 3.27 cm F: 2.7 - 3.3 LA Vol/ BSA Biplane s A-L 44.2 mL/m2 RA Area A4C 22.69 cm2 LA Area A4C s MOD 29.52 cm2 RA Vol/ BSA A4C s A-L 30.6 mL/m2 LA Area A2C s MOD 28.99 cm2 Ao Asc Diam d 3.66 cm F: 2.3 - 3.1 LV EF A4C MOD 65.1 % LV EF Teichholz 57.7 % LV EF A2C MOD 60.4 % LVEF (Hull's) 64.05 % F: 54 - 74 LV EF Biplane MOD 64.0 % LV Volume 88.78 mL F: 46 - 106 SV 80.79 mL LV Volume Index 36.08 mL/m2 F: 29 - 61 SV Index 32.93 mL/m2 LV Vol Biplane MOD 126.1 mL FS 30.85 % M-Mode TAPSE 2.81 cm (M/F) >1.7 LV Diastology MV E' medial 0.097 (>0.07 m/s) E/A Ratio 1.4 LV E/e MED 12.90 (<14) MV E Vmax 1.25 (0.4-1.3 m/s) MV E' lateral 0.137 (>0.1 m/s) MV A Vmax 0.90 (0.4-1.3 m/s) LV E/e LAT 9.10 (<14) MV E/A Ratio 1.36 MV E/E' medial 12.93 MV E/E' lateral 9.12 Aortic Valve LVOT Area 3.33 cm2 AoV Area Vmax 2.50 cm2 LVOT Vmax 1.68 m/s AoV Area/ BSA (Vmax) 1.02 cm2/m2 LVOT Mean Dat. 1.11 m/s MIL Mean Dat. 2.45 cm2 LVOT Peak Grad 11.3 mmHg MIL Mean Dat. Index 1.00 cm2/m2 LVOT Mean Grad 5.8 mmHg LVOT VTI 0.386 m LVOT Diam s 2.05 cm AoV Vmax 2.24 m/s Velocity Ratio 0.75 AoV Mean Dat. 1.51 m/s AoV Peak Grad 20.1 mmHg LVOT SV 128.66 mL AoV Mean Grad 10.4 mmHg AoV VTI 0.448 m AoV Area VTI 2.87 cm2 AoV Area/ BSA (VTI) 1.17 cm/m2 Mitral Valve MV DT 203 (160-240 msec) MR Vmax 4.74 m/s MV PHT 59 msec MR VTI 1.529 m MV Area PHT 3.74 cm2 MR Peak Grad 90.0 mmHg MV VTI 0.376 m MR Mean Grad 69.8 mmHg MV VTI Annulus 0.405 m MV Area VTI 3.70 (4.0-6.0 cm2) Pulmonary Valve PV Vmax 1.39 (0.5-1.5 m/s) RVOT Peak Gr. 4.85 mmHg PV Peak Grad 7.8 mmHg RVOT Mean Gr. 2.55 mmHg PV Mean Grad 5.0 mmHg RVOT VTI 0.204 m PV VTI 0.254 m RVOT Vmax 1.10 m/s Tricuspid Valve TR Peak Grad 33.2 mmHg TR Vmax 2.88 m/s RA Pressure 3.00 mmHg RVSP (TR) 36.3 mmHg
[2022-03-19 09:10] VITALS: RESP 24
--- NOTE | 2022-03-19 09:11 | RESPIRATORY ---
Patient used there own Bipap device last night which was check out by RT. Patients device is a Pricing AssistantStation Bipap with settings of 24/8 and uses a Mirage Activa LT nasal mask size large wide, DME is [employer].
--- NOTE | 2022-03-19 09:41 | PDOC.CMIN ---
- If Service Date Differs Date of service: 03/19/22 Time of Service: 09:41 Care Management Initial Assess REASON FOR HOSPITALIZATION:: chest pain PAST MEDICAL HISTORY/PAST SURGICAL HISTORY:: All Active Problems. Localized edema (Acute). Nail dystrophy (Acute). Acute suppurative otitis media of left ear without spontaneous rupture of ear drum (Acute). Chest pain (Acute). Ankle pain, right (Acute). Foot pain (Acute). Gout (Chronic). Fatigue (Acute). Unsteady (Acute). Chronic shoulder pain (Acute ~11/04/21). Chronic diarrhea (Acute). Acute swimmer's ear of left side (Acute). Central perforation of tympanic membrane, left ear (Acute). Non-recurrent acute suppurative otitis media of left ear (Acute). Thrombophlebitis (Acute). Foot pain, right (Acute). Otitis externa (Acute). Encounter for staple removal (Acute). Left knee pain (Acute). Low back pain (Acute). Back pain with radiculopathy (Acute). CHF (congestive heart failure) (Chronic). Well adult exam (Acute). Vaginal discharge (Acute). Low blood pressure (Acute). Exacerbation of reactive airway disease (Acute). Discharge planning issues (Acute). DVT prophylaxis (Acute). Acute bronchitis (Acute). Acute diastolic heart failure with preserved ejection fraction (Acute). Atrial fibrillation with rapid ventricular response (Acute). Rib pain on right side (Acute). Shoulder pain, right (Acute). Chronic anticoagulation (Chronic). Atrial flutter (Acute 08/05/11). 10/30 normal echo 08/04 stress test, A flutter briefly in recovery. Depressive disorder (Acute). Esophageal reflux (Acute). 2006 EGD at [facility] [place]-normal. Generalized osteoarthrosis (Acute). 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 Gastroesophageal reflux disease (Acute). 2006 EGD at [facility] [place]-normal. Generalized osteoarthrosis (Acute). 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 Hyperlipidemia (Acute). Obesity (Acute). 11/2007-BMI 53.8%. binge eating disorder. Obstructive sleep apnea syndrome (Acute). uses BiPAP ([facility] [place] sleep lab). Total urinary incontinence (Acute). urge incontinence. Essential hypertension (Acute 12/16/12). Diabetes mellitus (Acute 06/18/12). A1c today. watch diet. Medical History. Atrial flutter. GERD (gastroesophageal reflux disease). Herpes zoster without complication (05/22/15). HTN (hypertension). group home current use of anticoagulant. Obesity. AURORA (obstructive sleep apnea). Tick bite. doubt Lyme, given lack of engorged tick and attachment time. URI (upper respiratory infection). Surgical History. Breast, Mastectomy (~01/2003). and reconstruction of TM. Colonoscopy - MAC (05/29/17). HAND SURGERY (~02/2013). History of hand surgery. History of mastoidectomy (02/14/14). Right-sided mastoid tympanoplasty-canal wall down. History of tonsillectomy and adenoidectomy. Open Carpal Tunnel release (~03/2009). right. Replacement of total knee joint (~2004). b/l. S/p bilateral myringotomy with tube placement. X4. shoulder surgery (04/30/16). left shoulder; Dr. Licona. Status post total bilateral knee replacement PREVIOUS FUNCTIONAL STATUS/SOCIAL/FAMILY SUPPORTS:: Elizabeth lives in [facility] with her spouse, Iris. She has a daughter, Bita, who lives in [place], and three grandchildren who are 21, 19, and 13. 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 She is independent at baseline. CURRENT FUNCTIONAL STATUS:: Elizabeth was sitting up in her chair when CM met with her. She stated that she is feeling good today and is hoping to return home. She stated that she had an echo this morning, and she was waiting to hear results. Her , Iris was in the room visiting. While visiting, the provider entered the room and stated that Elizabeth's echo showed no change since her previous echo. She will be discharging home today with no new services. CM will continue to follow. ADVANCE DIRECTIVES:: DPOA on file, Iris listed as HCA. Has patient been provided with info about the portal/API?: Yes Did the patient sign up for the portal?: Yes (active) CODE STATUS:: Full Code INSURANCE COVERAGE / FINANCIAL ISSUES:: [facility]/ [employer]BS CURRENT HOME/COMMUNITY SERVICES/EQUIPMENT:: No services or equipment. PRIMARY CARE PHYSICIAN:: Maico Leonrad POTENTIAL DISCHARGE NEEDS:: Follow up appointments. PATIENT/FAMILY EDUCATION NEEDS:: Review discharge instructions and limitations, discussion of self care needs including ask me three. ANTICIPATED BARRIERS TO DISCHARGE:: None identified. TRANSPORTATION:: Via private vehicle by family. PLAN:: Anticipate Elizabeth will return home with no new services. Her will drive her home via private vehicle when medically cleared. She will follow up with her PCP and discharge plan of care. CM will continue to follow.
[2022-03-19] MEDS: Magnesium Oxide 400 MG TAB PO (10:18)
--- NOTE | 2022-03-19 10:33 | CHAPLAIN ---
Elizabeth was up in the chair and on the phone when I visited. She remembered meeting me when she dropped off baby blankets a while ago. She had a friend visiting with her. I explained my role and offered support.
--- NOTE | 2022-03-19 10:41 | DSE_ITS ---
Date of service: 03/19/22 Time of Service: 10:41 DS: Diagnosis Discharge Diagnosis (1) Chest pain: Status: Resolved (2) Atrial flutter: Status: Acute (3) Coronary atherosclerosis: Status: Suspected (4) Obstructive sleep apnea syndrome: Status: Acute (5) Acute diastolic heart failure with preserved ejection fraction: Status: Acute (6) Diabetes mellitus: Status: Acute Discharge Plan Disposition Patient Disposition: Home Condition: Improving Discharge Details Reason For Visit: Chest Pain Admit Date/Time: 03/18/22 17:59 Admit Provider: Miko Martinez Attending Provider: Miko Martinez Primary Care Provider: Maico Leonard Hospital Course Hospital Course: Left Ventricle Left ventricle is mildly dilated. The left ventricular systolic function is normal. The left ventricular ejection fraction is within the normal range. There is normal left ventricular wall thickness. There is normal LV segmental wall motion. There is no ventricular septal defect visualized. LVEF is 60-65%. Right Ventricle The right ventricle is normal size. The right ventricular systolic function is normal. The RVSP is 36.3 mmHg. Atria Left atrium is moderately dilated. Right atrium is mildly dilated. The interatrial septum is intact with no evidence for an atrial septal defect. Aortic Valve The Aortic valve is sclerotic. No hemodynamically significant valvular aortic stenosis. No aortic regurgitation is present. Mitral Valve Moderate mitral annular calcification. No evidence of mitral valve stenosis. Mild mitral regurgitation. Tricuspid Valve The tricuspid valve is normal in structure. There is no tricuspid valve stenosis. Trace tricuspid regurgitation. Pulmonic Valve The pulmonary valve is normal in structure. There is no pulmonic valvular stenosis. There is no pulmonic valvular regurgitation. Great Vessels The aortic root is normal in size. The ascending aorta is mildly dilated. Aortic arch is not well visualized. IVC is normal in size and collapses >50% with inspiration. Pericardium There is no pericardial effusion. Discussed with Dr Martinez Home Meds and New Rx's Prescriptions: New diltiazem HCl 240 mg capsule,extended release 24hr 240 mg PO DAILY Qty: 30 0RF Continued (DME) lancets 28 gauge misc 1 ea Miscellaneous DAILY Qty: 100 4RF Rx Instructions: DX: E11.9 ONE TOUCH LANCETS test once/day nystatin 100,000 unit/gram cream 1,500,000 unit Topical BID PRN Rx Instructions: Apply twice a day beneath breasts till resolves diltiazem HCl 360 mg capsule,extended release 24hr 360 mg PO DAILY Qty: 90 3RF nitroglycerin [Nitrostat] 0.4 mg tablet, sublingual 0.4 mg sublingual Q5 MIN PRN X3 PRN (Reason: chest pain) Qty: 30 0RF colchicine 0.6 mg tablet 1.2 mg PO ONCE Qty: 10 1RF Rx Instructions: may repeat with one tab after one hour for subtherapeutic effect liraglutide 0.6 mg/0.1 mL (18 mg/3 mL) pen injector 1.8 mg SC .COMPLEX Qty: 9 12RF Rx Instructions: 1.8 mg subcut aneously once daily x 7 days; then 1.2mg daily, not to exceed 1.8mg/day subcut; rivaroxaban 20 mg tablet 20 mg PO DAILY Qty: 90 3RF Rx Instructions: albuterol sulfate [ProAir HFA] 90 mcg/actuation HFA aerosol inhaler 2 puff Inhalation Q4H PRN Qty: 3 3RF (DME) Blood Glucose Test Strip 1 strip Miscellaneous DAILY Qty: 100 4RF Rx Instructions: DX: E11.9 ONE TOUCH ULTRA test once/day ciprofloxacin-dexamethasone [Ciprodex] 0.3-0.1 % drops,suspension 3 drp BID PRN Qty: 7.5 2RF acetaminophen [Tylenol Extra Strength] 500 MG tablet 2 tab PO HS PRN BIPAP 1 ea inhalation HS Rx Instructions: SLEEP APNEA aspirin 81 MG tablet,chewable 81 mg PO DAILY Qty: 90 0RF simvastatin 10 mg tablet 10 mg PO HS Qty: 90 3RF Rx Instructions: fluoxetine 10 mg tablet 10 mg PO DAILY Qty: 90 3RF losartan 100 mg tablet 100 mg PO DAILY Qty: 90 3RF bupropion HCl [Wellbutrin SR] 150 mg tablet sustained-release 12 hr 150 mg PO BID Qty: 180 3RF potassium chloride 20 mEq tablet extended release 20 meq PO DAILY Qty: 90 3RF metoprolol succinate 25 mg tablet extended release 24 hr 50 mg PO DAILY Qty: 270 3RF Rx Instructions: dose increase 11/27/20 furosemide 20 mg tablet 40 mg PO DAILY Qty: 90 3RF Rx Instructions: take for 4 lb weight gain as needed glipizide 5 mg tablet extended release 24hr 5 mg PO DAILY Qty: 90 3RF omeprazole 40 mg capsule,delayed release(DR/EC) 40 mg PO DAILY Qty: 90 3RF (DME) pen needle, diabetic [Comfort EZ Pen Webster] 33 gauge x / needle See Rx Instructions .ROUTE .MEDSUPPLY Qty: 100 3RF Rx Instructions: inject once/daily magnesium amino acid chelate 100 MG tablet 500 mg PO BID Qty: 0 0RF Label Comments: 05/08/17 restarted, had stopped 04/17. si Rx Instructions: hasn't been taking Discontinued diltiazem HCl 30 mg tablet 30 mg PO ONCE PRNQty: 14 0RF Rx Instructions: take if heart rate consistently remains above 100 with symptoms of fluttering and shortness of breath Discharge Instructions Instructions: Diltiazem (By mouth), Atrial Flutter (DC), A-fib (Atrial Fibrillation) (DC), Holter Monitor (GEN) Additional Instructions: Take Diltiazem 240 mg daily; cardiac event monitor for 30 days. Stand Alone Forms: Nursing Discharge Form Referrals: CARDIOLOGY,[facility] [OTHER] - (Dr Bowling The office will call you to make an appointment in the next couple days if they do not call you in 2 days please call them . Please follow up with them in the next 6 weeks - after cardiac event monitor ) Maico Leonard MD [Primary Care Provider] - 03/25/22 10:40 am () Activity:: Activity as Tolerated Equipment/Supplies:: No Equipment Needed Diet:: Low Sodium Discharge Orders Discharge Orders: Discharge Order (Routine); Ordered 03/19/22 Ordered By: Briana Ramirez Discharge Data Discharge Date/Time-TO BE ENTERED AT DEPARTURE: 03/19/22 13:14 DS: Summary Time Spent with Patient providing and/or coordinating discharge services: Greater than 30 minutes Status at Discharge Functional status at discharge: independent ambulation Overall status at discharge: patient is progressing back to baseline Mental Status: mental status grossly normal Speech and Movement: speech and movement normal Mood: congruent mood Affect: normal affect Exam Const General: cooperative, comfortable, no acute distress, not diaphoretic and not ill appearing Nutritional Appearance: obese Orientation: alert, awake and oriented x3 Limitations: mental status not altered Neck Neck: normal visual inspection, full ROM, trachea midline, supple and no anterior neck swelling Thyroid: thyroid normal Carotids: normal carotid upstroke and no bruits Chest Chest: normal inspection of the chest Resp Effort & Inspection: normal respiratory effort and able to speak in complete sentences Auscultation: clear to auscultation bilaterally Cardio Jugular venous pressure: no JVD Palpation: normal PMI Rate: regular rate Rhythm: regular rhythm Heart Sounds: S1 normal, S2 normal, no click, no gallops, no murmurs and no rubs Bruits: no carotid bruits Pulses: radial pulses present bilaterally 2+ and normal peripheral pulses GI Inspection: normal to inspection Palpation: soft, no aortic enlargement, no pulsatile masses and nontender Auscultation: normal bowel sounds Neuro General: patient alert, patient awake, patient oriented x3, tone normal and moves all extremities Extrem General: other (Chronic nonpitting edema bilateral lower extremities) Psych Mental Status: mental status grossly normal Speech and Movement: speech and movement normal Mood: congruent mood Affect: normal affect DS: Data Vitals/I&O Vitals and I&O: Vital Signs Temperature 36.3 C L 03/19/22 07:16 Temperature Source Tympanic 03/19/22 07:16 Pulse 68 03/19/22 07:16 Pulse 65 03/18/22 18:30 Respiratory Rate 18 03/19/22 07:16 Respiratory Effort Non-Labored 03/19/22 08:20 Respiratory Depth Normal 03/19/22 08:20 Respiratory Pattern Normal 03/18/22 12:37 Blood Pressure 146/72 H 03/19/22 07:16 Blood Pressure Mean 73 03/18/22 13:17 Blood Pressure Position Sitting 03/18/22 12:18 Pulse Oximetry 94 03/19/22 07:16 Oxygen Delivery Method Room Air 03/19/22 07:16 Oxygen Flow Rate 0 03/19/22 07:16 Pain Level 0 03/19/22 07:16 Intake & Output 03/18/22 03/18/22 03/19/22 11:59 23:59 11:59 Intake Total 75 / 75 370 / 370 Balance 75 / 75 370 / 370 Weight 150.593 kg Intake: IV 75 / 75 130 / 130 Oral 240 / 240 Other: Urine Color Yellow Urine Appearance Clear Clear Voiding Methods Toilet Data Completed and Pending Labs on day of discharge: Labs from last 24 hours 03/19/22 03/19/22 03/19/22 06:25 06:25 06:25 WBC 6.07 RBC 4.66 Hgb 13.0 Hct 41.1 MCV 88 MCH 27.9 MCHC 31.6 L RDW 13.5 Plt Count 264 MPV 10.9 Immature Gran % 0.3 Neutrophils % 55.0 Lymphocytes % 27.7 Monocytes % 10.9 Eosinophils % 4.8 Basophils % 1.3 Nucleated RBC % 0.0 Absolute Neutrophils 3.34 Absolute Lymphocytes 1.68 Absolute Monocytes 0.66 Absolute Eosinophils 0.29 Absolute Basophils 0.08 Sodium 140 Potassium 4.4 Chloride 102 Carbon Dioxide 29.6 Anion Gap 8.4 BUN 18 Creatinine 1.1 H Est GFR (CKD-EPI 2020) 54.06 Glucose 174 H Calcium 9.2 Magnesium Total Bilirubin AST ALT Alkaline Phosphatase Troponin I < 50 Total Protein Albumin COVID-19 Source SARS-CoV-2 (PCR) 03/18/22 03/18/22 03/18/22 20:25 15:50 13:30 WBC RBC Hgb Hct MCV MCH MCHC RDW Plt Count MPV Immature Gran % Neutrophils % Lymphocytes % Monocytes % Eosinophils % Basophils % Nucleated RBC % Absolute Neutrophils Absolute Lymphocytes Absolute Monocytes Absolute Eosinophils Absolute Basophils Sodium Potassium Chloride Carbon Dioxide Anion Gap BUN Creatinine Est GFR (CKD-EPI 2020) Glucose Calcium Magnesium Total Bilirubin AST ALT Alkaline Phosphatase Troponin I < 50 < 50 Total Protein Albumin COVID-19 Source Nasal/Nares SARS-CoV-2 (PCR) Negative 03/18/22 03/18/22 12:45 12:45 WBC 6.00 RBC 4.71 Hgb 13.4 Hct 41.5 MCV 88 MCH 28.5 MCHC 32.3 RDW 13.0 Plt Count 270 MPV 10.9 Immature Gran % 0.3 Neutrophils % 55.2 Lymphocytes % 29.3 Monocytes % 9.7 Eosinophils % 4.0 Basophils % 1.5 Nucleated RBC % 0.0 Absolute Neutrophils 3.31 Absolute Lymphocytes 1.76 Absolute Monocytes 0.58 Absolute Eosinophils 0.24 Absolute Basophils 0.09 Sodium 140 Potassium 3.9 Chloride 103 Carbon Dioxide 29.8 Anion Gap 7.2 BUN 19 H Creatinine 1.0 Est GFR (CKD-EPI 2020) 60.61 Glucose 121 H Calcium 9.0 Magnesium 1.8 Total Bilirubin 0.8 AST 26 ALT 39 Alkaline Phosphatase 63 Troponin I < 50 Total Protein 7.7 Albumin 3.8 COVID-19 Source SARS-CoV-2 (PCR) PFSH All Active Problems (Updated 03/20/22 @ 00:05 by JASON CURRIE) Localized edema (Acute) Nail dystrophy (Acute) Acute suppurative otitis media of left ear without spontaneous rupture of ear drum (Acute) Ankle pain, right (Acute) Foot pain (Acute) Gout (Chronic) Fatigue (Acute) Unsteady (Acute) Chronic shoulder pain (Acute ~11/04/21) Chronic diarrhea (Acute) Acute swimmer's ear of left side (Acute) Central perforation of tympanic membrane, left ear (Acute) Non-recurrent acute suppurative otitis media of left ear (Acute) Thrombophlebitis (Acute) Foot pain, right (Acute) Otitis externa (Acute) Encounter for staple removal (Acute) Left knee pain (Acute) Low back pain (Acute) Back pain with radiculopathy (Acute) CHF (congestive heart failure) (Chronic) Well adult exam (Acute) Vaginal discharge (Acute) Low blood pressure (Acute) Exacerbation of reactive airway disease (Acute) Acute bronchitis (Acute) Acute diastolic heart failure with preserved ejection fraction (Acute) Atrial fibrillation with rapid ventricular response (Acute) Rib pain on right side (Acute) Shoulder pain, right (Acute) Chronic anticoagulation (Chronic) Atrial flutter (Acute 08/05/11) 10/30 normal echo 08/04 stress test, A flutter briefly in recovery Depressive disorder (Acute) Esophageal reflux (Acute) 2006 EGD at [facility] [place]-normal 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; S/P 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 Gastroesophageal reflux disease (Acute) 2006 EGD at [facility] [place]-normal 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; S/P Bilateral TKR-2005 Hyperlipidemia (Acute) Obesity (Acute) 11/2007-BMI 53.8% binge eating disorder Obstructive sleep apnea syndrome (Acute) uses BiPAP ([facility] [place] sleep lab) Total urinary incontinence (Acute) urge incontinence Essential hypertension (Acute 12/16/12) Diabetes mellitus (Acute 06/18/12) A1c today watch diet Medical History Atrial flutter GERD (gastroesophageal reflux disease) Herpes zoster without complication (05/22/15) 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 Obesity [place] (obstructive sleep apnea) Tick bite doubt Lyme, given lack of engorged tick and attachment time URI (upper respiratory infection) Surgical History Breast, Mastectomy (~01/2003) and reconstruction of TM Colonoscopy - MAC (05/29/17) HAND SURGERY (~02/2013) History of hand surgery History of mastoidectomy (02/14/14) Right-sided mastoid tympanoplasty-canal wall down History of tonsillectomy and adenoidectomy Open Carpal Tunnel release (~03/2009) right Replacement of total knee joint (~2004) b/l S/p bilateral myringotomy with tube placement X4 shoulder surgery (04/30/16) left shoulder; Dr. Licona Status post total bilateral knee replacement Family History Mother , age 67 Diabetes TYPE II Essential hypertension Heart disease ANGINA Hyperlipidemia Stroke Renal cancer Father , age 80 Diabetes TYPE I Essential hypertension Heart disease Hyperlipidemia Sister Diabetes Essential hypertension Heart disease Hyperlipidemia Myocardial infarction X 2 Maternal Grandfather No problems noted. Paternal Grandfather No problems noted. Maternal Grandmother Renal cancer Paternal Grandmother No problems noted. Sister Essential hypertension Chronic obstructive lung disease Asthma Brother , age 61 Heart disease Hyperlipidemia Stroke Brother Human immunodeficiency virus (HIV) positive Myocardial infarction Social History Smoking/Tobacco Use Status: Former Tobacco Use Quit Date: 05/24/98 Second Hand Exposure: Yes Smoking risk assessment performed?: Yes Alcohol Intake: former Drug use: Never Substance use type: does not use Caregiver/Support person: Yes Household members: spouse Housing: house Communication Needs: Hard of Hearing Do you need help understanding health information?: Rarely Pets and animals: No Sexually active: No Do you think of yourself as: lesbian/doshi/homosexual Current gender identity: female What is your relationship status?: How often do you talk on the phone with friends or family?: three or more times per week How often do you get together with friends or relatives?: decline to answer How often do you attend yazdanism or catholic services?: decline to answer Do you belong to any clubs or organized social groups?: no Panel score (0-1 are the most socially isolated patients): 2 What type of physical activity do you participate in: other Details: cutting and splitting wood Duration: decline to answer Frequency: decline to answer Randi/Temple: None Special randi needs: No Seatbelt use: sometimes Drive 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
[2022-03-19 11:15] VITALS: BP 147/76; PULSE 68; RESP 18; TEMP 36.8; O2SAT 96
--- NOTE | 2022-03-19 16:37 | PDOC.CMDIS ---
- If Service Date Differs Date of service: 03/19/22 Time of Service: 16:37 LACE Index Scoring Tool - Questions: Length of Stay (in days): 1 Acuity (Admit via E.D.?): Yes Comorbidities: Diabetes w/o Complication, Congestive Heart Failure E.D. Visits: 2 - Answers: Total Score: 9 Risk of Readmission: Low Risk Care Management Discharge Reason for Hospitalization: chest pain Discharge Plan: Elizabeth returned home today with no new services. Her Iris drove her home via private vehicle. She will follow up with her PCP and discharge plan of care. She is happy to be going home. Patient/Family Education Needs: Review discharge instructions and limitations, discussion of self care needs including ask me three.
== END 2022-03-19 13:14 | disposition home or self-care (01) ==
LOC: ER 18:28 → MS 18:48
PROVIDERS: Nurse Practitioner Acute Care; Nurse Practitioner Family; Admitting Provider Family Medicine; Emergency Provider Physician Assistant; PCP Family Medicine; Visit Provider Family Medicine
DX: R07.89 Other chest pain (principal); I50.33 Acute on chronic diastolic (congestive) heart failure; I48.92 Unspecified atrial flutter; I11.0 Hypertensive heart disease with heart failure; G47.33 Obstructive sleep apnea (adult) (pediatric); E11.9 Type 2 diabetes mellitus without complications; Z20.822 Contact with and (suspected) exposure to COVID-19; I34.0 Nonrheumatic mitral (valve) insufficiency; E78.5 Hyperlipidemia, unspecified; I48.91 Unspecified atrial fibrillation; Z79.84 Long term (current) use of oral hypoglycemic drugs; E66.9 Obesity, unspecified; Z68.43 Body mass index [BMI] 50.0-59.9, adult; Z79.01 Long term (current) use of anticoagulants
CPT/HCPCS: 36415; 80048; 80053; 87635; 93005; 93270; 93306; 96365; 99285; 71046; 83735; 84484; 85025; 93010; 99223; 99239; G0378; J0131

== ENCOUNTER 2022-03-31 12:38 | Emergency (ER) | payer MEDICARE, BC, SELFPAY ==
[2022-03-31] VITALS (168 sets, daily range): BP systolic 117–162; BP diastolic 48–88; PULSE 59–76; RESP 12–23; TEMP 36.7; O2SAT 90–100
--- NOTE | 2022-03-31 12:30 | RT.EKG_ITS ---
APPROVED REPORT Exam: Resting ECG Reason for Exam: high bp/heart pain Patient Location: E HR:70 bpm ECG Measurements Heart Rate 70 AXIS KS 124 P 88 QRSd 182 QRS 57 QT 454 T 17 QTc 492 Conclusion Sinus rhythm...normal P axis, V-rate 60- 99 Right bundle branch block...QRSd>120, terminal axis(90,270) Anterolateral infarct, age indeterminate...Q >35mS, flat/neg T, V3-V6,I,aVL Physician: RBBB, stable, unchanged
[2022-03-31 13:12] LABS: Abs Immature Grans 0.04 10^3/uL (0.0-0.06); Absolute Basophil Count 0.11 10^3/uL (0.0-0.2); Absolute Lymphocyte Count 1.94 10^3/uL (1.2-3.4); Absolute Monocyte Count 0.87 10^3/uL (0.1-0.8); Absolute Neutrophil Count 3.85 10^3/uL (1.2-6.7); Basophils % 1.5; Eosinophils % 4.2; HCT 43.7 % (36.0-46.0); HGB 13.8 g/dL (11.2-15.7); Immature Grans % 0.6; Lymphocytes % 27.3; MCH 27.9 pg (27.0-33.0); MCHC 31.6 % (32.0-36.0); MCV 88 fL (80-95); MPV 11.2 fL (8.0-11.0); Monocytes % 12.2; Neutrophils % 54.2; Platelet Count 305 10^3/uL (130-400); RBC 4.95 10^6/uL (3.93-5.22); RDW 13.3 % (11.7-14.6); RDW-SD 43.1 fL; WBC 7.11 10^3/uL (4.4-10.8)
[2022-03-31 13:35] LABS: ALT 24 U/L (14-59); AST 12 U/L (15-37); Albumin 3.8 g/dL (3.4-5.0); Alkaline Phosphatase 63 U/L (46-116); Anion Gap 5.6 mmol/L (3-11); BUN 20 mg/dL (7-18); Bilirubin, Total 0.6 mg/dL (0.2-1.0); CO2 30.4 mmol/L (21.0-32.0); Calcium 8.9 mg/dL (8.5-10.1); Chloride 103 mmol/L (98-107); Estimated GFR 60.61 (mL/min/1.73m2); Glucose 74 mg/dL (74-106); Magnesium 1.7 mg/dL (1.8-2.4); NT-proBNP 99 pg/mL (<300); Potassium 3.9 mmol/L (3.5-5.1); Sodium 139 mmol/L (136-145); Total Protein 7.7 g/dL (6.4-8.2); Troponin I < 50 ng/L (<or=60)
[2022-03-31] MEDS: Magnesium Oxide 400 MG TAB PO (13:53)
--- NOTE | 2022-03-31 14:00 | DI.CT_ITS ---
Exam(s) CT CHEST PE CTA EXAM: CT CHEST PE CTA CLINICAL HISTORY: Left-sided chest pain radiating into scapula. TECHNIQUE: Imaging Protocol: Axial CT angiography was performed with multi-slice acquisition and mu lti-planar and/or 3D reconstructions. CONTRAST MATERIAL: Intravenous: Omnipaque 350 contrast volume:100 mL COMPARISON: CR XR CHEST 2V PA LATERAL from 03/18/2022 FINDINGS: The examination is limited due to patient motion artifact. Tracheobronchial tree: Patent where visualized. Pulmonary parenchyma: No consolidation or dominant measurable mass. No architectural distortion. Pulmonary Arteries: Evaluation of the segmental and subsegmental pulmonary arteries is limited due to patient motion artifact and opacification. No central pulmonary embolus is identified. No evidence of right heart strain. Mediastinum and Stephy: No dominant adenopathy or fluid collection. The esophagus is unremarkable. Visualized thyroid gland: Unremarkable. Pleura: No effusion or pneumothorax. Heart: The heart is not dilated. Moderate coronary artery calcification is present. No pericardial e ffusion. Aorta: Thoracic aorta non-dilated. There is atherosclerosis present. Upper abdomen: There is decreased attenuation of the liver suggesting fatty infiltration. Soft tissues: Unremarkable. Bones: Within normal limits for the patient's age. IMPRESSION: 1. No evidence of pulmonary embolism, thoracic aortic dissection or aneurysm. 2. Findings were discussed with the emergency department at 3:41 p.m. on 03/31/2022. RADIATION DOSE DELIVERED: 707.54mGy.cm Total DLP DATA REPOSITORY: All CT scans at this facility are submitted to the National Radiology Data Registry (NRDR) Dose Index Registry (DIR) with the [employer] (ACR). RADIATION OPTIMIZATION: All CT scans at this facility use at least one of these dose optimization te chniques: automated exposure control; mA and/or kV adjustment per patient size (includes targeted exa ms where dose is matched to clinical indication); or iterative reconstruction.
--- NOTE | 2022-03-31 14:15 | W.ED.GENAD ---
Discharge Plan Disposition Patient Disposition: Home Condition: Stable Discharge Details Clinical Impression: Chest pain Primary Care Provider: Maico Leonard ED Provider: Marisel Justice Home Meds and New Rx's Prescriptions: Continued nitroglycerin [Nitrostat] 0.4 mg tablet, sublingual 0.4 mg sublingual Q5 MIN PRN X3 PRN (Reason: chest pain) Qty: 30 0RF liraglutide 0.6 mg/0.1 mL (18 mg/3 mL) pen injector 1.8 mg SC .COMPLEX Qty: 9 12RF Rx Instructions: 1.8 mg subcut aneously once daily x 7 days; then 1.2mg daily, not to exceed 1.8mg/day subcut; furosemide 20 mg tablet 40 mg PO DAILY Qty: 90 3RF Rx Instructions: dose increase 03/24/22 albuterol sulfate [ProAir HFA] 90 mcg/actuation HFA aerosol inhaler 2 puff Inhalation Q4H PRN Qty: 3 3RF BIPAP 1 ea inhalation HS Rx Instructions: SLEEP APNEA aspirin 81 MG tablet,chewable 81 mg PO DAILY Qty: 90 0RF simvastatin 10 mg tablet 10 mg PO HS Qty: 90 3RF Rx Instructions: losartan 100 mg tablet 100 mg PO DAILY Qty: 90 3RF bupropion HCl [Wellbutrin SR] 150 mg tablet sustained-release 12 hr 150 mg PO BID Qty: 180 3RF potassium chloride 20 mEq tablet extended release 20 meq PO DAILY Qty: 90 3RF metoprolol succinate 25 mg tablet extended release 24 hr 50 mg PO DAILY Qty: 270 3RF Rx Instructions: dose increase 11/27/20 glipizide 5 mg tablet extended release 24hr 5 mg PO DAILY Qty: 90 3RF omeprazole 40 mg capsule,delayed release(DR/EC) 40 mg PO DAILY Qty: 90 3RF magnesium amino acid chelate 100 MG tablet 500 mg PO BID Qty: 0 0RF Label Comments: 05/08/17 restarted, had stopped 04/17. si Rx Instructions: hasn't been taking No Action (DME) lancets 28 gauge misc 1 ea Miscellaneous DAILY Qty: 100 4RF Rx Instructions: DX: E11.9 ONE TOUCH LANCETS test once/day nystatin 100,000 unit/gram cream 1,500,000 unit Topical BID PRN Rx Instructions: Apply twice a day beneath breasts till resolves colchicine 0.6 mg tablet 1.2 mg PO ONCE Qty: 10 1RF Rx Instructions: may repeat with one tab after one hour for subtherapeutic effect rivaroxaban 20 mg tablet 20 mg PO DAILY Qty: 90 3RF Rx Instructions: diltiazem HCl 240 mg capsule,extended release 24hr 240 mg PO DAILY Qty: 90 3RF (DME) Blood Glucose Test Strip 1 strip Miscellaneous DAILY Qty: 100 4RF Rx Instructions: DX: E11.9 ONE TOUCH ULTRA test once/day ciprofloxacin-dexamethasone [Ciprodex] 0.3-0.1 % drops,suspension 3 drp BID PRN Qty: 7.5 2RF acetaminophen [Tylenol Extra Strength] 500 MG tablet 2 tab PO HS PRN fluoxetine 10 mg tablet 10 mg PO DAILY Qty: 90 3RF (DME) pen needle, diabetic [Comfort EZ [place]] 33 gauge x 3/16 needle See Rx Instructions .ROUTE .MEDSUPPLY Qty: 100 3RF Rx Instructions: inject once/daily Discharge Instructions Instructions: Chest Pain (ED) Additional Instructions: At this time your work-up today is reassuring. CT of your chest does not show any evidence for blood clot in your lungs or aortic dissection or aneurysm. No pneumonia or fluid in your lungs. No evidence for acute heart injury today. Please discuss your chest pain, blood pressure readings, and medication management with your primary care provider at your previously scheduled appointment on Thursday. Continue taking your medications as previously prescribed. Follow up with primary care provider in 3-5 days. Return to ED sooner if any worsening pain, dizziness, lightheadedness, sweaty feeling, pain that is not relieved by nitro or concerns. Referrals: Maico Leonard MD [Primary Care Provider] - 2 days Discharge Data Discharge Date/Time-TO BE ENTERED AT DEPARTURE: 03/31/22 16:40 Medical Decision Making <Valentin Peña NP - Last Filed: 04/01/22 09:01> Patient presenting to the emergency department for chief complaint of sharp stabbing intermittent chest pain. Patient states that she has had this occurring since Thursday. Over that time she has also noted elevated blood pressure. She does state some shortness of breath. Patient has significant history of diabetes, hypertension, hyperlipidemia, obstructive sleep apnea, a flutter. Physical exam is unremarkable for any specific findings. Given that patient has significant cardiac history we will plan on doing labs EKG. patient does state some radiation of pain into left scapula. Given this we will plan on doing CTA. Patient blood pressure 146/90 when I was in room so did discuss with patient nitro which she does occasionally take but she stated that she did not need any medications at this time. Please see physician interpretation for full interpretation of EKG but upon my review patient is in sinus rhythm, right bundle branch block, fairly unchanged from EKG done at the end of February 2022. Review of initial labs shows overall unremarkable CBC, CMP with slightly elevated BUN of 20 and magnesium of 1.7 which we will replete orally negative troponin, BNP is 99, otherwise nondiagnostic labs. Pending delta troponin and CTA I did reassess patient. Blood pressure has resolved on its own and is now 117/60, patient without pain at the moment of reassessment but states that as she has been here she continues to have intermittent sharp chest pains. We will continue to monitor. Medical Records Medical records reviewed: Yes I reviewed the patient's medical records. Medical records narrative: Reviewed last hospital admission for observation and echo which showed an EF of 60-65 continued negative troponins and discharged to follow-up with cardiology. Lab Data Lab results reviewed: Yes I reviewed the patient's lab results. <Marisel Justice NP - Last Filed: 03/31/22 16:37> Patient presenting to the emergency department for chief complaint of sharp stabbing intermittent chest pain. Patient states that she has had this occurring since Thursday. Over that time she has also noted elevated blood pressure. She does state some shortness of breath. Patient has significant history of diabetes, hypertension, hyperlipidemia, obstructive sleep apnea, a flutter. Physical exam is unremarkable for any specific findings. Given that patient has significant cardiac history we will plan on doing labs EKG. patient does state some radiation of pain into left scapula. Given this we will plan on doing CTA. Patient blood pressure 146/90 when I was in room so did discuss with patient nitro which she does occasionally take but she stated that she did not need any medications at this time. Please see physician interpretation for full interpretation of EKG but upon my review patient is in sinus rhythm, right bundle branch block, fairly unchanged from EKG done at the end of February 2022. Review of initial labs shows overall unremarkable CBC, CMP with slightly elevated BUN of 20 and magnesium of 1.7 which we will replete orally negative troponin, BNP is 99, otherwise nondiagnostic labs. Pending delta troponin and CTA I did reassess patient. Blood pressure has resolved on its own and is now 117/60, patient without pain at the moment of reassessment but states that as she has been here she continues to have intermittent sharp chest pains. We will continue to monitor. 1547: SJ: Care assumed from provider (Willard Peña, ELA) Please see their initial HPI, PE, and documentation. Discussed patient details and case and pending workup and disposition. Patient is hemodynamically stable, and alert and oriented. At the time of signout awaiting delta troponin. CTA negative for PE, dissection or aneurysm please see official report. 1630: Repeat troponin within normal limits. On patient reevaluation she reports that her blood pressure did go up to 160 systolic. She has been tracking her blood pressure closely over the last few days and has noted that it first thing in the morning it is 190 or greater systolic. I did discuss this with her and encouraged her to discuss this with her PCP. She does have an appointment on Thursday. I did discuss strict return instructions and to return for any worsening chest pain, nitro administration and to return if these measures are changed or if she feels worse at any time. Patient and family verbalized understanding. I did offer admission at this time due to patient's heart score and risk factors. She adamantly declines and would prefer to be discharged home at this time. With a negative work-up including delta troponin and CT chest this is reassuring and feel is appropriate at this time. This text was generated using [employer] system, please disregard any oddities of phrase or misspellings. Lab Data Lab results reviewed: Yes I reviewed the patient's lab results. Labs: Laboratory Tests Range/Units 03/31/22 03/31/22 03/31/22 12:53 12:53 15:50 WBC (4.4-10.8) 10^3/uL 7.11 RBC (3.93-5.22) 10^6/uL 4.95 Hgb (11.2-15.7) g/dL 13.8 Hct (36.0-46.0) % 43.7 MCV (80-95) fL 88 MCH (27.0-33.0) pg 27.9 MCHC (32.0-36.0) % 31.6 L RDW (11.7-14.6) % 13.3 Plt Count (130-400) 10^3/uL 305 MPV (8.0-11.0) fL 11.2 H Immature Gran % 0.6 Neutrophils % 54.2 Lymphocytes % 27.3 Monocytes % 12.2 Eosinophils % 4.2 Basophils % 1.5 Nucleated RBC % (0.0-0.3) % 0.0 Absolute Neutrophils (1.2-6.7) 10^3/uL 3.85 Absolute Lymphocytes (1.2-3.4) 10^3/uL 1.94 Absolute Monocytes (0.1-0.8) 10^3/uL 0.87 H Absolute Eosinophils (0.0-0.7) 10^3/uL 0.30 Absolute Basophils (0.0-0.2) 10^3/uL 0.11 Sodium (136-145) mmol/L 139 Potassium (3.5-5.1) mmol/L 3.9 Chloride (98-107) mmol/L 103 Carbon Dioxide (21.0-32.0) mmol/L 30.4 Anion Gap (3-11) mmol/L 5.6 BUN (7-18) mg/dL 20 H Creatinine (0.55-1.02) mg/dL 1.0 Est GFR (CKD-EPI 2020) (mL/min/1.73m2) 60.61 Glucose (74-106) mg/dL 74 Calcium (8.5-10.1) mg/dL 8.9 Magnesium (1.8-2.4) mg/dL 1.7 L Total Bilirubin (0.2-1.0) mg/dL 0.6 AST (15-37) U/L 12 L ALT (14-59) U/L 24 Alkaline Phosphatase (46-116) U/L 63 Troponin I (<or=60) ng/L < 50 < 50 NT-Pro-B Natriuret Pep (<300) pg/mL 99 Total Protein (6.4-8.2) g/dL 7.7 Albumin (3.4-5.0) g/dL 3.8 HPI <Valentin Peña, CAKE PRESS OPERATOR - Last Filed: 04/01/22 09:01> General Mode of arrival: ambulatory. Date/Time Provider Initiated Documentation: 03/31/22 12:42. Limitations to Documentation: no limitations. Information obtained by: patient, RN notes reviewed and old records reviewed. History of Present Illness 71 year old F presents to the emergency department with the chief complaint of Chest pain, shortness of breath, described as moderate, with intensity rated at 4. Quality is described as aching, and is localized to the chest. Patient reports radiation to back. Patient started experiencing this day(s) (3) and it has been intermittent. No relieving factors improve symptom(s), No exacerbating factors reported . Patient notes denies nausea/vomiting. Patient did receive the following treatments prior to arrival, none Related Data Home Medications Medication Instructions Recorded Confirmed acetaminophen 500 mg tablet 2 tab PO HS PRN 06/11/12 03/31/22 (Tylenol Extra Strength) Bipap 1 ea inhalation HS 01/23/15 03/31/22 aspirin 81 mg chewable tablet 81 mg PO DAILY #90 tab-caps 05/06/17 03/31/22 lancets 28 gauge #100 ea 06/11/18 03/31/22 albuterol sulfate 90 mcg/actuation 2 puff inhalation Q4H PRN ##3 12/08/18 03/31/22 aerosol inhaler (ProAir HFA) magnesium amino acid chelate 100 500 mg PO BID #0 tabs 07/12/19 03/31/22 mg tablet nystatin 100,000 unit/gram topical 1,500,000 unit topical BID PRN 10/30/20 03/31/22 cream nitroglycerin 0.4 mg sublingual 0.4 mg sublingual Q5 MIN PRN X3 04/10/21 03/31/22 tablet (Nitrostat) PRN chest pain #30 tabs colchicine 0.6 mg tablet 1.2 mg PO ONCE #10 tabs 06/04/21 03/31/22 simvastatin 10 mg tablet 10 mg PO HS #90 tab-caps 07/17/21 03/31/22 fluoxetine 10 mg tablet 10 mg PO DAILY #90 tabs 08/29/21 03/31/22 losartan 100 mg tablet 100 mg PO DAILY #90 tab-caps 10/14/21 03/31/22 bupropion HCl 150 mg tablet,12 hr 150 mg PO BID #180 tabs 10/21/21 03/31/22 sustained-release (Wellbutrin SR) potassium chloride 20 mEq 20 meq PO DAILY #90 tabs 10/21/21 03/31/22 tablet,extended release liraglutide 0.6 mg/0.1 mL (18 mg/3 1.8 mg (0.3 mL) subcut .COMPLEX #9 12/03/21 03/31/22 mL) subcutaneous pen injector mL rivaroxaban 20 mg tablet 20 mg PO DAILY afib #90 tabs 12/03/21 03/31/22 metoprolol succinate 25 mg 50 mg PO DAILY #270 tabs 12/23/21 03/31/22 tablet,extended release 24 hr ciprofloxacin 0.3 %-dexamethasone 3 drp BID PRN #7.5 mL 01/01/22 03/31/22 0.1 % ear drops,suspension (Ciprodex) glipizide 5 mg tablet, extended 5 mg PO DAILY #90 tabs 01/28/22 03/31/22 release 24 hr omeprazole 40 mg capsule,delayed 40 mg PO DAILY #90 caps 01/28/22 03/31/22 release pen needle, diabetic 33 gauge x #100 ea 02/10/22 03/31/2205/08 (Comfort EZ [place]) blood sugar diagnostic (Blood #100 ea 03/25/22 03/31/22 Glucose Test strips) diltiazem HCl 240 mg 240 mg PO DAILY #90 caps 03/25/22 03/31/22 capsule,extended release 24 hr furosemide 20 mg tablet 40 mg PO DAILY #90 tabs 03/25/22 03/31/22 Previous Rx's Medication Instructions Recorded aspirin 81 mg chewable tablet 81 mg PO DAILY #90 tab-caps 05/06/17 lancets 28 gauge #100 ea 06/11/18 albuterol sulfate 90 mcg/actuation 2 puff inhalation Q4H PRN ##3 12/08/18 aerosol inhaler (ProAir HFA) magnesium amino acid chelate 100 500 mg PO BID #0 tabs 07/12/19 mg tablet nitroglycerin 0.4 mg sublingual 0.4 mg sublingual Q5 MIN PRN X3 02/16/22 tablet (Nitrostat) PRN chest pain #30 tabs colchicine 0.6 mg tablet 1.2 mg PO ONCE #10 tabs 06/04/21 simvastatin 10 mg tablet 10 mg PO HS #90 tab-caps 07/17/21 fluoxetine 10 mg tablet 10 mg PO DAILY #90 tabs 08/29/21 losartan 100 mg tablet 100 mg PO DAILY #90 tab-caps 10/14/21 bupropion HCl 150 mg tablet,12 hr 150 mg PO BID #180 tabs 10/21/21 sustained-release (Wellbutrin SR) potassium chloride 20 mEq 20 meq PO DAILY #90 tabs 10/21/21 tablet,extended release liraglutide 0.6 mg/0.1 mL (18 mg/3 1.8 mg (0.3 mL) subcut .COMPLEX #9 12/03/21 mL) subcutaneous pen injector mL rivaroxaban 20 mg tablet 20 mg PO DAILY afib #90 tabs 12/03/21 metoprolol succinate 25 mg 50 mg PO DAILY #270 tabs 12/23/21 tablet,extended release 24 hr ciprofloxacin 0.3 %-dexamethasone 3 drp BID PRN #7.5 mL 01/01/22 0.1 % ear drops,suspension (Ciprodex) glipizide 5 mg tablet, extended 5 mg PO DAILY #90 tabs 01/28/22 release 24 hr omeprazole 40 mg capsule,delayed 40 mg PO DAILY #90 caps 01/28/22 release pen needle, diabetic 33 gauge x #100 ea 02/10/2205/08 (Comfort EZ [place]) blood sugar diagnostic (Blood #100 ea 03/25/22 Glucose Test strips) diltiazem HCl 240 mg 240 mg PO DAILY #90 caps 03/25/22 capsule,extended release 24 hr furosemide 20 mg tablet 40 mg PO DAILY #90 tabs 03/25/22 Allergies Allergy/AdvReac Type Severity Reaction Status Date / Time cefuroxime Allergy Severe HIVES Verified 03/31/22 12:47 latex Allergy Severe RASH Verified 03/31/22 12:47 Penicillins Allergy Severe SEVERE Verified 03/31/22 12:47 HIVES Sulfa (Sulfonamide Allergy Severe SEVERE Verified 03/31/22 12:47 Antibiotics) HIVES ciprofloxacin Allergy Mild TOPICAL Verified 03/31/22 12:47 IRRITATION clindamycin AdvReac Severe Hives Verified 03/31/22 12:47 adhesive AdvReac Intermediate SKIN Verified 03/31/22 12:47 COMES OFF caffeine AdvReac Intermediate CHEST PAIN Verified 03/31/22 12:47 lisinopril AdvReac Mild COUGH Verified 03/31/22 12:47 metformin AdvReac Mild diarrhea Verified 03/31/22 12:47 General Stated Complaint: Chest Pain KOTA: 2 Review of Systems <Valentin Pñea NP - Last Filed: 04/01/22 09:01> Constitutional Constitutional: Denies chills, Denies fever(s) and Denies malaise Cardiovascular Cardiovascular: Reports as per HPI, Reports chest pain, Reports chest pain with activity, Denies syncope, Denies irregular heart rhythm, Denies leg edema, Denies palpitations, Reports dyspnea and Reports dyspnea on exertion Respiratory Respiratory: Denies cough, Denies hemoptysis, Reports dyspnea and Reports dyspnea on exertion Gastrointestinal Gastrointestinal: Denies abdominal pain, Denies nausea and Denies vomiting Neurologic Neurologic: Denies syncope Psychiatric Psychiatric: Denies anxiety Endocrine Endocrine: Denies cold intolerance, Denies heat intolerance and Denies palpitations PFSH <Valentin Peña NP - Last Filed: 04/01/22 09:01> All Active Problems (Updated 03/31/22 @ 16:35 by Marisel Justice NP) Chest pain (Acute) Bradycardia (Acute) Localized edema (Acute) Nail dystrophy (Acute) Acute suppurative otitis media of left ear without spontaneous rupture of ear drum (Acute) Ankle pain, right (Acute) Foot pain (Acute) Gout (Chronic) Fatigue (Acute) Unsteady (Acute) Chronic shoulder pain (Acute ~11/04/21) Chronic diarrhea (Acute) Acute swimmer's ear of left side (Acute) Central perforation of tympanic membrane, left ear (Acute) Non-recurrent acute suppurative otitis media of left ear (Acute) Thrombophlebitis (Acute) Foot pain, right (Acute) Otitis externa (Acute) Encounter for staple removal (Acute) Left knee pain (Acute) Low back pain (Acute) Back pain with radiculopathy (Acute) CHF (congestive heart failure) (Chronic) Well adult exam (Acute) Vaginal discharge (Acute) Low blood pressure (Acute) Exacerbation of reactive airway disease (Acute) Acute bronchitis (Acute) Acute diastolic heart failure with preserved ejection fraction (Acute) Atrial fibrillation with rapid ventricular response (Acute) Rib pain on right side (Acute) Shoulder pain, right (Acute) Chronic anticoagulation (Chronic) Atrial flutter (Acute 08/05/11) 10/30 normal echo 08/04 stress test, A flutter briefly in recovery Depressive disorder (Acute) Esophageal reflux (Acute) 2006 EGD at [facility]-normal 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; S/P 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 Gastroesophageal reflux disease (Acute) 2006 EGD at [facility] [place]-normal 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; S/P Bilateral TKR-2005 Hyperlipidemia (Acute) Obesity (Acute) 11/2007-BMI 53.8% binge eating disorder Obstructive sleep apnea syndrome (Acute) uses BiPAP ([facility] sleep lab) Total urinary incontinence (Acute) urge incontinence Essential hypertension (Acute 12/16/12) Diabetes mellitus (Acute 06/18/12) A1c today watch diet Medical History Atrial flutter GERD (gastroesophageal reflux disease) Herpes zoster without complication (05/22/15) 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 Obesity [place] (obstructive sleep apnea) Tick bite doubt Lyme, given lack of engorged tick and attachment time URI (upper respiratory infection) Surgical History Breast, Mastectomy (~01/2003) and reconstruction of TM Colonoscopy - MAC (05/29/17) HAND SURGERY (~02/2013) History of hand surgery History of mastoidectomy (02/14/14) Right-sided mastoid tympanoplasty-canal wall down History of tonsillectomy and adenoidectomy Open Carpal Tunnel release (~03/2009) right Replacement of total knee joint (~2004) b/l S/p bilateral myringotomy with tube placement X4 shoulder surgery (04/30/16) left shoulder; Dr. Licona Status post total bilateral knee replacement Family History Mother , age 67 Diabetes TYPE II Essential hypertension Heart disease ANGINA Hyperlipidemia Stroke Renal cancer Father , age 80 Diabetes TYPE I Essential hypertension Heart disease Hyperlipidemia Sister Diabetes Essential hypertension Heart disease Hyperlipidemia Myocardial infarction X 2 Maternal Grandfather No problems noted. Paternal Grandfather No problems noted. Maternal Grandmother Renal cancer Paternal Grandmother No problems noted. Sister Essential hypertension Chronic obstructive lung disease Asthma Brother , age 61 Heart disease Hyperlipidemia Stroke Brother Human immunodeficiency virus (HIV) positive Myocardial infarction Social History Smoking/Tobacco Use Status: Former Tobacco Use Quit Date: 05/24/98 Second Hand Exposure: Yes Smoking risk assessment performed?: Yes Alcohol Intake: former Drug use: Never Substance use type: does not use Caregiver/Support person: Yes Household members: spouse Housing: house Communication Needs: Hard of Hearing Do you need help understanding health information?: Rarely Pets and animals: No Sexually active: No Do you think of yourself as: lesbian/doshi/homosexual Current gender identity: female What is your relationship status?: How often do you talk on the phone with friends or family?: three or more times per week How often do you get together with friends or relatives?: decline to answer How often do you attend advent or confucianism services?: decline to answer Do you belong to any clubs or organized social groups?: no Panel score (0-1 are the most socially isolated patients): 2 What type of physical activity do you participate in: other Details: cutting and splitting wood Duration: decline to answer Frequency: decline to answer Randi/Druze: None Special randi needs: No Seatbelt use: sometimes Drive 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 Exam <Valentin Peña NP - Last Filed: 04/01/22 09:01> Const General: cooperative, comfortable, no acute distress, not diaphoretic and not ill appearing Orientation: alert, awake and oriented x3 Limitations: mental status not altered Neck Neck: normal visual inspection, full ROM, trachea midline, supple and no anterior neck swelling Carotids: normal carotid upstroke and no bruits Chest Chest: normal inspection of the chest Resp Effort & Inspection: normal respiratory effort and able to speak in complete sentences Auscultation: clear to auscultation bilaterally Cardio Jugular venous pressure: no JVD Palpation: normal PMI Rate: regular rate Rhythm: regular rhythm Heart Sounds: S1 normal, S2 normal, no click, no gallops, no murmurs and no rubs Bruits: no abdominal aortic bruits and no carotid bruits Pulses: radial pulses present bilaterally 2+ GI Inspection: obesity Skin General skin exam: no rashes or lesions noted Neuro General: patient alert, patient awake, patient oriented x3, tone normal and moves all extremities Extrem General: edema (Nonpitting) Laterality: bilateral Course <Valentin Peña NP - Last Filed: 04/01/22 09:01> Vital Signs Vital signs: Vital Signs Temperature 36.7 C 03/31/22 12:41 Pulse 73 03/31/22 12:41 Respiratory Rate 20 03/31/22 12:41 Pulse Oximetry 96 03/31/22 12:41 Temperature 36.7 C 03/31/22 12:41 Temperature Source Temporal Artery Scan 03/31/22 12:41 Pulse 68 03/31/22 13:17 Respiratory Rate 15 03/31/22 13:17 Respiratory Effort Non-Labored 03/31/22 12:49 Respiratory Depth Normal 03/31/22 12:49 Respiratory Pattern Normal 03/31/22 12:49 Blood Pressure 145/64 H 03/31/22 13:17 Blood Pressure Position Sitting 03/31/22 12:41 Pulse Oximetry 95 03/31/22 13:17 Oxygen Delivery Method Room Air 03/31/22 12:41 Oxygen Flow Rate 0 03/31/22 12:41 Pain Level 6 03/31/22 12:41 Lab/Test Results Lab/Test Results: Laboratory Tests Range/Units 03/31/22 03/31/22 12:53 12:53 WBC (4.4-10.8) 10^3/uL 7.11 RBC (3.93-5.22) 10^6/uL 4.95 Hgb (11.2-15.7) g/dL 13.8 Hct (36.0-46.0) % 43.7 MCV (80-95) fL 88 MCH (27.0-33.0) pg 27.9 MCHC (32.0-36.0) % 31.6 L RDW (11.7-14.6) % 13.3 Plt Count (130-400) 10^3/uL 305 MPV (8.0-11.0) fL 11.2 H Immature Gran % 0.6 Neutrophils % 54.2 Lymphocytes % 27.3 Monocytes % 12.2 Eosinophils % 4.2 Basophils % 1.5 Nucleated RBC % (0.0-0.3) % 0.0 Absolute Neutrophils (1.2-6.7) 10^3/uL 3.85 Absolute Lymphocytes (1.2-3.4) 10^3/uL 1.94 Absolute Monocytes (0.1-0.8) 10^3/uL 0.87 H Absolute Eosinophils (0.0-0.7) 10^3/uL 0.30 Absolute Basophils (0.0-0.2) 10^3/uL 0.11 Sodium (136-145) mmol/L 139 Potassium (3.5-5.1) mmol/L 3.9 Chloride (98-107) mmol/L 103 Carbon Dioxide (21.0-32.0) mmol/L 30.4 Anion Gap (3-11) mmol/L 5.6 BUN (7-18) mg/dL 20 H Creatinine (0.55-1.02) mg/dL 1.0 Est GFR (CKD-EPI 2020) (mL/min/1.73m2) 60.61 Glucose (74-106) mg/dL 74 Calcium (8.5-10.1) mg/dL 8.9 Magnesium (1.8-2.4) mg/dL 1.7 L Total Bilirubin (0.2-1.0) mg/dL 0.6 AST (15-37) U/L 12 L ALT (14-59) U/L 24 Alkaline Phosphatase (46-116) U/L 63 Troponin I (<or=60) ng/L < 50 NT-Pro-B Natriuret Pep (<300) pg/mL 99 Total Protein (6.4-8.2) g/dL 7.7 Albumin (3.4-5.0) g/dL 3.8 Sign Out <Valentin Peña NP - Last Filed: 04/01/22 09:01> Sign Out Data: Sign Out Comment: Patient pending CTA results and delta troponin to be drawn at 1555. Last updated by Valentin Peña NP at 03/31/22 15:27
[2022-03-31] MEDS: Normal Saline - Diluent 50 ML VIAL IJ (15:18)
[2022-03-31] MEDS: Omnipaque 350 MG/ML 100 ML BTL IJ (15:18)
[2022-03-31] MEDS: Normal Saline Flush 10 ML SYR IVP (15:19)
[2022-03-31 16:18] LABS: Troponin I < 50 ng/L (<or=60)
== END 2022-03-31 16:40 | disposition home or self-care (01) ==
PROVIDERS: Nurse Practitioner Family; Emergency Provider Registered Nurse Emergency; PCP Family Medicine
DX: R07.9 Chest pain, unspecified (principal); E11.9 Type 2 diabetes mellitus without complications; I11.0 Hypertensive heart disease with heart failure; I50.31 Acute diastolic (congestive) heart failure; I48.91 Unspecified atrial fibrillation; E78.5 Hyperlipidemia, unspecified; R79.89 Other specified abnormal findings of blood chemistry; Z79.82 Long term (current) use of aspirin; Z79.84 Long term (current) use of oral hypoglycemic drugs
CPT/HCPCS: 36415; 71275; 80053; 93005; 99285; 83735; 83880; 84484; 85025; 93010; 99284; J3490

== ENCOUNTER 2022-04-24 09:57 | Outpatient (CLI) | payer MEDICARE, BC, SELFPAY ==
--- NOTE | 2022-04-25 09:24 | W.CARDEVENT ---
Date of service: 04/25/22 Time of Service: 09:24 Cardiac Event Recorder Referring Provider:: Briana Ramirez Indications:: Unspecified atrial fibrillation Cardiac Event Note: This is a 30-day cardiac event monitor Rhythm throughout was sinus with an average heart rate of 70. Minimum was 57, maximum 115 There was no atrial fibrillation, no high-grade AV block, no pauses greater than 3 seconds. There were no apparent patient symptoms
== END 2022-04-24 09:58 | disposition home or self-care (01) ==
LOC: CARDOPNVT 09:57
PROVIDERS: PCP Family Medicine; Visit Provider Internal Medicine Cardiovascular Disease
DX: I48.91 Unspecified atrial fibrillation (principal)
CPT/HCPCS: 93272

== ENCOUNTER 2022-08-09 13:36 | Outpatient (REF) | payer MEDICARE, BC, SELFPAY ==
--- NOTE | 2022-08-09 13:30 | DI.RAD_ITS ---
Exam(s) XR SHOULDER RT COMPLETE 2+V EXAM: XR SHOULDER RT COMPLETE 2+V CLINICAL HISTORY: right shoulder pain, injury. TECHNIQUE: 2D digital imaging was performed. COMPARISON: CR XR SHOULDER RT COMPLETE 2+V from 02/13/2021 FINDINGS: 3 views No evidence of acute fracture or dislocation or abnormal soft tissue calcifications. Subacromial spa ce is not diminished. There are mild degenerative changes in the glenohumeral joint. Mild degenerat rossi changes in the AC joint. No osseous lesions. IMPRESSION: No fracture evident. DATA REPOSITORY: RADIATION DOSE DELIVERED:
--- NOTE | 2022-08-09 15:02 | DI.VRAD_ITS ---
PROCEDURE INFORMATION: Exam: XR Right Shoulder Exam date and time: 08/09/2022 2:08 PM Age: 72 years old Clinical indication: Right; Patient HX: Pulling injury; RT shoulder pain TECHNIQUE: Imaging protocol: Radiologic exam of the right shoulder. Views: 2 or more views. COMPARISON: CR XR SHOULDER RT COMPLETE 2+V 02/13/2021 1:42 PM FINDINGS: Bones/joints: No acute fracture or dislocation. Soft tissues: Normal. IMPRESSION: No acute fracture. Dictated and Authenticated by: Chidi Maravilla MD. Ordering:KOFI Cardenas MD
== END 2022-08-09 13:56 ==
LOC: DI 13:36
PROVIDERS: PCP Family Medicine; Visit Provider Physician Assistant
DX: M25.511 Pain in right shoulder (principal); T14.90XA Injury, unspecified, initial encounter
CPT/HCPCS: 73030

== ENCOUNTER 2022-08-13 02:44 | Outpatient (CLI) | payer MEDICARE, BC, SELFPAY ==
[2022-08-13 14:34] LABS: Potassium 4.1 mmol/L (3.5-5.1)
== END 2022-08-13 02:45 | disposition home or self-care (01) ==
LOC: LBO 02:44
PROVIDERS: PCP Family Medicine; Visit Provider Family Medicine
DX: I10 Essential (primary) hypertension (principal)
CPT/HCPCS: 36415; 84132

== ENCOUNTER 2022-09-11 00:34 | Outpatient (CLI) | payer MEDICARE, BC, SELFPAY ==
--- NOTE | 2022-09-11 07:00 | DI.MAMMO_ITS ---
Exam(s) MAMMO SCREENING EXAM: MAMMO SCREENING CLINICAL HISTORY: screening,z12.39 TECHNIQUE: Bilateral full field digital CC and MLO mammographic images were obtained with 3D tomosyn thesis and utilizing computer aided detection (CAD). COMPARISON: Available for comparison. FINDINGS: Masses/Architectural Distortion: None seen. Microcalcifications: No suspicious pleomorphic-type are seen. Skin Thickening/Nipple Retraction: None. IMPRESSION: 1. No significant interval change with no specific features of malignancy noted. 2. Unless there is more urgent need, screening mammography is recommended, as per [employer] [place] guidelines. BI-RADS Category 1 - Negative Breast Density - Category B - Scattered areas of fibroglandular density Breast density category C or D implies that the patient has dense breast tissue. Dense breast tissue is very common and is not abnormal but dense breast tissue can make it harder to find cancer on a ma mmogram. Also, dense breast tissue may increase their breast cancer risk. This information about the result of the mammogram report was provided to the patient to raise their awareness. Use this report when you speak with the patient about their risks for breast cancer, which includes their family hist ory. At that time, you may recommend for more screening tests (Ultrasound or MRI) as they might be us eful based on their risk. A negative radiographic report should not delay biopsy if a dominant or clinically suspicious mass is present. Up to ten percent of cancers are not identified on mammography. A negative report may reinforce clinical impression. Adenosis and dense breasts may obscure an underlying neoplasm. False positive reports average 6 to 10%. Patient will receive a letter notifying them of these results.
== END 2022-09-11 00:54 ==
LOC: DI 00:34
PROVIDERS: PCP Family Medicine; Visit Provider Family Medicine
DX: Z12.31 Encounter for screening mammogram for malignant neoplasm of breast (principal)
CPT/HCPCS: 77063; 77067

== ENCOUNTER 2023-02-24 15:13 | Emergency (ER) | payer MEDICARE, BC, SELFPAY ==
--- NOTE | 2023-02-24 15:00 | RT.EKG_ITS ---
APPROVED REPORT Exam: Resting ECG Reason for Exam: sob Patient Location: E HR:74 bpm ECG Measurements Heart Rate 74 AXIS RI 133 P 93 QRSd 186 QRS 62 QT 475 T 82 QTc 527 Conclusion Sinus rhythm...normal P axis, V-rate 60- 99 Right bundle branch block...QRSd>120, terminal axis(90,270) Inferior infarct, old...Q >35mS, II III aVF Probable anterior infarct, age indeterminate...Q >35mS, T neg, V2-V5
[2023-02-24 15:15] VITALS: BP 175/77; PULSE 81; RESP 24; TEMP 36.1; O2SAT 95
--- NOTE | 2023-02-24 15:31 | W.ED.GENAD ---
HPI General Stated Complaint: RespSymp Mode of arrival: ambulatory. KOTA: 3 Date/Time Provider Initiated Documentation: 02/24/23 15:15. Limitations to Documentation: no limitations. Information obtained by: patient, RN notes reviewed and old records reviewed. HPI Narrative: 72-year-old female with a past medical history of atrial fibrillation, CHF, obesity, hypertension, GERD, obstructive sleep apnea presents to the ER with a chief complaint of shortness of breath, headache body aches shoulder and jaw pain for the last 4 days. cruise staff member noted that she had audible wheezes upon arrival with walking. She also reports some dizziness with sitting up. She has been taking her medications as prescribed. She does use a BiPAP at night. She denies any new lower extremity swelling. She is afebrile upon arrival. She denies any chest pain currently she reports that it is intermittent. Denies any nausea vomiting diarrhea denies any abdominal pain. Patient wears oxygen and BiPAP at night. She is normally on room air during the day. Related Data Home Medications Medication Instructions Recorded Confirmed acetaminophen 500 mg tablet 2 tab PO HS PRN 06/11/12 01/07/23 (Tylenol Extra Strength) Bipap 1 ea inhalation HS 01/23/15 01/07/23 aspirin 81 mg chewable tablet 81 mg PO DAILY #90 tab-caps 05/06/17 01/07/23 lancets 28 gauge #100 ea 06/11/18 09/02/22 albuterol sulfate 90 mcg/actuation 2 puff inhalation Q4H PRN ##3 12/08/18 01/07/23 aerosol inhaler (ProAir HFA) magnesium amino acid chelate 100 500 mg (5 x 100 mg) PO BID #0 tabs 07/12/19 01/07/23 mg tablet nystatin 100,000 unit/gram topical 1,500,000 unit topical BID PRN 10/30/20 01/07/23 cream nitroglycerin 0.4 mg sublingual 0.4 mg sublingual Q5 MIN PRN X3 04/10/21 01/07/23 tablet (Nitrostat) PRN chest pain #30 tabs colchicine 0.6 mg tablet 1.2 mg (2 x 0.6 mg) PO ONCE #10 06/04/21 01/07/23 tabs ciprofloxacin 0.3 %-dexamethasone 3 drp BID PRN #7.5 mL 01/01/22 01/07/23 0.1 % ear drops,suspension (Ciprodex) glipizide 5 mg tablet, extended 5 mg PO DAILY #90 tabs 01/28/22 01/07/23 release 24 hr omeprazole 40 mg capsule,delayed 40 mg PO DAILY #90 caps 01/28/22 01/07/23 release blood sugar diagnostic (Blood #100 ea 03/25/22 09/02/22 Glucose Test strips) diltiazem HCl 240 mg 240 mg PO DAILY #90 caps 03/25/22 01/07/23 capsule,extended release 24 hr metoprolol succinate 100 mg 100 mg PO DAILY #90 tabs 05/24/22 01/07/23 tablet,extended release 24 hr simvastatin 10 mg tablet 10 mg PO HS #90 tab-caps 06/13/22 01/07/23 spironolactone 25 mg tablet 25 mg PO DAILY #90 tabs 08/13/22 01/07/23 (Aldactone) bupropion HCl 150 mg tablet,12 hr 150 mg PO BID #180 tabs 09/02/22 01/07/23 sustained-release (Wellbutrin SR) losartan 100 mg tablet 100 mg PO DAILY #90 tab-caps 09/02/22 01/07/23 fluoxetine 10 mg tablet 10 mg PO DAILY #90 tabs 09/08/22 01/07/23 pen needle, diabetic 33 gauge x #100 ea 11/04/2205/08 (Comfort EZ Pen [place]) furosemide 20 mg tablet 40 mg (2 x 20 mg) PO DAILY #180 11/08/22 01/07/23 tabs rivaroxaban 20 mg tablet 20 mg PO DAILY afib #90 tabs 12/18/22 01/07/23 liraglutide 0.6 mg/0.1 mL (18 mg/3 1.8 mg (0.3 mL) subcut .COMPLEX #9 01/05/23 01/07/23 mL) subcutaneous pen injector mL Previous Rx's Medication Instructions Recorded aspirin 81 mg chewable tablet 81 mg PO DAILY #90 tab-caps 05/06/17 lancets 28 gauge #100 ea 06/11/18 albuterol sulfate 90 mcg/actuation 2 puff inhalation Q4H PRN ##3 12/08/18 aerosol inhaler (ProAir HFA) magnesium amino acid chelate 100 500 mg (5 x 100 mg) PO BID #0 tabs 07/11/20 mg tablet nitroglycerin 0.4 mg sublingual 0.4 mg sublingual Q5 MIN PRN X3 04/10/21 tablet (Nitrostat) PRN chest pain #30 tabs colchicine 0.6 mg tablet 1.2 mg (2 x 0.6 mg) PO ONCE #10 06/04/21 tabs ciprofloxacin 0.3 %-dexamethasone 3 drp BID PRN #7.5 mL 01/01/22 0.1 % ear drops,suspension (Ciprodex) glipizide 5 mg tablet, extended 5 mg PO DAILY #90 tabs 01/28/22 release 24 hr omeprazole 40 mg capsule,delayed 40 mg PO DAILY #90 caps 01/28/22 release blood sugar diagnostic (Blood #100 ea 03/25/22 Glucose Test strips) diltiazem HCl 240 mg 240 mg PO DAILY #90 caps 03/25/22 capsule,extended release 24 hr metoprolol succinate 100 mg 100 mg PO DAILY #90 tabs 05/24/22 tablet,extended release 24 hr simvastatin 10 mg tablet 10 mg PO HS #90 tab-caps 06/13/22 spironolactone 25 mg tablet 25 mg PO DAILY #90 tabs 08/13/22 (Aldactone) bupropion HCl 150 mg tablet,12 hr 150 mg PO BID #180 tabs 09/02/22 sustained-release (Wellbutrin SR) losartan 100 mg tablet 100 mg PO DAILY #90 tab-caps 09/02/22 fluoxetine 10 mg tablet 10 mg PO DAILY #90 tabs 09/08/22 pen needle, diabetic 33 gauge x #100 ea 11/04/2205/08 (Comfort EZ Pen [place]) furosemide 20 mg tablet 40 mg (2 x 20 mg) PO DAILY #180 11/08/22 tabs rivaroxaban 20 mg tablet 20 mg PO DAILY afib #90 tabs 12/18/22 liraglutide 0.6 mg/0.1 mL (18 mg/3 1.8 mg (0.3 mL) subcut .COMPLEX #9 01/05/23 mL) subcutaneous pen injector mL Allergies Allergy/AdvReac Type Severity Reaction Status Date / Time cefuroxime Allergy Severe HIVES Verified 01/07/23 11:51 latex Allergy Severe RASH Verified 01/07/23 11:51 Penicillins Allergy Severe SEVERE Verified 01/07/23 11:51 HIVES Sulfa (Sulfonamide Allergy Severe SEVERE Verified 01/07/23 11:51 Antibiotics) HIVES ciprofloxacin Allergy Mild TOPICAL Verified 01/07/23 11:51 IRRITATION clindamycin AdvReac Severe Hives Verified 01/07/23 11:51 adhesive AdvReac Intermediate SKIN Verified 01/07/23 11:51 COMES OFF caffeine AdvReac Intermediate CHEST PAIN Verified 01/07/23 11:51 lisinopril AdvReac Mild COUGH Verified 01/07/23 11:51 metformin AdvReac Mild diarrhea Verified 01/07/23 11:51 Review of Systems All systems reviewed & are unremarkable except as noted in HPI and below Constitutional Constitutional: Reports as per HPI Cardiovascular Cardiovascular: Reports as per HPI, Reports radiating jaw, neck or arm pain and Reports dyspnea Respiratory Respiratory: Reports dyspnea and Reports wheezing Allergic/Immunologic Allergic/Immunologic: Reports wheezing PFSH All Active Problems 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 of left ear (Acute) Bradycardia (Acute) Localized edema (Acute) Nail dystrophy (Acute) Acute suppurative otitis media of left ear without spontaneous rupture of ear drum (Acute) Ankle pain, right (Acute) Foot pain (Acute) Gout (Chronic) Fatigue (Acute) Unsteady (Acute) Chronic shoulder pain (Acute ~11/04/21) Chronic diarrhea (Acute) Acute swimmer's ear of left side (Acute) Central perforation of tympanic membrane, left ear (Acute) Non-recurrent acute suppurative otitis media of left ear (Acute) Thrombophlebitis (Acute) Foot pain, right (Acute) Otitis externa (Acute) Encounter for staple removal (Acute) Left knee pain (Acute) Low back pain (Acute) Back pain with radiculopathy (Acute) CHF (congestive heart failure) (Chronic) Well adult exam (Acute) Vaginal discharge (Acute) Low blood pressure (Acute) Exacerbation of reactive airway disease (Acute) Acute bronchitis (Acute) Acute diastolic heart failure with preserved ejection fraction (Acute) Atrial fibrillation with rapid ventricular response (Acute) Rib pain on right side (Acute) Shoulder pain, right (Acute) Chronic anticoagulation (Chronic) Atrial flutter (Acute 08/05/11) 10/30 normal echo 08/04 stress test, A flutter briefly in recovery Depressive disorder (Acute) Esophageal reflux (Acute) 2006 EGD at [facility]-normal 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; S/P 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 Gastroesophageal reflux disease (Acute) 2006 EGD at [facility]-normal 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; S/P 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 Hyperlipidemia (Acute) Obesity (Acute) 11/2007-BMI 53.8% binge eating disorder Obstructive sleep apnea syndrome (Acute) uses BiPAP ([facility] sleep lab) Total urinary incontinence (Acute) urge incontinence Essential hypertension (Acute 12/16/12) Diabetes mellitus (Acute 06/18/12) A1c today watch diet Medical History Sensorineural hearing loss, bilateral URI (upper respiratory infection) Tick bite doubt Lyme, given lack of engorged tick and attachment time Herpes zoster without complication (05/22/15) Obesity HTN (hypertension) GERD (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 Licona Replacement of total knee joint (~2004) b/l Open Carpal Tunnel release (~03/2009) right HAND SURGERY (~02/2013) Colonoscopy - MAC (05/29/17) Breast, Mastectomy (~01/2003) and reconstruction of TM Family History Mother , age 67 Diabetes TYPE II Essential hypertension Heart disease ANGINA Hyperlipidemia Stroke Renal cancer Father , age 80 Diabetes TYPE I Essential hypertension Heart disease Hyperlipidemia Sister Diabetes Essential hypertension Heart disease Hyperlipidemia Myocardial infarction X 2 Maternal Grandfather No problems noted. Paternal Grandfather No problems noted. Maternal Grandmother Renal cancer Paternal Grandmother No problems noted. Sister Essential hypertension Chronic obstructive lung disease Asthma Brother , age 61 Heart disease Hyperlipidemia Stroke Brother Human immunodeficiency virus (HIV) positive Myocardial infarction Social History Smoking/Tobacco Use Status: Former Tobacco Use tobacco type: cigarettes Quit Date: 05/24/98 Tobacco: How many years used: 24 Smokeless tobacco user: other Second Hand Exposure: Yes Smoking risk assessment performed?: Yes Alcohol Intake: former Drug use: Never Substance use type: does not use Caregiver/Support person: Yes Household members: spouse Housing: house Communication Needs: Hard of Hearing Do you need help understanding health information?: Rarely Pets and animals: No Sexually active: No Do you think of yourself as: lesbian/doshi/homosexual Current gender identity: female What is your relationship status?: How often do you talk on the phone with friends or family?: three or more times per week How often do you get together with friends or relatives?: once per week How often do you attend restoration or restoration services?: decline to answer Do you belong to any clubs or organized social groups?: no Panel score (0-1 are the most socially isolated patients): 2 What type of physical activity do you participate in: other Details: cutting and splitting wood Duration: decline to answer Frequency: decline to answer Randi/Restorationism: None Special randi needs: No Seatbelt use: sometimes Drive intox or ride w/intox patrol 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 Exam Narrative Exam Narrative: Constitutional: Alert and oriented x3. Appears stated age. Mobidly obese body habitus. Head: Normocephalic, no trauma. Eyes: Pupils PERRL, Red reflex noted, EOM's intact. Eyelids symmetrical without lesions, discharge, or swelling. ENT: Bilateral TM's WNL, External ear normal to inspection, no mastoid TTP, swelling, or erythema, Nasal turbinates WNL, no nasal discharge. Normal dentition, Posterior pharynx WNL, no exudate. Chest: RRR, Normal S1, S2, distal pulses intact. Resp: Lungs Diminished auscultation bilaterally, exam limited somewhat by patient girth. Abdomen: Soft, non-distended, nontender to palpation all 4 quadrants. Musculoskeletal: Normal gait, 5/5 strength to all four extremities. Nonpitting edema noted to bilateral lower extremities, appears chronic. Skin: No suspicious rashes or lesions. Capillary refill less than 2 sec. Neurologic: Cranial nerves II-XII intact. Alert and oriented x 3. Motor: No deficits noted. Hematologic/Lymphatic: No ecchymosis, no lymphadenopathy. Course Vital Signs Vital signs: Vital Signs Temperature 36.1 C L 02/24/23 15:15 Pulse 81 02/24/23 15:15 Respiratory Rate 24 02/24/23 15:15 Blood Pressure 175/77 H 02/24/23 15:15 Pulse Oximetry 95 02/24/23 15:15 Temperature 36.1 C L 02/24/23 15:15 Temperature Source Temporal Artery Scan 02/24/23 15:15 Pulse 81 02/24/23 15:15 Respiratory Rate 24 02/24/23 15:15 Blood Pressure 175/77 H 02/24/23 15:15 Blood Pressure Position Sitting 02/24/23 15:15 Pulse Oximetry 95 02/24/23 15:15 Oxygen Delivery Method Room Air 02/24/23 15:15 Oxygen Flow Rate 0 02/24/23 15:15 Medical Decision Making 72-year-old female with a past medical history of atrial fibrillation, CHF, obesity, hypertension, GERD, obstructive sleep apnea presents to the ER with a chief complaint of shortness of breath, headache body aches shoulder and jaw pain for the last 4 days. cruise staff member noted that she had audible wheezes upon arrival with walking. She also reports some dizziness with sitting up. She has been taking her medications as prescribed. She does use a BiPAP at night. She denies any new lower extremity swelling. She is afebrile upon arrival. She denies any chest pain currently she reports that it is intermittent. Denies any nausea vomiting diarrhea denies any abdominal pain. Patient wears oxygen and BiPAP at night. She is normally on room air during the day. Cardiac workup ordered including CBC CMP serial troponins, PT PTT, BNP VBG chest x-ray and Fluvid swab. EKG was reviewed by Dr. Bonds ER attending, EKG interpretation somewhat limited due to artifact, old EKG available for review please see official report. 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 Quality:[facility] Health Related Social Needs: No Data to Display Sign Out Sign Out Data: Sign Out Comment: 72 year old female with SON, JOE, Shoulder pain, dizziness x 4 days. Hx of CHF, Atrial flutter/fibrillation, Sleep apnea, Morbid obesity, HtN etc. Cardiac W/U ordered including BNP, FLUVID, CXR, and serial Trops. Last updated by Marisel Justice NP at 02/24/23 15:44 Discharge Plan Discharge Details Chief Complaint: RespSymp Primary Care Provider: Maico Leonard ED Provider: Marisel Justice Home Meds and New Rx's Prescriptions: No Action (DME) lancets 28 gauge misc 1 ea Miscellaneous DAILY Qty: 100 4RF Rx Instructions: DX: E11.9 ONE TOUCH LANCETS test once/day nystatin 100,000 unit/gram cream 1,500,000 unit Topical BID PRN Rx Instructions: Apply twice a day beneath breasts till resolves nitroglycerin [Nitrostat] 0.4 mg tablet, sublingual 0.4 mg sublingual Q5 MIN PRN X3 PRN (Reason: chest pain) Qty: 30 0RF colchicine 0.6 mg tablet 1.2 mg PO ONCE Qty: 10 1RF Rx Instructions: may repeat with one tab after one hour for subtherapeutic effect bupropion HCl [Wellbutrin SR] 150 mg tablet sustained-release 12 hr 150 mg PO BID Qty: 180 3RF losartan 100 mg tablet 100 mg PO DAILY Qty: 90 3RF diltiazem HCl 240 mg capsule,extended release 24hr 240 mg PO DAILY Qty: 90 3RF (DME) Blood Glucose Test Strip 1 strip Miscellaneous DAILY Qty: 100 4RF Rx Instructions: DX: E11.9 ONE TOUCH ULTRA test once/day albuterol sulfate [ProAir HFA] 90 mcg/actuation HFA aerosol inhaler 2 puff Inhalation Q4H PRN Qty: 3 3RF ciprofloxacin-dexamethasone [Ciprodex] 0.3-0.1 % drops,suspension 3 drp BID PRN Qty: 7.5 2RF acetaminophen [Tylenol Extra Strength] 500 MG tablet 2 tab PO HS PRN BIPAP 1 ea inhalation HS Rx Instructions: SLEEP APNEA aspirin 81 MG tablet,chewable 81 mg PO DAILY Qty: 90 0RF glipizide 5 mg tablet extended release 24hr 5 mg PO DAILY Qty: 90 3RF omeprazole 40 mg capsule,delayed release(DR/EC) 40 mg PO DAILY Qty: 90 3RF metoprolol succinate 100 mg tablet extended release 24 hr 100 mg PO DAILY Qty: 90 3RF simvastatin 10 mg tablet 10 mg PO HS Qty: 90 3RF Rx Instructions: spironolactone [Aldactone] 25 mg tablet 25 mg PO DAILY Qty: 90 3RF fluoxetine 10 mg tablet 10 mg PO DAILY Qty: 90 3RF (DME) pen needle, diabetic [Comfort EZ Pen [place]] 33 gauge x 3/16 needle See Rx Instructions .ROUTE .MEDSUPPLY Qty: 100 3RF Rx Instructions: inject once/daily furosemide 20 mg tablet 40 mg PO DAILY Qty: 180 3RF Rx Instructions: dose increase 03/24/22 rivaroxaban 20 mg tablet 20 mg PO DAILY Qty: 90 3RF Rx Instructions: liraglutide 0.6 mg/0.1 mL (18 mg/3 mL) pen injector 1.8 mg SC .COMPLEX Qty: 9 12RF Rx Instructions: 1.8 mg subcut aneously once daily x 7 days; then 1.2mg daily, not to exceed 1.8mg/day subcut; magnesium amino acid chelate 100 MG tablet 500 mg PO BID Qty: 0 0RF Patient Comments: 05/08/17 restarted, had stopped 04/17. si Rx Instructions: hasn't been taking
[2023-02-24 15:53] LABS: Abs Immature Grans 0.05 10^3/uL (0.0-0.06); Absolute Basophil Count 0.12 10^3/uL (0.0-0.2); Absolute Eosinophil Count 0.36 10^3/uL (0.0-0.7); Absolute Lymphocyte Count 1.86 10^3/uL (1.2-3.4); Absolute Monocyte Count 0.85 10^3/uL (0.1-0.8); Absolute Neutrophil Count 5.28 10^3/uL (1.2-6.7); Basophils % 1.4; Eosinophils % 4.2; HCT 41.3 % (36.0-46.0); HGB 13.3 g/dL (11.2-15.7); Immature Grans % 0.6; Lymphocytes % 21.8; MCH 28.6 pg (27.0-33.0); MCHC 32.2 % (32.0-36.0); MCV 89 fL (80-95); MPV 10.7 fL (8.0-11.0); Platelet Count 298 10^3/uL (130-400); RBC 4.65 10^6/uL (3.93-5.22); RDW 12.8 % (11.7-14.6); RDW-SD 41.8 fL; WBC 8.52 10^3/uL (4.4-10.8)
[2023-02-24 16:06] LABS: INR 1.2 (0.9-1.1); PTT Activated 29.1 sec (23.6-32.8); Prothrombin Time 11.6 sec (9.1-11.1)
[2023-02-24 16:15] LABS: ALT 23 U/L (14-59); AST 10 U/L (15-37); Albumin 3.2 g/dL (3.4-5.0); Alkaline Phosphatase 56 U/L (46-116); Anion Gap 9.2 mmol/L (3-11); BUN 24 mg/dL (7-18); Bilirubin, Total 0.5 mg/dL (0.2-1.0); CO2 26.8 mmol/L (21.0-32.0); CREATININE 1.2 mg/dL (0.55-1.02); Calcium 8.5 mg/dL (8.5-10.1); Chloride 103 mmol/L (98-107); Estimated GFR 48.39 (mL/min/1.73m2); Glucose 171 mg/dL (74-106); Magnesium 1.5 mg/dL (1.8-2.4); NT-proBNP 273 pg/mL (<300); Sodium 139 mmol/L (136-145); Total Protein 7.1 g/dL (6.4-8.2); Troponin I < 50 ng/L (<or=60)
[2023-02-24 16:21] LABS: COVID-19 PCR Negative (Negative); Influenza A PCR Negative (Negative); Influenza B PCR Negative (Negative); RSV PCR Negative (Negative); Source Nasopharynx
--- NOTE | 2023-02-24 16:30 | DI.RAD_ITS ---
Exam(s) XR PORTABLE CHEST AP EXAM: XR PORTABLE CHEST AP CLINICAL HISTORY: Chest Pain TECHNIQUE: 2D digital imaging was performed. COMPARISON: CR XR CHEST 2V PA LATERAL from 10/24/[address] CHEST PE CTA from 03/31/2022 FINDINGS: Exam limited by under penetration an overlying leads. LUNGS: Grossly clear. No pleural abnormality seen. HEART: Enlarged. AORTA: Normal diameter. BONES: Unremarkable for age. Soft tissues: Unremarkable. IMPRESSION: Limited exam. No acute findings. DATA REPOSITORY: RADIATION DOSE DELIVERED:
[2023-02-24] MEDS: MAGNESIUM SULFATE 2 GM/50 ML BAG IVPB (17:06)
--- NOTE | 2023-02-24 17:30 | RT.EKG_ITS ---
APPROVED REPORT Exam: Resting ECG Reason for Exam: sob Patient Location: E HR:71 bpm ECG Measurements Heart Rate 71 AXIS NJ 140 P 65 QRSd 167 QRS 40 QT 434 T -5 QTc 472 Conclusion Sinus rhythm...normal P axis, V-rate 60- 99 Right bundle branch block...QRSd>120, terminal axis(90,270)
[2023-02-24 17:58] VITALS: PULSE 64; RESP 18
[2023-02-24] MEDS: Albuterol/Ipratropium 3 ML UPD VIAL UPD (17:58)
[2023-02-24 18:54] LABS: Troponin I < 50 ng/L (<or=60)
--- NOTE | 2023-02-24 19:15 | W.ED.GENAD ---
HPI General Stated Complaint: RespSymp Mode of arrival: ambulatory. KOAT: 3 Date/Time Provider Initiated Documentation: 02/24/23 15:15. Limitations to Documentation: no limitations. Information obtained by: patient, RN notes reviewed and old records reviewed. Related Data Home Medications Medication Instructions Recorded Confirmed acetaminophen 500 mg tablet 2 tab PO HS PRN 06/11/12 01/07/23 (Tylenol Extra Strength) Bipap 1 ea inhalation HS 01/23/15 01/07/23 aspirin 81 mg chewable tablet 81 mg PO DAILY #90 tab-caps 05/06/17 01/07/23 lancets 28 gauge #100 ea 06/11/18 09/02/22 albuterol sulfate 90 mcg/actuation 2 puff inhalation Q4H PRN ##3 12/08/18 01/07/23 aerosol inhaler (ProAir HFA) magnesium amino acid chelate 100 500 mg (5 x 100 mg) PO BID #0 tabs 07/12/19 01/07/23 mg tablet nystatin 100,000 unit/gram topical 1,500,000 unit topical BID PRN 10/30/20 01/07/23 cream nitroglycerin 0.4 mg sublingual 0.4 mg sublingual Q5 MIN PRN X3 04/10/21 01/07/23 tablet (Nitrostat) PRN chest pain #30 tabs colchicine 0.6 mg tablet 1.2 mg (2 x 0.6 mg) PO ONCE #10 06/04/21 01/07/23 tabs ciprofloxacin 0.3 %-dexamethasone 3 drp BID PRN #7.5 mL 01/01/22 01/07/23 0.1 % ear drops,suspension (Ciprodex) glipizide 5 mg tablet, extended 5 mg PO DAILY #90 tabs 01/28/22 01/07/23 release 24 hr omeprazole 40 mg capsule,delayed 40 mg PO DAILY #90 caps 01/28/22 01/07/23 release blood sugar diagnostic (Blood #100 ea 03/25/22 09/02/22 Glucose Test strips) diltiazem HCl 240 mg 240 mg PO DAILY #90 caps 03/25/22 01/07/23 capsule,extended release 24 hr metoprolol succinate 100 mg 100 mg PO DAILY #90 tabs 04/01/23 11/15/23 tablet,extended release 24 hr simvastatin 10 mg tablet 10 mg PO HS #90 tab-caps 06/13/22 01/07/23 spironolactone 25 mg tablet 25 mg PO DAILY #90 tabs 08/13/22 01/07/23 (Aldactone) bupropion HCl 150 mg tablet,12 hr 150 mg PO BID #180 tabs 09/02/22 01/07/23 sustained-release (Wellbutrin SR) losartan 100 mg tablet 100 mg PO DAILY #90 tab-caps 09/02/22 01/07/23 fluoxetine 10 mg tablet 10 mg PO DAILY #90 tabs 09/08/22 01/07/23 pen needle, diabetic 33 gauge x #100 ea 11/04/2205/08 (Comfort EZ Pen Cassel) furosemide 20 mg tablet 40 mg (2 x 20 mg) PO DAILY #180 11/08/22 01/07/23 tabs rivaroxaban 20 mg tablet 20 mg PO DAILY afib #90 tabs 12/18/22 01/07/23 liraglutide 0.6 mg/0.1 mL (18 mg/3 1.8 mg (0.3 mL) subcut .COMPLEX #9 01/05/23 01/07/23 mL) subcutaneous pen injector mL Previous Rx's Medication Instructions Recorded aspirin 81 mg chewable tablet 81 mg PO DAILY #90 tab-caps 05/06/17 lancets 28 gauge #100 ea 06/11/18 albuterol sulfate 90 mcg/actuation 2 puff inhalation Q4H PRN ##3 12/08/18 aerosol inhaler (ProAir HFA) magnesium amino acid chelate 100 500 mg (5 x 100 mg) PO BID #0 tabs 20 mg tablet nitroglycerin 0.4 mg sublingual 0.4 mg sublingual Q5 MIN PRN X3 04/10/21 tablet (Nitrostat) PRN chest pain #30 tabs colchicine 0.6 mg tablet 1.2 mg (2 x 0.6 mg) PO ONCE #10 06/04/21 tabs ciprofloxacin 0.3 %-dexamethasone 3 drp BID PRN #7.5 mL 01/01/22 0.1 % ear drops,suspension (Ciprodex) glipizide 5 mg tablet, extended 5 mg PO DAILY #90 tabs 01/28/22 release 24 hr omeprazole 40 mg capsule,delayed 40 mg PO DAILY #90 caps 01/28/22 release blood sugar diagnostic (Blood #100 ea 03/25/22 Glucose Test strips) diltiazem HCl 240 mg 240 mg PO DAILY #90 caps 03/25/22 capsule,extended release 24 hr metoprolol succinate 100 mg 100 mg PO DAILY #90 tabs 05/24/22 tablet,extended release 24 hr simvastatin 10 mg tablet 10 mg PO HS #90 tab-caps 06/13/22 spironolactone 25 mg tablet 25 mg PO DAILY #90 tabs 08/13/22 (Aldactone) bupropion HCl 150 mg tablet,12 hr 150 mg PO BID #180 tabs 09/02/22 sustained-release (Wellbutrin SR) losartan 100 mg tablet 100 mg PO DAILY #90 tab-caps 09/02/22 fluoxetine 10 mg tablet 10 mg PO DAILY #90 tabs 09/08/22 pen needle, diabetic 33 gauge x #100 ea 11/04/2205/08 (Comfort EZ Pen Cassel) furosemide 20 mg tablet 40 mg (2 x 20 mg) PO DAILY #180 11/08/22 tabs rivaroxaban 20 mg tablet 20 mg PO DAILY afib #90 tabs 12/18/22 liraglutide 0.6 mg/0.1 mL (18 mg/3 1.8 mg (0.3 mL) subcut .COMPLEX #9 01/05/23 mL) subcutaneous pen injector mL Allergies Allergy/AdvReac Type Severity Reaction Status Date / Time cefuroxime Allergy Severe HIVES Verified 02/24/23 18:24 latex Allergy Severe RASH Verified 02/24/23 18:24 Penicillins Allergy Severe SEVERE Verified 02/24/23 18:24 HIVES Sulfa (Sulfonamide Allergy Severe SEVERE Verified 02/24/23 18:24 Antibiotics) HIVES ciprofloxacin Allergy Mild TOPICAL Verified 02/24/23 18:24 IRRITATION clindamycin AdvReac Severe Hives Verified 02/24/23 18:24 adhesive AdvReac Intermediate SKIN Verified 02/24/23 18:24 COMES OFF caffeine AdvReac Intermediate CHEST PAIN Verified 02/24/23 18:24 lisinopril AdvReac Mild COUGH Verified 02/24/23 18:24 metformin AdvReac Mild diarrhea Verified 02/24/23 18:24 PFSH All Active Problems (Updated 02/24/23 @ 19:16 by Love Oliveira NP) Atypical chest pain (Acute) Heart palpitations (Acute) 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 of left ear (Acute) Bradycardia (Acute) Localized edema (Acute) Nail dystrophy (Acute) Acute suppurative otitis media of left ear without spontaneous rupture of ear drum (Acute) Ankle pain, right (Acute) Foot pain (Acute) Gout (Chronic) Fatigue (Acute) Unsteady (Acute) Chronic shoulder pain (Acute ~11/04/21) Chronic diarrhea (Acute) Acute swimmer's ear of left side (Acute) Central perforation of tympanic membrane, left ear (Acute) Non-recurrent acute suppurative otitis media of left ear (Acute) Thrombophlebitis (Acute) Foot pain, right (Acute) Otitis externa (Acute) Encounter for staple removal (Acute) Left knee pain (Acute) Low back pain (Acute) Back pain with radiculopathy (Acute) CHF (congestive heart failure) (Chronic) Well adult exam (Acute) Vaginal discharge (Acute) Low blood pressure (Acute) Exacerbation of reactive airway disease (Acute) Acute bronchitis (Acute) Acute diastolic heart failure with preserved ejection fraction (Acute) Atrial fibrillation with rapid ventricular response (Acute) Rib pain on right side (Acute) Shoulder pain, right (Acute) Chronic anticoagulation (Chronic) Atrial flutter (Acute 08/05/11) 10/30 normal echo 08/04 stress test, A flutter briefly in recovery Depressive disorder (Acute) Esophageal reflux (Acute) 2006 EGD at [facility]-normal 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; S/P 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 Gastroesophageal reflux disease (Acute) 2006 EGD at [facility]-normal 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; S/P Bilateral TKR-2005 Hyperlipidemia (Acute) Obesity (Acute) 11/2007-BMI 53.8% binge eating disorder Obstructive sleep apnea syndrome (Acute) uses BiPAP ([facility] sleep lab) Total urinary incontinence (Acute) urge incontinence Essential hypertension (Acute 12/16/12) Diabetes mellitus (Acute 06/18/12) A1c today watch diet Medical History Sensorineural hearing loss, bilateral URI (upper respiratory infection) Tick bite doubt Lyme, given lack of engorged tick and attachment time Herpes zoster without complication (05/22/15) Obesity HTN (hypertension) 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 Licona Replacement of total knee joint (~2004) b/l Open Carpal Tunnel release (~03/2009) right HAND SURGERY (~02/2013) Colonoscopy - MAC (05/29/17) Breast, Mastectomy (~01/2003) and reconstruction of TM Family History Mother , age 67 Diabetes TYPE II Essential hypertension Heart disease ANGINA Hyperlipidemia Stroke Renal cancer Father , age 80 Diabetes TYPE I Essential hypertension Heart disease Hyperlipidemia Sister Diabetes Essential hypertension Heart disease Hyperlipidemia Myocardial infarction X 2 Maternal Grandfather No problems noted. Paternal Grandfather No problems noted. Maternal Grandmother Renal cancer Paternal Grandmother No problems noted. Sister Essential hypertension Chronic obstructive lung disease Asthma Brother , age 61 Heart disease Hyperlipidemia Stroke Brother Human immunodeficiency virus (HIV) positive Myocardial infarction Social History Smoking/Tobacco Use Status: Former Tobacco Use tobacco type: cigarettes Quit Date: 05/24/98 Tobacco: How many years used: 24 Smokeless tobacco user: other Second Hand Exposure: Yes Smoking risk assessment performed?: Yes Alcohol Intake: former Drug use: Never Substance use type: does not use Caregiver/Support person: Yes Household members: spouse Housing: house Communication Needs: Hard of Hearing Do you need help understanding health information?: Rarely Pets and animals: No Sexually active: No Do you think of yourself as: lesbian/doshi/homosexual Current gender identity: female What is your relationship status?: How often do you talk on the phone with friends or family?: three or more times per week How often do you get together with friends or relatives?: once per week How often do you attend baptism or sabianist services?: decline to answer Do you belong to any clubs or organized social groups?: no Panel score (0-1 are the most socially isolated patients): 2 What type of physical activity do you participate in: other Details: cutting and splitting wood Duration: decline to answer Frequency: decline to answer Randi/Jewish: None Special randi needs: No Seatbelt use: sometimes Drive 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 Course Vital Signs Vital signs: Vital Signs Temperature 36.1 C L 02/24/23 15:15 Pulse 81 02/24/23 15:15 Respiratory Rate 24 02/24/23 15:15 Blood Pressure 175/77 H 02/24/23 15:15 Pulse Oximetry 95 02/24/23 15:15 Temperature 36.1 C L 02/24/23 15:15 Temperature Source Temporal Artery Scan 02/24/23 15:15 Pulse 64 02/24/23 17:58 Respiratory Rate 18 02/24/23 17:58 Respiratory Effort Normal, Non-Labored 02/24/23 19:14 Blood Pressure 175/77 H 02/24/23 15:15 Blood Pressure Position Sitting 02/24/23 15:15 Pulse Oximetry 95 02/24/23 15:15 Oxygen Delivery Method Room Air 02/24/23 15:15 Oxygen Flow Rate 0 02/24/23 15:15 Lab/Test Results Lab/Test Results: Laboratory Tests Range/Units 02/24/23 02/24/23 02/24/23 15:30 15:35 18:30 WBC (4.4-10.8) 10^3/uL 8.52 RBC (3.93-5.22) 10^6/uL 4.65 Hgb (11.2-15.7) g/dL 13.3 Hct (36.0-46.0) % 41.3 MCV (80-95) fL 89 MCH (27.0-33.0) pg 28.6 MCHC (32.0-36.0) % 32.2 RDW (11.7-14.6) % 12.8 Plt Count (130-400) 10^3/uL 298 MPV (8.0-11.0) fL 10.7 Immature Gran % 0.6 Neutrophils % 62.0 Lymphocytes % 21.8 Monocytes % 10.0 Eosinophils % 4.2 Basophils % 1.4 Nucleated RBC % (0.0-0.3) % 0.0 Absolute Neutrophils (1.2-6.7) 10^3/uL 5.28 Absolute Lymphocytes (1.2-3.4) 10^3/uL 1.86 Absolute Monocytes (0.1-0.8) 10^3/uL 0.85 H Absolute Eosinophils (0.0-0.7) 10^3/uL 0.36 Absolute Basophils (0.0-0.2) 10^3/uL 0.12 PT (9.1-11.1) sec 11.6 H INR (0.9-1.1) 1.2 H APTT (23.6-32.8) sec 29.1 Sodium (136-145) mmol/L 139 Potassium (3.5-5.1) mmol/L 4.0 Chloride (98-107) mmol/L 103 Carbon Dioxide (21.0-32.0) mmol/L 26.8 Anion Gap (3-11) mmol/L 9.2 BUN (7-18) mg/dL 24 H Creatinine (0.55-1.02) mg/dL 1.2 H Est GFR (CKD-EPI 2020) (mL/min/1.73m2) 48.39 Glucose (74-106) mg/dL 171 H Calcium (8.5-10.1) mg/dL 8.5 Magnesium (1.8-2.4) mg/dL 1.5 L Total Bilirubin (0.2-1.0) mg/dL 0.5 AST (15-37) U/L 10 L ALT (14-59) U/L 23 Alkaline Phosphatase (46-116) U/L 56 Troponin I (<or=60) ng/L < 50 < 50 NT-Pro-B Natriuret Pep (<300) pg/mL 273 Total Protein (6.4-8.2) g/dL 7.1 Albumin (3.4-5.0) g/dL 3.2 L COVID-19 Source Nasopharynx SARS-CoV-2 (PCR) (Negative) Negative Influenza Type A (PCR) (Negative) Negative Influenza Type B (PCR) (Negative) Negative RSV (PCR) (Negative) Negative Medical Decision Making Quality:SDOH Health Related Social Needs: No Data to Display Sign Out Sign Out Data: Sign Out Comment: 72 year old female with SON, JOE, Shoulder pain, dizziness x 4 days. Hx of CHF, Atrial flutter/fibrillation, Sleep apnea, Morbid obesity, HtN etc. Cardiac W/U ordered including BNP, FLUVID, CXR, and serial Trops. Last updated by Marisel Jsutice NP at 02/24/23 15:44 Discharge Plan Disposition Patient Disposition: Home Condition: Stable Discharge Details Clinical Impression: Heart palpitations, Atypical chest pain Primary Care Provider: Maico Leonard ED Provider: Love Oliveira [place] Meds and New Rx's Prescriptions: Continued (DME) lancets 28 gauge misc 1 ea Miscellaneous DAILY Qty: 100 4RF Rx Instructions: DX: E11.9 ONE TOUCH LANCETS test once/day nystatin 100,000 unit/gram cream 1,500,000 unit Topical BID PRN Rx Instructions: Apply twice a day beneath breasts till resolves nitroglycerin [Nitrostat] 0.4 mg tablet, sublingual 0.4 mg sublingual Q5 MIN PRN X3 PRN (Reason: chest pain) Qty: 30 0RF colchicine 0.6 mg tablet 1.2 mg PO ONCE Qty: 10 1RF Rx Instructions: may repeat with one tab after one hour for subtherapeutic effect bupropion HCl [Wellbutrin SR] 150 mg tablet sustained-release 12 hr 150 mg PO BID Qty: 180 3RF losartan 100 mg tablet 100 mg PO DAILY Qty: 90 3RF diltiazem HCl 240 mg capsule,extended release 24hr 240 mg PO DAILY Qty: 90 3RF (DME) Blood Glucose Test Strip 1 strip Miscellaneous DAILY Qty: 100 4RF Rx Instructions: DX: E11.9 ONE TOUCH ULTRA test once/day albuterol sulfate [ProAir HFA] 90 mcg/actuation HFA aerosol inhaler 2 puff Inhalation Q4H PRN Qty: 3 3RF ciprofloxacin-dexamethasone [Ciprodex] 0.3-0.1 % drops,suspension 3 drp BID PRN Qty: 7.5 2RF acetaminophen [Tylenol Extra Strength] 500 MG tablet 2 tab PO HS PRN BIPAP 1 ea inhalation HS Rx Instructions: SLEEP APNEA aspirin 81 MG tablet,chewable 81 mg PO DAILY Qty: 90 0RF glipizide 5 mg tablet extended release 24hr 5 mg PO DAILY Qty: 90 3RF omeprazole 40 mg capsule,delayed release(DR/EC) 40 mg PO DAILY Qty: 90 3RF metoprolol succinate 100 mg tablet extended release 24 hr 100 mg PO DAILY Qty: 90 3RF simvastatin 10 mg tablet 10 mg PO HS Qty: 90 3RF Rx Instructions: spironolactone [Aldactone] 25 mg tablet 25 mg PO DAILY Qty: 90 3RF fluoxetine 10 mg tablet 10 mg PO DAILY Qty: 90 3RF (DME) pen needle, diabetic [Comfort EZ Pen Cassel] 33 gauge x 3/16 needle See Rx Instructions .ROUTE .MEDSUPPLY Qty: 100 3RF Rx Instructions: inject once/daily furosemide 20 mg tablet 40 mg PO DAILY Qty: 180 3RF Rx Instructions: dose increase 03/24/22 rivaroxaban 20 mg tablet 20 mg PO DAILY Qty: 90 3RF Rx Instructions: liraglutide 0.6 mg/0.1 mL (18 mg/3 mL) pen injector 1.8 mg SC .COMPLEX Qty: 9 12RF Rx Instructions: 1.8 mg subcut aneously once daily x 7 days; then 1.2mg daily, not to exceed 1.8mg/day subcut; magnesium amino acid chelate 100 MG tablet 500 mg PO BID Qty: 0 0RF Patient Comments: 05/08/17 restarted, had stopped 04/17. si Rx Instructions: hasn't been taking Discharge Instructions Instructions: Chest Pain (ED), Heart Palpitations (ED) Additional Instructions: Your lab work and EKG shows no acute damage to your heart. You are in sinus rhythm with no evidence of atrial fibrillation noted while being monitored in the emergency department. You should continue your usual medications as previously directed. 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 Return here sooner for new or worsening symptoms Referrals: Maico Leonard MD [Primary Care Provider] -
[2023-02-24 19:32] VITALS: BP 175/77; PULSE 64; RESP 18; TEMP 36.1; O2SAT 95
== END 2023-02-24 19:34 | disposition home or self-care (01) ==
PROVIDERS: Registered Nurse Emergency; Emergency Provider Nurse Practitioner Acute Care; PCP Family Medicine
DX: R06.02 Shortness of breath (principal); R07.89 Other chest pain; R00.2 Palpitations; R42 Dizziness and giddiness; Z86.79 Personal history of other diseases of the circulatory system
CPT/HCPCS: 80053; 82805; 87637; 93005; 94640; 96365; 96366; 99284; 71045; 83735; 83880; 84484; 85025; 85610; 85730; 93010; 99283; J3475; J7620

== ENCOUNTER → 2023-03-23 14:22 | Outpatient (BNVA) | payer MEDICARE, BC, SELFPAY | PROVIDERS: PCP Family Medicine; Referring Provider Family Medicine; Visit Provider Podiatrist | DX: R25.2 Cramp and spasm (principal); E11.9 Type 2 diabetes mellitus without complications; L60.3 Nail dystrophy; I50.9 Heart failure, unspecified; I25.10 Atherosclerotic heart disease of native coronary artery without angina pectoris; Z79.01 Long term (current) use of anticoagulants; R60.0 Localized edema; M79.674 Pain in right toe(s); M79.675 Pain in left toe(s); R09.89 Other specified symptoms and signs involving the circulatory and respiratory systems; R23.8 Other skin changes; R23.4 Changes in skin texture; R20.8 Other disturbances of skin sensation | CPT/HCPCS: 11721 ==

== ENCOUNTER → 2023-06-23 15:04 | Outpatient (CLI) | payer MEDICARE, BC, SELFPAY ==
--- NOTE | 2023-06-23 15:00 | DI.RAD_ITS ---
Exam(s) XR FOOT RT COMPLETE EXAM: XR FOOT RT COMPLETE CLINICAL HISTORY: M79.671 Pain in rt foot, trauma, continued pain. TECHNIQUE: 2D digital imaging was performed. Three views. COMPARISON: No exams were available for comparison FINDINGS: BONES: No acute fracture is present. No bony destructive lesion is seen. Heel spurs. JOINTS: No dislocation present. Mild degenerative changes. SOFT TISSUE: Swelling over the dorsum of foot. No foreign body. No abnormal gas collection. Vascul ar calcifications present. IMPRESSION: Soft tissue swelling. No evidence of fracture. DATA REPOSITORY: RADIATION DOSE DELIVERED:
== END ==
PROVIDERS: PCP Family Medicine; Visit Provider Nurse Practitioner Family
DX: M79.671 Pain in right foot (principal)
CPT/HCPCS: 73630

== ENCOUNTER 2023-07-03 13:21 | Inpatient (IN) | payer MEDICARE, BC, SELFPAY ==
[2023-07-03] VITALS (51 sets, daily range): BP systolic 94–155; BP diastolic 31–71; PULSE 46–73; RESP 11–26; TEMP 36.4–36.5; O2SAT 92–98
--- NOTE | 2023-07-03 13:15 | RT.EKG_ITS ---
APPROVED REPORT Exam: Resting ECG Reason for Exam: Chest pain Patient Location: E HR:68 bpm ECG Measurements Heart Rate 68 AXIS WA 152 P 60 QRSd 158 QRS 70 QT 440 T 25 QTc 468 Conclusion Sinus rhythm...normal P axis, V-rate 60- 99 Right bundle branch block...QRSd>120, terminal axis(90,270)
[2023-07-03 13:41] LABS: Abs Immature Grans 0.03 10^3/uL (0.0-0.06); Absolute Basophil Count 0.15 10^3/uL (0.0-0.2); Absolute Eosinophil Count 0.37 10^3/uL (0.0-0.7); Absolute Lymphocyte Count 2.21 10^3/uL (1.2-3.4); Absolute Monocyte Count 0.75 10^3/uL (0.1-0.8); Basophils % 1.6 %; HCT 42.6 % (36.0-46.0); HGB 13.5 g/dL (11.2-15.7); Immature Grans % 0.3 %; MCHC 31.7 % (32.0-36.0); MCV 88 fL (80-95); MPV 11.1 fL (8.0-11.0); Monocytes % 8.1 %; Platelet Count 286 10^3/uL (130-400); RBC 4.83 10^6/uL (3.93-5.22); RDW 13.1 % (11.7-14.6); RDW-SD 42.4 fL; WBC 9.21 10^3/uL (4.4-10.8)
[2023-07-03] MEDS: nitroGLYcerin in D5W 50 MG/250 ML BTL IV (13:44)
[2023-07-03] MEDS: nitroGLYcerin 0.4 MG TAB SL (13:46)
[2023-07-03 13:58] LABS: ALT 23 U/L (14-59); AST 13 U/L (15-37); Albumin 3.6 g/dL (3.4-5.0); Alkaline Phosphatase 56 U/L (46-116); Anion Gap 9.5 mmol/L (3-11); BUN 26 mg/dL (7-18); Bilirubin, Total 0.8 mg/dL (0.2-1.0); CO2 27.5 mmol/L (21.0-32.0); CREATININE 1.3 mg/dL (0.55-1.02); Calcium 8.5 mg/dL (8.5-10.1); Chloride 103 mmol/L (98-107); Estimated GFR 43.69 (mL/min/1.73m2); Glucose 219 mg/dL (74-106); Magnesium 1.5 mg/dL (1.8-2.4); Sodium 140 mmol/L (136-145); Total Protein 7.3 g/dL (6.4-8.2); Troponin I < 50 ng/L (< or =60)
--- NOTE | 2023-07-03 14:00 | DI.RAD_ITS ---
Exam(s) XR PORTABLE CHEST AP EXAM: XR PORTABLE CHEST AP CLINICAL HISTORY: chest pain TECHNIQUE: 2D digital imaging was performed. COMPARISON: CR XR PORTABLE CHEST AP from 02/24/2023 FINDINGS: Exam extremely limited by under penetration and respiratory motion as well as multiple leads coiled over the chest. LUNGS: Grossly clear. No pleural abnormality seen. HEART: Grossly normal size. AORTA: Normal diameter. BONES: Unremarkable for age. Soft tissues: Unremarkable. IMPRESSION: Limited exam. No acute findings. DATA REPOSITORY: RADIATION DOSE DELIVERED:
--- NOTE | 2023-07-03 14:20 | W.ED.GENAD ---
Discharge Plan Disposition Patient Disposition: Admit to [facility] Condition: Stable Discharge Details Chief Complaint: Chest Pain Clinical Impression: Chest pain, Hypomagnesemia Primary Care Provider: Maico Leonard ED Provider: Meet Murrieta [place] Meds and New Rx's Prescriptions: No Action (DME) lancets 28 gauge misc 1 ea Miscellaneous DAILY Qty: 100 4RF Rx Instructions: DX: E11.9 ONE TOUCH LANCETS test once/day nystatin 100,000 unit/gram cream 1,500,000 unit Topical BID PRN Rx Instructions: Apply twice a day beneath breasts till resolves nitroglycerin [Nitrostat] 0.4 mg tablet, sublingual 0.4 mg sublingual Q5 MIN PRN X3 PRN (Reason: chest pain) Qty: 30 0RF bupropion HCl [Wellbutrin SR] 150 mg tablet sustained-release 12 hr 150 mg PO BID Qty: 180 3RF losartan 100 mg tablet 100 mg PO DAILY Qty: 90 3RF (DME) Blood Glucose Test Strip 1 strip Miscellaneous DAILY Qty: 100 4RF Rx Instructions: DX: E11.9 ONE TOUCH ULTRA test once/day diltiazem HCl 240 mg capsule,extended release 24hr 240 mg PO DAILY Qty: 90 3RF glipizide 5 mg tablet extended release 24hr 5 mg PO DAILY Qty: 90 3RF omeprazole 40 mg capsule,delayed release(DR/EC) 40 mg PO DAILY Qty: 90 3RF albuterol sulfate [ProAir HFA] 90 mcg/actuation HFA aerosol inhaler 2 puff Inhalation Q4H PRN Qty: 3 3RF ciprofloxacin-dexamethasone [Ciprodex] 0.3-0.1 % drops,suspension 3 drp BID PRN Qty: 7.5 2RF acetaminophen [Tylenol Extra Strength] 500 MG tablet 2 tab PO HS PRN BIPAP 1 ea inhalation HS Rx Instructions: SLEEP APNEA aspirin 81 MG tablet,chewable 81 mg PO DAILY Qty: 90 0RF spironolactone [Aldactone] 25 mg tablet 25 mg PO DAILY Qty: 90 3RF fluoxetine 10 mg tablet 10 mg PO DAILY Qty: 90 3RF (DME) pen needle, diabetic [Comfort EZ Pen [place]] 33 gauge x 3/16 needle See Rx Instructions .ROUTE .MEDSUPPLY Qty: 100 3RF Rx Instructions: inject once/daily furosemide 20 mg tablet 40 mg PO DAILY Qty: 180 3RF Rx Instructions: dose increase 03/24/22 rivaroxaban 20 mg tablet 20 mg PO DAILY Qty: 90 3RF Rx Instructions: metoprolol succinate 100 mg tablet extended release 24 hr 100 mg PO DAILY Qty: 90 3RF simvastatin 10 mg tablet 10 mg PO HS Qty: 90 3RF Rx Instructions: tirzepatide 5 mg/0.5 mL pen injector 5 mg subcut QWEEK 28 Days Qty: 2 0RF magnesium amino acid chelate 100 MG tablet 500 mg PO BID Qty: 0 0RF Patient Comments: 05/08/17 restarted, had stopped 04/17. si Rx Instructions: hasn't been taking HPI General Mode of arrival: ambulatory. Date/Time Provider Initiated Documentation: 07/03/23 13:28. Limitations to Documentation: no limitations. Information obtained by: patient. HPI Narrative: 73-year-old female with multiple medical problems including history of diabetes, hypertension, hyperlipidemia, coronary atherosclerosis, heart failure, obesity, here with chief complaint of chest pain. Patient notes pain in her center and left chest described as a pressure. She feels like someone is sitting on her chest. She has intermittent associated sharp pain. Pain has radiated to her jaw at times. Symptoms started around 1130 this morning and have persisted. She has no associated shortness of breath. Prior to onset she was feeling well today. No recent prolonged immobility or surgery. Related Data Home Medications Medication Instructions Recorded Confirmed acetaminophen 500 mg tablet 2 tab PO HS PRN 06/11/12 07/03/23 (Tylenol Extra Strength) Bipap 1 ea inhalation HS 01/23/15 07/03/23 aspirin 81 mg chewable tablet 81 mg PO DAILY #90 tab-caps 05/06/17 07/03/23 lancets 28 gauge #100 ea 06/11/18 07/03/23 albuterol sulfate 90 mcg/actuation 2 puff inhalation Q4H PRN ##3 12/08/18 07/03/23 aerosol inhaler (ProAir HFA) magnesium amino acid chelate 100 500 mg (5 x 100 mg) PO BID #0 tabs 07/12/19 07/03/23 mg tablet nystatin 100,000 unit/gram topical 1,500,000 unit topical BID PRN 10/30/20 07/03/23 cream nitroglycerin 0.4 mg sublingual 0.4 mg sublingual Q5 MIN PRN X3 04/10/21 07/03/23 tablet (Nitrostat) PRN chest pain #30 tabs ciprofloxacin 0.3 %-dexamethasone 3 drp BID PRN #7.5 mL 01/01/22 07/03/23 0.1 % ear drops,suspension (Ciprodex) blood sugar diagnostic (Blood #100 ea 03/25/22 07/03/23 Glucose Test strips) spironolactone 25 mg tablet 25 mg PO DAILY #90 tabs 08/13/22 07/03/23 (Aldactone) bupropion HCl 150 mg tablet,12 hr 150 mg PO BID #180 tabs 09/02/22 07/03/23 sustained-release (Wellbutrin SR) losartan 100 mg tablet 100 mg PO DAILY #90 tab-caps 09/02/22 07/03/23 fluoxetine 10 mg tablet 10 mg PO DAILY #90 tabs 09/08/22 07/03/23 pen needle, diabetic 33 gauge x #100 ea 11/04/22 07/03/2305/08 (Comfort EZ Pen [place]) furosemide 20 mg tablet 40 mg (2 x 20 mg) PO DAILY #180 11/08/22 07/03/23 tabs rivaroxaban 20 mg tablet 20 mg PO DAILY afib #90 tabs 12/18/22 07/03/23 diltiazem HCl 240 mg 240 mg PO DAILY #90 caps 03/10/23 07/03/23 capsule,extended release 24 hr glipizide 5 mg tablet, extended 5 mg PO DAILY #90 tabs 03/10/23 07/03/23 release 24 hr omeprazole 40 mg capsule,delayed 40 mg PO DAILY #90 caps 03/10/23 07/03/23 release metoprolol succinate 100 mg 100 mg PO DAILY #90 tabs 05/12/23 07/03/23 tablet,extended release 24 hr simvastatin 10 mg tablet 10 mg PO HS #90 tab-caps 06/08/23 07/03/23 tirzepatide 5 mg/0.5 mL 5 mg (0.5 mL) subcut QWEEK 4 weeks 06/22/23 07/03/23 subcutaneous pen injector #2 mL Previous Rx's Medication Instructions Recorded aspirin 81 mg chewable tablet 81 mg PO DAILY #90 tab-caps 05/06/17 lancets 28 gauge #100 ea 06/11/18 albuterol sulfate 90 mcg/actuation 2 puff inhalation Q4H PRN ##3 12/08/18 aerosol inhaler (ProAir HFA) magnesium amino acid chelate 100 500 mg (5 x 100 mg) PO BID #0 tabs 07/11/20 mg tablet nitroglycerin 0.4 mg sublingual 0.4 mg sublingual Q5 MIN PRN X3 04/10/21 tablet (Nitrostat) PRN chest pain #30 tabs ciprofloxacin 0.3 %-dexamethasone 3 drp BID PRN #7.5 mL 01/01/22 0.1 % ear drops,suspension (Ciprodex) blood sugar diagnostic (Blood #100 ea 03/25/22 Glucose Test strips) spironolactone 25 mg tablet 25 mg PO DAILY #90 tabs 08/13/22 (Aldactone) bupropion HCl 150 mg tablet,12 hr 150 mg PO BID #180 tabs 09/02/22 sustained-release (Wellbutrin SR) losartan 100 mg tablet 100 mg PO DAILY #90 tab-caps 09/02/22 fluoxetine 10 mg tablet 10 mg PO DAILY #90 tabs 09/08/22 pen needle, diabetic 33 gauge x #100 ea 11/04/2205/08 (Comfort EZ Pen [place]) furosemide 20 mg tablet 40 mg (2 x 20 mg) PO DAILY #180 11/08/22 tabs rivaroxaban 20 mg tablet 20 mg PO DAILY afib #90 tabs 12/18/22 diltiazem HCl 240 mg 240 mg PO DAILY #90 caps 03/10/23 capsule,extended release 24 hr glipizide 5 mg tablet, extended 5 mg PO DAILY #90 tabs 03/10/23 release 24 hr omeprazole 40 mg capsule,delayed 40 mg PO DAILY #90 caps 03/10/23 release metoprolol succinate 100 mg 100 mg PO DAILY #90 tabs 05/12/23 tablet,extended release 24 hr simvastatin 10 mg tablet 10 mg PO HS #90 tab-caps 06/08/23 tirzepatide 5 mg/0.5 mL 5 mg (0.5 mL) subcut QWEEK 4 weeks 06/22/23 subcutaneous pen injector #2 mL Allergies Allergy/AdvReac Type Severity Reaction Status Date / Time cefuroxime Allergy Severe HIVES Verified 06/25/23 08:31 latex Allergy Severe RASH Verified 06/25/23 08:31 Penicillins Allergy Severe SEVERE Verified 06/25/23 08:31 HIVES Sulfa (Sulfonamide Allergy Severe SEVERE Verified 06/25/23 08:31 Antibiotics) HIVES ciprofloxacin Allergy Mild TOPICAL Verified 06/25/23 08:31 IRRITATION clindamycin AdvReac Severe Hives Verified 06/25/23 08:31 adhesive AdvReac Intermediate SKIN Verified 06/25/23 08:31 COMES OFF caffeine AdvReac Intermediate CHEST PAIN Verified 06/25/23 08:31 NSAIDS (Non-Steroidal AdvReac Intermediate Other (See Verified 06/25/23 08:31 Anti-Inflamma Comment) lisinopril AdvReac Mild COUGH Verified 06/25/23 08:31 metformin AdvReac Mild diarrhea Verified 06/25/23 08:31 General Stated Complaint: Chest Pain KOTA: 3 Exam Const General: cooperative and anxious HENAL Head: normocephalic Mouth: moist mucous membranes Eyes Conjunctivae: normal conjunctivae Sclera: normal sclerae Neck Neck: trachea midline and supple Resp Auscultation: clear to auscultation bilaterally, no rales, no rhonchi and no wheezes Cardio Rate: regular rate and not tachycardic Rhythm: regular rhythm GI Palpation: soft, not firm, no guarding, no masses, not rigid and nontender Skin General skin exam: no rashes or lesions noted Neuro General: patient alert, patient awake, patient oriented x3 and tone normal Extrem General: calf tenderness on the right (patient notes chronic unchanged) Psych Appearance: grossly normal Mental Status: mental status grossly normal Speech and Movement: speech and movement normal Affect: anxious affect Course Vital Signs Vital signs: Vital Signs Pulse 68 07/03/23 13:24 Respiratory Rate 24 07/03/23 13:24 Pulse Oximetry 96 07/03/23 13:24 Temperature 36.5 C 07/03/23 13:28 Temperature Source Skin 07/03/23 13:28 Pulse 50 L 07/03/23 14:00 Pulse 49 L 07/03/23 14:10 Respiratory Rate 18 07/03/23 14:10 Respiratory Effort Short of Breath 07/03/23 13:31 Blood Pressure 119/44 L 07/03/23 14:00 Blood Pressure Mean 69 07/03/23 14:00 Pulse Oximetry 94 07/03/23 14:10 Oxygen Delivery Method Room Air 07/03/23 13:28 Oxygen Flow Rate 0 07/03/23 13:28 Lab/Test Results Lab/Test Results: Laboratory Tests Range/Units 07/03/23 13:30 WBC (4.4-10.8) 10^3/uL 9.21 RBC (3.93-5.22) 10^6/uL 4.83 Hgb (11.2-15.7) g/dL 13.5 Hct (36.0-46.0) % 42.6 MCV (80-95) fL 88 MCH (27.0-33.0) pg 28.0 MCHC (32.0-36.0) % 31.7 L RDW (11.7-14.6) % 13.1 Plt Count (130-400) 10^3/uL 286 MPV (8.0-11.0) fL 11.1 H Immature Gran % % 0.3 Neutrophils % % 62.0 Lymphocytes % % 24.0 Monocytes % % 8.1 Eosinophils % % 4.0 Basophils % % 1.6 Nucleated RBC % (0.0-0.3) % 0.0 Absolute Neutrophils (1.2-6.7) 10^3/uL 5.70 Absolute Lymphocytes (1.2-3.4) 10^3/uL 2.21 Absolute Monocytes (0.1-0.8) 10^3/uL 0.75 Absolute Eosinophils (0.0-0.7) 10^3/uL 0.37 Absolute Basophils (0.0-0.2) 10^3/uL 0.15 Sodium (136-145) mmol/L 140 Potassium (3.5-5.1) mmol/L 4.0 Chloride (98-107) mmol/L 103 Carbon Dioxide (21.0-32.0) mmol/L 27.5 Anion Gap (3-11) mmol/L 9.5 BUN (7-18) mg/dL 26 H Creatinine (0.55-1.02) mg/dL 1.3 H Est GFR (CKD-EPI 2020) (mL/min/1.73m2) 43.69 Glucose (74-106) mg/dL 219 H Calcium (8.5-10.1) mg/dL 8.5 Magnesium (1.8-2.4) mg/dL 1.5 L Total Bilirubin (0.2-1.0) mg/dL 0.8 AST (15-37) U/L 13 L ALT (14-59) U/L 23 Alkaline Phosphatase (46-116) U/L 56 Troponin I (< or =60) ng/L < 50 Total Protein (6.4-8.2) g/dL 7.3 Albumin (3.4-5.0) g/dL 3.6 Medical Decision Making 1423??73-year-old female with history of hypertension, diabetes, hyperlipidemia, atrial fibrillation, pulmonary hypertension, CHF, suspected coronary atherosclerosis noted in record, here with chest pressure and intermittent sharp pain with radiation to her jaw. Patient saturating well in no respiratory distress. She is hemodynamically stable Patient has significant risk factors for coronary artery disease and has suspected coronary atherosclerosis listed as a problem in the past. I am concerned about ACS. EKG was reviewed and interpreted by me: Please see report, sinus rhythm 68 bpm, right bundle branch block, no STEMI. Initial troponin negative. Plan to trend. I have given nitroglycerin sublingual and started nitroglycerin infusion. Pressure resolved with nitroglycerin. Patient took baby aspirin earlier today. She is on anticoagulant Xarelto which she took last night. -- Patient reassessed and pain continues to be improved on nitroglycerin. She does note intermittent discomfort. Delta troponin negative. Patient is high risk. Plan for trending troponin and continue nitroglycerin infusion. I called and spoke with the hospitalist, discussed ED presentation course, he will admit the patient. Lab Data Lab results reviewed: Yes I reviewed the patient's lab results. Labs: Laboratory Tests Range/Units 07/03/23 07/03/23 07/03/23 13:30 15:45 16:35 WBC (4.4-10.8) 10^3/uL 9.21 RBC (3.93-5.22) 10^6/uL 4.83 Hgb (11.2-15.7) g/dL 13.5 Hct (36.0-46.0) % 42.6 MCV (80-95) fL 88 MCH (27.0-33.0) pg 28.0 MCHC (32.0-36.0) % 31.7 L RDW (11.7-14.6) % 13.1 Plt Count (130-400) 10^3/uL 286 MPV (8.0-11.0) fL 11.1 H Immature Gran % % 0.3 Neutrophils % % 62.0 Lymphocytes % % 24.0 Monocytes % % 8.1 Eosinophils % % 4.0 Basophils % % 1.6 Nucleated RBC % (0.0-0.3) % 0.0 Absolute Neutrophils (1.2-6.7) 10^3/uL 5.70 Absolute Lymphocytes (1.2-3.4) 10^3/uL 2.21 Absolute Monocytes (0.1-0.8) 10^3/uL 0.75 Absolute Eosinophils (0.0-0.7) 10^3/uL 0.37 Absolute Basophils (0.0-0.2) 10^3/uL 0.15 Sodium (136-145) mmol/L 140 Potassium (3.5-5.1) mmol/L 4.0 Chloride (98-107) mmol/L 103 Carbon Dioxide (21.0-32.0) mmol/L 27.5 Anion Gap (3-11) mmol/L 9.5 BUN (7-18) mg/dL 26 H Creatinine (0.55-1.02) mg/dL 1.3 H Est GFR (CKD-EPI 2020) (mL/min/1.73m2) 43.69 Glucose (74-106) mg/dL 219 H Calcium (8.5-10.1) mg/dL 8.5 Magnesium (1.8-2.4) mg/dL 1.5 L Total Bilirubin (0.2-1.0) mg/dL 0.8 AST (15-37) U/L 13 L ALT (14-59) U/L 23 Alkaline Phosphatase (46-116) U/L 56 Troponin I (< or =60) ng/L < 50 < 50 Cancelled Total Protein (6.4-8.2) g/dL 7.3 Albumin (3.4-5.0) g/dL 3.6 Quality:SDOH Health Related Social Needs: No Data to Display Critical Care Time Critical Care Time Critical Care Time: Yes Total Critical Care Time: 45 Attestation: I spent 45 minutes addressing this patient's immediate life threats. Please see MDM section of note. This time was spent engaged in work directly related to the patient's care, exclusive of separate procedures, and failure to initiate these interventions would have likely resulted in clinically significant or life threatening deterioration in the patient's condition. [facility] All Active Problems (Updated 07/03/23 @ 16:54 by Meet Murrieta MD) Hypomagnesemia (Acute) Chest pain (Acute) Cramping of feet (Acute) Adjustment disorder with anxious mood (Acute) 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 of left ear (Acute) Bradycardia (Acute) Localized edema (Acute) Nail dystrophy (Acute) Acute suppurative otitis media of left ear without spontaneous rupture of ear drum (Acute) Ankle pain, right (Acute) Foot pain (Acute) Gout (Chronic) Fatigue (Acute) Unsteady (Acute) Chronic shoulder pain (Acute ~11/04/21) Chronic diarrhea (Acute) Acute swimmer's ear of left side (Acute) Central perforation of tympanic membrane, left ear (Acute) Non-recurrent acute suppurative otitis media of left ear (Acute) Thrombophlebitis (Acute) Foot pain, right (Acute) dropped firewood on top of foot Otitis externa (Acute) Encounter for staple removal (Acute) Left knee pain (Acute) Low back pain (Acute) Back pain with radiculopathy (Acute) CHF (congestive heart failure) (Chronic) Well adult exam (Acute) Vaginal discharge (Acute) Low blood pressure (Acute) Exacerbation of reactive airway disease (Acute) Acute bronchitis (Acute) Acute diastolic heart failure with preserved ejection fraction (Acute) Atrial fibrillation with rapid ventricular response (Acute) Rib pain on right side (Acute) Shoulder pain, right (Acute) Chronic anticoagulation (Chronic) Atrial flutter (Acute 08/05/11) 10/30 normal echo 08/04 stress test, A flutter briefly in recovery Depressive disorder (Acute) Esophageal reflux (Acute) [address] [facility]-normal 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; S/P 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 Gastroesophageal reflux disease (Acute) [address] [facility] [place]-normal 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; S/P Bilateral TKR-2005 Hyperlipidemia (Acute) Obesity (Acute) 11/2007-BMI 53.8% binge eating disorder Obstructive sleep apnea syndrome (Acute) uses BiPAP (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 Licona Replacement of total knee joint (~2004) b/l Open Carpal Tunnel release (~03/2009) right HAND SURGERY (~02/2013) Colonoscopy - MAC (05/29/17) Breast, Mastectomy (~01/2003) and reconstruction of TM Family History Mother , age 67 Diabetes TYPE II Essential hypertension Heart disease ANGINA Hyperlipidemia Stroke Renal cancer Father , age 80 Diabetes TYPE I Essential hypertension Heart disease Hyperlipidemia Sister Diabetes Essential hypertension Heart disease Hyperlipidemia Myocardial infarction X 2 Maternal Grandfather No problems noted. Paternal Grandfather No problems noted. Maternal Grandmother Renal cancer Paternal Grandmother No problems noted. Sister Essential hypertension Chronic obstructive lung disease Asthma Brother , age 61 Heart disease Hyperlipidemia Stroke Brother Human immunodeficiency virus (HIV) positive Myocardial infarction Social History Smoking/Tobacco Use Status: Former Tobacco Use tobacco type: cigarettes Quit Date: 05/24/98 Tobacco: How many years used: 24 Smokeless tobacco user: other Second Hand Exposure: Yes Smoking risk assessment performed?: Yes Alcohol Intake: former Drug use: Never Substance use type: does not use Caregiver/Support person: Yes Household members: spouse Housing: house Communication Needs: Hard of Hearing Do you need help understanding health information?: Rarely Pets and animals: No Sexually active: No Do you think of yourself as: lesbian/doshi/homosexual Current gender identity: female What is your relationship status?: How often do you talk on the phone with friends or family?: three or more times per week How often do you get together with friends or relatives?: once per week How often do you attend samaritan or jainism services?: decline to answer Do you belong to any clubs or organized social groups?: no Panel score (0-1 are the most socially isolated patients): 2 What type of physical activity do you participate in: other Details: cutting and splitting wood Duration: decline to answer Frequency: decline to answer Randi/Sabianist: None Special randi needs: No Seatbelt use: sometimes Drive intox or ride w/intox cattle 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
[2023-07-03 16:16] LABS: Troponin I < 50 ng/L (< or =60)
[2023-07-03] MEDS: MAGNESIUM SULFATE 2 GM/50 ML BAG IVINF (16:54)
--- NOTE | 2023-07-03 17:12 | W.PC.ACHO ---
Registration Status: REG ER Primary Language: Preferred Language: Vietnamese ED Information & Data Chief Complaint Chest Pain 07/03/23 14:30 Triage Note Sharp chest pain onoing 07/03/23 13:24 since 1130am. SOB and crying . states pain is radiating into jaw, crying. No N/V. Not diaphoretic. 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 Atrial flutter AURORA (obstructive sleep apnea) (Last Reviewed 07/03/23 @ 14:22 by Meet Murrieta MD) S/p bilateral myringotomy with tube placement History of tonsillectomy and adenoidectomy History of hand surgery History of mastoidectomy (02/14/14) Status post total bilateral knee replacement shoulder surgery (04/30/16) Replacement of total knee joint (~2004) Open Carpal Tunnel release (~03/2009) HAND SURGERY (~02/2013) Colonoscopy - MAC (05/29/17) Breast, Mastectomy (~01/2003) Most Recent Vital Signs Temperature 36.5 C 07/03/23 13:28 Temperature Source Skin 07/03/23 13:28 Pulse 53 L 07/03/23 17:01 Pulse 59 L 07/03/23 17:02 Respiratory Rate 21 07/03/23 17:02 Respiratory Effort Short of Breath 07/03/23 13:31 Blood Pressure 129/71 07/03/23 17:01 Blood Pressure Mean 87 07/03/23 17:01 Pulse Oximetry 95 07/03/23 17:02 Oxygen Delivery Method Room Air 07/03/23 13:28 Oxygen Flow Rate 0 07/03/23 13:28 Allergies cefuroxime Allergy (Severe, Verified 06/25/23 08:31) HIVES latex Allergy (Severe, Verified 06/25/23 08:31) RASH Penicillins Allergy (Severe, Verified 06/25/23 08:31) SEVERE HIVES Sulfa (Sulfonamide Antibiotics) Allergy (Severe, Verified 06/25/23 08:31) SEVERE HIVES ciprofloxacin Allergy (Mild, Verified 06/25/23 08:31) TOPICAL IRRITATION clindamycin Adverse Reaction (Severe, Verified 06/25/23 08:31) Hives adhesive Adverse Reaction (Intermediate, Verified 06/25/23 08:31) SKIN COMES OFF caffeine Adverse Reaction (Intermediate, Verified 06/25/23 08:31) CHEST PAIN NSAIDS (Non-Steroidal Anti-Inflamma Adverse Reaction (Intermediate, Verified 06/25/23 08:31) Other (See Comment) chest pain lisinopril Adverse Reaction (Mild, Verified 06/25/23 08:31) COUGH metformin Adverse Reaction (Mild, Verified 06/25/23 08:31) diarrhea Precautions Isolation Standard precaution 07/03/23 13:28 Active Medications Generic Name Dose Route Start Last Admin Trade Name Freq PRN Reason Stop Dose Admin Nitroglycerin/Dextrose 50 mg in 250 mls @ 6 mls/hr 07/03/23 13:45 07/03/23 13:44 IV 10 mcg/min INFUSION STEPHEN 3 mls/hr Administration Protocol 20 MCG/MIN Magnesium Sulfate 2 gm in 50 mls @ 25 mls/hr 07/03/23 16:28 07/03/23 16:54 IVINF 07/03/23 18:27 25 mls/hr NOW ONE Administration Nitroglycerin 0.4 mg 07/03/23 13:40 07/03/23 13:46 Nitroglycerin 0.4 Mg Tab SL 0.4 mg Q5 MIN PRN X3 PRN Administration IV IV Catheter Type [Right Peripheral IV Antecubital] IV Catheter Gauge [Right 18 Antecubital] Diet Orders Category Date Time Status Diabetes Consistent CHO/Heart Healthy [DIET] Nutrition 07/03/23 Dinner Active Diagnostics 07/03/23 07/03/23 07/03/23 Range/Units 19:35 16:35 15:45 WBC (4.4-10.8) 10^3/uL RBC (3.93-5.22) 10^6/uL Hgb (11.2-15.7) g/dL Hct (36.0-46.0) % MCV (80-95) fL MCH (27.0-33.0) pg MCHC (32.0-36.0) % RDW (11.7-14.6) % Plt Count (130-400) 10^3/uL MPV (8.0-11.0) fL Immature Gran % % Neutrophils % % Lymphocytes % % Monocytes % % Eosinophils % % Basophils % % Nucleated RBC % (0.0-0.3) % Absolute Neutrophils (1.2-6.7) 10^3/uL Absolute Lymphocytes (1.2-3.4) 10^3/uL Absolute Monocytes (0.1-0.8) 10^3/uL Absolute Eosinophils (0.0-0.7) 10^3/uL Absolute Basophils (0.0-0.2) 10^3/uL Sodium (136-145) mmol/L Potassium (3.5-5.1) mmol/L Chloride (98-107) mmol/L Carbon Dioxide (21.0-32.0) mmol/L Anion Gap (3-11) mmol/L BUN (7-18) mg/dL Creatinine (0.55-1.02) mg/dL Est GFR (CKD-EPI 2020) (mL/min/1.73m2) Glucose (74-106) mg/dL Calcium (8.5-10.1) mg/dL Magnesium (1.8-2.4) mg/dL Total Bilirubin (0.2-1.0) mg/dL AST (15-37) U/L ALT (14-59) U/L Alkaline Phosphatase (46-116) U/L Troponin I Pending Cancelled < 50 (< or =60) ng/L Total Protein (6.4-8.2) g/dL Albumin (3.4-5.0) g/dL 07/03/23 Range/Units 13:30 WBC 9.21 (4.4-10.8) 10^3/uL RBC 4.83 (3.93-5.22) 10^6/uL Hgb 13.5 (11.2-15.7) g/dL Hct 42.6 (36.0-46.0) % MCV 88 (80-95) fL MCH 28.0 (27.0-33.0) pg MCHC 31.7 L (32.0-36.0) % RDW 13.1 (11.7-14.6) % Plt Count 286 (130-400) 10^3/uL MPV 11.1 H (8.0-11.0) fL Immature Gran % 0.3 % Neutrophils % 62.0 % Lymphocytes % 24.0 % Monocytes % 8.1 % Eosinophils % 4.0 % Basophils % 1.6 % Nucleated RBC % 0.0 (0.0-0.3) % Absolute Neutrophils 5.70 (1.2-6.7) 10^3/uL Absolute Lymphocytes 2.21 (1.2-3.4) 10^3/uL Absolute Monocytes 0.75 (0.1-0.8) 10^3/uL Absolute Eosinophils 0.37 (0.0-0.7) 10^3/uL Absolute Basophils 0.15 (0.0-0.2) 10^3/uL Sodium 140 (136-145) mmol/L Potassium 4.0 (3.5-5.1) mmol/L Chloride 103 (98-107) mmol/L Carbon Dioxide 27.5 (21.0-32.0) mmol/L Anion Gap 9.5 (3-11) mmol/L BUN 26 H (7-18) mg/dL Creatinine 1.3 H (0.55-1.02) mg/dL Est GFR (CKD-EPI 2020) 43.69 (mL/min/1.73m2) Glucose 219 H (74-106) mg/dL Calcium 8.5 (8.5-10.1) mg/dL Magnesium 1.5 L (1.8-2.4) mg/dL Total Bilirubin 0.8 (0.2-1.0) mg/dL AST 13 L (15-37) U/L ALT 23 (14-59) U/L Alkaline Phosphatase 56 (46-116) U/L Troponin I < 50 (< or =60) ng/L Total Protein 7.3 (6.4-8.2) g/dL Albumin 3.6 (3.4-5.0) g/dL Intake and Output - 24 Hour Total 07/03/23 13:21 thru 07/03/23 13:45 Intake Total 10 Balance 10 Weight 151.3 kg Intake: IV 10 Falls Risk Assessment History of Falls Previous History 07/03/23 13:28 Contributing Factors Impairments 07/03/23 13:28 Ambulatory Aids Independent 07/03/23 13:28 Tubes/Lines None 07/03/23 13:28 Gait Evaluation W/no contributing factors 07/03/23 13:28 Cognition No cognitive impairment 07/03/23 13:28 Fall Total Score 28 07/03/23 13:28 Level of Risk Moderate Risk 07/03/23 13:28 v v v v v v v v v Sending and/or Receiving Nurses: Please use comment section below to note any information pertinent to the patient hand-off not included above. Information / Comments: Report received from: Sejal Blair RN
--- NOTE | 2023-07-03 17:33 | HPE_ITS ---
Date of service: 07/03/23 Time of Service: 17:33 Assessment and Plan Assessment and plan (1) Chest pain: Status: Acute Assessment and plan: History and her risk factors are concerning. Story possibly concenring for unstable angina, but troponins and EKG not c/w ACS. I agree to observe and continue to cycle her troponins. Pain releived by NTG drip, will continue this, admit to ICU. If troponins positive, should call [facility] [place] If negative, could consider discharge if she is off the NTG and pain free vs staying for repeat MPI ASCVD on her list based on abnormal MPI in 2019 but looking at report this is more likely artifact echocardiogram frmo 03/17 showed nl LVEF 60-65%, no signs of CHF now. She is already on aspirin and anticoagulation and statin, no additional treatment for now. (2) Hypomagnesemia: Status: Acute Assessment and plan: replaced in ED, follow (3) DM (diabetes mellitus): Status: None Assessment and plan: Has been reasonably well controlled, continue home medication. I don't think the new mounjaro caused her symptoms, it should improve her retirement cardiac prognosis (4) Essential hypertension: Status: Acute Assessment and plan: BP has been reasonably controlled, continue home medication. (5) Obstructive sleep apnea syndrome: Status: Acute Assessment and plan: home BiPAP (6) Gastroesophageal reflux disease: Status: Acute Assessment and plan: continue pantoprazole (7) Paroxysmal atrial fibrillation: Status: Acute Assessment and plan: in sinus now, continue diltiazem and anticoagulation with rivaroxaban. Possible interaction noted, but she has been on this chronically History of Present Illness History of Present Illness Chief Complaint: chest pain Narrative: 73 yo F with history of type 2 DM, HTN, hyperlipidemia, paroxysmal atrial fibrillation, and BMI >40 presenting with acute onset chest pain. Pain started at 11:30 am at home while she was talking on the phone, no emotional or physical stress. She was active that morning without chest pain. Pain pressure like a gorilla sitting on her chest, severe, substernal and radiating to the left neck/jaw. She also felt sharp twinges of pain. Was associated with SOB and lightheadedness. No nausea, palpitations, or diaphoresis. Pain persisted until she got here and was treated with NTG sublingual and then via IV, about 2 hours. She has had chest pain before, but not known CAD, no catheterization or stent. She has had chest pain before but not this severe. She does take omeprazole for GERD but this hasn't been bothering her recently. Only recent medication change was to start tirzepatide for diabetes and weight. She had taken 2.5 for 4 weeks, and was supposed to get 5mg starting yesterday, but it was on back order. She had not been getting any side effects from this. she has been taking her medication regularly Review of Systems All systems reviewed & are unremarkable except as noted in HPI and below Eyes Eyes: Reports other visual disturbances (has cataract, no acute change) ENT Ears, Nose, Mouth, and Throat: Denies dental pain, Reports nasal discharge (allergies) and Denies sore throat Cardiovascular Cardiovascular: Denies leg edema and Denies orthopnea Respiratory Respiratory: Denies cough, Denies excessive phlegm production and Denies wheezing Allergic/Immunologic Allergic/Immunologic: Denies wheezing PFSH All Active Problems (Updated 07/03/23 @ 18:02 by Tanner Durán) Paroxysmal atrial fibrillation (Acute) Hypomagnesemia (Acute) Chest pain (Acute) Cramping of feet (Acute) Adjustment disorder with anxious mood (Acute) 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 of left ear (Acute) Bradycardia (Acute) Localized edema (Acute) Nail dystrophy (Acute) Acute suppurative otitis media of left ear without spontaneous rupture of ear drum (Acute) Ankle pain, right (Acute) Foot pain (Acute) Gout (Chronic) Fatigue (Acute) Unsteady (Acute) Chronic shoulder pain (Acute ~11/04/21) Chronic diarrhea (Acute) Acute swimmer's ear of left side (Acute) Central perforation of tympanic membrane, left ear (Acute) Non-recurrent acute suppurative otitis media of left ear (Acute) Thrombophlebitis (Acute) Foot pain, right (Acute) dropped firewood on top of foot Otitis externa (Acute) Encounter for staple removal (Acute) Left knee pain (Acute) Low back pain (Acute) Back pain with radiculopathy (Acute) CHF (congestive heart failure) (Chronic) Well adult exam (Acute) Vaginal discharge (Acute) Low blood pressure (Acute) Exacerbation of reactive airway disease (Acute) Acute bronchitis (Acute) Acute diastolic heart failure with preserved ejection fraction (Acute) Atrial fibrillation with rapid ventricular response (Acute) Rib pain on right side (Acute) Shoulder pain, right (Acute) Chronic anticoagulation (Chronic) Atrial flutter (Acute 08/05/11) 10/30 normal echo 08/04 stress test, A flutter briefly in recovery Depressive disorder (Acute) Esophageal reflux (Acute) 2006 EGD at [facility] [place] 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; S/P 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 Gastroesophageal reflux disease (Acute) 2006 EGD at [facility]normal 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; S/P Bilateral TKR-2005 Hyperlipidemia (Acute) Obesity (Acute) 11/2007-BMI 53.8% binge eating disorder Obstructive sleep apnea syndrome (Acute) uses BiPAP ([facility] [place]) Total urinary incontinence (Acute) urge incontinence Essential hypertension (Acute 12/16/12) Diabetes mellitus (Acute 06/18/12) A1c today watch diet Medical History Sensorineural hearing loss, bilateral URI (upper respiratory infection) Tick bite doubt Lyme, given lack of engorged tick and attachment time Herpes zoster without complication (05/22/15) Obesity HTN (hypertension) 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 Licona Replacement of total knee joint (~2004) b/l Open Carpal Tunnel release (~03/2009) right HAND SURGERY (~02/2013) Colonoscopy - MAC (05/29/17) Breast, Mastectomy (~01/2003) and reconstruction of TM Family History Mother , age 67 Diabetes TYPE II Essential hypertension Heart disease ANGINA Hyperlipidemia Stroke Renal cancer Father , age 80 Diabetes TYPE I Essential hypertension Heart disease Hyperlipidemia Sister Diabetes Essential hypertension Heart disease Hyperlipidemia Myocardial infarction X 2 Maternal Grandfather No problems noted. Paternal Grandfather No problems noted. Maternal Grandmother Renal cancer Paternal Grandmother No problems noted. Sister Essential hypertension Chronic obstructive lung disease Asthma Brother , age 61 Heart disease Hyperlipidemia Stroke Brother Human immunodeficiency virus (HIV) positive Myocardial infarction Social History (Updated 07/03/23 @ 17:48 by Tanner Durán) Smoking/Tobacco Use Status: Former Tobacco Use tobacco type: cigarettes Quit Date: 05/24/98 Tobacco: How many years used: 24 Smokeless tobacco user: other Second Hand Exposure: Yes Smoking risk assessment performed?: Yes Alcohol Intake: former Drug use: Never Substance use type: does not use Caregiver/Support person: Yes Household members: spouse Housing: house Communication Needs: Hard of Hearing Do you need help understanding health information?: Rarely Pets and animals: No Sexually active: No Do you think of yourself as: lesbian/doshi/homosexual Current gender identity: female What is your relationship status?: How often do you talk on the phone with friends or family?: three or more times per week How often do you get together with friends or relatives?: once per week How often do you attend mormon or hoahaoism services?: decline to answer Do you belong to any clubs or organized social groups?: no Panel score (0-1 are the most socially isolated patients): 2 What type of physical activity do you participate in: other Details: cutting and splitting wood Duration: decline to answer Frequency: decline to answer Randi/Yarsanism: None Special randi needs: No Seatbelt use: sometimes Drive intox or ride w/intox wedding transportation 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 Additional Social history: Lives with of several aniket Simmons [address] [place] [facility] Allergies and Home Medications Allergies Allergy/AdvReac Type Severity Reaction Status Date / Time cefuroxime Allergy Severe HIVES Verified 06/25/23 08:31 latex Allergy Severe RASH Verified 06/25/23 08:31 Penicillins Allergy Severe SEVERE Verified 06/25/23 08:31 HIVES Sulfa (Sulfonamide Allergy Severe SEVERE Verified 06/25/23 08:31 Antibiotics) HIVES ciprofloxacin Allergy Mild TOPICAL Verified 06/25/23 08:31 IRRITATION clindamycin AdvReac Severe Hives Verified 06/25/23 08:31 adhesive AdvReac Intermediate SKIN Verified 06/25/23 08:31 COMES OFF caffeine AdvReac Intermediate CHEST PAIN Verified 06/25/23 08:31 NSAIDS (Non-Steroidal AdvReac Intermediate Other (See Verified 06/25/23 08:31 Anti-Inflamma Comment) lisinopril AdvReac Mild COUGH Verified 06/25/23 08:31 metformin AdvReac Mild diarrhea Verified 06/25/23 08:31 Home Medications Medication Instructions Recorded Confirmed Type acetaminophen 500 mg tablet 2 tab PO HS PRN 06/11/12 07/03/23 History (Tylenol Extra Strength) Bipap 1 ea inhalation HS 01/23/15 07/03/23 History aspirin 81 mg chewable tablet 81 mg PO DAILY #90 tab-caps 05/06/17 07/03/23 Rx lancets 28 gauge #100 ea 06/11/18 07/03/23 Rx albuterol sulfate 90 mcg/actuation 2 puff inhalation Q4H PRN ##3 12/08/18 07/03/23 Rx aerosol inhaler (ProAir HFA) magnesium amino acid chelate 100 500 mg (5 x 100 mg) PO BID #0 tabs 07/12/19 07/03/23 Rx mg tablet nystatin 100,000 unit/gram topical 1,500,000 unit topical BID PRN 10/30/20 07/03/23 History cream nitroglycerin 0.4 mg sublingual 0.4 mg sublingual Q5 MIN PRN X3 04/10/21 07/03/23 Rx tablet (Nitrostat) PRN chest pain #30 tabs ciprofloxacin 0.3 %-dexamethasone 3 drp BID PRN #7.5 mL 01/01/22 07/03/23 Rx 0.1 % ear drops,suspension (Ciprodex) blood sugar diagnostic (Blood #100 ea 03/25/22 07/03/23 Rx Glucose Test strips) spironolactone 25 mg tablet 25 mg PO DAILY #90 tabs 08/13/22 07/03/23 Rx (Aldactone) bupropion HCl 150 mg tablet,12 hr 150 mg PO BID #180 tabs 09/02/22 07/03/23 Rx sustained-release (Wellbutrin SR) losartan 100 mg tablet 100 mg PO DAILY #90 tab-caps 07/11/23 05/10/24 Rx fluoxetine 10 mg tablet 10 mg PO DAILY #90 tabs 09/08/22 07/03/23 Rx pen needle, diabetic 33 gauge x #100 ea 11/04/22 07/03/23 Rx 3/16 (Comfort EZ Pen Nichols) furosemide 20 mg tablet 40 mg (2 x 20 mg) PO DAILY #180 11/08/22 07/03/23 Rx tabs rivaroxaban 20 mg tablet 20 mg PO DAILY afib #90 tabs 12/18/22 07/03/23 Rx diltiazem HCl 240 mg 240 mg PO DAILY #90 caps 03/10/23 07/03/23 Rx capsule,extended release 24 hr glipizide 5 mg tablet, extended 5 mg PO DAILY #90 tabs 03/10/23 07/03/23 Rx release 24 hr omeprazole 40 mg capsule,delayed 40 mg PO DAILY #90 caps 03/10/23 07/03/23 Rx release metoprolol succinate 100 mg 100 mg PO DAILY #90 tabs 05/12/23 07/03/23 Rx tablet,extended release 24 hr simvastatin 10 mg tablet 10 mg PO HS #90 tab-caps 06/08/23 07/03/23 Rx tirzepatide 5 mg/0.5 mL 5 mg (0.5 mL) subcut QWEEK 4 weeks 06/22/23 07/03/23 Rx subcutaneous pen injector #2 mL Exam Narrative Exam Narrative: GEN: Alert and oriented, very pleasant and cooperative, gives linear history. No acute distress at rest. HEENT: Head atraumatic. Conjunctiva clear, no icterus. PEERL, EOMI. no rhinorrhea. MMM, OP benign. Neck is supple with no masses or lymphadenopathy, trachea midline LUNGS: CTAB with normal effort CV: RRR with no gallops, or rubs. 1/6 systolic murmur at upper sternal borders, no radations. ABD: +BS, soft, NT/ND EXT: no cyanosis, clubbing. Ankles puffy but no pitting edema MSK: No joint redness or swelling NEURO: CN 2-12 grossly intact. Normal movement of 4 extremities. Normal speech and coordination. no tremor SKIN: No rashes or open wounds. PSYCH: normal mood and affect Results Imaging Chest x-ray: report reviewed (Limited exam. No acute findings. ) and image reviewed EKG: report reviewed and image reviewed (NSR, nl axis, RBBB (no change from 02/24/23) Labs 07/03/23 13:30 07/03/23 13:30 Labs: Laboratory Results - last 24 hr 07/03/23 07/03/23 07/03/23 13:30 15:45 16:35 WBC 9.21 RBC 4.83 Hgb 13.5 Hct 42.6 MCV 88 MCH 28.0 MCHC 31.7 L RDW 13.1 Plt Count 286 MPV 11.1 H Immature Gran % 0.3 Neutrophils % 62.0 Lymphocytes % 24.0 Monocytes % 8.1 Eosinophils % 4.0 Basophils % 1.6 Nucleated RBC % 0.0 Absolute Neutrophils 5.70 Absolute Lymphocytes 2.21 Absolute Monocytes 0.75 Absolute Eosinophils 0.37 Absolute Basophils 0.15 Sodium 140 Potassium 4.0 Chloride 103 Carbon Dioxide 27.5 Anion Gap 9.5 BUN 26 H Creatinine 1.3 H Est GFR (CKD-EPI 2020) 43.69 Glucose 219 H Calcium 8.5 Magnesium 1.5 L Total Bilirubin 0.8 AST 13 L ALT 23 Alkaline Phosphatase 56 Troponin I < 50 < 50 Cancelled Total Protein 7.3 Albumin 3.6 Last Vital Signs Temp 36.5 C 07/03/23 13:28 Pulse 53 L 07/03/23 17:01 Resp 21 07/03/23 17:02 BP 129/71 07/03/23 17:01 Pulse Ox 95 07/03/23 17:02 Time Spent Time spent with Patient: >75 minutes Time was spent: preparing to see the patient(eg.review tests), obtaining and/or reviewing separately otained hiistory, ordering medications,tests, procedures, referring, communicating with other health childcare administrator, indepentently interpreting results and counseling the patient
[2023-07-03] MEDS: buPROPion-CR 150 MG TABCR PO (19:59)
[2023-07-03] MEDS: Simvastatin 10 MG TAB PO (19:59)
[2023-07-03] MEDS: Normal Saline Flush 10 ML SYR IVP (19:59)
[2023-07-03 20:35] LABS: Hemoglobin A1C 8.1 % (<5.7)
[2023-07-03 20:38] LABS: Troponin I < 50 ng/L (< or =60)
[2023-07-03] MEDS: Rivaroxaban 10 MG TABLET 20 MG PO (21:04)
[2023-07-03] MEDS: Metoprolol CR 100 MG TABCR PO (21:05)
[2023-07-03] MEDS: Spironolactone 25 MG TAB PO (21:05)
[2023-07-04] VITALS (48 sets, daily range): BP systolic 63–162; BP diastolic 35–69; PULSE 48–147; RESP 14–34; TEMP 35.8–36.8; O2SAT 89–100
[2023-07-04 06:00] LABS: Anion Gap 8.7 mmol/L (3-11); BUN 23 mg/dL (7-18); CO2 28.3 mmol/L (21.0-32.0); Calcium 8.2 mg/dL (8.5-10.1); Chloride 106 mmol/L (98-107); Estimated GFR 59.86 (mL/min/1.73m2); Glucose 149 mg/dL (74-106); Potassium 4.3 mmol/L (3.5-5.1); Sodium 143 mmol/L (136-145)
[2023-07-04 06:45] LABS: Calculated LDL 57 mg/dL (<100); Cholesterol 130 mg/dL (<200); HDL Cholesterol 37 mg/dL (40-60); Triglyceride 180 mg/dL (<150)
[2023-07-04] MEDS: Normal Saline Flush 10 ML SYR IVP (08:35)
[2023-07-04] MEDS: glipiZIDE C.R. 5 MG TABCR PO (08:36)
[2023-07-04] MEDS: Losartan 50 MG TAB 100 MG PO (08:36)
[2023-07-04] MEDS: Furosemide 20 MG TAB 40 MG PO (08:36)
[2023-07-04] MEDS: FLUoxetine 10 MG TAB PO (08:36)
[2023-07-04] MEDS: buPROPion-CR 150 MG TABCR PO ×2 (08:36→20:33)
[2023-07-04] MEDS: Omeprazole 20 MG CAPCR 40 MG PO (08:36)
[2023-07-04] MEDS: dilTIAZem CD 120 MG CAPCR 240 MG PO (08:37)
[2023-07-04] MEDS: Aspirin 81 MG CHEW PO (08:37)
--- NOTE | 2023-07-04 10:12 | PDOC.CMIN ---
Date of service: 07/04/23 Time of Service: 10:12 Care Management Initial Assmt Initial Assessment REASON FOR HOSPITALIZATION:: Chest pain PREVIOUS FUNCTIONAL STATUS/SOCIAL/FAMILY SUPPORTS:: Elizabeth lives in [facility] with her spouse, Ana. 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 She has a daughter, Bita, who lives in [place], along with Elizabeth's three grandsons. Elizabeth is retired, and reports spending her time splitting firewood for friends, and knitting/crocheting blankets, hats and booties, which she donates to [facility]. She is independent at baseline. CURRENT FUNCTIONAL STATUS:: Elizabeth was lying in bed visiting with her , Ana, when CM met with her. They were both pleasant and engaged well in conversation. Elizabeth stated that per MD, she will remain at [facility], being monitored closely, and will have a stress test on Thursday, which will determine the next steps. She may require transfer to [facility] vs return home with outpatient follow up. Per report, she is no longer requiring a nitro drip, therefore will transition to med/surge when medically ready. Elizabeth asked CM about [place] AD's, which CM encouraged. She has a DPOA for medical decisions on file, naming Ana as HCA, but this document does not specify her healthcare wishes. CM brought Elizabeth two blank [place] AD's (one for her and one for Ana), as well as a list of local therapists, and some activity books, as requested. CM will continue to follow. ADVANCE DIRECTIVES:: DPOA on file; spouse, Ana listed as HCA. Has patient been provided with info about the portal/API?: Yes Did the patient sign up for the portal?: Yes (active) INSURANCE COVERAGE / FINANCIAL ISSUES:: [facility]. /BS. CURRENT HOME/COMMUNITY SERVICES/EQUIPMENT:: None PRIMARY CARE PHYSICIAN:: Maico Leonard POTENTIAL DISCHARGE NEEDS:: Evaluations for further needs, follow up appointments. PATIENT/FAMILY EDUCATION NEEDS:: Review discharge instructions and limitations, discussion of self care needs including ask me three. ANTICIPATED BARRIERS TO DISCHARGE:: None. TRANSPORTATION:: Via private vehicle by spouse PLAN:: Elizabeth will remain at [facility] for a stress test on Thursday. Her discharge will depend on the results of the test. Elizabeth will likely return home once medically cleared vs transfer to [facility] if medically necessary. She will transport via private vehicle by her , Ana. She will follow up with her PCP and discharge plan of care. CM will continue to follow. PFSH All Active Problems (Updated 07/03/23 @ 18:02 by Tanner Durán) Paroxysmal atrial fibrillation (Acute) Hypomagnesemia (Acute) Chest pain (Acute) Cramping of feet (Acute) Adjustment disorder with anxious mood (Acute) 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 of left ear (Acute) Bradycardia (Acute) Localized edema (Acute) Nail dystrophy (Acute) Acute suppurative otitis media of left ear without spontaneous rupture of ear drum (Acute) Ankle pain, right (Acute) Foot pain (Acute) Gout (Chronic) Fatigue (Acute) Unsteady (Acute) Chronic shoulder pain (Acute ~11/04/21) Chronic diarrhea (Acute) Acute swimmer's ear of left side (Acute) Central perforation of tympanic membrane, left ear (Acute) Non-recurrent acute suppurative otitis media of left ear (Acute) Thrombophlebitis (Acute) Foot pain, right (Acute) dropped firewood on top of foot Otitis externa (Acute) Encounter for staple removal (Acute) Left knee pain (Acute) Low back pain (Acute) Back pain with radiculopathy (Acute) CHF (congestive heart failure) (Chronic) Well adult exam (Acute) Vaginal discharge (Acute) Low blood pressure (Acute) Exacerbation of reactive airway disease (Acute) Acute bronchitis (Acute) Acute diastolic heart failure with preserved ejection fraction (Acute) Atrial fibrillation with rapid ventricular response (Acute) Rib pain on right side (Acute) Shoulder pain, right (Acute) Chronic anticoagulation (Chronic) Atrial flutter (Acute 08/05/11) 10/30 normal echo 08/04 stress test, A flutter briefly in recovery Depressive disorder (Acute) Esophageal reflux (Acute) 2006 EGD at [facility]-normal 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; S/P 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 Gastroesophageal reflux disease (Acute) 2006 EGD at [facility]-normal 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; S/P Bilateral TKR-2005 Hyperlipidemia (Acute) Obesity (Acute) 11/2007-BMI 53.8% binge eating disorder Obstructive sleep apnea syndrome (Acute) uses BiPAP ([facility] sleep lab) Total urinary incontinence (Acute) urge incontinence Essential hypertension (Acute 12/16/12) Diabetes mellitus (Acute 06/18/12) A1c today watch diet Medical History Sensorineural hearing loss, bilateral URI (upper respiratory infection) Tick bite doubt Lyme, given lack of engorged tick and attachment time Herpes zoster without complication (05/22/15) Obesity HTN (hypertension) 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 Licona Replacement of total knee joint (~2004) b/l Open Carpal Tunnel release (~03/2009) right HAND SURGERY (~02/2013) Colonoscopy - MAC (05/29/17) Breast, Mastectomy (~01/2003) and reconstruction of TM Family History Mother , age 67 Diabetes TYPE II Essential hypertension Heart disease ANGINA Hyperlipidemia Stroke Renal cancer Father , age 80 Diabetes TYPE I Essential hypertension Heart disease Hyperlipidemia Sister Diabetes Essential hypertension Heart disease Hyperlipidemia Myocardial infarction X 2 Maternal Grandfather No problems noted. Paternal Grandfather No problems noted. Maternal Grandmother Renal cancer Paternal Grandmother No problems noted. Sister Essential hypertension Chronic obstructive lung disease Asthma Brother , age 61 Heart disease Hyperlipidemia Stroke Brother Human immunodeficiency virus (HIV) positive Myocardial infarction Social History (Updated 07/03/23 @ 17:48 by Tanner Durán) Smoking/Tobacco Use Status: Former Tobacco Use tobacco type: cigarettes Quit Date: 05/24/98 Tobacco: How many years used: 24 Smokeless tobacco user: other Second Hand Exposure: Yes Smoking risk assessment performed?: Yes Alcohol Intake: former Drug use: Never Substance use type: does not use Caregiver/Support person: Yes Household members: spouse Housing: house Communication Needs: Hard of Hearing Do you need help understanding health information?: Rarely Pets and animals: No Sexually active: No Do you think of yourself as: lesbian/doshi/homosexual Current gender identity: female What is your relationship status?: How often do you talk on the phone with friends or family?: three or more times per week How often do you get together with friends or relatives?: once per week How often do you attend episcopal or faith services?: decline to answer Do you belong to any clubs or organized social groups?: no Panel score (0-1 are the most socially isolated patients): 2 What type of physical activity do you participate in: other Details: cutting and splitting wood Duration: decline to answer Frequency: decline to answer Randi/Catholic: None Special randi needs: No Seatbelt use: sometimes Drive intox or ride w/intox stacker 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 Additional Social history: Lives with of several aniket Simmons on [address] outside of [facility](Care Management) Screening Will the Patient Participate in the Screening?: Yes Do you worry about having a steady place to live?: no Problems where you live: no known problems In the past 12 months, have you had to go without electric, gas, oil or water in your home?: no Have you or anyone in your house had to go without enough food to eat?: no Has lack of transportation kept you from medical appointments or from doing things needed for daily living?: no Has anyone in your support network made you feel unsafe for any reason?: no
--- NOTE | 2023-07-04 10:19 | W.PM.PROGNOT ---
Date of Service Date of service: 07/04/23 Time of Service: 10:19 Assessment and Plan Assessment and plan (1) Chest pain: Status: Acute Assessment and plan: History and her risk factors are concerning for unstable angina, but troponins and EKG not c/w ACS. Troponins negative x 3 Pain releived by NTG drip, I called [facility] cardiology 07/03 AM, case reviewed with Dr. Storm Donaldson, recommended MPI/stress Thursday before considering catheterization. Will trial titrating off NTG drip. Continue to monitor on telemetry. Continue oral anticoagulation and aspirin, statin. LDL is <70 c/w goal. If stable off drip we can move to floor on tele later today We did discussed option of outpatient work up, though there is some risk, will likely stay (2) Hypomagnesemia: Status: Acute Assessment and plan: normalized (3) DM (diabetes mellitus): Status: None Assessment and plan: A1c 8.1% slightly above goal. Continue outpatient medications and will FS with low dose sliding scale. 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 We could consider substituting alternative GLP-1. She doesn't tolerate SLGT2i (4) Essential hypertension: Status: Acute Assessment and plan: BP has been reasonably controlled, continue home medication. (5) Obstructive sleep apnea syndrome: Status: Acute Assessment and plan: home BiPAP (6) Gastroesophageal reflux disease: Status: Acute Assessment and plan: continue pantoprazole (7) Paroxysmal atrial fibrillation: Status: Acute Assessment and plan: in sinus now, continue diltiazem and anticoagulation with rivaroxaban. Possible interaction noted that increases anticoagulation effect, but she has been on this chronically Subjective Subjective Patient reports: no new complaints, tolerating a regular diet and voiding w/o difficulty; denies diarrhea, vomiting, shortness of breath or fever Interval history since last seen: No chest pain overnight. Feels well this morning. Her BiPAP didn't work great overnight, ended up on 2 liters oxygen Exam Narrative Exam Narrative: GEN: Alert and oriented, very pleasant and cooperative, gives linear history. No acute distress at rest. LUNGS: CTAB with normal effort CV: RRR with no murmurs, gallops, or rubs. ABD: +BS, soft, NT/ND EXT: no cyanosis, clubbing. non-tender, no pitting edema PSYCH: normal mood and affect Objective Last Vital Signs Temp 36.8 C 07/04/23 07:30 Pulse 57 L 07/04/23 09:01 Resp 15 07/04/23 09:01 BP 112/56 L 07/04/23 09:01 Pulse Ox 95 07/04/23 09:01 Laboratory Results - last 24 hr 07/03/23 07/03/23 07/03/23 13:30 15:45 16:35 WBC 9.21 RBC 4.83 Hgb 13.5 Hct 42.6 MCV 88 MCH 28.0 MCHC 31.7 L RDW 13.1 Plt Count 286 MPV 11.1 H Immature Gran % 0.3 Neutrophils % 62.0 Lymphocytes % 24.0 Monocytes % 8.1 Eosinophils % 4.0 Basophils % 1.6 Nucleated RBC % 0.0 Absolute Neutrophils 5.70 Absolute Lymphocytes 2.21 Absolute Monocytes 0.75 Absolute Eosinophils 0.37 Absolute Basophils 0.15 Sodium 140 Potassium 4.0 Chloride 103 Carbon Dioxide 27.5 Anion Gap 9.5 BUN 26 H Creatinine 1.3 H Est GFR (CKD-EPI 2020) 43.69 Glucose 219 H Hemoglobin A1c 8.1 H Calcium 8.5 Magnesium 1.5 L Total Bilirubin 0.8 AST 13 L ALT 23 Alkaline Phosphatase 56 Troponin I < 50 < 50 Cancelled Total Protein 7.3 Albumin 3.6 Triglycerides Total Cholesterol LDL Cholesterol, Calc HDL Cholesterol 07/03/23 07/04/23 20:13 05:28 WBC RBC Hgb Hct MCV MCH MCHC RDW Plt Count MPV Immature Gran % Neutrophils % Lymphocytes % Monocytes % Eosinophils % Basophils % Nucleated RBC % Absolute Neutrophils Absolute Lymphocytes Absolute Monocytes Absolute Eosinophils Absolute Basophils Sodium 143 Potassium 4.3 Chloride 106 Carbon Dioxide 28.3 Anion Gap 8.7 BUN 23 H Creatinine 1.0 Est GFR (CKD-EPI 2020) 59.86 Glucose 149 H Hemoglobin A1c Calcium 8.2 L Magnesium 2.0 Total Bilirubin AST ALT Alkaline Phosphatase Troponin I < 50 Total Protein Albumin Triglycerides 180 H Total Cholesterol 130 LDL Cholesterol, Calc 57 HDL Cholesterol 37 L PAWSS Have you Been Recently Intoxicated or Drunk Within the Last 30 days?: No Have you Ever Experienced Previous Episodes of Alcohol Withdrawal?: No Have you ever Experienced Withdrawal Seizures?: No Have you ever Experienced Delirium Tremens(DT)s?: No Have you ever undergone Alcohol Rehabilitation Treatment (i.e, inpt ot outpatient treatment programs)?: No Have you ever Experienced Blackouts?: No Have you ever Combined Alcohol with other Downers within the last 90 days?: No Have you ever Combined Alcohol with any other Substance of Abuse during the last 90 days?: No Positive Blood Alcohol level on Presentation? [PCS.BAL]: No Evidence of Increased Autonomic Activity (i.e. HR>120, tremor, sweating, agitation, nausea)?: No Result: 0 Time Spent with Patient Time Spent with Patient: >50 minutes Time was spent: preparing to see the patient(eg.review tests), obtaining and/or reviewing separately otained hiistory, ordering medications,tests, procedures, referring, communicating with other health cardiac care unit nurse, indepentently interpreting results, counseling the patient and care coordination
[2023-07-04] MEDS: Insulin Aspart 300 UNITS/3 ML PEN SC (14:25)
[2023-07-04] MEDS: Simvastatin 10 MG TAB PO (20:33)
[2023-07-04] MEDS: Rivaroxaban 10 MG TABLET 20 MG PO (21:26)
[2023-07-04] MEDS: Metoprolol CR 100 MG TABCR PO (21:26)
[2023-07-04] MEDS: Spironolactone 25 MG TAB PO (21:26)
[2023-07-05] VITALS (8 sets, daily range): BP systolic 106–137; BP diastolic 50–61; PULSE 50–63; RESP 16–24; TEMP 35.6–36.4; O2SAT 93–100
[2023-07-05] MEDS: Aspirin 81 MG CHEW PO (08:28)
[2023-07-05] MEDS: glipiZIDE C.R. 5 MG TABCR PO (08:28)
[2023-07-05] MEDS: Omeprazole 20 MG CAPCR 40 MG PO (08:28)
[2023-07-05] MEDS: dilTIAZem CD 120 MG CAPCR 240 MG PO (08:28)
[2023-07-05] MEDS: Furosemide 20 MG TAB 40 MG PO (08:29)
[2023-07-05] MEDS: buPROPion-CR 150 MG TABCR PO ×2 (08:29→21:02)
[2023-07-05] MEDS: FLUoxetine 10 MG TAB PO (08:29)
[2023-07-05] MEDS: Losartan 50 MG TAB 100 MG PO (08:29)
[2023-07-05] MEDS: Insulin Aspart 300 UNITS/3 ML PEN SC ×2 (08:39→17:25)
--- NOTE | 2023-07-05 14:54 | W.PM.PROGNOT ---
Date of Service Date of service: 07/05/23 Time of Service: 14:54 Assessment and Plan Assessment and plan (1) Chest pain: Status: Acute Assessment and plan: Anginal quality chest discomfort with dyspnea. Currently pain-free. Proceed with Lexiscan stress MPI for tomorrow morning. Continue aspirin and rivaroxaban. Hold metoprolol tonight for her stress test tomorrow. Professional time spent interviewing and examining patient, discussion of goals of care with hospital team (care management, nursing and consulting professionals) was 45 minutes. Qualifiers: Chest pain type: precordial pain Qualified Code(s): R07.2 - Precordial pain (2) DM (diabetes mellitus): Status: None Assessment and plan: Continue sliding scale insulin. Hold her glipizide for tomorrow. Qualifiers: Diabetes mellitus type: type 2 Diabetes mellitus [facility] insulin use: without [facility] use Diabetes mellitus complication status: without complication Qualified Code(s): E11.9 - Type 2 diabetes mellitus without complications (3) Essential hypertension: Status: Acute Assessment and plan: BP has been reasonably controlled, continue home medication. (4) Obstructive sleep apnea syndrome: Status: Acute Assessment and plan: home BiPAP (5) Gastroesophageal reflux disease: Status: Acute Assessment and plan: continue pantoprazole Qualifiers: Esophagitis presence: esophagitis presence not specified Qualified Code(s): K21.9 - Gastro-esophageal reflux disease without esophagitis (6) Paroxysmal atrial fibrillation: Status: Acute Assessment and plan: in sinus now, continue diltiazem and anticoagulation with rivaroxaban. Possible interaction noted that increases anticoagulation effect, but she has been on this chronically Subjective Subjective Interval history since last seen: Nava presented with anginal quality chest discomfort and dyspnea in which she felt like an elephant was standing on her chest and she was breathlessness and nauseated. This resolved with nitroglycerin. It was not associated with any exertional chest discomfort. This was unlike any of her flareups of her paroxysmal atrial fibrillation. She ruled out for an acute HI and no acute ischemic EKG changes. [facility] cardiology was contacted by Dr. Durán and it was recommended mean arterial blood pressure the patient be admitted ruled out and obtain a stress MPI. Patient will be scheduled for Lexiscan stress MPI for tomorrow Exam Narrative Exam Narrative: Pleasant morbidly obese female sitting up in her chair talking with her partner. She appears to be in no distress. Vital signs are stable pulse oximetry 99% on room air Lungs are clear to auscultation Heart is bradycardic but regular Extremities very large legs with some bilateral edema Objective Last Vital Signs Temp 36.1 C L 07/05/23 11:43 Pulse 60 07/05/23 11:43 Resp 17 07/05/23 11:43 BP 110/52 L 07/05/23 11:43 Pulse Ox 95 07/05/23 11:43 PAWSS Have you Been Recently Intoxicated or Drunk Within the Last 30 days?: No Have you Ever Experienced Previous Episodes of Alcohol Withdrawal?: No Have you ever Experienced Withdrawal Seizures?: No Have you ever Experienced Delirium Tremens(DT)s?: No Have you ever undergone Alcohol Rehabilitation Treatment (i.e, inpt ot outpatient treatment programs)?: No Have you ever Experienced Blackouts?: No Have you ever Combined Alcohol with other Downers within the last 90 days?: No Have you ever Combined Alcohol with any other Substance of Abuse during the last 90 days?: No Positive Blood Alcohol level on Presentation? [PCS.BAL]: No Evidence of Increased Autonomic Activity (i.e. HR>120, tremor, sweating, agitation, nausea)?: No Result: 0 Time Spent with Patient Time Spent with Patient: 35-49 minutes Time was spent: preparing to see the patient(eg.review tests), obtaining and/or reviewing separately otained hiistory, ordering medications,tests, procedures, referring, communicating with other health care tech, indepentently interpreting results, counseling the patient and care coordination
[2023-07-05] MEDS: Spironolactone 25 MG TAB PO (21:02)
[2023-07-05] MEDS: Normal Saline Flush 10 ML SYR IVP (21:02)
[2023-07-05] MEDS: Rivaroxaban 10 MG TABLET 20 MG PO (21:02)
[2023-07-05] MEDS: Simvastatin 10 MG TAB PO (21:02)
[2023-07-06] VITALS (7 sets, daily range): BP systolic 119–132; BP diastolic 53–72; PULSE 57–72; RESP 18–24; TEMP 35.7–37; O2SAT 93–96
--- NOTE | 2023-07-06 08:00 | DI.NM_ITS ---
APPROVED REPORT Exam: Pharmacologic Patient Location: In-Patient Room/Bed: Stress Nurse: Ana Mi RN Ordering Provider:MIRTA MONROE, Contact Number: BMI: 51.80 Baseline Rhythm: Sinus Bradycardia Indications: Angina, Medical History Medical History: Paroxysmal afib, hypomagnesemia, adjustment disorder anxious mood, bradycardia, unst coral, CHF, DM, afib with RVR, CAD, reactive airway disease, aflutter, GERD, HLD, obesity, HTN, [facility] Cardiac Medications: Aspirin, albuterol sulfate, buproprion, diltiazem, fluoxetine, furosemide, glipi zide, losartan, magnesium amino acid chelate, metoprolol succinate, nitro, omeprazole, rivaroxaban, s imvastatin, spironolactone Allergies: Cefuroxime, latex, pencillins, sulfa, cipro, clindamycin, adhesive, caffeine, NSAIDS, gurjit nopril, metformin Cardiac Risk Factors: Family hx, HTN, HLD, diabetes, former smoker, obesity Previous Cardiac Procedures: None Pretest Chest Pain Characteristics: None Exercise History: Indeterminate Physical Disabilities: None Lung Sounds: Clear to auscultation Heart Sounds: Regular Stress Test Details Test: Pharmacologic stress testing performed using 0.4 mg of regadenoson per 5 mL given IV over 10 s econds. Reason for pharmacologic stress test: Patient in socks. Nuclear Acquisition: Rest Tc-99m/Stress Tc-99m 1 day Rest Isotope: Tc-99m Sestamibi. Dose: 13.0 Date: 07/06/2023 Injection Time: 1130 Stress Isotope: Tc-99m Sestamibi. Dose: 45.2 Date: 07/06/2023 Injection Time: 1305 HR Resting HR Supine: 61 bpm Max Heart Rate (APMHR): 148.546446 bpm Target HR (85% APMHR): 125.859320 bpm Max HR Achieved: 86 bpm % of APMHR: 58.11 Recovery HR: 73 bpm BP Resting BP Supine: 124/60 mmHg Max BP: 128/60 mmHg Recovery BP: 118/5- mmHg ECG Resting ECG: Sinus Rhythm Stress ECG: Sinus Rhythm ST Change: Nondiagnostic low heart rate Recovery ECG: Sinus Rhythm Recovery ST Change: Nondiagnostic low heart rate Clinical Angina Score: None Rate Pressure Product: [id number] Stress ECG Conclusion 1. Resting EKG showed right bundle branch block 2. Patient underwent testing using pharmacologic stress with regadenoson 3. Peak heart rate achieved was 58% of maximal predicted for age 4. The electrocardiographic portion of the test was nondiagnostic 5. See MPI report Stress Test Summary STAGE HR BP SpO2 Symptoms NOTES Supine 74 124/60 97 1 min post Lexiscan injection 60 128/60 96 3 min post Lexiscan injection 73 110/54 6 min post Lexiscan injection 73 118/50 96 MPI Conclusion There is no evidence of significant myocardial ischemia or prior myocardial infarction EF is 66% with normal wall motion Radiologist Interpretation Radiologist Interpretation by: Suhail Marquez MD Interpretation Date/Time: 07/06/2023 16:33:08
[2023-07-06] MEDS: Losartan 50 MG TAB 100 MG PO (08:32)
[2023-07-06] MEDS: buPROPion-CR 150 MG TABCR PO (08:32)
[2023-07-06] MEDS: FLUoxetine 10 MG TAB PO (08:32)
[2023-07-06] MEDS: Aspirin 81 MG CHEW PO (08:32)
[2023-07-06] MEDS: dilTIAZem CD 120 MG CAPCR 240 MG PO (08:33)
[2023-07-06] MEDS: Furosemide 20 MG TAB 40 MG PO (08:33)
[2023-07-06] MEDS: Normal Saline Flush 10 ML SYR IVP (08:33)
[2023-07-06] MEDS: Omeprazole 20 MG CAPCR 40 MG PO (08:33)
[2023-07-06] MEDS: Regadenoson 0.4 MG/5 ML SYR IVP (13:11)
[2023-07-06] MEDS: Acetaminophen 500 MG TAB 1000 MG PO (14:43)
--- NOTE | 2023-07-06 16:30 | W.PM.DS.N ---
Date of service: 07/06/23 Time of Service: 16:30 DS: Diagnosis Discharge Diagnosis (1) Chest pain: Status: Acute (2) DM (diabetes mellitus): Status: None (3) Essential hypertension: Status: Acute (4) Obstructive sleep apnea syndrome: Status: Acute (5) Gastroesophageal reflux disease: Status: Acute (6) Paroxysmal atrial fibrillation: Status: Acute Discharge Plan Disposition Patient Disposition: Home Condition: Improving Discharge Details Reason For Visit: Chest Pain, Presumed Cardiac Admit Date/Time: 07/03/23 16:31 Admit Provider: Tanner Durán Attending Provider: Tanner Durán Primary Care Provider: Maico Leonard Hospital Course Hospital Course: 73 yo F with history of type 2 DM, HTN, hyperlipidemia, paroxysmal atrial fibrillation, and BMI >40 presenting with acute onset chest pain. Pain started at 11:30 am at home while she was talking on the phone, no emotional or physical stress. She was active that morning without chest pain. Pain pressure like a gorilla sitting on her chest, severe, substernal and radiating to the left neck/jaw. EKG on admission demonstrated NSR w/ RBBB but no acute ST elevation and other than concordant T wave changes in anterior leads c/w RBB no evidence for ischemia. Serial troponin were normal. Nevertheless her CP was relieved w/ iv NTG (when SL NTG did not completely relieve her CP. She was admitted to ICU on NTG drip and when her CP resolved and her serial troponin I levels came back normal. She was transferred to med/surg on 07/03 to await stress MPI study. She had no further CP throughout her hospital stay. She underwent Lexiscan stress MPI on 07/05 which came back normal. She was discharged home w/ no change in her home meds. She was instructed on signs/symptoms to watch for that would necessitate a return to the emergency room. She has home NTG tablets but apparently did not use them. I recommend she check on the age of the tablets as she may need a new prescription. We talked about alternative diagnosis for her chest pain such as GERD/esophageal spasm and I recommended further evaluation as outpatient. I also explained to her that even though she had a normal stress MPI, an ID can occur w/ plaque rupture, therefore if she has similar symptoms that brought her to the hospital, she should return.. Home Meds and New Rx's Prescriptions: Continued (DME) lancets 28 gauge misc 1 ea Miscellaneous DAILY Qty: 100 4RF Rx Instructions: DX: E11.9 ONE TOUCH LANCETS test once/day nystatin 100,000 unit/gram cream 1,500,000 unit Topical BID PRN Rx Instructions: Apply twice a day beneath breasts till resolves nitroglycerin [Nitrostat] 0.4 mg tablet, sublingual 0.4 mg sublingual Q5 MIN PRN X3 PRN (Reason: chest pain) Qty: 30 0RF bupropion HCl [Wellbutrin SR] 150 mg tablet sustained-release 12 hr 150 mg PO BID Qty: 180 3RF losartan 100 mg tablet 100 mg PO DAILY Qty: 90 3RF (DME) Blood Glucose Test Strip 1 strip Miscellaneous DAILY Qty: 100 4RF Rx Instructions: DX: E11.9 ONE TOUCH ULTRA test once/day diltiazem HCl 240 mg capsule,extended release 24hr 240 mg PO DAILY Qty: 90 3RF glipizide 5 mg tablet extended release 24hr 5 mg PO DAILY Qty: 90 3RF omeprazole 40 mg capsule,delayed release(DR/EC) 40 mg PO DAILY Qty: 90 3RF albuterol sulfate [ProAir HFA] 90 mcg/actuation HFA aerosol inhaler 2 puff Inhalation Q4H PRN Qty: 3 3RF ciprofloxacin-dexamethasone [Ciprodex] 0.3-0.1 % drops,suspension 3 drp BID PRN Qty: 7.5 2RF acetaminophen [Tylenol Extra Strength] 500 MG tablet 2 tab PO HS PRN BIPAP 1 ea inhalation HS Rx Instructions: SLEEP APNEA aspirin 81 MG tablet,chewable 81 mg PO DAILY Qty: 90 0RF spironolactone [Aldactone] 25 mg tablet 25 mg PO DAILY Qty: 90 3RF fluoxetine 10 mg tablet 10 mg PO DAILY Qty: 90 3RF (DME) pen needle, diabetic [Comfort EZ Pen [place]] 33 gauge x 3/16 needle See Rx Instructions .ROUTE .MEDSUPPLY Qty: 100 3RF Rx Instructions: inject once/daily furosemide 20 mg tablet 40 mg PO DAILY Qty: 180 3RF Rx Instructions: dose increase 03/24/22 rivaroxaban 20 mg tablet 20 mg PO DAILY Qty: 90 3RF Rx Instructions: metoprolol succinate 100 mg tablet extended release 24 hr 100 mg PO DAILY Qty: 90 3RF simvastatin 10 mg tablet 10 mg PO HS Qty: 90 3RF Rx Instructions: tirzepatide 5 mg/0.5 mL pen injector 5 mg subcut QWEEK 28 Days Qty: 2 0RF magnesium amino acid chelate 100 MG tablet 500 mg PO BID Qty: 0 0RF Patient Comments: 05/08/17 restarted, had stopped 04/17. si Rx Instructions: hasn't been taking Discharge Instructions Instructions: Chest Pain (DC) Additional Instructions: You were admitted for evaluation of your chest pain. You had serial EKG (electrocardiograms) and blood tests (serial troponin levels) and although your chest pain responded to intravenous nitroglycerin, you did not have evidence for a heart attack. Chest xray did not show any acute congestive heart failure changes nor did it demonstrate and widening of the aorta. You underwent a chemical stress test (Lexiscan) and this showed normal left ventricular function w/ no evidence for myocardial ischemia ( no evidence for poor blood flow to the heart muscle) nor did it show any evidence for myocardial damage. While we have not established the exact cause for your symptoms of acute chest pain, the normal stress myocardial perfusion imaging is reassuring that you are not having critical coronary artery narrowing. However, only a heart catheterization can definitively determine the presence or absence of coronary artery disease. Should you have future episodes of anginal quality chest pain (chest heaviness, pressure, jaw or arm aching associted w/ shortness of breath, do not hesitate to use your nitroglycerin as directed and call 911. While a normal stress test is reassuring, people can develope coronary plaque rupture and suffer a myocardial infarction (heart attack). Continue your home medications and follow up with your primary care provider. He/she may want to pursue other causes for chest pain such as esophageal spasm due to reflux, or your PCP may want to refer you to finisher machine for further evaluation, especially if you develope recurrent exertional chest pain/pressure or shortness of breath w/ normal activities. Stand Alone Forms: Nursing Discharge Form Referrals: Maico Leonard MD [Primary Care Provider] - (Please call to make a hospital follow up within 10-14 days.) Activity:: Activity as Tolerated Equipment/Supplies:: No Equipment Needed Diet:: Carb Counting Discharge Orders Discharge Orders: Discharge Order (Routine); Ordered 07/06/23 Ordered By: Nehemiah Kearney Discharge Data Discharge Date/Time-TO BE ENTERED AT DEPARTURE: 07/06/23 17:09 DS: Summary Time Spent with Patient providing and/or coordinating discharge services: Less than 30 minutes Status at Discharge Functional status at discharge: independent ambulation Overall status at discharge: patient is back to baseline Mental Status: mental status grossly normal Speech and Movement: speech and movement normal Mood: congruent mood Affect: normal affect Quality:SDOH Health Related Social Needs: No Data to Display Exam Psych Mental Status: mental status grossly normal Speech and Movement: speech and movement normal Mood: congruent mood Affect: normal affect DS: Data Vitals/I&O Vitals and I&O: Vital Signs Temperature 37.0 C 07/06/23 11:45 Temperature Source Tympanic 07/06/23 11:45 Pulse 62 07/06/23 11:45 Pulse Rhythm Regular 07/06/23 08:15 Pulse 54 L 07/04/23 17:01 Respiratory Rate 18 07/06/23 11:45 Respiratory Effort Normal, Short of Breath 07/06/23 08:15 Respiratory Depth Normal 07/06/23 08:15 Respiratory Pattern Normal 07/06/23 08:15 Blood Pressure 119/54 L 07/06/23 11:45 Blood Pressure Mean 70 07/04/23 17:01 Blood Pressure Position Supine 07/04/23 07:30 Pulse Oximetry 93 07/06/23 11:45 Oxygen Delivery Method Room Air 07/06/23 11:45 Oxygen Flow Rate 0 07/06/23 11:45 Pain Level 0 07/06/23 11:45 Intake & Output 07/05/23 07/06/23 07/06/23 23:59 11:59 23:59 Intake Total 480 / 960 50 / 50 Balance 480 / 960 50 / 50 Weight 144.9 kg Intake: Oral 480 / 960 50 / 50 Other: Urine Color Yellow Yellow Yellow Urine Appearance Clear Clear Comment Pt voids in toilet independently Patient voids independently Voiding Methods Toilet Toilet Toilet PFSH All Active Problems (Updated 07/07/23 @ 08:28 by Nehemiah Kearney MD) Paroxysmal atrial fibrillation (Acute) Hypomagnesemia (Acute) Chest pain (Acute) Cramping of feet (Acute) Adjustment disorder with anxious mood (Acute) 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 of left ear (Acute) Bradycardia (Acute) Localized edema (Acute) Nail dystrophy (Acute) Acute suppurative otitis media of left ear without spontaneous rupture of ear drum (Acute) Ankle pain, right (Acute) Foot pain (Acute) Gout (Chronic) Fatigue (Acute) Unsteady (Acute) Chronic shoulder pain (Acute ~11/04/21) Chronic diarrhea (Acute) Acute swimmer's ear of left side (Acute) Central perforation of tympanic membrane, left ear (Acute) Non-recurrent acute suppurative otitis media of left ear (Acute) Thrombophlebitis (Acute) Foot pain, right (Acute) dropped firewood on top of foot Otitis externa (Acute) Encounter for staple removal (Acute) Left knee pain (Acute) Low back pain (Acute) Back pain with radiculopathy (Acute) CHF (congestive heart failure) (Chronic) Well adult exam (Acute) Vaginal discharge (Acute) Low blood pressure (Acute) Exacerbation of reactive airway disease (Acute) Acute bronchitis (Acute) Acute diastolic heart failure with preserved ejection fraction (Acute) Atrial fibrillation with rapid ventricular response (Acute) Rib pain on right side (Acute) Shoulder pain, right (Acute) Chronic anticoagulation (Chronic) Atrial flutter (Acute 08/05/11) 10/30 normal echo 08/04 stress test, A flutter briefly in recovery Depressive disorder (Acute) Esophageal reflux (Acute) [place] [facility] [place] 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; S/P 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 Gastroesophageal reflux disease (Acute) 2006 [place] [facility] [place] 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; S/P Bilateral TKR-2005 Hyperlipidemia (Acute) Obesity (Acute) 11/2007-BMI 53.8% binge eating disorder Obstructive sleep apnea syndrome (Acute) uses BiPAP [place] [place] Total urinary incontinence (Acute) urge incontinence Essential hypertension (Acute 12/16/12) Diabetes mellitus (Acute 06/18/12) A1c today watch diet Medical History Sensorineural hearing loss, bilateral URI (upper respiratory infection) Tick bite doubt Lyme, given lack of engorged tick and attachment time Herpes zoster without complication (05/22/15) Obesity HTN (hypertension) GERD (gastroesophageal reflux disease) intermediate current use of 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 Licona Replacement of total knee joint (~2004) b/l Open Carpal Tunnel release (~03/2009) right HAND SURGERY (~02/2013) Colonoscopy - MAC (05/29/17) Breast, Mastectomy (~01/2003) and reconstruction of TM Family History Mother , age 67 Diabetes TYPE II Essential hypertension Heart disease ANGINA Hyperlipidemia Stroke Renal cancer Father , age 80 Diabetes TYPE I Essential hypertension Heart disease Hyperlipidemia Sister Diabetes Essential hypertension Heart disease Hyperlipidemia Myocardial infarction X 2 Maternal Grandfather No problems noted. Paternal Grandfather No problems noted. Maternal Grandmother Renal cancer Paternal Grandmother No problems noted. Sister Essential hypertension Chronic obstructive lung disease Asthma Brother , age 61 Heart disease Hyperlipidemia Stroke Brother Human immunodeficiency virus (HIV) positive Myocardial infarction Social History (Updated 07/03/23 @ 17:48 by Tanner Durán) Smoking/Tobacco Use Status: Former Tobacco Use tobacco type: cigarettes Quit Date: 05/24/98 Tobacco: How many years used: 24 Smokeless tobacco user: other Second Hand Exposure: Yes Smoking risk assessment performed?: Yes Alcohol Intake: former Drug use: Never Substance use type: does not use Caregiver/Support person: Yes Household members: spouse Housing: house Communication Needs: Hard of Hearing Do you need help understanding health information?: Rarely Pets and animals: No Sexually active: No Do you think of yourself as: lesbian/doshi/homosexual Current gender identity: female What is your relationship status?: How often do you talk on the phone with friends or family?: three or more times per week How often do you get together with friends or relatives?: once per week How often do you attend pentecostalism or latter-day services?: decline to answer Do you belong to any clubs or organized social groups?: no Panel score (0-1 are the most socially isolated patients): 2 What type of physical activity do you participate in: other Details: cutting and splitting wood Duration: decline to answer Frequency: decline to answer Randi/Zoroastrian: None Special randi needs: No Seatbelt use: sometimes Drive intox or ride w/intox carry all 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 Additional Social history: Lives with of several aniket [place] on [address] outside of [facility] Time Spent with Patient Time Spent with Patient: <45 minutes Time was spent: preparing to see the patient(eg.review tests), referring, communicating with other health ocular care aide, indepentently interpreting results, counseling the patient and care coordination
--- NOTE | 2023-07-06 19:02 | PDOC.CMDIS ---
Date of service: 07/06/23 Time of Service: 19:02 LACE Index Scoring Tool Questions: Length of Stay (in days): 3 Was the patient admitted via the E.D.?: Yes Comorbidities: Diabetes w/o Complication and Congestive Heart Failure E.D. Visits: 1 Answers: Total Score: 10 Risk of Readmission: High Risk Care Management Discharge Plan Reason for Hospitalization: Chest pain Discharge Plan: Elizabeth returned home today after her negative stress test. Her drove her home via private vehicle. She will follow up with her PCP and discharge plan of care. She is happy to be going home. Patient/Family Education Needs: Review discharge instructions and limitations, discussion of self care needs including ask me three. SDNM Health Related Social Needs: No Data to Display
== END 2023-07-06 17:09 | disposition home or self-care (01) | DRG 313 ==
LOC: ER 16:54 → ICU 17:26 → MS 07-04 17:57
PROVIDERS: Admitting Provider Family Medicine; Emergency Provider Student in an Organized Health Care Education/Training Program; PCP Family Medicine; Visit Provider Family Medicine
DX: R07.89 Other chest pain (principal); Z68.43 Body mass index [BMI] 50.0-59.9, adult; E83.42 Hypomagnesemia; E11.9 Type 2 diabetes mellitus without complications; G47.33 Obstructive sleep apnea (adult) (pediatric); I48.0 Paroxysmal atrial fibrillation; K21.9 Gastro-esophageal reflux disease without esophagitis; E78.5 Hyperlipidemia, unspecified; R06.02 Shortness of breath; R42 Dizziness and giddiness; R25.2 Cramp and spasm; M10.9 Gout, unspecified; I50.9 Heart failure, unspecified; I11.0 Hypertensive heart disease with heart failure; J45.909 Unspecified asthma, uncomplicated; Z79.01 Long term (current) use of anticoagulants; F32.A Depression, unspecified; M15.9 Polyosteoarthritis, unspecified; Z96.653 Presence of artificial knee joint, bilateral; Z79.84 Long term (current) use of oral hypoglycemic drugs; Z79.85 Long-term (current) use of injectable non-insulin antidiabetic drugs; E66.01 Morbid (severe) obesity due to excess calories; I45.10 Unspecified right bundle-branch block
CPT/HCPCS: 00123; 36415; 78452; 80048; 80053; 80061; 93005; 93016; 93018; 96365; 96366; 96367; 99291; 71045; 83036; 83735; 84484; 85025; 93010; 93017; 99223; 99232; 99233; 99238; J1815; J2305; J2785; J3475

== ENCOUNTER → 2023-07-13 14:26 | Outpatient (BNVA) | payer MEDICARE, BC, SELFPAY | PROVIDERS: PCP Family Medicine; Referring Provider Family Medicine; Visit Provider Podiatrist | DX: R25.2 Cramp and spasm (principal); E11.9 Type 2 diabetes mellitus without complications; L60.3 Nail dystrophy; I50.9 Heart failure, unspecified; I25.10 Atherosclerotic heart disease of native coronary artery without angina pectoris; Z79.01 Long term (current) use of anticoagulants; R60.0 Localized edema; L84 Corns and callosities | CPT/HCPCS: 11719 ==

== ENCOUNTER 2023-07-31 05:26 | Outpatient (CLI) | payer MEDICARE, BC, SELFPAY ==
[2023-07-31] MEDS: Levalbuterol HFA 15 GM INH 4 PUFF IH (09:00)
[2023-07-31] MEDS: Inhaler, Assist Device 1 EACH MC (09:00)
--- NOTE | 2023-07-31 11:30 | W.PFT ---
Date of service: 07/31/23 Time of Service: 08:01 Pulmonary Function Test Result Indications: Dyspnea Interpretation Spirometry: There is no airflow limitation. No bronchodilator response. Lung Volumes: Normal lung volumes Diffusion Capacity: Normal diffusion Airway Pressure: Normal airways resistance Impression Normal pulmonary function testing Clinical Correlation therefore is recommended.
== END 2023-07-31 05:27 | disposition home or self-care (01) ==
LOC: RT 05:26
PROVIDERS: PCP Family Medicine; Visit Provider Nurse Practitioner Family
DX: R06.00 Dyspnea, unspecified (principal)
CPT/HCPCS: 94060; 94726; 94729

== ENCOUNTER 2023-09-15 14:35 | Inpatient (IN) | payer MEDICARE, BC, SELFPAY ==
[2023-09-15] VITALS (21 sets, daily range): BP systolic 106–141; BP diastolic 49–79; PULSE 60–98; RESP 15–26; TEMP 36.3–36.7; O2SAT 92–97
--- NOTE | 2023-09-15 14:30 | RT.EKG_ITS ---
APPROVED REPORT Exam: Resting ECG Reason for Exam: palpitations Patient Location: E HR:92 bpm ECG Measurements Heart Rate 92 AXIS MS [id number] P [id number] QRSd 159 QRS 49 QT 410 T 0 QTc 507 Conclusion Atrial fibrillation RBBB no stemi
[2023-09-15 15:08] LABS: Abs Immature Grans 0.05 10^3/uL (0.0-0.06); Absolute Basophil Count 0.13 10^3/uL (0.0-0.2); Absolute Eosinophil Count 0.29 10^3/uL (0.0-0.7); Absolute Lymphocyte Count 1.95 10^3/uL (1.2-3.4); Absolute Neutrophil Count 4.71 10^3/uL (1.2-6.7); Basophils % 1.6 %; Eosinophils % 3.7 %; HGB 14.6 g/dL (11.2-15.7); Immature Grans % 0.6 %; Lymphocytes % 24.6 %; MCH 28.4 pg (27.0-33.0); MCHC 31.7 % (32.0-36.0); MCV 90 fL (80-95); Monocytes % 10.1 %; Neutrophils % 59.4 %; Platelet Count 297 10^3/uL (130-400); RBC 5.14 10^6/uL (3.93-5.22); RDW 13.3 % (11.7-14.6); RDW-SD 43.7 fL; WBC 7.93 10^3/uL (4.4-10.8)
[2023-09-15 15:25] LABS: INR 1.2 (0.9-1.1); PTT Activated 30.8 sec (23.6-32.8)
[2023-09-15 15:36] LABS: ALT 21 U/L (14-59); AST 12 U/L (15-37); Albumin 3.7 g/dL (3.4-5.0); Alkaline Phosphatase 61 U/L (46-116); Anion Gap 9.8 mmol/L (3-11); BUN 22 mg/dL (7-18); Bilirubin, Total 0.68 mg/dL (0.2-1.0); CO2 27.2 mmol/L (21.0-32.0); CREATININE 1.6 mg/dL (0.55-1.02); Calcium 8.5 mg/dL (8.5-10.1); Chloride 104 mmol/L (98-107); Estimated GFR 34.05 (mL/min/1.73m2); Glucose 165 mg/dL (74-106); Magnesium 1.5 mg/dL (1.8-2.4); NT-proBNP 2202 pg/mL (<300); Sodium 141 mmol/L (136-145); TSH 1.77 uIU/Ml (0.36-3.74); Total Protein 7.7 g/dL (6.4-8.2); Troponin I < 50 ng/L (< or =60)
--- NOTE | 2023-09-15 15:45 | DI.RAD_ITS ---
Exam(s) XR PORTABLE CHEST AP EXAM: XR PORTABLE CHEST AP CLINICAL HISTORY: sob. TECHNIQUE: 2D digital imaging was performed. COMPARISON: CR XR PORTABLE CHEST AP from 02/24/2023 CR XR PORTABLE CHEST AP from 07/03/2023 FINDINGS: Single AP portable view. Heart size is upper normal. The mediastinum is not widened. Mild increased markings both lung bases. No air bronchograms. No obvious pleural effusions. No bell dence of pulmonary edema. No fractures. No pneumothorax. IMPRESSION: Mild increased markings in the lung bases but no confluent infiltrates.No obvious pleural effusions e vident on this AP portable view. DATA REPOSITORY: RADIATION DOSE DELIVERED:
[2023-09-15] MEDS: Furosemide 100 MG/10 ML VIAL 80 MG IVP (16:21)
--- NOTE | 2023-09-15 16:53 | ED.GENADUL_ITS ---
Discharge Plan Disposition Patient Disposition: Admit to [facility] Condition: Fair Discharge Details Clinical Impression: CHF (congestive heart failure), Paroxysmal atrial fibrillation Primary Care Provider: Maico Leonard ED Provider: Elizabeth Painter Home Meds and New Rx's Prescriptions: No Action (DME) lancets 28 gauge misc 1 ea Miscellaneous DAILY Qty: 100 4RF Rx Instructions: DX: E11.9 ONE TOUCH LANCETS test once/day losartan 100 mg tablet 100 mg PO DAILY Qty: 90 3RF (DME) Blood Glucose Test Strip 1 strip Miscellaneous DAILY Qty: 100 4RF Rx Instructions: DX: E11.9 ONE TOUCH ULTRA test once/day diltiazem HCl 240 mg capsule,extended release 24hr 240 mg PO DAILY Qty: 90 3RF glipizide 5 mg tablet extended release 24hr 5 mg PO DAILY Qty: 90 3RF omeprazole 40 mg capsule,delayed release(DR/EC) 40 mg PO DAILY Qty: 90 3RF albuterol sulfate [ProAir HFA] 90 mcg/actuation HFA aerosol inhaler 2 puff Inhalation Q4H PRN Qty: 3 3RF ciprofloxacin-dexamethasone [Ciprodex] 0.3-0.1 % drops,suspension 3 drp BID PRN Qty: 7.5 2RF nitroglycerin 0.4 mg tablet, sublingual 0.4 mg sublingual Q5-15M PRN (Reason: chest pain) Qty: 25 3RF Patient Comments: 1100 Rx Instructions: 1 tablet every 5 minutes x 3 doses if needed for chest pain. Seek emergency services if not improving after first dose nystatin 100,000 unit/gram cream 1 applic Topical BID PRN (Reason: rash) Qty: 30 3RF Rx Instructions: Apply twice a day beneath breasts till resolves acetaminophen [Tylenol Extra Strength] 500 MG tablet 2 tab PO HS PRN BIPAP 1 ea inhalation HS Rx Instructions: SLEEP APNEA aspirin 81 MG tablet,chewable 81 mg PO DAILY Qty: 90 0RF (DME) pen needle, diabetic [Comfort EZ Pen [place]] 33 gauge x 3/16 needle See Rx Instructions .ROUTE .MEDSUPPLY Qty: 100 3RF Rx Instructions: inject once/daily furosemide 20 mg tablet 40 mg PO DAILY Qty: 180 3RF Rx Instructions: dose increase 03/24/22 rivaroxaban 20 mg tablet 20 mg PO DAILY Qty: 90 3RF Rx Instructions: metoprolol succinate 100 mg tablet extended release 24 hr 100 mg PO DAILY Qty: 90 3RF simvastatin 10 mg tablet 10 mg PO HS Qty: 90 3RF Rx Instructions: spironolactone [Aldactone] 25 mg tablet 25 mg PO DAILY Qty: 90 3RF tirzepatide 5 mg/0.5 mL pen injector 5 mg subcut QWEEK Qty: 2 0RF bupropion HCl [Wellbutrin SR] 150 mg tablet sustained-release 12 hr 150 mg PO BID Qty: 180 3RF magnesium amino acid chelate 100 MG tablet 500 mg PO BID Qty: 0 0RF Patient Comments: 05/08/17 restarted, had stopped 04/17. si Rx Instructions: hasn't been taking bupropion HCl (smoking deter) 150 mg tablet extended release 12 hr 150 mg PO BID fluoxetine 10 mg capsule 10 mg PO DAILY Patient Comments: TAKE ONE CAPSULE BY MOUTH EVERY DAY HPI General Date/Time Provider Initiated Documentation: 09/15/23 14:40 . Limitations to Documentation: no limitations . Information obtained by: patient . HPI Narrative: 73-year-old female with past medical history including paroxysmal atrial fibrillation, on anticoagulation, CHF with preserved EF of 65%, diabetes presents for evaluation of palpitations and shortness of breath. She reports symptoms have been ongoing for the last 2 days. She reports that she is intermittently in and out of A-fib, but states that she usually does not feel this bad. She states that her heart rate has been more elevated over 100. She has not missed any doses of medication. She reports shortness of breath at rest, no chest pain. Has been having difficulty sleeping because of the palpitations. She states that she did take a nitroglycerin with no improvement in her symptoms. She has not noted any weight gain. Related Data Home Medications ?Medication ?Instructions ?Recorded ?Confirmed acetaminophen 500 mg tablet 2 tab PO HS PRN 06/11/12 09/15/23 (Tylenol Extra Strength) Bipap 1 ea inhalation HS 01/23/15 09/15/23 aspirin 81 mg chewable tablet 81 mg PO DAILY #90 tab-caps 05/06/17 09/15/23 lancets 28 gauge #100 ea 06/11/18 09/15/23 albuterol sulfate 90 mcg/actuation 2 puff inhalation Q4H PRN ##3 12/08/18 09/15/23 aerosol inhaler (ProAir HFA) magnesium amino acid chelate 100 500 mg (5 x 100 mg) PO BID #0 tabs 07/12/19 09/15/23 mg tablet ciprofloxacin 0.3 %-dexamethasone 3 drp BID PRN #7.5 mL 01/01/22 09/15/23 0.1 % ear drops,suspension (Ciprodex) blood sugar diagnostic (Blood #100 ea 03/25/22 09/15/23 Glucose Test strips) losartan 100 mg tablet 100 mg PO DAILY #90 tab-caps 09/02/22 09/15/23 pen needle, diabetic 33 gauge x #100 ea 11/04/22 09/15/2305/08 (Comfort EZ Pen [place]) furosemide 20 mg tablet 40 mg (2 x 20 mg) PO DAILY #180 11/08/22 09/15/23 tabs rivaroxaban 20 mg tablet 20 mg PO DAILY afib #90 tabs 12/18/22 09/15/23 diltiazem HCl 240 mg 240 mg PO DAILY #90 caps 03/10/23 09/15/23 capsule,extended release 24 hr glipizide 5 mg tablet, extended 5 mg PO DAILY #90 tabs 03/10/23 09/15/23 release 24 hr omeprazole 40 mg capsule,delayed 40 mg PO DAILY #90 caps 03/10/23 09/15/23 release metoprolol succinate 100 mg 100 mg PO DAILY #90 tabs 05/12/23 09/15/23 tablet,extended release 24 hr simvastatin 10 mg tablet 10 mg PO HS #90 tab-caps 06/08/23 09/15/23 nitroglycerin 0.4 mg sublingual 0.4 mg sublingual Q5-15M PRN chest 07/13/23 09/15/23 tablet pain #25 tabs nystatin 100,000 unit/gram topical 1 applic topical BID PRN rash #30 07/13/23 09/15/23 cream grams spironolactone 25 mg tablet 25 mg PO DAILY #90 tabs 08/08/23 09/15/23 (Aldactone) tirzepatide 5 mg/0.5 mL 5 mg (0.5 mL) subcut QWEEK #2 mL 08/31/23 09/15/23 subcutaneous pen injector bupropion HCl 150 mg tablet,12 hr 150 mg PO BID #180 tabs 09/05/23 09/15/23 sustained-release (Wellbutrin SR) bupropion HCl (smoking deter) 150 150 mg PO BID 09/15/23 09/15/23 mg tablet,12 hr sustained-release(smoking deterrent) fluoxetine 10 mg capsule 10 mg PO DAILY 09/15/23 09/15/23 Previous Rx's ?Medication ?Instructions ?Recorded aspirin 81 mg chewable tablet 81 mg PO DAILY #90 tab-caps 05/06/17 lancets 28 gauge #100 ea 06/11/18 albuterol sulfate 90 mcg/actuation 2 puff inhalation Q4H PRN ##3 12/08/18 aerosol inhaler (ProAir HFA) magnesium amino acid chelate 100 500 mg (5 x 100 mg) PO BID #0 tabs 07/11/ mg tablet ciprofloxacin 0.3 %-dexamethasone 3 drp BID PRN #7.5 mL 01/01/22 0.1 % ear drops,suspension (Ciprodex) blood sugar diagnostic (Blood #100 ea 03/25/22 Glucose Test strips) losartan 100 mg tablet 100 mg PO DAILY #90 tab-caps 09/02/22 pen needle, diabetic 33 gauge x #100 ea 11/04/2205/08 (Comfort EZ Pen [place]) furosemide 20 mg tablet 40 mg (2 x 20 mg) PO DAILY #180 11/08/22 tabs rivaroxaban 20 mg tablet 20 mg PO DAILY afib #90 tabs 12/18/22 diltiazem HCl 240 mg 240 mg PO DAILY #90 caps 03/10/23 capsule,extended release 24 hr glipizide 5 mg tablet, extended 5 mg PO DAILY #90 tabs 03/10/23 release 24 hr omeprazole 40 mg capsule,delayed 40 mg PO DAILY #90 caps 03/10/23 release metoprolol succinate 100 mg 100 mg PO DAILY #90 tabs 05/12/23 tablet,extended release 24 hr simvastatin 10 mg tablet 10 mg PO HS #90 tab-caps 06/08/23 nitroglycerin 0.4 mg sublingual 0.4 mg sublingual Q5-15M PRN chest 07/13/23 tablet pain #25 tabs nystatin 100,000 unit/gram topical 1 applic topical BID PRN rash #30 07/13/23 cream grams spironolactone 25 mg tablet 25 mg PO DAILY #90 tabs 08/08/23 (Aldactone) tirzepatide 5 mg/0.5 mL 5 mg (0.5 mL) subcut QWEEK #2 mL 08/31/23 subcutaneous pen injector bupropion HCl 150 mg tablet,12 hr 150 mg PO BID #180 tabs 09/05/23 sustained-release (Wellbutrin SR) Allergies Allergy/AdvReac Type Severity Reaction Status Date / Time cefuroxime Allergy Severe HIVES Verified 09/15/23 14:48 latex Allergy Severe RASH Verified 09/15/23 14:48 Penicillins Allergy Severe SEVERE Verified 09/15/23 14:48 HIVES Sulfa (Sulfonamide Allergy Severe SEVERE Verified 09/15/23 14:48 Antibiotics) HIVES ciprofloxacin Allergy Mild TOPICAL Verified 09/15/23 14:48 IRRITATION clindamycin AdvReac Severe Hives Verified 09/15/23 14:48 adhesive AdvReac Intermediate SKIN Verified 09/15/23 14:48 COMES OFF caffeine AdvReac Intermediate CHEST PAIN Verified 09/15/23 14:48 empagliflozin (From AdvReac Intermediate yeast Verified 09/15/23 14:48 Jardiance) infections NSAIDS (Non-Steroidal AdvReac Intermediate Other (See Verified 09/15/23 14:48 Anti-Inflamma Comment) lisinopril AdvReac Mild COUGH Verified 09/15/23 14:48 metformin AdvReac Mild diarrhea Verified 09/15/23 14:48 General Stated Complaint: Chest Pain KOTA: 3 Exam Narrative Exam Narrative: Review of Systems: All systems reviewed & are unremarkable except as noted in HPI and below Well-developed, no acute distress NCAT PERRL, normal conjunctiva Irregularly irregular, rate controlled Crackles at bases, no significant tachypnea or increased work of breathing, no hypoxia Nondistended abdomen Extremities w/o deformity, no cyanosis, trace edema bilaterally No rashes or lesions. no focal neurologic deficits Appropriate mood and affect Course Vital Signs Vital signs: Vital Signs Temperature 36.7 C 09/15/23 14:42 Pulse 98 H 09/15/23 14:42 Respiratory Rate 20 09/15/23 14:42 Blood Pressure 129/71 09/15/23 14:42 Pulse Oximetry 97 09/15/23 14:42 Temperature 36.7 C 09/15/23 14:42 Temperature Source Temporal Artery Scan 09/15/23 14:42 Pulse 98 H 09/15/23 14:42 Pulse 86 09/15/23 15:50 Respiratory Rate 15 09/15/23 15:50 Respiratory Effort Short of Breath, Labored 09/15/23 15:04 Respiratory Depth Normal 09/15/23 15:04 Respiratory Pattern Normal 09/15/23 15:04 Blood Pressure 129/71 09/15/23 14:42 Blood Pressure Position Sitting 09/15/23 14:42 Pulse Oximetry 95 09/15/23 15:50 Oxygen Delivery Method Room Air 09/15/23 14:42 Oxygen Flow Rate 0 09/15/23 14:42 Pain Level 2 09/15/23 14:42 Comment tightness 09/15/23 14:42 Lab/Test Results Lab/Test Results: Laboratory Tests Range/Units 09/15/23 15:00 WBC (4.4-10.8) 10^3/uL 7.93 RBC (3.93-5.22) 10^6/uL 5.14 Hgb (11.2-15.7) g/dL 14.6 Hct (36.0-46.0) % 46.0 MCV (80-95) fL 90 MCH (27.0-33.0) pg 28.4 MCHC (32.0-36.0) % 31.7 L RDW (11.7-14.6) % 13.3 Plt Count (130-400) 10^3/uL 297 MPV (8.0-11.0) fL 11.0 Immature Gran % % 0.6 Neutrophils % % 59.4 Lymphocytes % % 24.6 Monocytes % % 10.1 Eosinophils % % 3.7 Basophils % % 1.6 Nucleated RBC % (0.0-0.3) % 0.0 Absolute Neutrophils (1.2-6.7) 10^3/uL 4.71 Absolute Lymphocytes (1.2-3.4) 10^3/uL 1.95 Absolute Monocytes (0.1-0.8) 10^3/uL 0.80 Absolute Eosinophils (0.0-0.7) 10^3/uL 0.29 Absolute Basophils (0.0-0.2) 10^3/uL 0.13 PT (9.1-11.1) sec 12.0 H INR (0.9-1.1) 1.2 H APTT (23.6-32.8) sec 30.8 Sodium (136-145) mmol/L 141 Potassium (3.5-5.1) mmol/L 4.0 Chloride (98-107) mmol/L 104 Carbon Dioxide (21.0-32.0) mmol/L 27.2 Anion Gap (3-11) mmol/L 9.8 BUN (7-18) mg/dL 22 H Creatinine (0.55-1.02) mg/dL 1.6 H Est GFR (CKD-EPI 2020) (mL/min/1.73m2) 34.05 Glucose (74-106) mg/dL 165 H Calcium (8.5-10.1) mg/dL 8.5 Magnesium (1.8-2.4) mg/dL 1.5 L Total Bilirubin (0.2-1.0) mg/dL 0.68 AST (15-37) U/L 12 L ALT (14-59) U/L 21 Alkaline Phosphatase (46-116) U/L 61 Troponin I (< or =60) ng/L < 50 NT-Pro-B Natriuret Pep (<300) pg/mL 2202 H Total Protein (6.4-8.2) g/dL 7.7 Albumin (3.4-5.0) g/dL 3.7 TSH (0.36-3.74) uIU/Ml 1.77 Medical Decision Making Emergent evaluation of palpitations and shortness of breath. Initial differential includes cardiac dysrhythmia, electrolyte derangement, volume overl oad, CHF exacerbation. EKG independently reviewed, atrial fibrillation with right bundle branch block, no acute ischemic changes. The patient does have crackles and I am suspicious for volume overload. Plan for telemetry monitoring and lab work. She is not having any chest pain, so I doubt acute ACS at this time. Lab work reviewed. No leukocytosis or significant anemia. Her creatinine is sl ightly above baseline at 1.6. Her magnesium is low at 1.5. Her first troponin is negative. Her BNP is significantly elevated over 1999. Her chest x-ray is concerning for interstitial edema without pleural effusions. I have given her IV Lasix and she has initiated diuresis. I have reviewed her medical record and noted that her last echocardiogram was in 2022, her previous BNP was not elevated. At this time I do feel that she needs to be admitted to the hospital for further IV diuresis and repeat echo. I have discussed with the hospitalist who will admit to their service. Medical Records Medical records reviewed: Yes I reviewed the patient's medical records. Lab Data Lab results reviewed: Yes I reviewed the patient's lab results. Quality:SDND Health Related Social Needs: No Data to Display PFSH All Active Problems Corns and callosities (Acute) Paroxysmal atrial fibrillation (Acute) Cramping of feet (Acute) Adjustment disorder with anxious mood (Acute) 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 of left ear (Acute) Bradycardia (Acute) Localized edema (Acute) Nail dystrophy (Acute) Acute suppurative otitis media of left ear without spontaneous rupture of ear drum (Acute) Ankle pain, right (Acute) Foot pain (Acute) Gout (Chronic) Fatigue (Acute) Unsteady (Acute) Chronic shoulder pain (Acute ~11/04/21) Chronic diarrhea (Acute) Acute swimmer's ear of left side (Acute) Central perforation of tympanic membrane, left ear (Acute) Non-recurrent acute suppurative otitis media of left ear (Acute) Thrombophlebitis (Acute) Foot pain, right (Acute) dropped firewood on top of foot Otitis externa (Acute) Encounter for staple removal (Acute) Left knee pain (Acute) Low back pain (Acute) Back pain with radiculopathy (Acute) CHF (congestive heart failure) (Chronic) Well adult exam (Acute) Vaginal discharge (Acute) Low blood pressure (Acute) Exacerbation of reactive airway disease (Acute) Acute bronchitis (Acute) Acute diastolic heart failure with preserved ejection fraction (Acute) Atrial fibrillation with rapid ventricular response (Acute) Rib pain on right side (Acute) Shoulder pain, right (Acute) Chronic anticoagulation (Chronic) Atrial flutter (Acute 08/05/11) 10/30 normal echo 08/04 stress test, A flutter briefly in recovery Depressive disorder (Acute) Esophageal reflux (Acute) [place] [facility] [place] 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; S/P 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 Gastroesophageal reflux disease (Acute) 2006 [place] [facility] [place] 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; S/P 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 Hyperlipidemia (Acute) Obesity (Acute) 11/2007-BMI 53.8% binge eating disorder Obstructive sleep apnea syndrome (Acute) [place] [place] Total urinary incontinence (Acute) urge incontinence Essential hypertension (Acute 12/16/12) Diabetes mellitus (Acute 06/18/12) A1c today watch diet Medical History Sensorineural hearing loss, bilateral URI (upper respiratory infection) Tick bite doubt Lyme, given lack of engorged tick and attachment time Herpes zoster without complication (05/22/15) Obesity HTN (hypertension) GERD (gastroesophageal reflux disease) custodial current use of 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 Licona Replacement of total knee joint (~2004) b/l Open Carpal Tunnel release (~03/2009) right HAND SURGERY (~02/2013) Colonoscopy - MAC (05/29/17) Breast, Mastectomy (~01/2003) and reconstruction of TM Family History Mother , age 67 Diabetes TYPE II Essential hypertension Heart disease ANGINA Hyperlipidemia Stroke Renal cancer Father , age 80 Diabetes TYPE I Essential hypertension Heart disease Hyperlipidemia Sister Diabetes Essential hypertension Heart disease Hyperlipidemia Myocardial infarction X 2 Maternal Grandfather No problems noted. Paternal Grandfather No problems noted. Maternal Grandmother Renal cancer Paternal Grandmother No problems noted. Sister Essential hypertension Chronic obstructive lung disease Asthma Brother , age 61 Heart disease Hyperlipidemia Stroke Brother Human immunodeficiency virus (HIV) positive Myocardial infarction Social History Smoking/Tobacco Use Status: Former Tobacco Use tobacco type: cigarettes Quit Date: 05/24/98 Tobacco: How many years used: 29 Smokeless tobacco user: other Quit status: quit date established Second Hand Exposure: Yes Smoking risk assessment performed?: Yes Alcohol Intake: former Drug use: Never Substance use type: does not use Counseling given: No Caregiver/Support person: Yes Household members: spouse Housing: house Communication Needs: Hard of Hearing Do you need help understanding health information?: Rarely Pets and animals: No Sexually active: No Do you think of yourself as: lesbian/doshi/homosexual Current gender identity: female What is your relationship status?: How often do you talk on the phone with friends or family?: three or more times per week How often do you get together with friends or relatives?: once per week How often do you attend cheondoism or caodaism services?: decline to answer Do you belong to any clubs or organized social groups?: no Panel score (0-1 are the most socially isolated patients): 2 What type of physical activity do you participate in: other Details: cutting and splitting wood Duration: decline to answer Frequency: decline to answer Randi/Cheondoism: None Special randi needs: No Seatbelt use: sometimes Drive intox 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
--- NOTE | 2023-09-15 18:27 | W.PC.ACHO ---
Registration Status: Primary Language: Preferred Language: ED Information & Data Chief Complaint Chest Pain 09/15/23 16:57 Triage Note pt with hx of intermittent a 09/15/23 14:42 -fib for 2 days, took ngt SL at 1100, no resolution, HR irreg 67-118, baseline usually NSR and low, on thinners, no missed doses, at side, pt SOB at rest , EKG in triage Medical / Surgical History (Last Reviewed 09/15/23 @ 16:55 by Elizabeth Painter MD) Sensorineural hearing loss, bilateral URI (upper respiratory infection) Tick bite Herpes zoster without complication (05/22/15) Obesity HTN (hypertension) GERD (gastroesophageal reflux disease) 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 Atrial flutter AURORA (obstructive sleep apnea) (Last Reviewed 09/15/23 @ 16:55 by Elizabeth Painter MD) S/p bilateral myringotomy with tube placement History of tonsillectomy and adenoidectomy History of hand surgery History of mastoidectomy (02/14/14) Status post total bilateral knee replacement shoulder surgery (04/30/16) Replacement of total knee joint (~2004) Open Carpal Tunnel release (~03/2009) HAND SURGERY (~02/2013) Colonoscopy - MAC (05/29/17) Breast, Mastectomy (~01/2003) Most Recent Vital Signs Temperature 36.4 C L 09/15/23 18:05 Temperature Source Temporal Artery Scan 09/15/23 14:42 Pulse 96 H 09/15/23 18:05 Pulse Rhythm Irregular 09/15/23 18:05 Pulse 90 09/15/23 16:50 Respiratory Rate 17 09/15/23 18:05 Respiratory Effort Normal 09/15/23 18:05 Respiratory Depth Normal 09/15/23 18:05 Respiratory Pattern Normal 09/15/23 18:05 Blood Pressure 141/78 H 09/15/23 18:05 Blood Pressure Mean 77 09/15/23 16:49 Blood Pressure Position Sitting 09/15/23 14:42 Pulse Oximetry 95 09/15/23 18:05 Oxygen Delivery Method Room Air 09/15/23 18:05 Oxygen Flow Rate 0 09/15/23 18:05 Pain Level 0 09/15/23 18:05 Comment tightness 09/15/23 14:42 Allergies cefuroxime Allergy (Severe, Verified 09/15/23 14:48) HIVES latex Allergy (Severe, Verified 09/15/23 14:48) RASH Penicillins Allergy (Severe, Verified 09/15/23 14:48) SEVERE HIVES Sulfa (Sulfonamide Antibiotics) Allergy (Severe, Verified 09/15/23 14:48) SEVERE HIVES ciprofloxacin Allergy (Mild, Verified 09/15/23 14:48) TOPICAL IRRITATION clindamycin Adverse Reaction (Severe, Verified 09/15/23 14:48) Hives adhesive Adverse Reaction (Intermediate, Verified 09/15/23 14:48) SKIN COMES OFF caffeine Adverse Reaction (Intermediate, Verified 09/15/23 14:48) CHEST PAIN empagliflozin (From Jardiance) Adverse Reaction (Intermediate, Verified 09/15/23 14:48) yeast infections NSAIDS (Non-Steroidal Anti-Inflamma Adverse Reaction (Intermediate, Verified 09/15/23 14:48) Other (See Comment) chest pain lisinopril Adverse Reaction (Mild, Verified 09/15/23 14:48) COUGH metformin Adverse Reaction (Mild, Verified 09/15/23 14:48) diarrhea Precautions Isolation Standard precaution 09/15/23 15:04 IV IV Catheter Type [Right Peripheral IV Antecubital] IV Catheter Gauge [Right 18 Antecubital] Diet Orders Category Date Time Status Heart Healthy Eating [DIET] Nutrition 09/15/23 Dinner Active Diagnostics 09/15/23 09/15/23 Range/Units 17:58 15:00 WBC 7.93 (4.4-10.8) 10^3/uL RBC 5.14 (3.93-5.22) 10^6/uL Hgb 14.6 (11.2-15.7) g/dL Hct 46.0 (36.0-46.0) % MCV 90 (80-95) fL MCH 28.4 (27.0-33.0) pg MCHC 31.7 L (32.0-36.0) % RDW 13.3 (11.7-14.6) % Plt Count 297 (130-400) 10^3/uL MPV 11.0 (8.0-11.0) fL Immature Gran % 0.6 % Neutrophils % 59.4 % Lymphocytes % 24.6 % Monocytes % 10.1 % Eosinophils % 3.7 % Basophils % 1.6 % Nucleated RBC % 0.0 (0.0-0.3) % Absolute Neutrophils 4.71 (1.2-6.7) 10^3/uL Absolute Lymphocytes 1.95 (1.2-3.4) 10^3/uL Absolute Monocytes 0.80 (0.1-0.8) 10^3/uL Absolute Eosinophils 0.29 (0.0-0.7) 10^3/uL Absolute Basophils 0.13 (0.0-0.2) 10^3/uL PT 12.0 H (9.1-11.1) sec INR 1.2 H (0.9-1.1) APTT 30.8 (23.6-32.8) sec Sodium 141 (136-145) mmol/L Potassium 4.0 (3.5-5.1) mmol/L Chloride 104 (98-107) mmol/L Carbon Dioxide 27.2 (21.0-32.0) mmol/L Anion Gap 9.8 (3-11) mmol/L BUN 22 H (7-18) mg/dL Creatinine 1.6 H (0.55-1.02) mg/dL Est GFR (CKD-EPI 2020) 34.05 (mL/min/1.73m2) Glucose 165 H (74-106) mg/dL Calcium 8.5 (8.5-10.1) mg/dL Magnesium 1.5 L (1.8-2.4) mg/dL Total Bilirubin 0.68 (0.2-1.0) mg/dL AST 12 L (15-37) U/L ALT 21 (14-59) U/L Alkaline Phosphatase 61 (46-116) U/L Troponin I Pending < 50 (< or =60) ng/L NT-Pro-B Natriuret Pep 2202 H (<300) pg/mL Total Protein 7.7 (6.4-8.2) g/dL Albumin 3.7 (3.4-5.0) g/dL TSH 1.77 (0.36-3.74) uIU/Ml Intake and Output - 24 Hour Total 09/15/23 14:35 thru 09/15/23 18:05 Output Total 500 Balance -500 Weight 165 kg Output: Urine 500 Other: # Voids 1 Falls Risk Assessment History of Falls No History 09/15/23 18:05 Contributing Factors No Factors 09/15/23 18:05 Ambulatory Aids Independent 09/15/23 18:05 Tubes/Lines None 09/15/23 18:05 Gait Evaluation No gait disturbance 09/15/23 18:05 Fall Total Score 0 09/15/23 18:05 Level of Risk Standard/Low Risk 09/15/23 18:05 v v v v v v v v v Sending and/or Receiving Nurses: Please use comment section below to note any information pertinent to the patient hand-off not included above. Information / Comments: Report received from:
[2023-09-15 19:26] LABS: Troponin I < 50 ng/L (< or =60)
[2023-09-15] MEDS: Normal Saline Flush 10 ML SYR IVP (20:31)
[2023-09-15] MEDS: Simvastatin 10 MG TAB PO (20:32)
[2023-09-15] MEDS: buPROPion-CR 150 MG TABCR PO (20:32)
[2023-09-15] MEDS: Rivaroxaban 10 MG TABLET 20 MG PO (21:19)
[2023-09-15] MEDS: Metoprolol CR 100 MG TABCR PO (21:19)
[2023-09-15] MEDS: Spironolactone 25 MG TAB PO (21:20)
[2023-09-15] MEDS: Acetaminophen 500 MG TAB 1000 MG PO (21:20)
[2023-09-16 03:39] VITALS: BP 110/68; PULSE 82; RESP 18; TEMP 36.1; O2SAT 97
[2023-09-16 07:13] VITALS: BP 120/76; PULSE 81; RESP 18; TEMP 36; O2SAT 97
--- NOTE | 2023-09-16 07:26 | HPE_ITS ---
Date of service: 09/16/23 Time of Service: 04:30 Assessment and Plan Assessment and plan (1) Paroxysmal atrial fibrillation: Start date: 09/15/23 Status: Acute Assessment and plan: This is a 73-year-old lady who is being evaluated for possible pacemaker placement because of symptomatic bradycardia at times having paroxysmal atrial fibrillation which is always symptomatic when in atrial fibrillation. She presented to the ED with shortness of breath and palpitations and atrial fibrillation. She also had an elevated BNP with exacerbation of diastolic CHF. She has not had a recent echocardiogram but this is scheduled for the near future. She also has a Zio patch scheduled for the near future to evaluate bradycardia which is symptomatic. She responded to IV Lasix in the ED and will continue on IV Lasix with trending lab and follow-up echocardiogram scheduled. Her heart rate is controlled presently on her outpatient medical therapy. Continue cardiac monitoring. Troponins were negative x 2 and would not be further trended. Long-term she will follow-up with cardiology from [facility]. She is a full code. (2) CHF (congestive heart failure): Status: Chronic Assessment and plan: Exacerbated by symptoms and elevated BNP though her creatinine is elevated. Continue IV Lasix trending lab and avoid extra IV fluids. Continue cardiac monitoring. Update echocardiogram. Qualifiers: Heart failure chronicity: chronic Heart failure type: diastolic Q ualified Code(s): I50.32 - Chronic diastolic (congestive) heart failure (3) Hypomagnesemia: Status: Chronic Assessment and plan: This has been recurrent in the past and will be repleted IV with follow-up labs. Patient may need to be on chronic oral magnesium with chronic diuresis. Potassium was normal. (4) Obstructive sleep apnea syndrome: Status: Chronic Assessment and plan: Continue BiPAP as at home with home settings. Weight loss would be advised. (5) Essential hypertension: Status: Chronic Assessment and plan: Stable and to be monitored on outpatient medical therapy with increased IV diuresis. Adjust medications as needed. (6) Diabetes mellitus: Status: Chronic Assessment and plan: Continue outpatient medical therapy with monitoring of glucometers before meals and at bedtime. No insulin coverage for now. Qualifiers: Diabetes mellitus complication status: without complication Diabetes mellitus jail insulin use: without jail use Diabetes mellitus type: t ype 2 Qualified Code(s): E11.9 - Type 2 diabetes mellitus without complications History of Present Illness History of Present Illness Chief Complaint: Palpitations, shortness of breath and recurrent atrial fibrillation Narrative: This is a 73-year-old female patient with known paroxysmal atrial fibrillation who is very symptomatic when she is in atrial fibrillation. She presented to the ED with increasing shortness of breath especially with exertion for least 2 days prior to presentation. She does see cardiology from [facility] chronically and is being evaluated for possible pacemaker with bradycardia associated with atrial fibrillation which is symptomatic. She is chronically on Lasix 40 mg daily but did receive 80 mg of Lasix in the ED with good response to diuresis and less shortness of breath. She chronically wears BiPAP at night for sleep apnea and is obese. She does not wear oxygen at home and is not having new oxygen requirement presently. She does have slight spread to her upper chest when she has palpitations but her troponins were negative x 2. She will be admitted for observation with echocardiogram ordered in the morning and continue IV Lasix for diuresis. Her BNP was elevated from baseline from February of this year. Creatinine is slightly elevated as well and this will be observed with diuresis. She does have hypomagnesemia which should be repleted. Long-term the patient will follow-up with [facility] cardiology with Zio patch planned presently she is stable as far as heart rhythm with no significant bradycardia. She continues to be in atrial fibrillation and is on Xarelto. Patient is a full code. Review of Systems Narrative: 13 point review of systems otherwise unrevealing or stable. Patient denies any weight gain or increased peripheral edema with chronic nonpitting edema. FORMERLY [facility], [facility] All Active Problems (Updated 09/16/23 @ 08:03 by Burton Perez) Hypomagnesemia (Chronic) Corns and callosities (Acute) Paroxysmal atrial fibrillation (Acute) Cramping of feet (Acute) Adjustment disorder with anxious mood (Acute) 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 of left ear (Acute) Bradycardia (Acute) Localized edema (Acute) Nail dystrophy (Acute) Acute suppurative otitis media of left ear without spontaneous rupture of ear drum (Acute) Ankle pain, right (Acute) Foot pain (Acute) Gout (Chronic) Fatigue (Acute) Unsteady (Acute) Chronic shoulder pain (Acute ~11/04/21) Chronic diarrhea (Acute) Acute swimmer's ear of left side (Acute) Central perforation of tympanic membrane, left ear (Acute) Non-recurrent acute suppurative otitis media of left ear (Acute) Thrombophlebitis (Acute) Foot pain, right (Acute) dropped firewood on top of foot Otitis externa (Acute) Encounter for staple removal (Acute) Left knee pain (Acute) Low back pain (Acute) Back pain with radiculopathy (Acute) CHF (congestive heart failure) (Chronic) Well adult exam (Acute) Vaginal discharge (Acute) Low blood pressure (Acute) Exacerbation of reactive airway disease (Acute) Acute bronchitis (Acute) Acute diastolic heart failure with preserved ejection fraction (Acute) Atrial fibrillation with rapid ventricular response (Acute) Rib pain on right side (Acute) Shoulder pain, right (Acute) Chronic anticoagulation (Chronic) Atrial flutter (Acute 08/05/11) 10/30 normal echo 08/04 stress test, A flutter briefly in recovery Depressive disorder (Acute) Esophageal reflux (Acute) 2006 EGD at [facility]-normal 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; S/P Bilateral TKR-2005 Gastroesophageal reflux disease (Acute) 2006 EGD at [facility]-normal 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; S/P Bilateral TKR-2005 Hyperlipidemia (Acute) Obesity (Acute) 11/2007-BMI 53.8% binge eating disorder Obstructive sleep apnea syndrome (Chronic) uses BiPAP ([facility] sleep lab) Total urinary incontinence (Acute) urge incontinence Essential hypertension (Chronic 12/16/12) Diabetes mellitus (Chronic 06/18/12) A1c today watch diet Medical History Sensorineural hearing loss, bilateral URI (upper respiratory infection) Tick bite doubt Lyme, given lack of engorged tick and attachment time Herpes zoster without complication (05/22/15) Obesity HTN (hypertension) 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 Licona Replacement of total knee joint (~2004) b/l Open Carpal Tunnel release (~03/2009) right HAND SURGERY (~02/2013) Colonoscopy - MAC (05/29/17) Breast, Mastectomy (~01/2003) and reconstruction of TM Family History Mother , age 67 Diabetes TYPE II Essential hypertension Heart disease ANGINA Hyperlipidemia Stroke Renal cancer Father , age 80 Diabetes TYPE I Essential hypertension Heart disease Hyperlipidemia Sister Diabetes Essential hypertension Heart disease Hyperlipidemia Myocardial infarction X 2 Maternal Grandfather No problems noted. Paternal Grandfather No problems noted. Maternal Grandmother Renal cancer Paternal Grandmother No problems noted. Sister Essential hypertension Chronic obstructive lung disease Asthma Brother , age 61 Heart disease Hyperlipidemia Stroke Brother Human immunodeficiency virus (HIV) positive Myocardial infarction Social History Smoking/Tobacco Use Status: Former Tobacco Use tobacco type: cigarettes Quit Date: 05/24/98 Tobacco: How many years used: 29 Smokeless tobacco user: other Quit status: quit date established Second Hand Exposure: Yes Smoking risk assessment performed?: Yes Alcohol Intake: former Drug use: Never Substance use type: does not use Counseling given: No Caregiver/Support person: Yes Household members: spouse Housing: house Communication Needs: Hard of Hearing Do you need help understanding health information?: Rarely Pets and animals: No Sexually active: No Do you think of yourself as: lesbian/doshi/homosexual Current gender identity: female What is your relationship status?: How often do you talk on the phone with friends or family?: three or more times per week How often do you get together with friends or relatives?: once per week How often do you attend spiritism or sabianism services?: decline to answer Do you belong to any clubs or organized social groups?: no Panel score (0-1 are the most socially isolated patients): 2 What type of physical activity do you participate in: other Details: cutting and splitting wood Duration: decline to answer Frequency: decline to answer Randi/Jew: None Special randi needs: No Seatbelt use: sometimes Drive intox or ride w/intox driver retraining instructor: No Do you feel safe at home: Yes Do you feel safe in your relationship?: Yes Additional Social history: Lives with of several decades [place] on [address] outside of [facility] Allergies and Home Medications Allergies Allergy/AdvReac Type Severity Reaction Status Date / Time cefuroxime Allergy Severe HIVES Verified 09/15/23 14:48 latex Allergy Severe RASH Verified 09/15/23 14:48 Penicillins Allergy Severe SEVERE Verified 09/15/23 14:48 HIVES Sulfa (Sulfonamide Allergy Severe SEVERE Verified 09/15/23 14:48 Antibiotics) HIVES ciprofloxacin Allergy Mild TOPICAL Verified 09/15/23 14:48 IRRITATION clindamycin AdvReac Severe Hives Verified 09/15/23 14:48 adhesive AdvReac Intermediate SKIN Verified 09/15/23 14:48 COMES OFF caffeine AdvReac Intermediate CHEST PAIN Verified 09/15/23 14:48 empagliflozin (From AdvReac Intermediate yeast Verified 09/15/23 14:48 Jardiance) infections NSAIDS (Non-Steroidal AdvReac Intermediate Other (See Verified 09/15/23 14:48 Anti-Inflamma Comment) lisinopril AdvReac Mild COUGH Verified 09/15/23 14:48 metformin AdvReac Mild diarrhea Verified 09/15/23 14:48 Home Medications ?Medication ?Instructions ?Recorded ?Confirmed ?Type acetaminophen 500 mg tablet 2 tab PO HS PRN 06/11/12 09/15/23 History (Tylenol Extra Strength) Bipap 1 ea inhalation HS 01/23/15 09/15/23 History aspirin 81 mg chewable tablet 81 mg PO DAILY #90 tab-caps 05/06/17 09/15/23 Rx lancets 28 gauge #100 ea 06/11/18 09/15/23 Rx albuterol sulfate 90 mcg/actuation 2 puff inhalation Q4H PRN ##3 12/08/18 09/15/23 Rx aerosol inhaler (ProAir HFA) magnesium amino acid chelate 100 500 mg (5 x 100 mg) PO BID #0 tabs 07/12/19 09/15/23 Rx mg tablet ciprofloxacin 0.3 %-dexamethasone 3 drp BID PRN #7.5 mL 01/01/22 09/15/23 Rx 0.1 % ear drops,suspension (Ciprodex) blood sugar diagnostic (Blood #100 ea 03/25/22 09/15/23 Rx Glucose Test strips) losartan 100 mg tablet 100 mg PO DAILY #90 tab-caps 09/02/22 09/15/23 Rx pen needle, diabetic 33 gauge x #100 ea 11/04/22 09/15/23 Rx 3/16 (Comfort EZ [place]) furosemide 20 mg tablet 40 mg (2 x 20 mg) PO DAILY #180 11/08/22 09/15/23 Rx tabs rivaroxaban 20 mg tablet 20 mg PO DAILY afib #90 tabs 12/18/22 09/15/23 Rx diltiazem HCl 240 mg 240 mg PO DAILY #90 caps 03/10/23 09/15/23 Rx capsule,extended release 24 hr glipizide 5 mg tablet, extended 5 mg PO DAILY #90 tabs 03/10/23 09/15/23 Rx release 24 hr omeprazole 40 mg capsule,delayed 40 mg PO DAILY #90 caps 03/10/23 09/15/23 Rx release metoprolol succinate 100 mg 100 mg PO DAILY #90 tabs 05/12/23 09/15/23 Rx tablet,extended release 24 hr simvastatin 10 mg tablet 10 mg PO HS #90 tab-caps 06/08/23 09/15/23 Rx nitroglycerin 0.4 mg sublingual 0.4 mg sublingual Q5-15M PRN chest 07/13/23 09/15/23 Rx tablet pain #25 tabs nystatin 100,000 unit/gram topical 1 applic topical BID PRN rash #30 07/13/23 09/15/23 Rx cream grams spironolactone 25 mg tablet 25 mg PO DAILY #90 tabs 08/08/23 09/15/23 Rx (Aldactone) tirzepatide 5 mg/0.5 mL 5 mg (0.5 mL) subcut QWEEK #2 mL 08/31/23 09/15/23 Rx subcutaneous pen injector bupropion HCl 150 mg tablet,12 hr 150 mg PO BID #180 tabs 09/05/23 09/15/23 Rx sustained-release (Wellbutrin SR) bupropion HCl (smoking deter) 150 150 mg PO BID 09/15/23 09/15/23 History mg tablet,12 hr sustained-release(smoking deterrent) fluoxetine 10 mg capsule 10 mg PO DAILY 09/15/23 09/15/23 History Exam Narrative Exam Narrative: General: Patient is morbidly obese, alert and oriented x 3 and in no acute distress. She is very talkative with pressured speech. HEENT: Normocephalic, eyes with pupils equal and react to light symmetrically, extraocular movement intact and sclera anicteric. Oropharynx with moist mucosa. Neck: Supple without JVD. Back: Stooped posture without CVA tenderness. Lungs: Slightly decreased aeration in bases with no focalizing rales or rhonchi. Fair aeration. No expiratory wheeze. Breast: Exam deferred. Heart: Irregular irregular rhythm with normal rate. Distant heart sounds with no appreciable murmur or gallop. Abdomen: Obese contour, soft and nontender to palpation with no palpable hepatosplenomegaly. Bowel sounds positive in all quadrants. Genitalia/rectal: Exam deferred. Extremities: Nonpitting edema lower extremities with obesity, no clubbing or cyanosis. Good cap refill. Skin: Normal color, warm and dry. Neuro: Cranial nerves II to XII gross intact, no focal motor deficits and no tremor. Psych: Slightly pressured speech with normal affect and mood. No abnormal thought processes. Remote and recent memory intact. Results Imaging Imaging Studies: EXAM: XR PORTABLE CHEST AP CLINICAL HISTORY: sob. TECHNIQUE: 2D digital imaging was performed. COMPARISON: CR XR PORTABLE CHEST AP from 02/24/2023 CR XR PORTABLE CHEST AP from 07/03/2023 FINDINGS: Single AP portable view. Heart size is upper normal. The mediastinum is not widened. Mild increased markings both lung bases. No air bronchograms. No obvious pleural effusions. No evidence of pulmonary edema. No fractures. No pneumothorax. IMPRESSION: Mild increased markings in the lung bases but no confluent infiltrates.No obvious pleural effusions evident on this AP portable view. Labs 09/15/23 15:00 09/15/23 15:00 Labs: Laboratory Results - last 24 hr 09/15/23 09/15/23 15:00 18:55 WBC 7.93 RBC 5.14 Hgb 14.6 Hct 46.0 MCV 90 MCH 28.4 MCHC 31.7 L RDW 13.3 Plt Count 297 MPV 11.0 Immature Gran % 0.6 Neutrophils % 59.4 Lymphocytes % 24.6 Monocytes % 10.1 Eosinophils % 3.7 Basophils % 1.6 Nucleated RBC % 0.0 Absolute Neutrophils 4.71 Absolute Lymphocytes 1.95 Absolute Monocytes 0.80 Absolute Eosinophils 0.29 Absolute Basophils 0.13 PT 12.0 H INR 1.2 H APTT 30.8 Sodium 141 Potassium 4.0 Chloride 104 Carbon Dioxide 27.2 Anion Gap 9.8 BUN 22 H Creatinine 1.6 H Est GFR (CKD-EPI 2020) 34.05 Glucose 165 H Calcium 8.5 Magnesium 1.5 L Total Bilirubin 0.68 AST 12 L ALT 21 Alkaline Phosphatase 61 Troponin I < 50 < 50 NT-Pro-B Natriuret Pep 2202 H Total Protein 7.7 Albumin 3.7 TSH 1.77 Last Vital Signs Temp 36.0 C L 09/16/23 07:13 Pulse 81 09/16/23 07:13 Resp 18 09/16/23 07:13 BP 120/76 09/16/23 07:13 Pulse Ox 97 09/16/23 07:13 Time Spent Time spent with Patient: >75 minutes Time was spent: preparing to see the patient(eg.review tests), obtaining and/or reviewing separately otained hiistory, ordering medications,tests, procedures, indepentently interpreting results, counseling the patient and care coordination
[2023-09-16] MEDS: Aspirin 81 MG CHEW PO (08:02)
[2023-09-16] MEDS: FLUoxetine 10 MG TAB PO (08:02)
[2023-09-16] MEDS: buPROPion-CR 150 MG TABCR PO ×2 (08:02→19:46)
[2023-09-16] MEDS: glipiZIDE C.R. 5 MG TABCR PO (08:02)
[2023-09-16] MEDS: Normal Saline Flush 10 ML SYR IVP ×3 (08:02→19:47)
[2023-09-16] MEDS: Furosemide 40 MG/4 ML VIAL IVP ×2 (08:02→15:58)
[2023-09-16] MEDS: dilTIAZem CD 120 MG CAPCR 240 MG PO (08:02)
[2023-09-16] MEDS: Losartan 50 MG TAB 100 MG PO (08:03)
[2023-09-16] MEDS: Omeprazole 20 MG CAPCR 40 MG PO (08:03)
[2023-09-16] MEDS: MAGNESIUM SULFATE 2 GM/50 ML BAG IVINF (08:27)
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
[2023-09-16 10:22] LABS: Bilirubin Negative (Negative); Blood Negative (Negative); Clarity Clear (Clear); Glucose 100 mg/dL (Negative); Ketones Negative (Negative); Leukocyte Esterase Negative (Negative); Nitrite Negative (Negative); Specific Gravity 1.015 (1.005-1.025); Urobilinogen 0.2 mg/dL (Up to 0.2); pH 5.5 (5-8)
[2023-09-16 11:26] VITALS: BP 133/81; PULSE 90; RESP 18; TEMP 36; O2SAT 95
[2023-09-16] MEDS: Insulin Aspart 300 UNITS/3 ML PEN SC (12:08)
--- NOTE | 2023-09-16 12:42 | PHA.REVIEW2 ---
Pharmacy Admission Review Admission Clinical Review Admission Pharmacy Review: Paroxysmal atrial fibrillation (Acute) cefuroxime Allergy (Severe, Verified 09/15/23 14:48) HIVES latex Allergy (Severe, Verified 09/15/23 14:48) RASH Penicillins Allergy (Severe, Verified 09/15/23 14:48) SEVERE HIVES Sulfa (Sulfonamide Antibiotics) Allergy (Severe, Verified 09/15/23 14:48) SEVERE HIVES ciprofloxacin Allergy (Mild, Verified 09/15/23 14:48) TOPICAL IRRITATION clindamycin Adverse Reaction (Severe, Verified 09/15/23 14:48) Hives adhesive Adverse Reaction (Intermediate, Verified 09/15/23 14:48) SKIN COMES OFF caffeine Adverse Reaction (Intermediate, Verified 09/15/23 14:48) CHEST PAIN empagliflozin (From Jardiance) Adverse Reaction (Intermediate, Verified 09/15/23 14:48) yeast infections NSAIDS (Non-Steroidal Anti-Inflamma Adverse Reaction (Intermediate, Verified 09/15/23 14:48) Other (See Comment) lisinopril Adverse Reaction (Mild, Verified 09/15/23 14:48) COUGH metformin Adverse Reaction (Mild, Verified 09/15/23 14:48) diarrhea Resuscitation Status Full Code Height 5 ft 4 in Weight 108.862 kg Pharmacy Admission Review Renal Dosing Renal Dosing: BUN 22 mg/dL (7-18) H 09/15/23 15:00 Creatinine 1.6 mg/dL (0.55-1.02) H 09/15/23 15:00 Medications needing adjustments: Intervened (CrCl 38.32 mL/min) List of meds needing interventions: Reached out to provider regarding Xarelto dose, recommended 15mg if CrCl <50. Provider changed order from 20mg daily to 15mg daily Anticoagulation Anticoagulation: Hgb 14.6 g/dL (11.2-15.7) 09/15/23 15:00 Hct 46.0 % (36.0-46.0) 09/15/23 15:00 Plt Count 297 10^3/uL (130-400) 09/15/23 15:00 INR 1.2 (0.9-1.1) H 09/15/23 15:00 Creatinine 1.6 mg/dL (0.55-1.02) H 09/15/23 15:00 DVT Prophylaxis: Intervened (renal dose adjustment - see above) Medications: Rivaroxaban (15mg daily) Relevant Labs Relevant Labs: Sodium 141 mmol/L (136-145) 09/15/23 15:00 Potassium 4.0 mmol/L (3.5-5.1) 09/15/23 15:00 Chloride 104 mmol/L (98-107) 09/15/23 15:00 Magnesium 1.5 mg/dL (1.8-2.4) L 09/15/23 15:00 Electrolytes, C-Reactive P, ESR: Reviewed (labs for today are pending) DM Control DM Control: Glucose 165 mg/dL (74-106) H 09/15/23 15:00 Finger Stick Blood Glucose 204 1124 Finger Stick Blood Glucose 204 1124 DM Control: Reviewed Insulin Dosing, Diabetic Medication: Has order for SS insulin and patients own mounjaro Cardiac Review Cardiac Review: Troponin I < 50 ng/L (< or =60) 09/15/23 18:55 NT-Pro-B Natriuret Pep 2202 pg/mL (<300) H 09/15/23 15:00 BP, HR, EF%: Reviewed (BP and HR WNL) QTc Review QTc: Reviewed (507 from 09/15/23) IV to PO Switch IV Medications: Reviewed (furosemide) Home Meds Home Med List reviewed: Intervened Relevent Home Meds Not ordered & why?: Ciprodex Changed Mounjaro and magnesium amino acid chelate to patients own orders. Reached out to nursing to see if these could be brought in. Per nursing, patient administers Mounjaro on and will have both meds brought in tomorrow. Current Meds Current Medication Order Review: Reviewed
[2023-09-16 12:54] LABS: HCT 46.4 % (36.0-46.0); HGB 14.8 g/dL (11.2-15.7); MCH 28.5 pg (27.0-33.0); MCHC 31.9 % (32.0-36.0); MCV 89 fL (80-95); MPV 11.4 fL (8.0-11.0); Platelet Count 284 10^3/uL (130-400); RBC 5.19 10^6/uL (3.93-5.22); RDW 13.2 % (11.7-14.6); RDW-SD 43.7 fL; WBC 8.62 10^3/uL (4.4-10.8)
[2023-09-16 13:08] LABS: ALT 21 U/L (14-59); AST 14 U/L (15-37); Albumin 3.6 g/dL (3.4-5.0); Alkaline Phosphatase 61 U/L (46-116); Anion Gap 8.9 mmol/L (3-11); BUN 25 mg/dL (7-18); Bilirubin, Total 0.66 mg/dL (0.2-1.0); CO2 30.1 mmol/L (21.0-32.0); CREATININE 1.3 mg/dL (0.55-1.02); Calcium 8.6 mg/dL (8.5-10.1); Chloride 101 mmol/L (98-107); Estimated GFR 43.69 (mL/min/1.73m2); Glucose 160 mg/dL (74-106); Magnesium 1.9 mg/dL (1.8-2.4); Potassium 4.3 mmol/L (3.5-5.1); Sodium 140 mmol/L (136-145); Total Protein 7.7 g/dL (6.4-8.2)
--- NOTE | 2023-09-16 14:14 | RESPIRATORY ---
09/16/23 Home BIPAP unit IPAP: 24 EPAP: 18 O2: 2L DME: [facility] Pt's home unit inspected, H2O chamber filled, O2 tubing connected Inside home unit inspection revealed black colored mold; informed pt that she should get a new machine. Pt states that her DME has reached out to her to do this but she has not yet; encouraged pt to do so. Wiped down visibly moldy areas with alcohol wipes.
[2023-09-16 15:17] VITALS: BP 117/59; PULSE 89; RESP 17; TEMP 36.6; O2SAT 96
[2023-09-16] MEDS: Rivaroxaban 15 MG TABLET PO (17:12)
--- NOTE | 2023-09-16 17:58 | CHAPLAIN ---
I had a brief visit with Elizabeth. She's here considering a possible pacemaker. She said she came to the ED yesterday and was admitted last night. She said her spouse has been bringing her everything she needs. I will check in with her tomorrow.
[2023-09-16 19:45] VITALS: BP 112/83; PULSE 96; RESP 20; TEMP 36.6; O2SAT 96
[2023-09-16] MEDS: Metoprolol CR 100 MG TABCR PO (19:46)
[2023-09-16] MEDS: Simvastatin 10 MG TAB PO (19:46)
[2023-09-16] MEDS: Metoprolol 25 MG TAB PO (19:46)
[2023-09-16] MEDS: Spironolactone 25 MG TAB PO (19:47)
[2023-09-16] MEDS: Acetaminophen 325 MG TAB PO (20:00)
[2023-09-17] VITALS (8 sets, daily range): BP systolic 100–129; BP diastolic 66–75; PULSE 71–107; RESP 17–24; TEMP 36–36.9; O2SAT 94–99
[2023-09-17] MEDS: Metoprolol 25 MG TAB PO ×4 (01:14→18:45)
[2023-09-17] MEDS: Omeprazole 20 MG CAPCR 40 MG PO (06:39)
[2023-09-17 07:37] LABS: HCT 47.6 % (36.0-46.0); HGB 15.3 g/dL (11.2-15.7); MCH 28.4 pg (27.0-33.0); MCHC 32.1 % (32.0-36.0); MCV 88 fL (80-95); MPV 11.8 fL (8.0-11.0); Platelet Count 346 10^3/uL (130-400); RBC 5.39 10^6/uL (3.93-5.22); RDW 13.4 % (11.7-14.6); RDW-SD 43.4 fL; WBC 7.76 10^3/uL (4.4-10.8)
[2023-09-17 07:55] LABS: Anion Gap 9.6 mmol/L (3-11); BUN 33 mg/dL (7-18); CO2 29.4 mmol/L (21.0-32.0); CREATININE 1.5 mg/dL (0.55-1.02); Calcium 8.9 mg/dL (8.5-10.1); Chloride 100 mmol/L (98-107); Glucose 202 mg/dL (74-106); Magnesium 1.9 mg/dL (1.8-2.4); Potassium 4.5 mmol/L (3.5-5.1); Sodium 139 mmol/L (136-145)
[2023-09-17] MEDS: Normal Saline Flush 10 ML SYR IVP ×2 (08:17→21:06)
[2023-09-17] MEDS: buPROPion-CR 150 MG TABCR PO ×2 (08:18→21:05)
[2023-09-17] MEDS: FLUoxetine 10 MG TAB PO (08:18)
[2023-09-17] MEDS: Aspirin 81 MG CHEW PO (08:18)
[2023-09-17] MEDS: glipiZIDE C.R. 5 MG TABCR PO (08:18)
[2023-09-17] MEDS: Losartan 50 MG TAB 100 MG PO (08:18)
[2023-09-17] MEDS: Furosemide 20 MG TAB 40 MG PO (08:19)
[2023-09-17] MEDS: Insulin Aspart 300 UNITS/3 ML PEN SC ×2 (08:19→12:09)
--- NOTE | 2023-09-17 08:40 | W.CARDCONSUL ---
Date of service: 09/17/23 Time of Service: 08:40 Assessment and Plan Assessment and plan (1) Paroxysmal atrial fibrillation: Status: Acute Assessment and plan: Patient has paroxysmal atrial fibrillation. She is symptomatic with the dysrhythmia. There have been concerns for bradycardia no significant bradycardia has been documented. That was one of the concerns prompting a Zio patch. I would consider concerns for Xarelto and diltiazem to be theoretical as in practice these medications are commonly used. Using metoprolol succinate and higher doses is reasonable if diltiazem is discontinued I would consider adding amiodarone 200 mg once or twice daily, not using loading intravenously to see if sinus rhythm can be restored. If it is, then she should be monitored looking for significant or symptomatic bradycardia. If that was to be documented, a pacemaker could be considered History of Present Illness History of Present Illness Chief Complaint: Shortness of breath, paroxysmal atrial fibrillation Narrative: This is 1 of numerous hospital admissions for this 73-year-old woman who has a history of paroxysmal atrial fibrillation and diastolic heart failure. She also has severe sleep apnea. She has been seen on several occasions by electrophysiology from [facility], most recently 2 weeks ago with a visit with NUNO Ralph. He recommended a 2 weeks Zio patch and an echocardiogram. Patient came to the hospital 2 days ago with difficulty breathing felt on the basis of decompensated diastolic heart failure. She was given diuretics with improvement Medications at the time of her EP visit were reported to include diltiazem 240 mg daily, Toprol-XL 100 mg daily, baby aspirin and Xarelto for stroke prevention. She is also on low-dose Zocor Since admission to the hospital her diltiazem has been discontinued. She is on both long-acting and short acting metoprolol An echocardiogram was done. This showed no change compared to 2022. LV function is normal, EF 60%. She has a severely dilated left atrium, mildly dilated right atrium and mild mitral regurgitation. Estimated right ventricular systolic pressure was normal She has a chronic left bundle branch block Current heart rate is approximately 100 [facility] All Active Problems (Updated 09/17/23 @ 08:44 by Amairani Leslie MD) Hypomagnesemia (Chronic) Corns and callosities (Acute) Paroxysmal atrial fibrillation (Acute) Cramping of feet (Acute) Adjustment disorder with anxious mood (Acute) 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 of left ear (Acute) Bradycardia (Acute) Localized edema (Acute) Nail dystrophy (Acute) Acute suppurative otitis media of left ear without spontaneous rupture of ear drum (Acute) Ankle pain, right (Acute) Foot pain (Acute) Gout (Chronic) Fatigue (Acute) Unsteady (Acute) Chronic shoulder pain (Acute ~11/04/21) Chronic diarrhea (Acute) Acute swimmer's ear of left side (Acute) Central perforation of tympanic membrane, left ear (Acute) Non-recurrent acute suppurative otitis media of left ear (Acute) Thrombophlebitis (Acute) Foot pain, right (Acute) dropped firewood on top of foot Otitis externa (Acute) Encounter for staple removal (Acute) Left knee pain (Acute) Low back pain (Acute) Back pain with radiculopathy (Acute) CHF (congestive heart failure) (Chronic) Well adult exam (Acute) Vaginal discharge (Acute) Low blood pressure (Acute) Exacerbation of reactive airway disease (Acute) Acute bronchitis (Acute) Acute diastolic heart failure with preserved ejection fraction (Acute) Atrial fibrillation with rapid ventricular response (Acute) Rib pain on right side (Acute) Shoulder pain, right (Acute) Chronic anticoagulation (Chronic) Atrial flutter (Acute 08/05/11) 10/30 normal echo 08/04 stress test, A flutter briefly in recovery Depressive disorder (Acute) Esophageal reflux (Acute) 2006 E[place] [facility] 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; S/P 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 Gastroesophageal reflux disease (Acute) 2006 E[place] [facility] 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; S/P Bilateral TKR-2005 Hyperlipidemia (Acute) Obesity (Acute) 11/2007-BMI 53.8% binge eating disorder Obstructive sleep apnea syndrome (Chronic) uses BiPAP ([facility] [place]) Total urinary incontinence (Acute) urge incontinence Essential hypertension (Chronic 12/16/12) Diabetes mellitus (Chronic 06/18/12) A1c today watch diet Medical History (Updated 09/17/23 @ 08:44 by Amairani Leslie MD) Sensorineural hearing loss, bilateral URI (upper respiratory infection) Tick bite doubt Lyme, given lack of engorged tick and attachment time Herpes zoster without complication (05/22/15) Obesity HTN (hypertension) 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 Licona Replacement of total knee joint (~2004) b/l Open Carpal Tunnel release (~03/2009) right HAND SURGERY (~02/2013) Colonoscopy - MAC (05/29/17) Breast, Mastectomy (~01/2003) and reconstruction of TM Family History Mother , age 67 Diabetes TYPE II Essential hypertension Heart disease ANGINA Hyperlipidemia Stroke Renal cancer Father , age 80 Diabetes TYPE I Essential hypertension Heart disease Hyperlipidemia Sister Diabetes Essential hypertension Heart disease Hyperlipidemia Myocardial infarction X 2 Maternal Grandfather No problems noted. Paternal Grandfather No problems noted. Maternal Grandmother Renal cancer Paternal Grandmother No problems noted. Sister Essential hypertension Chronic obstructive lung disease Asthma Brother , age 61 Heart disease Hyperlipidemia Stroke Brother Human immunodeficiency virus (HIV) positive Myocardial infarction Social History Smoking/Tobacco Use Status: Former Tobacco Use tobacco type: cigarettes Quit Date: 05/24/98 Tobacco: How many years used: 29 Smokeless tobacco user: other Quit status: quit date established Second Hand Exposure: Yes Smoking risk assessment performed?: Yes Alcohol Intake: former Drug use: Never Substance use type: does not use Counseling given: No Caregiver/Support person: Yes Household members: spouse Housing: house Communication Needs: Hard of Hearing Do you need help understanding health information?: Rarely Pets and animals: No Sexually active: No Do you think of yourself as: lesbian/doshi/homosexual Current gender identity: female What is your relationship status?: How often do you talk on the phone with friends or family?: three or more times per week How often do you get together with friends or relatives?: once per week How often do you attend hoahaoism or mormonism services?: decline to answer Do you belong to any clubs or organized social groups?: no Panel score (0-1 are the most socially isolated patients): 2 What type of physical activity do you participate in: other Details: cutting and splitting wood Duration: decline to answer Frequency: decline to answer Randi/Sikhism: None Special randi needs: No Seatbelt use: sometimes Drive intox 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: No Do you feel safe at home: Yes Do you feel safe in your relationship?: Yes Additional Social history: Lives with of several aniket Simmons on [address] outside of [facility] Results Last Vital Signs Temp 36.5 C 09/17/23 07:36 Pulse 91 H 09/17/23 07:36 Resp 18 09/17/23 07:36 BP 100/66 09/17/23 04:25 Pulse Ox 99 09/17/23 07:36 Labs 09/17/23 06:45 09/17/23 06:45 Labs: Laboratory Results - last 24 hr 09/16/23 09/16/23 09/17/23 09:30 12:40 06:45 WBC 8.62 7.76 RBC 5.19 5.39 H Hgb 14.8 15.3 Hct 46.4 H 47.6 H MCV 89 88 MCH 28.5 28.4 MCHC 31.9 L 32.1 RDW 13.2 13.4 Plt Count 284 346 MPV 11.4 H 11.8 H Sodium 140 139 Potassium 4.3 4.5 Chloride 101 100 Carbon Dioxide 30.1 29.4 Anion Gap 8.9 9.6 BUN 25 H 33 H Creatinine 1.3 H 1.5 H Est GFR (CKD-EPI 2020) 43.69 36.80 Glucose 160 H 202 H Calcium 8.6 8.9 Magnesium 1.9 1.9 Total Bilirubin 0.66 AST 14 L ALT 21 Alkaline Phosphatase 61 Total Protein 7.7 Albumin 3.6 Urine Color Yellow Urine Clarity Clear Urine pH 5.5 Ur Specific [place] 1.015 Urine Protein Negative Urine Ketones Negative Urine Blood Negative Urine Nitrite Negative Urine Bilirubin Negative Urine Urobilinogen 0.2 Ur Leukocyte Esterase Negative Urine Glucose 100 H
--- NOTE | 2023-09-17 10:08 | W.PM.PROGNOT ---
Date of Service Date of service: 09/17/23 Time of Service: 10:08 Assessment and Plan Assessment and plan (1) Paroxysmal atrial fibrillation: Start date: 09/15/23 Status: Acute Assessment and plan: -presented with symptomatic paroxysmal atrial fibrillation -She presented to the ED with shortness of breath and palpitations and atrial fibrillation. -also had an elevated BNP with exacerbation of diastolic CHF. -TTE on 09/15 without signs of CHF -She also has a Zio patch scheduled for the near future to evaluate bradycardia which is symptomatic. -She responded to IV Lasix in the ED but has since been discontinued given normal EF on TTE -Her heart rate is controlled presently on her outpatient medical therapy -Troponins were negative x 2 and would not be further trended. -Long-term she will follow-up with cardiology from [facility] in [facility] -greatly apprecaite Cardiology recs; -risk of PO dilt and xarelto theoretical and not outwardly contraindicated; since already changed to PO metop, would continue at high doses if needed -rec initiation of PO amiodorone 200mg daily or BID (without loading dose), in attempt to restore sinus rhythm and allow for further monitoring of potential bradycardia which has yet to be observed since admission -if bradycardia is observed on tele, would consider pacemaker placement -has been on toprol XL 100mg HS and lopressor PO 25mg Q6h, will continue and adjust given initiation of amiodarone as noted above (2) CHF (congestive heart failure): Status: Chronic Assessment and plan: -Exacerbated by symptoms and elevated BNP though her creatinine is elevated. -had been on IV Lasix which has since been transition to PO 40mg daily -TTE as noted above Qualifiers: Heart failure type: diastolic Heart failure chronicity: chronic Qualified Code(s): I50.32 - Chronic diastolic (congestive) heart failure (3) Hypomagnesemia: Status: Chronic Assessment and plan: -replaced 1.9 on AM 09/16 (4) Obstructive sleep apnea syndrome: Status: Chronic Assessment and plan: -Continue BiPAP as at home with home settings. -Weight loss would be advised. (5) Essential hypertension: Status: Chronic Assessment and plan: -Stable and to be monitored on outpatient medical therapy with increased IV diuresis. -Adjust medications as needed. (6) Diabetes mellitus: Status: Chronic Assessment and plan: -Continue outpatient medical therapy with monitoring of glucometers before meals and at bedtime. No insulin coverage for now. Qualifiers: Diabetes mellitus type: type 2 Diabetes mellitus longterm insulin use: without technical services specialist use Diabetes mellitus complication status: without complication Qualified Code(s): E11.9 - Type 2 diabetes mellitus without complications Subjective Subjective Interval history since last seen: Patient states that she is doing well today and has no complaints or concerns at this time. Exam Narrative Exam Narrative: well appearing female sitting up in the chair in no acute distress, AOx4, heart irregularly irregular, rate ~90bpm, lungs CTAB, abdomen soft, non-tender, non-distended Objective Last Vital Signs Temp 97.7 F 09/17/23 07:36 Pulse 91 H 09/17/23 07:36 Resp 18 09/17/23 07:36 BP 100/66 09/17/23 04:25 Pulse Ox 99 09/17/23 07:36 Laboratory Results - last 24 hr 09/16/23 09/16/23 09/17/23 09:30 12:40 06:45 WBC 8.62 7.76 RBC 5.19 5.39 H Hgb 14.8 15.3 Hct 46.4 H 47.6 H MCV 89 88 MCH 28.5 28.4 MCHC 31.9 L 32.1 RDW 13.2 13.4 Plt Count 284 346 MPV 11.4 H 11.8 H Sodium 140 139 Potassium 4.3 4.5 Chloride 101 100 Carbon Dioxide 30.1 29.4 Anion Gap 8.9 9.6 BUN 25 H 33 H Creatinine 1.3 H 1.5 H Est GFR (CKD-EPI 2020) 43.69 36.80 Glucose 160 H 202 H Calcium 8.6 8.9 Magnesium 1.9 1.9 Total Bilirubin 0.66 AST 14 L ALT 21 Alkaline Phosphatase 61 Total Protein 7.7 Albumin 3.6 Urine Color Yellow Urine Clarity Clear Urine pH 5.5 Ur Specific [place] 1.015 Urine Protein Negative Urine Ketones Negative Urine Blood Negative Urine Nitrite Negative Urine Bilirubin Negative Urine Urobilinogen 0.2 Ur Leukocyte Esterase Negative Urine Glucose 100 H Time Spent with Patient Time Spent with Patient: >50 minutes Time was spent: preparing to see the patient(eg.review tests), obtaining and/or reviewing separately otained hiistory, ordering medications,tests, procedures, referring, communicating with other health day care director, indepentently interpreting results, counseling the patient and care coordination
[2023-09-17] MEDS: Amiodarone 200 MG TAB PO ×2 (10:30→21:05)
--- NOTE | 2023-09-17 12:44 | NUR.NOTE ---
Nursing Note: at approx 11:30 pt had an episode of SOB. She reported that she felt palpitations like she gets with A fib, then a pressure went from her chest up the left side of her neck. VS stable, no changes on tele. S/s have totally subsided. Reported to Hospitalist.
--- NOTE | 2023-09-17 12:48 | PDOC.CMPRO ---
Date of service: 09/17/23 Time of Service: 12:49 Care Management Progress Note Progress Note Text Progress Note Text: Elizabeth was lying in bed when CM met with her. She stated that she spoke to MD earlier this morning, and he informed her that she will have medication adjustments, and if she does not improve, he will reach out to [facility] to consider transfer for a pace maker. She had a cardiology consult this morning, who made the recommendations regarding the medication changes. Elizabeth is comfortable with that plan, although she prefers to return home as soon as possible. CM will continue to follow. Discharge Potential Discharge Needs: PCP F/U Appt Anticipated Barriers to Discharge: None Identified Patient/Family Education Needs: Review discharge instructions, discuss Ask Me Three Transportation: Private vehicle Plan: Anticipate Elizabeth will return home once medically cleared. Her spouse, Ana will drive her home via private vehicle when ready. She will follow up with her PCP and discharge plan of care. CM will continue to follow. SDOH(Care Management) Screening Will the Patient Participate in the Screening?: Unable to obtain Do you worry about having a steady place to live?: yes In the past 12 months, have you had to go without electric, gas, oil or water in your home?: no Have you or anyone in your house had to go without enough food to eat?: no Has lack of transportation kept you from medical appointments or from doing things needed for daily living?: no Has anyone in your support network made you feel unsafe for any reason?: no Health Related Social Needs Health related social needs: housing instability, housed, with risk of homelessness(Z59.811)
--- NOTE | 2023-09-17 14:42 | CHAPLAIN ---
I visited with Elizabeth and her spouse, Ana today. Elizabeth said she's feeling better but is not sure when she'll be discharged, she's waiting to find out what the next steps are. Elizabeth was pleasant and seems to be comfortable being here, although she'd like to be discharged soon.
[2023-09-17] MEDS: Rivaroxaban 15 MG TABLET PO (16:55)
--- NOTE | 2023-09-17 17:40 | NUR.NOTE ---
Nursing Note: Pt had an episode on tele that looked like V Tach, but there was a lot of artifact. Discussed with Hospitalist, who advised to continue to monitor.
[2023-09-17] MEDS: Metoprolol CR 100 MG TABCR PO (21:05)
[2023-09-17] MEDS: Spironolactone 25 MG TAB PO (21:06)
[2023-09-17] MEDS: Simvastatin 10 MG TAB PO (21:07)
[2023-09-17] MEDS: Acetaminophen 325 MG TAB PO (21:17)
[2023-09-18] VITALS (8 sets, daily range): BP systolic 93–128; BP diastolic 57–78; PULSE 78–96; RESP 16–20; TEMP 35.7–36.1; O2SAT 95–98
[2023-09-18] MEDS: Metoprolol 25 MG TAB PO ×4 (01:33→20:42)
[2023-09-18] MEDS: Omeprazole 20 MG CAPCR 40 MG PO (07:03)
[2023-09-18] MEDS: Losartan 50 MG TAB 100 MG PO (07:31)
[2023-09-18] MEDS: glipiZIDE C.R. 5 MG TABCR PO (07:31)
[2023-09-18] MEDS: Aspirin 81 MG CHEW PO (07:31)
[2023-09-18] MEDS: Furosemide 20 MG TAB 40 MG PO (07:31)
[2023-09-18] MEDS: FLUoxetine 10 MG TAB PO (07:31)
[2023-09-18] MEDS: buPROPion-CR 150 MG TABCR PO ×2 (07:32→20:27)
[2023-09-18] MEDS: Normal Saline Flush 10 ML SYR IVP ×3 (07:32→20:29)
[2023-09-18] MEDS: Amiodarone 200 MG TAB PO ×2 (07:32→20:29)
[2023-09-18] MEDS: Insulin Aspart 300 UNITS/3 ML PEN SC ×3 (08:38→17:16)
--- NOTE | 2023-09-18 09:39 | CMDISCH_ITS ---
Documented by User: Theresa Spencer 12/17/23 17:41 Care Management Discharge Plan Discharge Plan: The author of this record is unavailable to sign this entry for which they were the author. This is being signed in an administrative capacity to close the note. SDOH Health Related Social Needs: Health related social needs housing instability, house d, with risk of homelessness(Z59.811) Documented by User: Ellen Solano Care Management Discharge SDOH Health Related Social Needs: Health related social needs housing instability, house d, with risk of homelessness(Z59.811) Health related social needs: housing instability, housed, with risk of homelessness(Z59.811)
--- NOTE | 2023-09-18 11:56 | PGE_ITS ---
Date of Service Date of service: 09/18/23 Time of Service: 11:56 Assessment and Plan Assessment and plan (1) Paroxysmal atrial fibrillation: Start date: 09/15/23 Status: Acute Assessment and plan: -presented with symptomatic paroxysmal atrial fibrillation -She presented to the ED with shortness of breath and palpitations and atrial fibrillation. -also had an elevated BNP with exacerbation of diastolic CHF. -TTE on 09/15 without signs of CHF -She also has a Zio patch scheduled for the near future to evaluate bradycardia which is symptomatic. -She responded to IV Lasix in the ED but has since been discontinued given normal EF on TTE -Her heart rate is controlled presently on her outpatient medical therapy -Troponins were negative x 2 and would not be further trended. -Long-term she will follow-up with cardiology from [facility] in [facility] -greatly apprecaite Cardiology recs; -risk of PO dilt and xarelto theoretical and not outwardly contraindicated; since already changed to PO metop, would continue at high doses if needed -rec initiation of PO amiodorone 200mg daily or BID (without loading dose), in attempt to restore sinus rhythm and allow for further monitoring of potential bradycardia which has yet to be observed since admission -if bradycardia is observed on tele, would consider pacemaker placement -has been on toprol XL 100mg HS and lopressor PO 25mg Q6h, will continue and adjust given initiation of amiodarone as noted above (2) CHF (congestive heart failure): Status: Chronic Assessment and plan: -Exacerbated by symptoms and elevated BNP though her creatinine is elevated. -had been on IV Lasix which has since been transition to PO 40mg daily -TTE as noted above Qualifiers: Heart failure type: diastolic Heart failure chronicity: chronic Qualified Code(s): I50.32 - Chronic diastolic (congestive) heart failure (3) Hypomagnesemia: Status: Chronic Assessment and plan: -replaced 1.9 on AM 09/16 (4) Obstructive sleep apnea syndrome: Status: Chronic Assessment and plan: -Continue BiPAP as at home with home settings. -Weight loss would be advised. (5) Essential hypertension: Status: Chronic Assessment and plan: -Stable and to be monitored on outpatient medical therapy with increased IV diuresis. -Adjust medications as needed. (6) Diabetes mellitus: Status: Chronic Assessment and plan: -Continue outpatient medical therapy with monitoring of glucometers before meals and at bedtime. No insulin coverage for now. Qualifiers: Diabetes mellitus type: type 2 Diabetes mellitus custodial insulin use: without longwall headgate operator use Diabetes mellitus complication status: without complication Qualified Code(s): E11.9 - Type 2 diabetes mellitus without complications Subjective Subjective Interval history since last seen: Patient states that she is doing well today and understands the plan to attempt to convert her to NSR and assess for potential tachy/dalton syndrome. Exam Narrative Exam Narrative: well appearing female sitting up in the chair in no acute distress, AOx4, heart irregularly irregular, rate ~90bpm, lungs CTAB, abdomen soft, non-tender, non- distended Objective Last Vital Signs Temp 96.3 F L 09/18/23 11:38 Pulse 94 H 09/18/23 11:38 Resp 18 09/18/23 11:38 BP 93/68 L 09/18/23 11:38 Pulse Ox 98 09/18/23 11:38 Time Spent with Patient Time Spent with Patient: >50 minutes Time was spent: preparing to see the patient(eg.review tests), obtaining and/or reviewing separately otained hiistory, ordering medications,tests, procedures, referring, communicating with other health career guidance technician, indepentently interpreting results, counseling the patient and care coordination
[2023-09-18] MEDS: Normal Saline 500 ML 100 ML IV (12:14)
--- NOTE | 2023-09-18 13:20 | NUR.NOTE ---
Nursing Note: Pt is sleeping. Pt's visitor noted that she has not had any episodes of SOB. Nursing staff notes that she is breathing in a regular pattern at good depth.
--- NOTE | 2023-09-18 16:15 | PDOC.CMDIS ---
Date of service: 09/18/23 Time of Service: 16:15 Care Management Discharge Plan Reason for Hospitalization: CHF Patient/Family Education Needs: Review discharge instructions, discuss Ask Me Three SDOH Health Related Social Needs: Health related social needs risk of homeless Health related social needs: housing instability, housed, with risk of homelessness(Z59.811)
--- NOTE | 2023-09-18 16:18 | PDOC.CMPRO ---
Date of service: 09/18/23 Time of Service: 16:18 Care Management Progress Note Progress Note Text Progress Note Text: Elizabeth was sitting up in bed visiting with her spouse Ana when CM met with her. She informed CM that she is not feeling well and does not understand why she isn't improving more quickly. Her heart rate has been higher than she is used to at times and at other times she has been symptomatically bradycardic. Her blood pressure has been low as well and that concerns her. 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 SDOH(Care Management) Screening Will the Patient Participate in the Screening?: Unable to obtain Do you worry about having a steady place to live?: yes In the past 12 months, have you had to go without electric, gas, oil or water in your home?: no Have you or anyone in your house had to go without enough food to eat?: no Has lack of transportation kept you from medical appointments or from doing things needed for daily living?: no Has anyone in your support network made you feel unsafe for any reason?: no Health Related Social Needs Health related social needs: housing instability, housed, with risk of homelessness(Z59.811)
[2023-09-18] MEDS: Rivaroxaban 15 MG TABLET PO (17:29)
[2023-09-18] MEDS: Metoprolol CR 100 MG TABCR PO (20:28)
[2023-09-18] MEDS: Spironolactone 25 MG TAB PO (20:28)
[2023-09-18] MEDS: Simvastatin 10 MG TAB PO (20:42)
[2023-09-18] MEDS: Acetaminophen 325 MG TAB PO (20:42)
[2023-09-19] VITALS (8 sets, daily range): BP systolic 95–148; BP diastolic 62–73; PULSE 82–108; RESP 15–17; TEMP 35.5–36.8; O2SAT 95–99
[2023-09-19] MEDS: Metoprolol 25 MG TAB PO ×2 (01:57→07:03)
[2023-09-19 06:51] LABS: Anion Gap 9.3 mmol/L (3-11); BUN 33 mg/dL (7-18); CO2 25.7 mmol/L (21.0-32.0); CREATININE 1.2 mg/dL (0.55-1.02); Chloride 103 mmol/L (98-107); Estimated GFR 48.09 (mL/min/1.73m2); Glucose 172 mg/dL (74-106); Potassium 4.5 mmol/L (3.5-5.1); Sodium 138 mmol/L (136-145)
[2023-09-19 06:55] LABS: Calcium 8.7 mg/dL (8.5-10.1)
[2023-09-19] MEDS: Omeprazole 20 MG CAPCR 40 MG PO (07:03)
[2023-09-19] MEDS: Amiodarone 200 MG TAB PO ×2 (09:07→20:44)
[2023-09-19] MEDS: glipiZIDE C.R. 5 MG TABCR PO (09:07)
[2023-09-19] MEDS: Furosemide 20 MG TAB PO (09:08)
[2023-09-19] MEDS: Aspirin 81 MG CHEW PO (09:08)
[2023-09-19] MEDS: Losartan 50 MG TAB 100 MG PO (09:08)
[2023-09-19] MEDS: buPROPion-CR 150 MG TABCR PO ×2 (09:09→20:44)
[2023-09-19] MEDS: Insulin Aspart 300 UNITS/3 ML PEN SC ×2 (09:09→17:48)
[2023-09-19] MEDS: FLUoxetine 10 MG TAB PO (09:09)
--- NOTE | 2023-09-19 10:46 | PGE_ITS ---
Date of Service Date of service: 09/19/23 Time of Service: 10:46 Assessment and Plan Assessment and plan (1) Paroxysmal atrial fibrillation: Start date: 09/15/23 Status: Acute Assessment and plan: -presented with symptomatic paroxysmal atrial fibrillation -She presented to the ED with shortness of breath and palpitations and atrial fibrillation. -also had an elevated BNP with exacerbation of diastolic CHF. -TTE on 09/15 without signs of CHF -She also has a Zio patch scheduled for the near future to evaluate bradycardia which is symptomatic. -She responded to IV Lasix in the ED but has since been discontinued given normal EF on TTE -Her heart rate is controlled presently on her outpatient medical therapy -Troponins were negative x 2 and would not be further trended. -Long-term she will follow-up with cardiology from [facility] in [facility] -greatly apprecaite Cardiology recs; -risk of PO dilt and xarelto theoretical and not outwardly contraindicated; since already changed to PO metop, would continue at high doses if needed -rec initiation of PO amiodorone 200mg daily or BID (without loading dose), in attempt to restore sinus rhythm and allow for further monitoring of potential bradycardia which has yet to be observed since admission -if bradycardia is observed on tele, would consider pacemaker placement -continue toprol XL 100mg HS -had been on lopressor PO 25mg Q6h, which will be changed to 50mg BID (2) CHF (congestive heart failure): Status: Chronic Assessment and plan: -Exacerbated by symptoms and elevated BNP though her creatinine is elevated. -had been on IV Lasix which has since been transition to PO 40mg daily -TTE as noted above Qualifiers: Heart failure chronicity: chronic Heart failure type: diastolic Qualified Code(s): I50.32 - Chronic diastolic (congestive) heart failure (3) Hypomagnesemia: Status: Chronic Assessment and plan: -replaced 1.9 on AM 09/16 (4) Obstructive sleep apnea syndrome: Status: Chronic Assessment and plan: -Continue BiPAP as at home with home settings. -Weight loss would be advised. (5) Essential hypertension: Status: Chronic Assessment and plan: -Stable and to be monitored on outpatient medical therapy with increased IV diuresis. -Adjust medications as needed. (6) Diabetes mellitus: Status: Chronic Assessment and plan: -Continue outpatient medical therapy with monitoring of glucometers before meals and at bedtime. No insulin coverage for now. Qualifiers: Diabetes mellitus complication status: without complication Diabetes mellitus nursing home insulin use: without nursing home use Diabetes mellitus type: type 2 Qualified Code(s): E11.9 - Type 2 diabetes mellitus without complications Subjective Subjective Interval history since last seen: Patient states that she is feeling better today. She understands the plan to change her lopressor to 50mg BID and that if she does not convert to NS by tomorrow morning we will discuss her case with [facility] Cardiology. Exam Narrative Exam Narrative: well appearing female sitting up in the chair in no acute distress, AOx4, heart irregularly irregular, rate ~90bpm, lungs CTAB, abdomen soft, non-tender, non- distended Objective Last Vital Signs Temp 96.4 F L 09/19/23 07:38 Pulse 82 09/19/23 07:38 Resp 16 09/19/23 07:38 BP 117/65 09/19/23 07:38 Pulse Ox 96 09/19/23 07:38 Laboratory Results - last 24 hr 09/19/23 06:30 Sodium 138 Potassium 4.5 Chloride 103 Carbon Dioxide 25.7 Anion Gap 9.3 BUN 33 H Creatinine 1.2 H Est GFR (CKD-EPI 2020) 48.09 Glucose 172 H Calcium 8.7 Time Spent with Patient Time Spent with Patient: >50 minutes Time was spent: preparing to see the patient(eg.review tests), obtaining and/or reviewing separately otained hiistory, ordering medications,tests, procedures, referring, communicating with other health rn progressive care unit, indepentently interpreting results, counseling the patient and care coordination
[2023-09-19] MEDS: Rivaroxaban 15 MG TABLET PO (17:48)
[2023-09-19] MEDS: Metoprolol CR 100 MG TABCR PO (20:44)
[2023-09-19] MEDS: Simvastatin 10 MG TAB PO (20:45)
[2023-09-19] MEDS: Spironolactone 25 MG TAB PO (20:45)
[2023-09-19] MEDS: Acetaminophen 325 MG TAB PO (20:54)
--- NOTE | 2023-09-19 20:59 | NUR.NOTE ---
Patient's B/P rechecked manually with 124/68. Dr Centeno hold metoprolol tartrate tonight. Nursing Note:
[2023-09-20 04:04] VITALS: BP 104/69; PULSE 81; RESP 15; TEMP 36; O2SAT 98
[2023-09-20 07:35] VITALS: BP 101/52; PULSE 80; RESP 18; TEMP 36.2; O2SAT 97
[2023-09-20] MEDS: Insulin Aspart 300 UNITS/3 ML PEN SC (07:43)
[2023-09-20] MEDS: Amiodarone 200 MG TAB PO ×2 (07:44→20:03)
[2023-09-20] MEDS: Aspirin 81 MG CHEW PO (07:45)
[2023-09-20] MEDS: glipiZIDE C.R. 5 MG TABCR PO (07:45)
[2023-09-20] MEDS: Omeprazole 20 MG CAPCR 40 MG PO (07:45)
[2023-09-20] MEDS: Losartan 50 MG TAB 100 MG PO (07:45)
[2023-09-20] MEDS: FLUoxetine 10 MG TAB PO (07:45)
[2023-09-20] MEDS: buPROPion-CR 150 MG TABCR PO ×2 (07:45→20:04)
[2023-09-20] MEDS: Metoprolol 25 MG TAB 50 MG PO ×2 (07:45→20:04)
[2023-09-20] MEDS: Furosemide 20 MG TAB PO (07:46)
[2023-09-20] MEDS: Normal Saline Flush 10 ML SYR IVP ×2 (07:46→20:17)
--- NOTE | 2023-09-20 11:30 | RT.EKG_ITS ---
APPROVED REPORT Exam: Resting ECG Reason for Exam: Chest pain Patient Location: I HR:86 bpm ECG Measurements Heart Rate 86 AXIS AR [id number] P [id number] QRSd 174 QRS 45 QT 437 T -13 QTc 518 Conclusion Atrial fibrillation...? atrial activity Right bundle branch block...QRSd>120, terminal axis(90,270)
[2023-09-20 11:33] VITALS: BP 97/60; PULSE 80; RESP 18; TEMP 36.1; O2SAT 97
[2023-09-20] MEDS: Acetaminophen 325 MG TAB PO ×2 (11:43→21:57)
--- NOTE | 2023-09-20 12:24 | PGE_ITS ---
Date of Service Date of service: 09/20/23 Time of Service: 12:24 Assessment and Plan Assessment and plan (1) Paroxysmal atrial fibrillation: Start date: 09/15/23 Status: Acute Assessment and plan: -presented with symptomatic paroxysmal atrial fibrillation -She presented to the ED with shortness of breath and palpitations and atrial fibrillation. -also had an elevated BNP with exacerbation of diastolic CHF. -TTE on 09/15 without signs of CHF -She also has a Zio patch scheduled for the near future to evaluate bradycardia which is symptomatic. -She responded to IV Lasix in the ED but has since been discontinued given normal EF on TTE -Her heart rate is controlled presently on her outpatient medical therapy -Troponins were negative x 2 and would not be further trended. -Long-term she will follow-up with cardiology from [facility] in [facility] -greatly apprecaite Cardiology recs; -risk of PO dilt and xarelto theoretical and not outwardly contraindicated; since already changed to PO metop, would continue at high doses if needed -rec initiation of PO amiodorone 200mg daily or BID (without loading dose), in attempt to restore sinus rhythm and allow for further monitoring of potential bradycardia which has yet to be observed since admission -if bradycardia is observed on tele, would consider pacemaker placement -continue toprol XL 100mg HS -had been on lopressor PO 25mg Q6h and changed to 50mg BID on 09/18 -recommend re-consulting Cardiology on Thursday for consideration of electrical cardioversion (2) CHF (congestive heart failure): Status: Chronic Assessment and plan: -Exacerbated by symptoms and elevated BNP though her creatinine is elevated. -had been on IV Lasix which has since been transition to PO 40mg daily -TTE as noted above Qualifiers: Heart failure type: diastolic Heart failure chronicity: chronic Qualified Code(s): I50.32 - Chronic diastolic (congestive) heart failure (3) Hypomagnesemia: Status: Chronic Assessment and plan: -replaced 1.9 on AM 09/16 (4) Obstructive sleep apnea syndrome: Status: Chronic Assessment and plan: -Continue BiPAP as at home with home settings. -Weight loss would be advised. (5) Essential hypertension: Status: Chronic Assessment and plan: -Stable and to be monitored on outpatient medical therapy with increased IV diuresis. -Adjust medications as needed. (6) Diabetes mellitus: Status: Chronic Assessment and plan: -Continue outpatient medical therapy with monitoring of glucometers before meals and at bedtime. No insulin coverage for now. Qualifiers: Diabetes mellitus type: type 2 Diabetes mellitus termite helper insulin use: without senior living use Diabetes mellitus complication status: without complic ation Qualified Code(s): E11.9 - Type 2 diabetes mellitus without complications Subjective Subjective Interval history since last seen: Patient states that she is having some chest pain but understands that it is likely due to intercostal muscle discomfort and is appreciative of having PRN muscle relaxors to help with the pain. She also understands the plan to discuss her case with Dr. Leslie on Thursday for consideration of electrical cardioversion and amiodarone has not yet resulted in conversion to NSR. Exam Narrative Exam Narrative: well appearing female sitting up in the chair in no acute distress, AOx4, heart irregularly irregular, rate ~90bpm, reproducable chest pain to palpation of left chest ~6th intercostal space mid clavicular line and right chest 4th intercostal space parasternal boarder, lungs CTAB, abdomen soft, non-tender, non-distended Objective Last Vital Signs Temp 97.0 F L 09/20/23 11:33 Pulse 80 09/20/23 11:33 Resp 18 09/20/23 11:33 BP 97/60 L 09/20/23 11:33 Pulse Ox 97 09/20/23 11:33 Time Spent with Patient Time Spent with Patient: >50 minutes Time was spent: preparing to see the patient(eg.review tests), obtaining and/or reviewing separately otained hiistory, ordering medications,tests, procedures, referring, communicating with other health healthcare manager, indepentently interpreting results, counseling the patient and care coordination
[2023-09-20] MEDS: Methocarbamol 750 MG TAB PO ×2 (13:02→21:57)
[2023-09-20 15:47] VITALS: BP 103/49; PULSE 91; RESP 18; TEMP 36.2; O2SAT 94
[2023-09-20] MEDS: Rivaroxaban 15 MG TABLET PO (16:51)
[2023-09-20 19:49] VITALS: BP 124/67; PULSE 100; RESP 18; TEMP 36.1; O2SAT 96
[2023-09-20] MEDS: Metoprolol CR 100 MG TABCR PO (20:04)
[2023-09-20] MEDS: Simvastatin 10 MG TAB PO (20:04)
[2023-09-20] MEDS: Spironolactone 25 MG TAB PO (20:04)
[2023-09-20 23:27] VITALS: BP 116/80; PULSE 82; RESP 18; TEMP 36.2; O2SAT 97
[2023-09-21] VITALS (8 sets, daily range): BP systolic 95–132; BP diastolic 53–93; PULSE 64–106; RESP 17–98; TEMP 35.9–36.8; O2SAT 95–99
[2023-09-21] MEDS: Omeprazole 20 MG CAPCR 40 MG PO (08:16)
[2023-09-21] MEDS: FLUoxetine 10 MG TAB PO (08:17)
[2023-09-21] MEDS: Losartan 50 MG TAB 100 MG PO (08:17)
[2023-09-21] MEDS: glipiZIDE C.R. 5 MG TABCR PO (08:17)
[2023-09-21] MEDS: Furosemide 20 MG TAB PO ×2 (08:17→17:12)
[2023-09-21] MEDS: Aspirin 81 MG CHEW PO (08:17)
[2023-09-21] MEDS: Amiodarone 200 MG TAB PO ×2 (08:17→11:38)
[2023-09-21] MEDS: Metoprolol 25 MG TAB 50 MG PO (08:17)
[2023-09-21] MEDS: buPROPion-CR 150 MG TABCR PO ×2 (08:17→19:22)
[2023-09-21] MEDS: Normal Saline Flush 10 ML SYR IVP ×3 (09:22→21:11)
--- NOTE | 2023-09-21 11:41 | PDOC.CMPRO ---
Date of service: 09/21/23 Time of Service: 11:41 Care Management Progress Note Progress Note Text Progress Note Text: Elizabeth was sitting up in a chair visiting with Ana when CM met with her. She reported that her diarrhea has been bad today and her bottom is sore. She stated that the nurses have given her barrier cream which helps. Elizabeth is still in atrial fibrillation and continues to have symptoms. She gets lightheaded during these times. She informed CM that various options are being discussed including medication changes, cardioversion and, possibly, pacemaker placement. She reported that It is likely that [facility] Cardiology will be consulted at some point for further treatment recommendations. Discharge Potential Discharge Needs: PCP F/U Appt Anticipated Barriers to Discharge: Medical Status Patient/Family Education Needs: Review discharge instructions, discuss Ask Me Three Transportation: Private vehicle Plan: Anticipate Elizabeth will be discharged home with n0 new services when medically cleared. She will follow up with Cardiology and her PCP and transport with her . CM will follow. SDOH(Care Management) Screening Will the Patient Participate in the Screening?: Unable to obtain Do you worry about having a steady place to live?: yes In the past 12 months, have you had to go without electric, gas, oil or water in your home?: no Have you or anyone in your house had to go without enough food to eat?: no Has lack of transportation kept you from medical appointments or from doing things needed for daily living?: no Has anyone in your support network made you feel unsafe for any reason?: no Health Related Social Needs Health related social needs: housing instability, housed, with risk of homelessness(Z59.811)
[2023-09-21] MEDS: Insulin Aspart 300 UNITS/3 ML PEN SC ×2 (12:17→17:12)
--- NOTE | 2023-09-21 16:23 | PGE_ITS ---
Date of Service Date of service: 09/21/23 Time of Service: 16:23 Assessment and Plan Assessment and plan (1) Paroxysmal atrial fibrillation: Start date: 09/15/23 Status: Acute Assessment and plan: continue uptitration of Toprol XL, needs loading of amiodarone for rate/rhythm control, continue oral diuretics for HFPEF but overall she does not appear to be hypervolemic from examination standpoint. will repeat her labs in the morning and consider bedside US in the a.m. to look for resolution of B lines. (2) CHF (congestive heart failure): Status: Chronic Assessment and plan: HFPEF, continue oral lasix and spironolactone but increase lasix to 20 mg bid; repeat labs in the a.m. Qualifiers: Heart failure chronicity: chronic Heart failure type: diastolic Qualified Code(s): I50.32 - Chronic diastolic (congestive) heart failure (3) Hypomagnesemia: Status: Chronic Assessment and plan: replete and monitor (4) Obstructive sleep apnea syndrome: Status: Chronic Assessment and plan: -Continue BiPAP as at home with home settings. -Weight loss would be advised. (5) Essential hypertension: Status: Chronic Assessment and plan: -Stable and to be monitored on outpatient medical therapy with increased IV diuresis. -Adjust medications as needed. (6) Diabetes mellitus: Status: Chronic Assessment and plan: -Continue outpatient medical therapy with monitoring of glucometers before meals and at bedtime. No insulin coverage for now. blood glucose in the 130 to 160's today last glycohemoglobin A1C was 8.1% in June 2023, patient has been intolerant of SGLT-2 inhibitors d/t UTI/yeast infections. consider GLP-1 agonist Qualifiers: Diabetes mellitus complication status: without complication Diabetes mellitus fci insulin use: without county or city auditor use Diabetes mellitus type: type 2 Qualified Code(s): E11.9 - Type 2 diabetes mellitus without complications Subjective Subjective Interval history since last seen: Patient still symptomatic of her AF, w/ intermittent palpitations, dyspnea. She denies any pedal or abdominal edema. Exam Narrative Exam Narrative: Pleasant, obsese white female, sitting up in her chair talking w/ her life partner she is able to talk in complete sentences, not dyspneic Lungs: clear anteriorly and posteriorly Heart: irregularly irregular (review of telemetry this morning reveals afib at rates of 70's to low 100's) Abbomen: obese, soft, nontender Legs: very large, obese w/ venous varicosities but no pitting edema Objective Last Vital Signs Temp 36.8 C 09/21/23 15:56 Pulse 104 H 09/21/23 15:56 Resp 19 09/21/23 15:56 BP 132/93 H 09/21/23 15:56 Pulse Ox 97 09/21/23 15:56 Time Spent with Patient Time Spent with Patient: 35-49 minutes Time was spent: preparing to see the patient(eg.review tests), ordering medications,tests, procedures, referring, communicating with other health care management assistant, indepentently interpreting results, counseling the patient and care coordination
--- NOTE | 2023-09-21 16:58 | W.PC.ACHO ---
Registration Status: Primary Language: Preferred Language: ED Information & Data Chief Complaint Chest Pain 09/15/23 16:57 Triage Note pt with hx of intermittent a 09/15/23 14:42 -fib for 2 days, took ngt SL at 1100, no resolution, HR irreg 67-118, baseline usually NSR and low, on thinners, no missed doses, at side, pt SOB at rest , EKG in triage Medical / Surgical History (Last Updated 09/17/23 @ 08:44 by Amairani Leslie MD) Sensorineural hearing loss, bilateral URI (upper respiratory infection) Tick bite Herpes zoster without complication (05/22/15) Obesity HTN (hypertension) GERD (gastroesophageal reflux disease) [employer] current use of anticoagulant Atrial flutter A[place]A (obstructive sleep apnea) (Last Reviewed 09/16/23 @ 07:27 by Burton Perez) S/p bilateral myringotomy with tube placement History of tonsillectomy and adenoidectomy History of hand surgery History of mastoidectomy (02/14/14) Status post total bilateral knee replacement shoulder surgery (04/30/16) Replacement of total knee joint (~2004) Open Carpal Tunnel release (~03/2009) HAND SURGERY (~02/2013) Colonoscopy - MAC (05/29/17) Breast, Mastectomy (~01/2003) Most Recent Vital Signs Temperature 36.8 C 09/21/23 15:56 Temperature Source Tympanic 09/21/23 15:56 Pulse 104 H 09/21/23 15:56 Pulse Rhythm Irregular 09/21/23 09:31 Pulse 90 09/15/23 16:50 Respiratory Rate 19 09/21/23 15:56 Respiratory Effort Normal 09/21/23 09:31 Respiratory Depth Normal 09/21/23 09:31 Respiratory Pattern Normal 09/21/23 09:31 Blood Pressure 132/93 H 09/21/23 15:56 Blood Pressure Mean 77 09/15/23 16:49 Blood Pressure Position Sitting 09/15/23 14:42 Pulse Oximetry 97 09/21/23 15:56 Oxygen Delivery Method Room Air 09/21/23 15:56 Oxygen Flow Rate 0 09/21/23 15:56 Pain Level 9 09/21/23 15:56 Comment RN Notified 09/19/23 20:13 Allergies cefuroxime Allergy (Severe, Verified 09/15/23 14:48) HIVES latex Allergy (Severe, Verified 09/15/23 14:48) RASH Penicillins Allergy (Severe, Verified 09/15/23 14:48) SEVERE HIVES Sulfa (Sulfonamide Antibiotics) Allergy (Severe, Verified 09/15/23 14:48) SEVERE HIVES ciprofloxacin Allergy (Mild, Verified 09/15/23 14:48) TOPICAL IRRITATION clindamycin Adverse Reaction (Severe, Verified 09/15/23 14:48) Hives adhesive Adverse Reaction (Intermediate, Verified 09/15/23 14:48) SKIN COMES OFF caffeine Adverse Reaction (Intermediate, Verified 09/15/23 14:48) CHEST PAIN empagliflozin (From Jardiance) Adverse Reaction (Intermediate, Verified 09/15/23 14:48) yeast infections NSAIDS (Non-Steroidal Anti-Inflamma Adverse Reaction (Intermediate, Verified 09/15/23 14:48) Other (See Comment) chest pain lisinopril Adverse Reaction (Mild, Verified 09/15/23 14:48) COUGH metformin Adverse Reaction (Mild, Verified 09/15/23 14:48) diarrhea Precautions Isolation Standard precaution 09/15/23 15:04 Active Medications Generic Name Dose Route Start Last Admin Trade Name Freq PRN Reason Stop Dose Admin Acetaminophen 0 mg 09/16/23 07:39 09/20/23 21:57 Acetaminophen 325 Mg Tab PO 650 mg Q4H PRN PRN Administration Aspirin 81 mg 09/16/23 08:30 09/21/23 08:17 Aspirin 81 Mg Chew PO 81 mg DAILY STEPHEN Administration Bupropion HCl 150 mg 09/15/23 20:00 09/21/23 08:17 Bupropion-Cr 150 Mg Tabcr PO 150 mg BID STEPHEN Administration Fluoxetine HCl 10 mg 09/16/23 08:30 09/21/23 08:17 Fluoxetine 10 Mg Tab PO 10 mg DAILY STEPHEN Administration Glipizide 5 mg 09/20/23 08:00 09/21/23 08:17 Glipizide C.R. 5 Mg Tabcr PO 5 mg DAILY@0800 STEPHEN Administration Insulin Aspart 0 units 09/16/23 12:00 09/21/23 12:17 Insulin Aspart 300 Units/3 Ml Pen SC 1 units 0800,1200,1700 STEPHEN Administration Protocol Losartan Potassium 100 mg 09/16/23 08:30 09/21/23 08:17 Losartan 50 Mg Tab PO 100 mg DAILY STEPHEN Administration Methocarbamol 750 mg 09/20/23 12:24 09/20/23 21:57 Methocarbamol 750 Mg Tab PO 750 mg QID PRN PRN Administration Metoprolol Succinate 100 mg 09/15/23 20:00 09/20/23 20:04 Metoprolol Cr 100 Mg Tabcr PO 100 mg HS STEPHEN Administration Omeprazole 40 mg 09/16/23 07:30 09/21/23 08:16 Omeprazole 20 Mg Capcr PO 40 mg DAILY@0730 STEPHEN Administration Pt's Own Tirzepatide 1 each 09/17/23 08:30 09/17/23 09:47 (Mounjaro) 5 Mg/0.5 SC 1 each Ml Pen Injector Th STEPHEN Administration Pt's Own Magnesium 1 each 09/17/23 08:30 09/21/23 09:23 Oxide 500 Mg Tablet PO 1 each DAILY STEPHEN Administration Rivaroxaban 15 mg 09/16/23 17:00 09/20/23 16:51 Rivaroxaban 15 Mg Tablet PO 15 mg DAILY@1700 STEPHEN Administration Simvastatin 10 mg 09/15/23 20:00 09/20/23 20:04 Simvastatin 10 Mg Tab PO 10 mg HS STEPHEN Administration Sodium Chloride 0 ml 09/15/23 14:58 09/18/23 12:15 Normal Saline Flush 10 Ml Syr IVP 10 ml PRN PRN Administration Sodium Chloride 0 ml 09/15/23 20:00 09/21/23 09:22 Normal Saline Flush 10 Ml Syr IVP 10 ml BID STEPHEN Administration Spironolactone 25 mg 09/15/23 20:00 09/20/23 20:04 Spironolactone 25 Mg Tab PO 25 mg HS STEPHEN Administration IV IV Catheter Type [Left Forearm Saline Lock ] IV Catheter Type [Right Saline Lock Antecubital] IV Catheter Gauge [Left 22 Forearm] IV Catheter Gauge [Right 18 Antecubital] [id number] Documentation Fingerstick Glucose Start: 09/16/23 08:03 Freq: AC & HS Status: Active Protocol: Activity Type Activity Date Activity User E-sign Co-sign Detail Recorded Client Recorded Date Recorded By Document 09/21/23 16:36 BKG DAEMON(3) [id number] 09/21/23 16:37 BKG DAEMON(4) Intake and Output - 24 Hour Total 09/15/23 14:35 thru 09/21/23 15:56 Intake Total 3340 Output Total 89168 Balance -9035 Weight 143.789 kg Intake: IV 100 Oral 3240 Output: Urine 97532 Other: Urine Color Yellow Urine Appearance Clear Urine Odor None Comment pt independent with voiding. no c/o of burning or frequency Stool Size Large Stool Characteristics Liquid Mucoid Brown Voiding Methods Toilet # Voids 1 Falls Risk Assessment History of Falls No History 09/15/23 18:05 Contributing Factors No Factors 09/15/23 18:05 Ambulatory Aids Independent 09/15/23 18:05 Tubes/Lines None 09/15/23 18:05 Gait Evaluation No gait disturbance 09/15/23 18:05 Fall Total Score 0 09/15/23 18:05 Level of Risk Standard/Low Risk 09/15/23 18:05 Problems (Last Updated 09/17/23 @ 08:44 by Amairani Leslie MD) Hypomagnesemia (Chronic) Paroxysmal atrial fibrillation (Acute) CHF (congestive heart failure) (Chronic) Obstructive sleep apnea syndrome (Chronic) Essential hypertension (Chronic 12/16/12) Diabetes mellitus (Chronic 06/18/12) Notes 09/19/23 20:59 Nursing Notes by Toyin Choudhary Patient's B/P rechecked manually with 124/68. Dr Centeno hold metoprolol tartrate tonight. Nursing Note: Initialized on 09/19/23 20:59 - END OF NOTE 09/18/23 13:20 Nursing Notes by Lesa Dao Nursing Note: Pt is sleeping. Pt's visitor noted that she has not had any episodes of SOB. Nursing staff notes that she is breathing in a regular pattern at good depth. Initialized on 09/18/23 13:20 - END OF NOTE 09/17/23 17:40 Nursing Notes by Tricia Orellana Nursing Note: Pt had an episode on tele that looked like V Tach, but there was a lot of artifact. Discussed with Hospitalist, who advised to continue to monitor. Initialized on 09/17/23 17:40 - END OF NOTE 09/17/23 12:44 Nursing Notes by Tricia Orellana Nursing Note: at approx 11:30 pt had an episode of SOB. She reported that she felt palpitations like she gets with A fib, then a pressure went from her chest up the left side of her neck. VS stable, no changes on tele. S/s have totally subsided. Reported to Hospitalist. Initialized on 09/17/23 12:44 - END OF NOTE 09/16/23 14:14 Respiratory by Ana Lorenzo 09/16/23 Home BIPAP unit IPAP: 24 EPAP: 18 O2: 2L DME: [facility] Pt's home unit inspected, H2O chamber filled, O2 tubing connected Inside home unit inspection revealed black colored mold; informed pt that she should get a new machine. Pt states that her DME has reached out to her to do this but she has not yet; encouraged pt to do so. Wiped down visibly moldy areas with alcohol wipes. Initialized on 09/16/23 14:14 - END OF NOTE v v v v v v v v v Sending and/or Receiving Nurses: Please use comment section below to note any information pertinent to the patient hand-off not included above. Information / Comments: PT arrived on stretcher from ED. she was moved onto bed in room. Personal items brought up in pt belongings bag and remain with pt in room. Report received from:E.G., RN
[2023-09-21] MEDS: Rivaroxaban 15 MG TABLET PO (17:12)
[2023-09-21] MEDS: Metoprolol CR 100 MG TABCR PO (19:22)
[2023-09-21] MEDS: Amiodarone 200 MG TAB 400 MG PO (19:22)
[2023-09-21] MEDS: Spironolactone 25 MG TAB PO (19:22)
[2023-09-21] MEDS: Simvastatin 10 MG TAB PO (19:22)
[2023-09-21] MEDS: Acetaminophen 325 MG TAB PO (21:11)
[2023-09-22 03:58] VITALS: BP 102/70; PULSE 79; RESP 20; TEMP 36.5; O2SAT 96
[2023-09-22] MEDS: Omeprazole 20 MG CAPCR 40 MG PO (06:52)
[2023-09-22 07:54] VITALS: BP 121/74; PULSE 79; RESP 18; TEMP 36; O2SAT 98
[2023-09-22 08:01] LABS: Anion Gap 10.6 mmol/L (3-11); BUN 28 mg/dL (7-18); CO2 26.4 mmol/L (21.0-32.0); CREATININE 1.3 mg/dL (0.55-1.02); Calcium 8.7 mg/dL (8.5-10.1); Chloride 107 mmol/L (98-107); Estimated GFR 43.69 (mL/min/1.73m2); Glucose 152 mg/dL (74-106); Magnesium 1.6 mg/dL (1.8-2.4); NT-proBNP 1303 pg/mL (<300); Potassium 4.2 mmol/L (3.5-5.1); Sodium 144 mmol/L (136-145)
[2023-09-22] MEDS: glipiZIDE C.R. 5 MG TABCR PO (08:29)
[2023-09-22] MEDS: Furosemide 20 MG TAB PO ×2 (08:29→15:39)
[2023-09-22] MEDS: Aspirin 81 MG CHEW PO (08:29)
[2023-09-22] MEDS: Losartan 50 MG TAB 100 MG PO (08:29)
[2023-09-22] MEDS: Metoprolol CR 100 MG TABCR PO (08:30)
[2023-09-22] MEDS: FLUoxetine 10 MG TAB PO (08:30)
[2023-09-22] MEDS: Amiodarone 200 MG TAB 400 MG PO (08:30)
[2023-09-22] MEDS: buPROPion-CR 150 MG TABCR PO (08:30)
[2023-09-22] MEDS: Insulin Aspart 300 UNITS/3 ML PEN SC ×2 (08:31→12:20)
[2023-09-22 09:20] VITALS: PULSE 109; PULSE 84; PULSE 92; RESP 18; RESP 20; RESP 22; O2SAT 90; O2SAT 95; O2SAT 98
[2023-09-22] MEDS: Normal Saline Flush 10 ML SYR IVP (09:26)
[2023-09-22 11:18] VITALS: BP 105/72; PULSE 82; RESP 18; TEMP 36.2; O2SAT 96
[2023-09-22] MEDS: Magnesium Gluconate 500 MG TAB PO (14:42)
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
== END 2023-09-22 16:08 | disposition home or self-care (01) | DRG 291 ==
LOC: ER 16:32 → MS 17:40
PROVIDERS: Family Medicine; Internal Medicine; Admitting Provider Family Medicine; Emergency Provider Emergency Medicine; PCP Family Medicine; Visit Provider Family Medicine
DX: I11.0 Hypertensive heart disease with heart failure (principal); I50.33 Acute on chronic diastolic (congestive) heart failure; Z68.42 Body mass index [BMI] 45.0-49.9, adult; I48.0 Paroxysmal atrial fibrillation; E83.42 Hypomagnesemia; G47.33 Obstructive sleep apnea (adult) (pediatric); E11.9 Type 2 diabetes mellitus without complications; I34.0 Nonrheumatic mitral (valve) insufficiency; I44.7 Left bundle-branch block, unspecified; R26.81 Unsteadiness on feet; K52.9 Noninfective gastroenteritis and colitis, unspecified; Z79.01 Long term (current) use of anticoagulants; F32.A Depression, unspecified; K21.9 Gastro-esophageal reflux disease without esophagitis; E66.01 Morbid (severe) obesity due to excess calories; H90.3 Sensorineural hearing loss, bilateral; Z79.84 Long term (current) use of oral hypoglycemic drugs; R07.89 Other chest pain
CPT/HCPCS: 00123; 36410; 36415; 80048; 80053; 85027; 93005; 94618; 96374; 99222; 99285; 71045; 81003; 83735; 83880; 84443; 84484; 85025; 85610; 85730; 93010; 93306; 99223; 99232; 99233; 99238; J1815; J1940; J3475

== ENCOUNTER → 2023-09-17 07:36 | Outpatient (BNVA) | payer MEDICARE, BC, SELFPAY | PROVIDERS: PCP Family Medicine; Referring Provider Family Medicine; Visit Provider Internal Medicine Cardiovascular Disease ==

== ENCOUNTER 2023-09-29 11:18 | Outpatient (CLI) | payer MEDICARE, BC, SELFPAY ==
[2023-09-29 12:55] LABS: BUN 29 mg/dL (7-18); CREATININE 1.5 mg/dL (0.55-1.02); Calcium 9.3 mg/dL (8.5-10.1); Chloride 102 mmol/L (98-107); Glucose 147 mg/dL (74-106); Magnesium 1.8 mg/dL (1.8-2.4); Potassium 4.2 mmol/L (3.5-5.1); Sodium 140 mmol/L (136-145)
== END 2023-09-29 11:19 | disposition home or self-care (01) ==
LOC: LOS 11:18
PROVIDERS: Internal Medicine; PCP Family Medicine; Referring Provider Family Medicine; Visit Provider Family Medicine
DX: I10 Essential (primary) hypertension (principal); I50.9 Heart failure, unspecified; Z51.81 Encounter for therapeutic drug level monitoring; E83.42 Hypomagnesemia; I50.32 Chronic diastolic (congestive) heart failure; E11.9 Type 2 diabetes mellitus without complications; I48.0 Paroxysmal atrial fibrillation
CPT/HCPCS: 36415; 80048; 83735

== ENCOUNTER 2023-10-05 16:47 | Emergency (ER) | payer MEDICARE, BC, SELFPAY ==
[2023-10-05] VITALS (24 sets, daily range): BP systolic 118–143; BP diastolic 46–84; PULSE 40–68; RESP 12–21; TEMP 36.1; O2SAT 96–100
--- NOTE | 2023-10-05 16:45 | RT.EKG_ITS ---
APPROVED REPORT Exam: Resting ECG Reason for Exam: dizzy SOB Patient Location: E HR:43 bpm ECG Measurements Heart Rate 43 AXIS CA [id number] P [id number] QRSd 167 QRS 76 QT 503 T 36 QTc 428 Conclusion Atrial fibrillation...? atrial activity Right bundle branch block...QRSd>120, terminal axis(90,270) Atrial fibrillation with slow ventricular response and right bundle branch block. QTc within normal limits. Compared to prior dated last month atrial fibrillation has slowed. No acute injury pattern. No ST segment abnormalities.
--- NOTE | 2023-10-05 18:14 | DI.RAD_ITS ---
Exam(s) XR CHEST 2V PA LATERAL EXAM: XR CHEST 2V PA LATERAL CLINICAL HISTORY: bradycardia. TECHNIQUE: 2D digital imaging was performed. COMPARISON: CT CT CHEST PE CTA from 03/31/2022 CR XR PORTABLE CHEST AP from 09/15/2023 FINDINGS: 2 views: There has been interval placement of an anterior chest wall cardiac recorder device. Heart size is upper normal. The mediastinum is not widened. No new infiltrates. There are no pleural effusions. No pulmonary edema. IMPRESSION: No acute pulmonary findings. Anterior chest wall cardiac recorder device. Heart size normal. No pulmonary edema. DATA REPOSITORY: RADIATION DOSE DELIVERED:
[2023-10-05 18:35] LABS: Abs Immature Grans 0.05 10^3/uL (0.0-0.06); Absolute Basophil Count 0.12 10^3/uL (0.0-0.2); Absolute Lymphocyte Count 1.91 10^3/uL (1.2-3.4); Absolute Monocyte Count 0.81 10^3/uL (0.1-0.8); Absolute Neutrophil Count 4.91 10^3/uL (1.2-6.7); Basophils % 1.5 %; Eosinophils % 4.9 %; HCT 46.5 % (36.0-46.0); HGB 14.5 g/dL (11.2-15.7); Immature Grans % 0.6 %; Lymphocytes % 23.3 %; MCH 28.5 pg (27.0-33.0); MCHC 31.2 % (32.0-36.0); MCV 91 fL (80-95); MPV 10.5 fL (8.0-11.0); Monocytes % 9.9 %; Neutrophils % 59.8 %; Platelet Count 305 10^3/uL (130-400); RBC 5.09 10^6/uL (3.93-5.22); RDW 13.1 % (11.7-14.6); RDW-SD 44.4 fL
[2023-10-05 19:28] LABS: ALT 23 U/L (14-59); AST 10 U/L (15-37); Albumin 3.9 g/dL (3.4-5.0); Alkaline Phosphatase 63 U/L (46-116); Anion Gap 13.4 mmol/L (3-11); BUN 30 mg/dL (7-18); Bilirubin, Total 0.52 mg/dL (0.2-1.0); CO2 27.6 mmol/L (21.0-32.0); CREATININE 1.4 mg/dL (0.55-1.02); Calcium 9.2 mg/dL (8.5-10.1); Chloride 100 mmol/L (98-107); Estimated GFR 39.97 (mL/min/1.73m2); Glucose 102 mg/dL (74-106); Magnesium 1.8 mg/dL (1.8-2.4); NT-proBNP 333 pg/mL (<300); Potassium 4.1 mmol/L (3.5-5.1); Sodium 141 mmol/L (136-145); TSH (W/Ref FT4) 6.19 uIU/mL (0.36-3.74); Total Protein 8.2 g/dL (6.4-8.2)
[2023-10-05] MEDS: Metoprolol CR 50 MG TABCR PO (20:18)
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
== END 2023-10-05 20:21 | disposition home or self-care (01) ==
PROVIDERS: Emergency Provider Physician Assistant; PCP Family Medicine
DX: R00.1 Bradycardia, unspecified (principal); R42 Dizziness and giddiness; Z86.79 Personal history of other diseases of the circulatory system; Z79.899 Other long term (current) drug therapy
CPT/HCPCS: 36415; 80053; 93005; 99283; 71046; 83735; 83880; 84439; 84443; 85025; 93010

== ENCOUNTER 2023-10-14 00:42 | Outpatient (CLI) | payer MEDICARE, BC, SELFPAY ==
--- NOTE | 2023-10-14 10:00 | DI.US_ITS ---
Exam(s) US LOWER EXTREMITY VENOUS LT EXAM: US LOWER EXTREMITY VENOUS LT CLINICAL HISTORY: left leg/above ankle medial pain,swelling lower extremity,m79.89. TECHNIQUE: Lower extremity venous ultrasound performed using grayscale, color-flow, and spectral Do ppler analysis. COMPARISON: No exams were available for comparison FINDINGS: The common femoral, femoral and popliteal veins demonstrate normal compressibility, augmentation, and color Doppler. The posterior tibial veins are patent. No saphenous vein thrombosis or other superfi cial venous thrombosis is seen. No hematoma or Alonzo's cyst is seen. IMPRESSION: Negative lower extremity ultrasound. No evidence of DVT. DATA REPOSITORY:
== END 2023-10-14 01:02 ==
LOC: DI 00:42
PROVIDERS: PCP Family Medicine; Visit Provider Nurse Practitioner Family
DX: M79.89 Other specified soft tissue disorders (principal)
CPT/HCPCS: 93971

== ENCOUNTER 2023-10-27 01:20 | Outpatient (CLI) | payer MEDICARE, BC, SELFPAY ==
--- NOTE | 2023-10-27 07:00 | DI.MAMMO_ITS ---
Exam(s) MAMMO SCREENING EXAM: MAMMO SCREENING CLINICAL HISTORY: screening,z12.39 TECHNIQUE: Bilateral full field digital CC and MLO mammographic images were obtained with 3D tomosyn thesis and utilizing computer aided detection (CAD). COMPARISON: Available for comparison. FINDINGS: Masses/Architectural Distortion: None seen. Microcalcifications: No suspicious pleomorphic-type are seen. Skin Thickening/Nipple Retraction: None. IMPRESSION: 1. No significant interval change with no specific features of malignancy noted. 2. Unless there is more urgent need, screening mammography is recommended, as per [place] [employer] guidelines. BI-RADS Category 1 - Negative Breast Density - Category B - Scattered areas of fibroglandular density Breast density category C or D implies that the patient has dense breast tissue. Dense breast tissue is very common and is not abnormal but dense breast tissue can make it harder to find cancer on a ma mmogram. Also, dense breast tissue may increase their breast cancer risk. This information about the result of the mammogram report was provided to the patient to raise their awareness. Use this report when you speak with the patient about their risks for breast cancer, which includes their family hist ory. At that time, you may recommend for more screening tests (Ultrasound or MRI) as they might be us eful based on their risk. A negative radiographic report should not delay biopsy if a dominant or clinically suspicious mass is present. Up to ten percent of cancers are not identified on mammography. A negative report may reinforce clinical impression. Adenosis and dense breasts may obscure an underlying neoplasm. False positive reports average 6 to 10%. Patient will receive a letter notifying them of these results.
== END 2023-10-27 01:40 ==
LOC: DI 01:20
PROVIDERS: PCP Family Medicine; Visit Provider Family Medicine
DX: Z12.31 Encounter for screening mammogram for malignant neoplasm of breast (principal)
CPT/HCPCS: 77063; 77067

== ENCOUNTER 2023-10-29 08:18 | Outpatient (CLI) | payer MEDICARE, BC, SELFPAY ==
--- NOTE | 2023-10-29 09:16 | W.CARDEVENT ---
Date of service: 10/29/23 Time of Service: 09:17 Cardiac Event Recorder Referring Provider:: Burton Kearney Indications:: Paroxysmal atrial fibrillation Cardiac Event Note: This is a cardiac event monitor. Patient was monitored for 29 days 2 hours Initial rhythm was atrial flutter, predominantly controlled rate. On around day 4, the patient converted to sinus rhythm There were no pauses greater than 3 seconds, no high-grade AV block Average heart rate overall was 63. Minimum was 45. Maximum heart rate was 144 (in atrial flutter) Symptoms were reported which had no specific correlation to any dysrhythmia
== END 2023-10-29 08:19 | disposition home or self-care (01) ==
LOC: CARDOPNVT 08:18
PROVIDERS: PCP Family Medicine; Visit Provider Internal Medicine Cardiovascular Disease
DX: I48.0 Paroxysmal atrial fibrillation (principal)
CPT/HCPCS: 93272

== ENCOUNTER → 2023-11-09 14:24 | Outpatient (BNVA) | payer MEDICARE, BC, SELFPAY | PROVIDERS: PCP Family Medicine; Referring Provider Family Medicine; Visit Provider Podiatrist | DX: E11.9 Type 2 diabetes mellitus without complications (principal); L60.3 Nail dystrophy; I50.32 Chronic diastolic (congestive) heart failure; I25.10 Atherosclerotic heart disease of native coronary artery without angina pectoris; Z79.01 Long term (current) use of anticoagulants; R60.0 Localized edema; L84 Corns and callosities; R09.89 Other specified symptoms and signs involving the circulatory and respiratory systems; R23.8 Other skin changes; M79.674 Pain in right toe(s); M79.675 Pain in left toe(s); R20.8 Other disturbances of skin sensation; L60.8 Other nail disorders; R25.2 Cramp and spasm | CPT/HCPCS: 11720 ==

== ENCOUNTER 2024-01-25 12:14 | Emergency (ER) | payer MEDICARE, BC, SELFPAY ==
[2024-01-25] VITALS (29 sets, daily range): BP systolic 77–122; BP diastolic 45–65; PULSE 67–120; RESP 15–31; TEMP 35.9–36.6; O2SAT 94–98
--- NOTE | 2024-01-25 12:15 | RT.EKG_ITS ---
APPROVED REPORT Exam: Resting ECG Reason for Exam: sob Patient Location: E HR:120 bpm ECG Measurements Heart Rate 120 AXIS [place] [id number] P [id number] QRSd 162 QRS 62 QT 370 T -9 QTc 524 Conclusion Atrial fibrillation...V-rate 107-139, irreg A-activity Right bundle branch block...QRSd>120, terminal axis(90,270) Physician: unchanged from prior ekg
--- NOTE | 2024-01-25 13:00 | DI.CT_ITS ---
Exam(s) CT CHEST PE CTA EXAM: CT CHEST PE CTA CLINICAL HISTORY: hx of clots, eval for PE. TECHNIQUE: Imaging Protocol: Axial CT angiography was performed with multi-slice acquisition and mu lti-planar and/or 3D reconstructions. Lung Computer Aided Detection (CAD) was utilized. CONTRAST MATERIAL: Intravenous: Omnipaque 350 contrast volume:100 mL COMPARISON: CT CT CHEST PE CTA from 03/31/2022 CR XR CHEST 2V PA LATERAL from 10/05/2023 FINDINGS: Tracheobronchial tree: Patent where visualized. No bronchiectasis. Pulmonary parenchyma: No consolidation or dominant measurable mass. No architectural distortion. Pulmonary Arteries: No evidence of filling defect to suggest pulmonary emboli. Mediastinum and Stephy: No dominant adenopathy or fluid collection. The esophagus is unremarkable. Visualized thyroid gland: Unremarkable. Pleura: No effusion or pneumothorax. Heart: Cardiomegaly is present. Three vessel coronary artery calcification is present. Calcificatio n of the mitral annulus is present. No pericardial effusion. Aorta: Thoracic aorta non-dilated. Atherosclerotic calcification is present. Upper abdomen: Unremarkable. Soft tissues: Unremarkable. Bones: Within normal limits for the patient's age. IMPRESSION: 1. No evidence of pulmonary embolism or thoracic aortic aneurysm. 2. No acute pulmonary process. RADIATION DOSE DELIVERED: 160.93mGy.cm Total DLP DATA REPOSITORY: All CT scans at this facility are submitted to the National Radiology Data Registry (NRDR) Dose Index Registry (DIR) with the [employer] (ACR). RADIATION OPTIMIZATION: All CT scans at this facility use at least one of these dose optimization te chniques: automated exposure control; mA and/or kV adjustment per patient size (includes targeted exa ms where dose is matched to clinical indication); or iterative reconstruction.
[2024-01-25 13:07] LABS: Abs Immature Grans 0.02 10^3/uL (0.0-0.06); Absolute Basophil Count 0.11 10^3/uL (0.0-0.2); Absolute Eosinophil Count 0.28 10^3/uL (0.0-0.7); Absolute Lymphocyte Count 1.53 10^3/uL (1.2-3.4); Absolute Monocyte Count 0.44 10^3/uL (0.1-0.8); Absolute Neutrophil Count 3.14 10^3/uL (1.2-6.7); Eosinophils % 5.1 %; HCT 44.8 % (36.0-46.0); HGB 14.1 g/dL (11.2-15.7); Immature Grans % 0.4 %; Lymphocytes % 27.7 %; MCHC 31.5 % (32.0-36.0); MCV 92 fL (80-95); MPV 10.4 fL (8.0-11.0); Neutrophils % 56.8 %; Platelet Count 309 10^3/uL (130-400); RBC 4.87 10^6/uL (3.93-5.22); RDW 13.2 % (11.7-14.6); RDW-SD 44.9 fL; WBC 5.52 10^3/uL (4.4-10.8)
[2024-01-25 13:23] LABS: Magnesium 2.2 mg/dL (1.8-2.4)
[2024-01-25 13:28] LABS: ALT 25 U/L (14-59); AST 12 U/L (15-37); Albumin 3.4 g/dL (3.4-5.0); Alkaline Phosphatase 55 U/L (46-116); Anion Gap 9.1 mmol/L (3-11); BUN 24 mg/dL (7-18); Bilirubin, Total 0.74 mg/dL (0.2-1.0); CO2 26.9 mmol/L (21.0-32.0); CREATININE 1.4 mg/dL (0.55-1.02); Calcium 8.6 mg/dL (8.5-10.1); Chloride 106 mmol/L (98-107); Estimated GFR 39.97 (mL/min/1.73m2); Glucose 142 mg/dL (74-106); Potassium 4.2 mmol/L (3.5-5.1); Sodium 142 mmol/L (136-145); Total Protein 7.3 g/dL (6.4-8.2)
[2024-01-25 13:39] LABS: NT-proBNP 3468 pg/mL (<300); TSH (W/Ref FT4) 2.96 uIU/mL (0.36-3.74); Troponin I 4 ng/L (<or=51)
--- NOTE | 2024-01-25 13:45 | RT.EKG_ITS ---
APPROVED REPORT Exam: Resting ECG Reason for Exam: chest pain sob Patient Location: E HR:69 bpm ECG Measurements Heart Rate 69 AXIS AL 147 P 81 QRSd 164 QRS 122 QT 445 T 6 QTc 477 Conclusion Sinus rhythm...normal P axis, V-rate 60- 99 Right bundle branch block...QRSd>120, terminal axis(90,270) Probable lateral infarct, old...Q>35mS, abnormal ST-T, V5-6 I aVL
[2024-01-25 14:00] LABS: INR 1.2 (0.9-1.1); PTT Activated 31.8 sec (23.6-32.8); Prothrombin Time 11.6 sec (9.1-11.1)
[2024-01-25] MEDS: Omnipaque 350 MG/ML 100 ML BTL IJ (14:33)
[2024-01-25] MEDS: Normal Saline - Diluent 50 ML VIAL IJ (14:34)
[2024-01-25 14:54] LABS: Troponin I 4 ng/L (<or=51)
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
== END 2024-01-25 15:27 | disposition home or self-care (01) ==
PROVIDERS: Emergency Provider Student in an Organized Health Care Education/Training Program; PCP Family Medicine
DX: R06.02 Shortness of breath (principal); R00.2 Palpitations; I48.0 Paroxysmal atrial fibrillation; I11.0 Hypertensive heart disease with heart failure; I50.32 Chronic diastolic (congestive) heart failure; I45.19 Other right bundle-branch block; E11.9 Type 2 diabetes mellitus without complications; Z79.84 Long term (current) use of oral hypoglycemic drugs; Z79.85 Long-term (current) use of injectable non-insulin antidiabetic drugs; Z79.01 Long term (current) use of anticoagulants; Z79.82 Long term (current) use of aspirin
CPT/HCPCS: 71275; 80053; 93005; 96374; 99284; 83735; 83880; 84443; 84484; 85025; 85610; 85730; 93010; J3490

== ENCOUNTER 2024-03-17 15:12 | Emergency (ER) | payer MEDICARE, BC, SELFPAY ==
[2024-03-17] VITALS (22 sets, daily range): BP systolic 106–135; BP diastolic 46–87; PULSE 77–133; RESP 17–25; TEMP 37.2; O2SAT 93–98
--- NOTE | 2024-03-17 15:15 | RT.EKG_ITS ---
APPROVED REPORT Exam: Resting ECG Reason for Exam: tachycardia Patient Location: E HR:116 bpm ECG Measurements Heart Rate 116 AXIS AR [id number] P [id number] QRSd 147 QRS -8 QT 387 T 9 QTc 537 Conclusion Atrial fibrillation with RVR, rate 116 RBBB, not new compared to priors No STEMI
--- NOTE | 2024-03-17 15:30 | DI.RAD_ITS ---
Exam(s) XR CHEST 2V PA LATERAL EXAM: XR CHEST 2V PA LATERAL CLINICAL HISTORY: URI, junky cough, hx CHF TECHNIQUE: 2D digital imaging was performed. Two views. COMPARISON: CR XR CHEST 2V PA LATERAL from 03/18/2022 CR XR PORTABLE CHEST AP from 02/24/2023 CR XR PORTABLE CHEST AP from 07/03/2023 CR XR CHEST 2V PA LATERAL from 10/05/[address] CHEST PE CTA from 01/25/2024 FINDINGS: HEART: Mildly enlarged. Mitral annular calcifications. Aorta: Not dilated. Mildly tortuous. PULMONARY VASCULATURE: Prominent which appears unchanged. MEDIASTINUM: Unremarkable. LUNGS: Clear. PLEURAL SPACE: No pleural effusion or pneumothorax. BONE:Unremarkable for age. SOFT TISSUES: Unremarkable. IMPRESSION: No acute abnormality. DATA REPOSITORY: RADIATION DOSE DELIVERED:
[2024-03-17 16:11] LABS: COVID-19 PCR Negative (Negative); Influenza A PCR Negative (Negative); Influenza B PCR Negative (Negative); RSV PCR Negative (Negative)
[2024-03-17 16:12] LABS: Source Nasopharynx
[2024-03-17 16:25] LABS: Abs Immature Grans 0.02 10^3/uL (0.0-0.06); Absolute Basophil Count 0.04 10^3/uL (0.0-0.2); Absolute Eosinophil Count 0.13 10^3/uL (0.0-0.7); Absolute Lymphocyte Count 2.23 10^3/uL (1.2-3.4); Absolute Monocyte Count 0.55 10^3/uL (0.1-0.8); Absolute Neutrophil Count 2.94 10^3/uL (1.2-6.7); Basophils % 0.7 %; Eosinophils % 2.2 %; HCT 43.2 % (36.0-46.0); Immature Grans % 0.3 %; Lymphocytes % 37.7 %; MCH 28.6 pg (27.0-33.0); MCHC 32.4 % (32.0-36.0); MCV 88 fL (80-95); MPV 11.3 fL (8.0-11.0); Monocytes % 9.3 %; Neutrophils % 49.8 %; Platelet Count 276 10^3/uL (130-400); RDW 13.1 % (11.7-14.6); RDW-SD 42.8 fL; WBC 5.91 10^3/uL (4.4-10.8)
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
[2024-03-17 16:46] LABS: ALT 34 U/L (14-59); AST 16 U/L (15-37); Albumin 3.2 g/dL (3.4-5.0); Alkaline Phosphatase 52 U/L (46-116); Anion Gap 8.8 mmol/L (3-11); BUN 14 mg/dL (7-18); CO2 28.2 mmol/L (21.0-32.0); CREATININE 1.2 mg/dL (0.55-1.02); Calcium 8.5 mg/dL (8.5-10.1); Chloride 106 mmol/L (98-107); Estimated GFR 48.09 (mL/min/1.73m2); Glucose 127 mg/dL (74-106); Magnesium 1.4 mg/dL (1.8-2.4); NT-proBNP 3694 pg/mL (<300); Potassium 3.6 mmol/L (3.5-5.1); Sodium 143 mmol/L (136-145); Total Protein 6.9 g/dL (6.4-8.2); Troponin I 8 ng/L (<or=51)
[2024-03-17 17:49] LABS: Troponin I 9 ng/L (<or=51)
[2024-03-17] MEDS: Ondansetron O.D.T. 4 MG TABEF, 3 TABS/BTL PO (17:52)
[2024-03-17] MEDS: Albuterol HFA 8 GM 60 PUFF INH IH (17:52)
[2024-03-17] MEDS: Inhaler, Assist Device 1 EACH MC (17:58)
== END 2024-03-17 17:59 | disposition home or self-care (01) ==
PROVIDERS: Emergency Provider Emergency Medicine; PCP Family Medicine
DX: J20.9 Acute bronchitis, unspecified (principal); I11.0 Hypertensive heart disease with heart failure; I50.9 Heart failure, unspecified; I48.0 Paroxysmal atrial fibrillation; E11.9 Type 2 diabetes mellitus without complications; G47.33 Obstructive sleep apnea (adult) (pediatric); I45.10 Unspecified right bundle-branch block; Z79.84 Long term (current) use of oral hypoglycemic drugs; Z79.82 Long term (current) use of aspirin; Z79.01 Long term (current) use of anticoagulants; Z87.891 Personal history of nicotine dependence
CPT/HCPCS: 36415; 80053; 87637; 93005; 99284; 71046; 83735; 83880; 84484; 85025; 93010

== ENCOUNTER 2024-09-06 03:48 | Outpatient (CLI) | payer MEDICARE, BC, SELFPAY ==
[2024-09-06 12:38] LABS: Potassium 4.1 mmol/L (3.5-5.1)
== END 2024-09-06 03:49 | disposition home or self-care (01) ==
LOC: LOS 03:49
PROVIDERS: PCP Family Medicine; Visit Provider Family Medicine
DX: I10 Essential (primary) hypertension (principal)
CPT/HCPCS: 36415; 84132

== ENCOUNTER 2024-12-26 09:55 | Observation (INO) | payer MEDICARE, BC, SELFPAY ==
[2024-12-26] VITALS (64 sets, daily range): BP systolic 82–129; BP diastolic 37–107; PULSE 47–150; RESP 11–26; TEMP 35.8–36.6; O2SAT 88–100
--- NOTE | 2024-12-26 09:45 | RT.EKG_ITS ---
APPROVED REPORT Exam: Resting ECG Reason for Exam: Rapid Heart Rate Patient Location: E HR:147 bpm ECG Measurements Heart Rate 147 AXIS PA 165 P 128 QRSd 154 QRS 68 QT 350 T -12 QTc 548 Conclusion Sinus tachycardia...rate> 99 Right bundle branch block...QRSd>120, terminal axis(90,270) No Occlusion DE
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
--- NOTE | 2024-12-26 10:15 | DI.RAD_ITS ---
Exam(s) XR PORTABLE CHEST AP EXAM: XR PORTABLE CHEST AP CLINICAL HISTORY: Chest pain TECHNIQUE: 2D digital imaging was performed of the chest. One image was obtained. An AP view was obtained. COMPARISON: CR XR PORTABLE CHEST AP from 09/15/2023 CR XR CHEST 2V PA LATERAL from 10/05/[address] CHEST PE CTA from 01/25/2024 CR XR CHEST 2V PA LATERAL from 03/17/2024 FINDINGS: MEDIASTINUM: Normal. HEART: The heart is at the upper limits of normal in size. PULMONARY VASCULATURE: There is prominence of the pulmonary vasculature. LUNGS: Streaky infiltrates are seen in the perihilar regions bilaterally. There are no focal consolidating infiltrates. PLEURAL SPACE: No pleural effusion or pneumothorax. BONE:Within normal limits for the patient's age. OTHER FINDINGS:Normal. IMPRESSION: 1. Prominence of the pulmonary vasculature and streaky infiltrates in the perihilar region suspicious for pulmonary venous congestion/fluid overload. Please correlate clinically. 2. There are no focal consolidating infiltrates. DATA REPOSITORY: RADIATION DOSE DELIVERED:
[2024-12-26] MEDS: dilTIAZem 25 MG/5 ML VIAL 10 MG IVP ×2 (10:35→14:02)
[2024-12-26] MEDS: Aspirin 81 MG CHEW 324 MG CH (10:35)
--- NOTE | 2024-12-26 10:45 | RT.EKG_ITS ---
APPROVED REPORT Exam: Resting ECG Reason for Exam: AF Patient Location: E HR:91 bpm ECG Measurements Heart Rate 91 AXIS ID [id number] P [id number] QRSd 166 QRS 42 QT 428 T 1 QTc 528 Conclusion Atrial fibrillation...V-rate 64-121, irreg A-activity Right bundle branch block...QRSd>120, terminal axis(90,270) No Occlusion VT
[2024-12-26 10:46] LABS: Abs Immature Grans 0.02 10^3/uL (0.0-0.06); HCT 41.8 % (36.0-46.0); HGB 13.6 g/dL (11.2-15.7); Immature Grans % 0.3 %; MCH 28.8 pg (27.0-33.0); MCHC 32.5 % (32.0-36.0); MCV 88 fL (80-95); MPV 10.3 fL (8.0-11.0); Platelet Count 277 10^3/uL (130-400); RBC 4.73 10^6/uL (3.93-5.22); RDW 13.0 % (11.7-14.6); RDW-SD 42.5 fL; WBC 6.57 10^3/uL (4.4-10.8)
[2024-12-26 11:14] LABS: ALT 20 U/L (14-59); AST 12 U/L (15-37); Albumin 3.2 g/dL (3.4-5.0); Alkaline Phosphatase 60 U/L (46-116); Anion Gap 10.9 mmol/L (3-11); BUN 30 mg/dL (7-18); Bilirubin, Total 0.8 mg/dL (0.2-1.0); CO2 26.1 mmol/L (21.0-32.0); Calcium 8.4 mg/dL (8.5-10.1); Chloride 102 mmol/L (98-107); Glucose 169 mg/dL (74-106); Magnesium 1.6 mg/dL (1.8-2.4); Potassium 3.9 mmol/L (3.5-5.1); Sodium 139 mmol/L (136-145); Total Protein 7.1 g/dL (6.4-8.2); Troponin I 5 ng/L (<or=51)
[2024-12-26 11:29] LABS: D-Dimer 343 ng/mlFEU (<500)
[2024-12-26] MEDS: MAGNESIUM SULFATE 2 GM/50 ML BAG IVINF (11:41)
[2024-12-26 12:15] LABS: Troponin I 5 ng/L (<or=51)
--- NOTE | 2024-12-26 14:15 | RT.EKG_ITS ---
APPROVED REPORT Exam: Resting ECG Reason for Exam: bradycardia Patient Location: E HR:46 bpm ECG Measurements Heart Rate 46 AXIS OR 153 P 69 QRSd 163 QRS 52 QT 493 T 25 QTc 430 Conclusion Sinus bradycardia...rate< 60 Right bundle branch block...QRSd>120, terminal axis(90,270) No Occlusion MN
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
[2024-12-26] MEDS: Dofetilide 250 MCG CAP 500 MCG PO (20:02)
[2024-12-26] MEDS: Furosemide 40 MG TAB PO (20:03)
[2024-12-26] MEDS: Apixaban 5 MG TAB PO (20:03)
[2024-12-26] MEDS: Simvastatin 10 MG TAB PO (20:04)
[2024-12-26] MEDS: buPROPion-CR 150 MG TABCR PO (20:04)
[2024-12-26] MEDS: Normal Saline Flush 10 ML SYR IVP (20:07)
[2024-12-27 07:42] LABS: Anion Gap 8.9 mmol/L (3-11); BUN 30 mg/dL (7-18); CO2 28.1 mmol/L (21.0-32.0); Calcium 8.5 mg/dL (8.5-10.1); Chloride 102 mmol/L (98-107); Glucose 128 mg/dL (74-106); Magnesium 2.2 mg/dL (1.8-2.4); Potassium 4.1 mmol/L (3.5-5.1); Sodium 139 mmol/L (136-145)
[2024-12-27 07:47] VITALS: BP 117/54; PULSE 61; RESP 16; TEMP 35.9; O2SAT 98
[2024-12-27 08:35] VITALS: O2SAT 96
[2024-12-27 09:14] VITALS: BP 106/63; PULSE 63
[2024-12-27] MEDS: Normal Saline Flush 10 ML SYR IVP (09:29)
[2024-12-27] MEDS: glipiZIDE C.R. 5 MG TABCR 2.5 MG PO (09:30)
[2024-12-27] MEDS: buPROPion-CR 150 MG TABCR PO (09:30)
[2024-12-27] MEDS: Omeprazole 20 MG CAPCR 40 MG PO (09:30)
[2024-12-27] MEDS: Dofetilide 250 MCG CAP 500 MCG PO (09:30)
[2024-12-27] MEDS: Apixaban 5 MG TAB PO (09:30)
[2024-12-27] MEDS: Aspirin 81 MG CHEW PO (09:30)
[2024-12-27] MEDS: FLUoxetine 10 MG TAB PO (09:31)
[2024-12-27] MEDS: Losartan 50 MG TAB 100 MG PO (10:21)
[2024-12-27] MEDS: Spironolactone 25 MG TAB PO (10:21)
[2024-12-27] MEDS: Metoprolol CR 100 MG TABCR PO (10:21)
[2024-12-27] MEDS: Furosemide 40 MG TAB PO (10:21)
--- NOTE | 2024-12-27 10:36 | W.PC.ACHO ---
Registration Status: ADM NEELA Primary Language: Preferred Language: Latvian ED Information & Data Chief Complaint Palpitatns 12/26/24 10:05 Chief Complaint Palpitatns 12/26/24 09:58 Triage Note Pt arrives to ED with 12/26/24 09:58 concerns for AFIB. Hx of AFIB. Pt states sx started around 0630 today. Pt endorses palpitations and chest pressure. SOB w/ exertion. PT takes Eliquis + diltiazem and has been taking it as prescribed. Medical / Surgical History (Last Reviewed 12/26/24 @ 17:44 by Tanner Durán) (HFpEF) heart failure with preserved ejection fraction Sensorineural hearing loss, bilateral URI (upper respiratory infection) Tick bite Herpes zoster without complication (05/22/15) Obesity HTN (hypertension) GERD (gastroesophageal reflux disease) [facility] current use of anticoagulant Atrial flutter AURORA (obstructive sleep apnea) (Last Reviewed 12/26/24 @ 17:44 by Tanner Durán) S/p bilateral myringotomy with tube placement History of tonsillectomy and adenoidectomy History of hand surgery History of mastoidectomy (02/14/14) Status post total bilateral knee replacement shoulder surgery (04/30/16) Replacement of total knee joint (~2004) Open Carpal Tunnel release (~03/2009) HAND SURGERY (~02/2013) Colonoscopy - MAC (05/29/17) Breast, Mastectomy (~01/2003) Most Recent Vital Signs Temperature 35.9 C L 12/27/24 07:47 Temperature Source Temporal Artery Scan 12/27/24 07:47 Pulse 63 12/27/24 09:14 Pulse Rhythm Regular 12/26/24 22:48 Pulse 59 L 12/26/24 16:31 Respiratory Rate 16 12/27/24 07:47 Respiratory Effort Labored 12/26/24 22:48 Respiratory Depth Normal 12/26/24 22:48 Respiratory Pattern Normal 12/26/24 22:48 Blood Pressure 106/63 12/27/24 09:14 Blood Pressure Mean 77 12/27/24 09:14 Blood Pressure Position Sitting 12/26/24 09:58 Pulse Oximetry 96 12/27/24 08:35 Oxygen Delivery Method Room Air 12/27/24 08:35 Oxygen Flow Rate 0 12/27/24 08:35 Pain Level 0 12/27/24 09:14 Allergies cefuroxime Allergy (Severe, Verified 12/26/24 10:03) HIVES latex Allergy (Severe, Verified 12/26/24 10:03) RASH Penicillins Allergy (Severe, Verified 12/26/24 10:03) SEVERE HIVES Sulfa (Sulfonamide Antibiotics) Allergy (Severe, Verified 12/26/24 10:03) SEVERE HIVES ciprofloxacin Allergy (Mild, Verified 12/26/24 10:03) TOPICAL IRRITATION clindamycin Adverse Reaction (Severe, Verified 12/26/24 10:03) Hives adhesive Adverse Reaction (Intermediate, Verified 12/26/24 10:03) SKIN COMES OFF caffeine Adverse Reaction (Intermediate, Verified 12/26/24 10:03) CHEST PAIN empagliflozin (From Jardiance) Adverse Reaction (Intermediate, Verified 12/26/24 10:03) yeast infections NSAIDS (Non-Steroidal Anti-Inflamma Adverse Reaction (Intermediate, Verified 12/26/24 10:03) Other (See Comment) chest pain lisinopril Adverse Reaction (Mild, Verified 12/26/24 10:03) COUGH metformin Adverse Reaction (Mild, Verified 12/26/24 10:03) diarrhea Precautions Isolation Standard precaution 12/26/24 10:05 Active Medications Generic Name Dose Route Start Last Admin Trade Name Freq PRN Reason Stop Dose Admin Apixaban 5 mg 12/26/24 20:00 12/27/24 09:30 Apixaban 5 Mg Tab PO 5 mg BID STEPHEN Administration Aspirin 81 mg 12/27/24 08:30 12/27/24 09:30 Aspirin 81 Mg Chew PO 81 mg DAILY STEPHEN Administration Bupropion HCl 150 mg 12/26/24 20:00 12/27/24 09:30 Bupropion-Cr 150 Mg Tabcr PO 150 mg BID STEPHEN Administration Dofetilide 500 mcg 12/26/24 20:00 12/27/24 09:30 Dofetilide 250 Mcg Cap PO 500 mcg BID STEPHEN Administration Fluoxetine HCl 10 mg 12/27/24 08:30 12/27/24 09:31 Fluoxetine 10 Mg Tab PO 10 mg DAILY STEPHEN Administration Furosemide 40 mg 12/26/24 20:00 12/27/24 10:21 Furosemide 40 Mg Tab PO 40 mg BID STEPHEN Administration Glipizide 2.5 mg 12/27/24 08:30 12/27/24 09:30 Glipizide C.R. 5 Mg Tabcr PO 2.5 mg DAILY STEPHEN Administration Insulin Aspart 0 units 12/27/24 08:00 12/27/24 09:29 Insulin Aspart 300 Units/3 Ml Pen SC Not Given 0800,1200,1700 [facility] Protocol Losartan Potassium 100 mg 12/27/24 08:30 12/27/24 10:21 Losartan 50 Mg Tab PO 100 mg DAILY STEPHEN Administration Metoprolol Succinate 100 mg 12/27/24 08:30 12/27/24 10:21 Metoprolol Cr 100 Mg Tabcr PO 100 mg DAILY STEPHEN Administration Omeprazole 40 mg 12/27/24 07:30 12/27/24 09:30 Omeprazole 20 Mg Capcr PO 40 mg DAILY@0730 STEPHEN Administration Pt's Own Magnesium 4 each 12/27/24 08:30 12/27/24 09:31 Amino Acid Chelate PO Not Given 100 Mg Tablet DAILY STEPHEN Simvastatin 10 mg 12/26/24 20:00 12/26/24 20:04 Simvastatin 10 Mg Tab PO 10 mg HS STEPHEN Administration Sodium Chloride 0 ml 12/26/24 20:00 12/27/24 09:29 Normal Saline Flush 10 Ml Syr IVP 20 ml BID STEPHEN Administration Spironolactone 25 mg 12/27/24 08:30 12/27/24 10:21 Spironolactone 25 Mg Tab PO 25 mg DAILY STEPHEN Administration IV IV Catheter Type [Left Saline Lock Antecubital] IV Catheter Gauge [Left 18 Antecubital] Diagnostics 12/27/24 12/26/24 12/26/24 Range/Units 06:14 11:35 10:36 WBC 6.57 (4.4-10.8) 10^3/uL RBC 4.73 (3.93-5.22) 10^6/uL Hgb 13.6 (11.2-15.7) g/dL Hct 41.8 (36.0-46.0) % MCV 88 (80-95) fL MCH 28.8 (27.0-33.0) pg MCHC 32.5 (32.0-36.0) % RDW 13.0 (11.7-14.6) % Plt Count 277 (130-400) 10^3/uL MPV 10.3 (8.0-11.0) fL Immature Gran % 0.3 % Neutrophils % 53.8 % Lymphocytes % 29.8 % Monocytes % 8.4 % Eosinophils % 5.9 % Basophils % 1.8 % Nucleated RBC % 0.0 (0.0-0.3) % Absolute Neutrophils 3.53 (1.2-6.7) 10^3/uL Absolute Lymphocytes 1.96 (1.2-3.4) 10^3/uL Absolute Monocytes 0.55 (0.1-0.8) 10^3/uL Absolute Eosinophils 0.39 (0.0-0.7) 10^3/uL Absolute Basophils 0.12 (0.0-0.2) 10^3/uL D-Dimer 343 (<500) ng/mlFEU Sodium 139 139 (136-145) mmol/L Potassium 4.1 3.9 (3.5-5.1) mmol/L Chloride 102 102 (98-107) mmol/L Carbon Dioxide 28.1 26.1 (21.0-32.0) mmol/L Anion Gap 8.9 10.9 (3-11) mmol/L BUN 30 H 30 H (7-18) mg/dL Creatinine 1.2 H 1.4 H (0.55-1.02) mg/dL Est GFR (CKD-EPI 2020) 47.80 39.73 (mL/min/1.73m2) Glucose 128 H 169 H (74-106) mg/dL Calcium 8.5 8.4 L (8.5-10.1) mg/dL Magnesium 2.2 1.6 L (1.8-2.4) mg/dL Total Bilirubin 0.8 (0.2-1.0) mg/dL AST 12 L (15-37) U/L ALT 20 (14-59) U/L Alkaline Phosphatase 60 (46-116) U/L Troponin I 5 5 (<or=51) ng/L Total Protein 7.1 (6.4-8.2) g/dL Albumin 3.2 L (3.4-5.0) g/dL [id number] Documentation Fingerstick Glucose Start: 12/26/24 18:22 Freq: .AC Status: Active Protocol: Activity Type Activity Date Activity User E-sign Co-sign Detail Recorded Client Recorded Date Recorded By Document 12/27/24 07:39 JASON CURRIE(3) [id number] 12/27/24 07:41 BKG ROSEY(4) Intake and Output - 24 Hour Total 12/26/24 09:55 thru 12/27/24 08:39 Intake Total 547.083 Balance 547.083 Weight 133.9 kg Intake: IV 97.083 Oral 450 Other: Urine Color Yellow Urine Appearance Clear Urine Odor Normal Comment Pt voided in toilet. Falls Risk Assessment History of Falls Previous History 12/26/24 22:48 Contributing Factors Unstable 12/26/24 17:20 Ambulatory Aids Uses ambulatory device 12/26/24 22:48 Tubes/Lines None 12/26/24 22:48 Gait Evaluation W/no contributing factors 12/26/24 22:48 Cognition No cognitive impairment 12/26/24 22:48 Fall Total Score 40 12/26/24 22:48 Level of Risk Moderate Risk 12/26/24 22:48 Problems (Last Reviewed 12/26/24 @ 17:44 by Tanner Durán) Hypomagnesemia (Acute) Chest pain, unspecified (Acute) Atrial fibrillation with RVR (Acute) Atrial fibrillation with rapid ventricular response (Acute) Obstructive sleep apnea syndrome (Chronic) Essential hypertension (Chronic 12/16/12) v v v v v v v v v Sending and/or Receiving Nurses: Please use comment section below to note any information pertinent to the patient hand-off not included above. Information / Comments: Paged at [phone], report called at [phone]. Pt arrived to ED w/ afib w/ RVR, converted to sinus bradycardia confirmed with EKG after x2 dose of IV diltiazem. 18 G L AC. Report received from: Suad Goodman ED RN
[2024-12-27 11:10] VITALS: BP 104/57; PULSE 61; RESP 16; TEMP 36.1; O2SAT 95
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
[2024-12-27 15:13] VITALS: BP 127/72; PULSE 69; RESP 16; TEMP 35.7; O2SAT 99
== END 2024-12-27 16:20 | disposition home or self-care (01) ==
LOC: ER 13:07 → MS 17:18
PROVIDERS: Admitting Provider Family Medicine; Emergency Provider Emergency Medicine; PCP Family Medicine; Responsible Provider Nurse Practitioner Family; Visit Provider Family Medicine
DX: I48.0 Paroxysmal atrial fibrillation (principal); I11.0 Hypertensive heart disease with heart failure; I50.30 Unspecified diastolic (congestive) heart failure; G47.33 Obstructive sleep apnea (adult) (pediatric); E11.9 Type 2 diabetes mellitus without complications; E83.42 Hypomagnesemia; I25.10 Atherosclerotic heart disease of native coronary artery without angina pectoris; F32.A Depression, unspecified; K21.9 Gastro-esophageal reflux disease without esophagitis; M15.9 Polyosteoarthritis, unspecified; R32 Unspecified urinary incontinence; Z96.653 Presence of artificial knee joint, bilateral; Z79.01 Long term (current) use of anticoagulants; Z79.84 Long term (current) use of oral hypoglycemic drugs; Z79.899 Other long term (current) drug therapy; E66.9 Obesity, unspecified; Z68.42 Body mass index [BMI] 45.0-49.9, adult
CPT/HCPCS: 00123; 36415; 80048; 80053; 93005; 93308; 96365; 96366; 96375; 96376; 99222; 99291; 71045; 83735; 84484; 85025; 85379; 93010; 94760; 99239; G0378; J1815; J3475

== ENCOUNTER → 2024-12-27 07:42 | Outpatient (BNVA) | payer MEDICARE, BC, SELFPAY | PROVIDERS: PCP Family Medicine; Referring Provider Family Medicine; Visit Provider Internal Medicine Cardiovascular Disease ==